=== PATIENT | male | born 1970 | race Two or more races ===

== ENCOUNTER 2018-03-13 11:06 | Inpatient (IN) | payer OTHER ==
[2018-03-13 11:48] VITALS: BMI 26.8
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
[2018-03-13] MEDS ORDERED: MAG HYDROX/AL HYDROX/SIMETH 30 ML UNIT-DOSE CUP PO PRN (14:55)
[2018-03-13] MEDS ORDERED: IBUPROFEN 400 MG TABLET (FP) PO PRN (14:55)
[2018-03-13] MEDS ORDERED: P-EPHED 60MG/TRIPROLIDI 2.5MG TABLET PO PRN (14:55)
[2018-03-13] MEDS ORDERED: ACETAMINOPHEN 325 MG TABLET (FP) PO PRN (14:55)
[2018-03-13] MEDS ORDERED: MAGNESIUM HYDROX 2400MG/30ML ORAL SUSPENSION 30 ML CUP PO PRN (14:55)
[2018-03-13] MEDS ORDERED: MAGNESIUM CITRATE 300 ML BOTTLE PO PRN (14:55)
[2018-03-13] MEDS ORDERED: LOPERAMIDE HCL 2 MG CAPSULE PO PRN (14:55)
[2018-03-13] MEDS ORDERED: MENTHOL/PHENOL 1 EACH UD MM PRN (14:55)
[2018-03-13] MEDS ORDERED: guaiFENesin/D-METHORPHAN HB 10 ML UNIT-DOSE CUPS PO PRN (14:55)
[2018-03-13] MEDS: chlordiazePOXIDE HCL 25 MG CAPSULE PO SCH ×2 (17:14→22:10)
[2018-03-13] MEDS: NICOTINE 21 MG/24 HOURS TOPICAL PATCH TD SCH (17:17)
[2018-03-13] MEDS: THIAMINE HCL 100 MG TABLET (FP) PO SCH (22:10)
[2018-03-14 02:20] LABS: URINE APPEARANCE CLEAR; URINE BILIRUBIN NEGATIVE (<2.0 mg/dL); URINE COLOR LTYELLOW; URINE GLUCOSE (UA) NEGATIVE (NEGATIVE); URINE KETONE NEGATIVE (NEGATIVE); URINE LEUK ESTERASE NEGATIVE (NEGATIVE); URINE NITRITE NEGATIVE (NEGATIVE); URINE PROTEIN NEGATIVE (NEGATIVE); URINE UROBILINOGEN NEGATIVE mg/dL (0.2-1.0)
[2018-03-14] MEDS: chlordiazePOXIDE HCL 25 MG CAPSULE PO SCH ×4 (06:29→22:21)
--- NOTE | 2018-03-14 07:46 | PN ---
[facility] Progress Note Note: CLIENT WAS OBSERVED OVERNIGHT FOR OVER SEDATION. INFORMED CLIENT TOOK 100 MG OF METHADONE YESTERDAY PRIOR TO HIS ADMISSION ( NL MMTP DOSE IS 50 MG). CLIENT WAS FOUND TO BE VERY DROWSY/ AROUSABLE WITH VERBAL STIMULI BUT QUICKLY DRIFTING OFF TO SLEEP. HIS SPEECH IS GARBLED AND SLURRED, CONFUSED TO PLACE AND TIME BUT ORIENTED TO SELF. HEENT- NCAT, PERRLA, UNABLE TO FOLLOW COMMANDS, ASKING TO GO TO BATHROOM CV- BRADYCARDIA AT 55 BPM LUNGS-CTAB O2 SAT 97% NEURO CHECKS Q 30 MINUTES VS Q 2 HOURS ASPIRATION PRECAUTION URINAL AT BEDSIDE ALL SEDATING MEDS WERE HELD OVERNIGHT AND FALL PRECAUTION ORDERED AND MAINTAINED. CLIENT WAS REEVALUATED THIS MORNING A/O X3, CONVERSING WELL, FOLLOWING COMMANDS APPROPRIATELY, LYING IN BED C/O WEAKNESS CLIENT WAS ENCOURAGED TO INCREASE PO HYDRATION AND TO CALL FOR ASSIST OOB. HE WAS ALSO INFORMED ABOUT HIS RISK FOR OVER DOSING WHEN DOUBLE DOSING ON HIS METHADONE TO INCLUDE . CLIENT VERBALIZED HIS UNDERSTANDING AND WAS VERY APOLOGETIC. Vital Signs - 8 hr 03/14/18 03/14/18 03/14/18 00:00 00:30 02:00 Temperature 97.5 F L 97.7 F Pulse Rate 55 L 50 L Respiratory 20 20 18 Rate Blood Pressure 99/60 104/69 03/14/18 03/14/18 03/14/18 03:30 04:00 06:00 Temperature 97.5 F L 97.5 F L Pulse Rate 97 H 56 L Respiratory 20 18 18 Rate Blood Pressure 113/61 107/60
[2018-03-14] MEDS ORDERED: BENZOCAINE 20 % GEL TUBE MM PRN (08:51)
[2018-03-14 10:43] LABS: HEMATOCRIT 38.8 % (35.4-49); HEMOGLOBIN 12.5 GM/dL (11.7-16.9); MCH 29.5 pg (25.7-33.7); MCHC 32.1 g/dl (32.0-35.9); MEAN CELL VOLUME 91.9 fl (80-96); MEAN PLT VOLUME 9.5 fl (7.5-11.1); PLATELET COUNT 146 K/MM3 (134-434); RBC 4.23 M/mm3 (4.00-5.60); RDW 14.4 % (11.9-15.9); WHITE BLOOD COUNT 4.2 K/mm3 (4.0-10.0)
[2018-03-14 10:47] LABS: ALBUMIN 3.2 g/dl (3.4-5.0); ALK PHOS 88 U/L (45-117); ANION GAP 8 MMOL/L (8-16); BILIRUBIN,TOTAL 0.5 mg/dL (0.2-1); BLOOD UREA NITROGEN 11 mg/dL (7-18); CALCIUM 8.3 mg/dL (8.5-10.1); CHLORIDE 103 mmol/L (98-107); CO2 29 mmol/L (21-32); CREATININE 0.7 mg/dL (0.55-1.3); GLUCOSE,RANDOM 101 mg/dL (74-106); POTASSIUM 4.1 mmol/L (3.5-5.1); SGOT/AST 24 U/L (15-37); SGPT/ALT 28 U/L (13-61); SODIUM 140 mmol/L (136-145); TOT PROT 6.1 g/dl (6.4-8.2)
[2018-03-14] MEDS: NICOTINE 21 MG/24 HOURS TOPICAL PATCH TD SCH (12:20)
[2018-03-14] MEDS: CHLORHEXIDINE GLUCONATE 0.12% 15ML CUP MM SCH ×2 (12:21→22:22)
[2018-03-14] MEDS: PRENATAL VITAMINS W/ FOLIC ACID TABLET (FP) PO SCH (12:21)
[2018-03-14] MEDS ORDERED: KETOROLAC TROMETHAMINE 10 MG TABLET PO PRN (15:49)
--- NOTE | 2018-03-14 16:05 | PN ---
S CIWA - CIWA Score Nausea/Vomitin-No Nausea/No Vomiting Muscle Tremors: 3 Anxiety: 2 Agitation: 2 Paroxysmal Sweats: 1-Minimal Palms Moist Orientation: 0-Oriented Tacttile Disturbances: 0-None Auditory Disturbances: 0-None Visual Disturbances: 0-None Headache: 1-Very Mild CIWA-Ar Total Score: 9 [facility] Progress Note (SOAP) Subjective: c/o tooth ache unable to open the mouth for examination pounding on the wall yelling out loud pacing on [address] "tooth pain" demand the tooth the be pulled out screaming loud on [address] maintaining the right and the dignity of the patient preference that ambulance was called and information provided to the ER for tooth ache patient return from ER had one dose toradol denies pain smile "they are nice" patient has double dose methadone yesterday observed over night appears feeling better ADL's independent but "tooth ache" treated with toradol with good effect toradol prn for tooth ache Objective: 03/14/18 16:10 Vital Signs Temperature 97.9 F 03/14/18 14:15 Pulse Rate 61 03/14/18 14:15 Respiratory Rate 16 03/14/18 14:15 Blood Pressure 128/78 03/14/18 14:15 O2 Sat by Pulse Oximetry (%) Laboratory Last Values WBC 4.2 K/mm3 (4.0-10.0) 03/14/18 07:10 RBC 4.23 M/mm3 (4.00-5.60) 03/14/18 07:10 Hgb 12.5 GM/dL (11.7-16.9) 03/14/18 07:10 Hct 38.8 % (35.4-49) 03/14/18 07:10 MCV 91.9 fl (80-96) 03/14/18 07:10 MCH 29.5 pg (25.7-33.7) 03/14/18 07:10 MCHC 32.1 g/dl (32.0-35.9) 03/14/18 07:10 RDW 14.4 % (11.9-15.9) 03/14/18 07:10 Plt Count 146 K/MM3 (134-434) 03/14/18 07:10 MPV 9.5 fl (7.5-11.1) 03/14/18 07:10 Sodium 140 mmol/L (136-145) 03/14/18 07:10 Potassium 4.1 mmol/L (3.5-5.1) 03/14/18 07:10 Chloride 103 mmol/L (98-107) 03/14/18 07:10 Carbon Dioxide 29 mmol/L (21-32) 03/14/18 07:10 Anion Gap 8 MMOL/L (8-16) 03/14/18 07:10 BUN 11 mg/dL (7-18) 03/14/18 07:10 Creatinine 0.7 mg/dL (0.55-1.3) 03/14/18 07:10 Creat Clearance w eGFR > 60 (>60) 03/14/18 07:10 Random Glucose 101 mg/dL (74-106) 03/14/18 07:10 Calcium 8.3 mg/dL (8.5-10.1) L 03/14/18 07:10 Total Bilirubin 0.5 mg/dL (0.2-1) 03/14/18 07:10 AST 24 U/L (15-37) 03/14/18 07:10 ALT 28 U/L (13-61) 03/14/18 07:10 Alkaline Phosphatase 88 U/L (45-117) 03/14/18 07:10 Total Protein 6.1 g/dl (6.4-8.2) L 03/14/18 07:10 Albumin 3.2 g/dl (3.4-5.0) L 03/14/18 07:10 Urine Color Ltyellow 03/14/18 01:00 Urine Appearance Clear 03/14/18 01:00 Urine pH 6.0 (5.0-8.0) 03/14/18 01:00 Ur Specific [place] 1.012 (1.010-1.035) 03/14/18 01:00 Urine Protein Negative (NEGATIVE) 03/14/18 01:00 Urine Glucose (UA) Negative (NEGATIVE) 03/14/18 01:00 Urine Ketones Negative (NEGATIVE) 03/14/18 01:00 Urine Blood Negative (NEGATIVE) 03/14/18 01:00 Urine Nitrite Negative (NEGATIVE) 03/14/18 01:00 Urine Bilirubin Negative (<2.0 mg/dL) 03/14/18 01:00 Urine Urobilinogen Negative mg/dL (0.2-1.0) 03/14/18 01:00 Ur Leukocyte Esterase Negative (NEGATIVE) 03/14/18 01:00 RPR Titer Nonreactive (NONREACTIVE) 03/14/18 07:10 lab noted Assessment: 03/14/18 16:14 alcohol withdrawal sx tooth ache Plan: continue detox
[2018-03-14] MEDS: THIAMINE HCL 100 MG TABLET (FP) PO SCH (22:21)
[2018-03-15] MEDS: chlordiazePOXIDE HCL 25 MG CAPSULE PO SCH ×2 (05:40→10:05)
[2018-03-15] MEDS ORDERED: METHADONE HCL 10 MG TABLET PO ONE (08:38)
[2018-03-15] MEDS ORDERED: METHADONE 40 MG, METHADONE 10 MG PO ONE (09:00)
[2018-03-15] MEDS ORDERED: METHADONE HCL 10 MG TABLET ONE (09:05)
[2018-03-15] MEDS ORDERED: METHADONE HCL 40 MG DISPERSABLE TABLET ONE (09:05)
[2018-03-15] MEDS: CHLORHEXIDINE GLUCONATE 0.12% 15ML CUP MM SCH ×2 (10:06→22:07)
[2018-03-15] MEDS: PRENATAL VITAMINS W/ FOLIC ACID TABLET (FP) PO SCH (10:06)
[2018-03-15] MEDS: NICOTINE 21 MG/24 HOURS TOPICAL PATCH TD SCH (10:08)
--- NOTE | 2018-03-15 10:54 | PN ---
[facility] CIWA - CIWA Score Nausea/Vomitin-No Nausea/No Vomiting Muscle Tremors: 3 Anxiety: 2 Agitation: 2 Paroxysmal Sweats: 2 Orientation: 0-Oriented Tacttile Disturbances: 0-None Auditory Disturbances: 0-None Visual Disturbances: 0-None Headache: 0-None Present CIWA-Ar Total Score: 9 [facility] Progress Note (SOAP) Subjective: anxiety sweats mild shakes interrupted sleep Objective: 03/15/18 10:53 Vital Signs Temperature 97.7 F 03/15/18 09:14 Pulse Rate 58 L 03/15/18 09:14 Respiratory Rate 18 03/15/18 09:14 Blood Pressure 113/71 03/15/18 09:14 O2 Sat by Pulse Oximetry (%) Laboratory Tests 03/14/18 03/14/18 03/14/18 01:00 07:10 07:10 WBC 4.2 RBC 4.23 Hgb 12.5 Hct 38.8 MCV 91.9 MCH 29.5 MCHC 32.1 RDW 14.4 Plt Count 146 MPV 9.5 Sodium 140 Potassium 4.1 Chloride 103 Carbon Dioxide 29 Anion Gap 8 BUN 11 Creatinine 0.7 Creat Clearance w eGFR > 60 Random Glucose 101 Calcium 8.3 L Total Bilirubin 0.5 AST 24 ALT 28 Alkaline Phosphatase 88 Total Protein 6.1 L Albumin 3.2 L Urine Color Ltyellow Urine Appearance Clear Urine pH 6.0 Ur Specific [place] 1.012 Urine Protein Negative Urine Glucose (UA) Negative Urine Ketones Negative Urine Blood Negative Urine Nitrite Negative Urine Bilirubin Negative Urine Urobilinogen Negative Ur Leukocyte Esterase Negative RPR Titer 03/14/18 07:10 WBC RBC Hgb Hct MCV MCH MCHC RDW Plt Count MPV Sodium Potassium Chloride Carbon Dioxide Anion Gap BUN Creatinine Creat Clearance w eGFR Random Glucose Calcium Total Bilirubin AST ALT Alkaline Phosphatase Total Protein Albumin Urine Color Urine Appearance Urine pH Ur Specific [place] Urine Protein Urine Glucose (UA) Urine Ketones Urine Blood Urine Nitrite Urine Bilirubin Urine Urobilinogen Ur Leukocyte Esterase RPR Titer Nonreactive aaox3 ambulating no acute distress Assessment: 03/15/18 10:53 withdrawal sx Plan: continue detox increase fluids
[2018-03-15] MEDS: chlordiazePOXIDE 5 MG CAPSULE PO SCH ×2 (17:47→22:07)
[2018-03-15] MEDS: THIAMINE HCL 100 MG TABLET (FP) PO SCH (22:07)
[2018-03-15] MEDS: MELATONIN 5 MG TABLETS PO PRN (22:07)
[2018-03-16] MEDS ORDERED: METHADONE HCL 40 MG DISPERSABLE TABLET ONE (05:43)
[2018-03-16] MEDS ORDERED: METHADONE HCL 10 MG TABLET ONE (05:43)
[2018-03-16] MEDS: METHADONE 40 MG, METHADONE 10 MG PO SCH (05:44)
[2018-03-16] MEDS: chlordiazePOXIDE 5 MG CAPSULE PO SCH ×2 (05:44→10:26)
[2018-03-16] MEDS ORDERED: METHADONE HCL 40 MG DISPERSABLE TABLET PO SCH (06:00)
[2018-03-16] MEDS: chlordiazePOXIDE HCL 25 MG CAPSULE PO PRN ×2 (08:48→12:47)
[2018-03-16] MEDS: PRENATAL VITAMINS W/ FOLIC ACID TABLET (FP) PO SCH (10:26)
[2018-03-16] MEDS: CHLORHEXIDINE GLUCONATE 0.12% 15ML CUP MM SCH ×2 (10:26→22:11)
[2018-03-16] MEDS: NICOTINE 21 MG/24 HOURS TOPICAL PATCH TD SCH (10:27)
--- NOTE | 2018-03-16 10:40 | PN ---
[facility] Progress Note (SOAP) Subjective: feeling better little anxious Objective: 03/16/18 10:38 Vital Signs Temperature 97.7 F 03/16/18 09:20 Pulse Rate 72 03/16/18 09:20 Respiratory Rate 18 03/16/18 09:20 Blood Pressure 124/76 03/16/18 09:20 O2 Sat by Pulse Oximetry (%) aaox3 ambulating no acute distress Assessment: 03/16/18 10:39 mild withdrawal sx Plan: continue detox increase fluids d/c in am
[2018-03-16] MEDS: chlordiazePOXIDE HCL 10 MG CAPSULE PO SCH ×2 (17:32→22:11)
[2018-03-16] MEDS: THIAMINE HCL 100 MG TABLET (FP) PO SCH (22:11)
[2018-03-16] MEDS: MELATONIN 5 MG TABLETS PO PRN (22:11)
[2018-03-17] MEDS ORDERED: METHADONE HCL 10 MG TABLET ONE (05:56)
[2018-03-17] MEDS ORDERED: METHADONE HCL 40 MG DISPERSABLE TABLET ONE (05:56)
[2018-03-17] MEDS: chlordiazePOXIDE HCL 10 MG CAPSULE PO SCH (05:57)
[2018-03-17] MEDS: METHADONE 40 MG, METHADONE 10 MG PO SCH (05:57)
[2018-03-17 07:12] VITALS: BP 130/71; PULSE 63; TEMP 97.9
--- NOTE | 2018-03-17 09:08 | DS ---
[facility] Detox Discharge Summary Admission Date: 03/13/18 Discharge Date: 03/17/18 - History Present History: Alcohol Dependence, Sedative Dependence, MMTP - Physical Exam Results Vital Signs: Vital Signs Temperature 97.9 F 03/17/18 07:12 Pulse Rate 63 03/17/18 07:12 Respiratory Rate 18 03/17/18 07:12 Blood Pressure 130/71 03/17/18 07:12 O2 Sat by Pulse Oximetry (%) - Treatment Hospital Course: Detox Protocol Followed, Detoxed Safely, Responded well, Discharged Condition Good, Rehab Referral Accepted - Medication Discharge Medications: Ambulatory Orders Methadone [Dolophine -] 50 mg PO DAILY 03/13/18 - Diagnosis (1) Mild alprazolam abuse Current Visit: Yes Status: Acute (2) Nicotine dependence Current Visit: Yes Status: Chronic Qualifiers: Nicotine product type: cigarettes Substance use status: uncomplicated Qualified Code(s): F17.210 - Nicotine dependence, cigarettes, uncomplicated (3) Alcohol dependence with uncomplicated withdrawal Current Visit: Yes Status: Chronic (4) Back pain Current Visit: Yes Status: Chronic Qualifiers: Back pain location: low back pain Chronicity: chronic Back pain laterality: bilateral Sciatica presence: without sciatica Qualified Code(s) : M54.5 - Low back pain; G89.29 - Other chronic pain (5) Methadone maintenance therapy patient Current Visit: Yes Status: Chronic (6) Tooth ache Current Visit: No Status: Acute - AMA Did Patient Leave Against Medical Advice: No (referred to outpatient)
== END 2018-03-17 08:59 | disposition home or self-care (01) | DRG 773 ==
LOC: YASAS 11:06 → Y6N 15:35
PROC: HZ2ZZZZ Detoxification Services for Substance Abuse Treatment (ICD-10-PCS; principal; 2018-03-13)
DX: F10.230 Alcohol dependence with withdrawal, uncomplicated (principal); F13.10 Sedative, hypnotic or anxiolytic abuse, uncomplicated; F11.20 Opioid dependence, uncomplicated; F17.210 Nicotine dependence, cigarettes, uncomplicated; M54.5 Low back pain; G89.29 Other chronic pain; K08.89 Other specified disorders of teeth and supporting structures; Z98.890 Other specified postprocedural states
CPT/HCPCS: 36415; 80053; 81003; 85027; 86593

== ENCOUNTER 2018-03-14 09:57 | Emergency (ER) | payer OTHER ==
[2018-03-14 10:07] VITALS: BP 111/60; PULSE 63; TEMP 98.7; BMI 26.8
[2018-03-14] MEDS ORDERED: IBUPROFEN 400 MG TABLET (FP) PO ONE (10:27)
[2018-03-14] MEDS ORDERED: KETOROLAC TROMETHAMINE 30 MG/1 ML VIAL IM ONE (10:29)
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
[2018-03-14] MEDS ORDERED: KETOROLAC TROMETHAMINE 30 MG/1 ML VIAL ONE (10:44)
--- NOTE | 2018-03-14 10:54 | PDOC ---
Attending Attestation - Resident Resident Name: Shaylee Osbornean - ED Attending Attestation I have performed the following: I have examined & evaluated the patient, The case was reviewed & discussed with the resident, I agree w/resident's findings & plan, Exceptions are as noted - HPI HPI: 03/14/18 10:51 47 yo male here from [facility] where he is detoxing from heroin. c/o pain. pt describing dental pain left upper gum line. has had previous molar extraction in that area.no facial swelling. no jaw pain. no trismus. no f/c no other complaints. - Physicial Exam PE: 03/14/18 10:52 awake alert lungs clera bilaterally heart rrr no mrg abd soft nt nd. ext wwp. HEENT left upper hand weaver molar adentulous posteriorly. no gum swelling. no fluctuance. small dental caries to anterior molars. no trismuc. no swelling. - Medical Decision Making 03/14/18 10:53 pt with pain on gum line. no sx of abscess. likley exacerbated due to withdrawal of heroin. recommend nsaids, and dental followup outpatient when dc from [facility]. called 6 N at [facility] to inform them pt will be returning. to detox.
[2018-03-14] MEDS ORDERED: BENZOCAINE 20 % GEL TUBE MM ONE (11:09)
[2018-03-14] MEDS ORDERED: BENZOCAINE 10 % GEL TUBE MM ONE (11:15)
== END 2018-03-14 11:49 | disposition home or self-care (01) ==
LOC: JER 09:57
PROC: 3E0233Z Introduction of Anti-inflammatory into Muscle, Percutaneous Approach (ICD-10-PCS; principal; 2018-03-14)
DX: K08.89 Other specified disorders of teeth and supporting structures (principal); F11.10 Opioid abuse, uncomplicated
CPT/HCPCS: 96372; 99282-25

== ENCOUNTER 2018-04-14 09:54 | Inpatient (IN) | payer OTHER ==
[2018-04-14 10:08] VITALS: BMI 26.6
--- NOTE | 2018-04-14 12:11 | HP ---
CIWA Score Nausea/Vomitin Muscle Tremors: 2 Anxiety: 2 Agitation: 2 Paroxysmal Sweats: 1-Minimal Palms Moist Orientation: 0-Oriented Tacttile Disturbances: 1-Very Mild Itch/Numbness Auditory Disturbances: 1-Very Mild Visual Disturbances: 0-None Headache: 2-Mild CIWA-Ar Total Score: 13 - Admission Criteria OASAS Guidelines: Admission for Medically Managed Detox: Requires at least one of the followin. CIWA greater than 12 2. Seizures within the past 24 hours 3. Delirium tremens within the past 24 hours 4. Hallucinations within the past 24 hours 5. Acute intervention needed for co occurring medical disorder 6. Acute intervention needed for co occurring psychiatric disorder 7. Severe withdrawal that cannot be handled at a lower level of care (continued vomiting, continued diarrhea, abnormal vital signs) requiring intravenous medication and/or fluids 8. Patient presents the following: CIWA greater than 12 Admission Criteria Met: Admission criteria met Admission ROS BHS - HPI Chief Complaint: I need help to stop using xanax,heroin,mmtp 60 mgs/day,last medicated today Allergies/Adverse Reactions: Allergies Allergy/AdvReac Type Severity Reaction Status Date / Time No Known Allergies Allergy Verified 04/14/18 11:30 History of Present Illness: this 47 years old male with xanax,heroin dependence,on mmtp 60 mgs/day,last medicated today, nicotine dependence depression last detox 03/13/18 to 03/17/18 plan for rehab after detox history of surgery for nasal polyp Exam Limitations: No Limitations - Ebola screening Have you traveled outside of the country in the last 21 days: No Have you had contact with anyone from an Ebola affected area: No Have you been sick,other than usual withdrawal symptoms: No Do you have a fever: No - Review of Systems Constitutional: Chills, Loss of Appetite, Malaise, Night Sweats, Changes in sleep, Weakness EENT: reports: Tearing, Nose Congestion Respiratory: reports: No Symptoms reported Cardiac: reports: No Symptoms Reported GI: reports: Diarrhea, Nausea, Poor Appetite, Abdominal cramping Integumentary: reports: Dryness Neuro: reports: Headache, Tremors Endocrine: reports: No Symptoms Reported Hematology: reports: No Symptoms Reported Psychiatric: reports: No Sypmtoms Reported, Judgement Intact, Mood/Affect Appropiate, Orientated x3, Depressed Other Systems: Reviewed and Negative Patient History - Patient Medical History Hx Anemia: No Hx Asthma: No Hx Chronic Obstructive Pulmonary Disease (COPD): No Hx Cancer: No Hx Cardiac Disorders: No Hx Congestive Heart Failure: No Hx Hypertension: No HX Cerebrovascular Accident: No Hx Seizures: No Hx Diabetes: No Hx Gastrointestinal Disorders: No Hx Liver Disease: No Hx Genitourinary Disorders: No Hx Sexually Transmitted Disorders: No Hx Renal Disease (ESRD): No Hx Thyroid Disease: No Hx Human Immunodeficiency Virus (HIV): No (last 03/30 negative) Hx Hepatitis C: No Hx Depression: Yes (non compliant with medication) Hx Suicide Attempt: No Hx Bipolar Disorder: No Hx Schizophrenia: No Other Medical History: no suicidal,no homicidal - Patient Surgical History Past Surgical History: Yes Hx Neurologic Surgery: No Hx Cataract Extraction: No Hx Cardiac Surgery: No Hx Lung Surgery: No Hx Breast Surgery: No Hx Breast Biopsy: No Hx Abdominal Surgery: No Hx Appendectomy: Yes (1987) Hx Cholecystectomy: No Hx Section: No Hx Orthopedic Surgery: Yes (Laminectomy in 2011 l4,l5) Other Surgical History: nasal polyp both last 2013 Anesthesia Reaction: No - PPD History Previous Implant?: Yes Documented Results: Negative w/proof Implanted On Prior R Admission?: Yes Date: 03/15/18 Results: 0 mm PPD to be Administered?: No - Smoking Cessation Smoking history: Current every day smoker Have you smoked in the past 12 months: Yes Aproximately how many cigarettes per day: 20 Cigars Per Day: 0 Hx Chewing Tobacco Use: No Initiated information on smoking cessation: Yes 'Breaking Loose' booklet given: 04/14/18 - Substance & Tx. History Hx Alcohol Use: No Hx Substance Use: Yes Substance Use Type: Heroin, Tranquilizers - Substances Abused Heroin Route: Injection Frequency: Daily Amount used: 10 bags Age of first use: 10 Date of Last Use: 04/13/18 Xanax Route: Oral Frequency: Daily Amount used: 8mg Age of first use: 46 Date of Last Use: 04/13/18 Family Disease History - Family Disease History Family Disease History: Other: Father (living, healthy,), Mother (living, healthy), Brother (three - healthy), Sister (one - healthy), Son (2 - healthy), Daughter (1 - healthy) Admission Physical Exam BHS - Vital Signs Vital Signs: Vital Signs - 24 hr 04/14/18 10:04 Temperature 97.3 F L Pulse Rate 73 Respiratory 20 Rate Blood Pressure 120/73 - Physical General Appearance: Yes: Moderate Distress, Tremorous, Irritable, Sweating, Anxious HEENTM: Yes: Normal ENT Inspection, ABE, Pharynx Normal, Other (nasal congestion) Respiratory: Yes: Lungs Clear, Normal Breath Sounds, No Respiratory Distress Neck: Yes: Within Normal Limits, Supple, Trachea in good position Breast: Yes: Within Normal Limits Cardiology: Yes: Regular Rhythm, Regular Rate, S1, S2 Abdominal: Yes: Within Normal Limits, Normal Bowel Sounds, Non Tender, Soft Genitourinary: Yes: Within Normal Limits Musculoskeletal: Yes: full range of Motion, Back pain, Muscle Pain Extremities: Yes: Within Normal Limits, Normal Range of Motion, Tremors Neurological: Yes: vp ad products and planning II-XII NML intact, Fully Oriented, Alert, Motor Strength 5/5 Integumentary: Yes: Dry - Diagnostic (1) Uncomplicated sedative, hypnotic or anxiolytic withdrawal Current Visit: Yes Status: Acute (2) Methadone maintenance therapy patient Current Visit: No Status: Chronic (3) Heroin abuse Current Visit: Yes Status: Acute (4) Back pain Current Visit: No Status: Chronic Qualifiers: Back pain location: low back pain Chronicity: chronic Back pain laterality: bilateral Sciatica presence: without sciatica Qualified Code(s) : M54.5 - Low back pain; G89.29 - Other chronic pain (5) History of back surgery Current Visit: Yes Status: Acute (6) History of appendectomy Current Visit: Yes Status: Acute (7) Nasal polyp Current Visit: Yes Status: Acute Cleared for Admission [facility] - Detox or Rehab [facility] Level of Care: Medically Managed Detox Regimen/Protocol: Valium [facility] Breath Alcohol Content Breath Alcohol Content: 0 Urine Drug Screen - Results Drug Screen Negative: No Urine Drug Screen Results: MARI-Cocaine, OPI-Opiates, BZO-Benzodiazepines, MTD- Methadone
[2018-04-14] MEDS ORDERED: MAG HYDROX/AL HYDROX/SIMETH 30 ML UNIT-DOSE CUP PO PRN (12:26)
[2018-04-14] MEDS ORDERED: LOPERAMIDE HCL 2 MG CAPSULE PO PRN (12:26)
[2018-04-14] MEDS ORDERED: ACETAMINOPHEN 325 MG TABLET (FP) PO PRN (12:26)
[2018-04-14] MEDS ORDERED: MENTHOL/PHENOL 1 EACH UD MM PRN (12:26)
[2018-04-14] MEDS ORDERED: guaiFENesin/D-METHORPHAN HB 10 ML UNIT-DOSE CUPS PO PRN (12:26)
[2018-04-14] MEDS ORDERED: MAGNESIUM CITRATE 300 ML BOTTLE PO PRN (12:26)
[2018-04-14] MEDS ORDERED: MAGNESIUM HYDROX 2400MG/30ML ORAL SUSPENSION 30 ML CUP PO PRN (12:26)
[2018-04-14] MEDS ORDERED: IBUPROFEN 400 MG TABLET (FP) PO PRN (12:26)
[2018-04-14] MEDS ORDERED: diazePAM 5 MG TABLET PO ONE (12:55)
[2018-04-14] MEDS: NICOTINE 21 MG/24 HOURS TOPICAL PATCH TD SCH (13:17)
[2018-04-14] MEDS: diazePAM 5 MG TABLET PO SCH ×2 (14:39→22:13)
[2018-04-14] MEDS: FLUTICASONE PROP 0.05% 16 GM NASAL SPRAY NS SCH ×2 (15:00→22:13)
[2018-04-14] MEDS: diazePAM 5 MG TABLET PO PRN ×2 (17:31→22:13)
[2018-04-14] MEDS: THIAMINE HCL 100 MG TABLET (FP) PO SCH (22:13)
[2018-04-15] MEDS ORDERED: METHADONE HCL 10 MG TABLET ONE (04:53)
[2018-04-15] MEDS ORDERED: METHADONE HCL 40 MG DISPERSABLE TABLET ONE (04:53)
[2018-04-15] MEDS: diazePAM 5 MG TABLET PO SCH ×3 (05:24→22:48)
[2018-04-15] MEDS: METHADONE 40 MG, METHADONE 20 MG PO SCH (05:25)
[2018-04-15] MEDS: SODIUM CHLORIDE NASAL SPRAY 44 ML BOTTLE NS PRN ×3 (05:27→19:16)
[2018-04-15] MEDS ORDERED: METHADONE HCL 10 MG TABLET PO SCH (06:00)
[2018-04-15] MEDS: diazePAM 5 MG TABLET PO PRN ×3 (08:38→22:09)
[2018-04-15 10:10] LABS: HEMATOCRIT 40.7 % (35.4-49); HEMOGLOBIN 13.1 GM/dL (11.7-16.9); MCH 29.7 pg (25.7-33.7); MCHC 32.1 g/dl (32.0-35.9); MEAN CELL VOLUME 92.6 fl (80-96); MEAN PLT VOLUME 10.3 fl (7.5-11.1); PLATELET COUNT 169 K/MM3 (134-434); RBC 4.39 M/mm3 (4.00-5.60); RDW 14.4 % (11.9-15.9); WHITE BLOOD COUNT 5.4 K/mm3 (4.0-10.0)
[2018-04-15] MEDS: PRENATAL VITAMINS W/ FOLIC ACID TABLET (FP) PO SCH (10:11)
[2018-04-15] MEDS: NICOTINE 21 MG/24 HOURS TOPICAL PATCH TD SCH (10:12)
[2018-04-15] MEDS: FLUTICASONE PROP 0.05% 16 GM NASAL SPRAY NS SCH ×2 (10:13→22:08)
[2018-04-15 10:55] LABS: ALBUMIN 3.6 g/dl (3.4-5.0); ALK PHOS 99 U/L (45-117); ANION GAP 8 MMOL/L (8-16); BILIRUBIN,TOTAL 0.5 mg/dL (0.2-1); BLOOD UREA NITROGEN 21 mg/dL (7-18); CALCIUM 8.3 mg/dL (8.5-10.1); CHLORIDE 106 mmol/L (98-107); CO2 26 mmol/L (21-32); GLUCOSE,RANDOM 132 mg/dL (74-106); POTASSIUM 4.3 mmol/L (3.5-5.1); SGOT/AST 29 U/L (15-37); SGPT/ALT 36 U/L (13-61); SODIUM 139 mmol/L (136-145); TOT PROT 6.8 g/dl (6.4-8.2)
[2018-04-15] MEDS: P-EPHED 60MG/TRIPROLIDI 2.5MG TABLET PO PRN ×2 (12:12→23:51)
--- NOTE | 2018-04-15 17:06 | PN ---
[facility] CIWA - CIWA Score Nausea/Vomitin-No Nausea/No Vomiting Muscle Tremors: None Anxiety: 4-Mod. Anxious/Guarded Agitation: 4-Moderately Restless Paroxysmal Sweats: 3 Orientation: 0-Oriented Tacttile Disturbances: 2-Mild Itch/Numbness/Burn Auditory Disturbances: 0-None Visual Disturbances: 0-None Headache: 0-None Present CIWA-Ar Total Score: 13 BHS Progress Note (SOAP) Subjective: Nasal Congestion, Sweating, Constipation. Objective: PATIENT A & O X 3, OBSERVED AMBULATING ON UNIT. IN NO ACUTE DISTRESS. 04/15/18 17:04 Vital Signs Temperature 98.1 F 04/15/18 17:00 Pulse Rate 73 04/15/18 17:00 Respiratory Rate 18 04/15/18 17:00 Blood Pressure 114/67 04/15/18 17:00 O2 Sat by Pulse Oximetry (%) Laboratory Tests 04/15/18 04/15/18 04/15/18 06:00 06:00 06:00 WBC 5.4 RBC 4.39 Hgb 13.1 Hct 40.7 MCV 92.6 MCH 29.7 MCHC 32.1 RDW 14.4 Plt Count 169 MPV 10.3 Sodium 139 Potassium 4.3 Chloride 106 Carbon Dioxide 26 Anion Gap 8 BUN 21 H Creatinine 1.0 Creat Clearance w eGFR > 60 Random Glucose 132 H Calcium 8.3 L Total Bilirubin 0.5 AST 29 ALT 36 Alkaline Phosphatase 99 Total Protein 6.8 Albumin 3.6 RPR Titer Nonreactive LABS NOTED. Assessment: 04/15/18 17:05 WITHDRAWAL SYMPTOMS. Plan: CONTINUE DETOX. INCREASE DAILY PO FLUID INTAKE. FLONASE, PRN ACTIFED FOR NASAL CONGESTION. PRN MOM FOR CONSTIPATION.
[2018-04-15] MEDS: THIAMINE HCL 100 MG TABLET (FP) PO SCH (22:08)
[2018-04-15] MEDS: MELATONIN 5 MG TABLETS PO PRN (22:09)
[2018-04-16] MEDS ORDERED: METHADONE HCL 10 MG TABLET ONE (04:18)
[2018-04-16] MEDS ORDERED: METHADONE HCL 40 MG DISPERSABLE TABLET ONE (04:18)
[2018-04-16] MEDS: METHADONE 40 MG, METHADONE 20 MG PO SCH (05:10)
[2018-04-16] MEDS: SODIUM CHLORIDE NASAL SPRAY 44 ML BOTTLE NS PRN (05:11)
[2018-04-16] MEDS: diazePAM 5 MG TABLET PO PRN ×3 (06:59→17:28)
[2018-04-16] MEDS: NICOTINE 21 MG/24 HOURS TOPICAL PATCH TD SCH (11:09)
[2018-04-16] MEDS: FLUTICASONE PROP 0.05% 16 GM NASAL SPRAY NS SCH ×2 (11:10→22:08)
[2018-04-16] MEDS: diazePAM 5 MG TABLET PO SCH ×2 (11:10→22:09)
[2018-04-16] MEDS: PRENATAL VITAMINS W/ FOLIC ACID TABLET (FP) PO SCH (11:10)
--- NOTE | 2018-04-16 18:23 | PN ---
S CIWA - CIWA Score Nausea/Vomitin-No Nausea/No Vomiting Muscle Tremors: None Anxiety: 4-Mod. Anxious/Guarded Agitation: 0-Normal Activity Paroxysmal Sweats: No Perspiration Orientation: 0-Oriented Tacttile Disturbances: 2-Mild Itch/Numbness/Burn Auditory Disturbances: 0-None Visual Disturbances: 2-Mild Sensitivity Headache: 0-None Present CIWA-Ar Total Score: 8 BHS Progress Note (SOAP) Subjective: Nasal Congestion, Interrupted Sleep, Anxious. Objective: PATIENT A & O X 3, OBSERVED AMBULATING ON UNIT. IN NO ACUTE DISTRESS. 04/16/18 18:22 Vital Signs Temperature 98.1 F 04/16/18 15:50 Pulse Rate 76 04/16/18 15:50 Respiratory Rate 16 04/16/18 15:50 Blood Pressure 122/77 04/16/18 15:50 O2 Sat by Pulse Oximetry (%) Laboratory Tests 04/15/18 04/15/18 04/15/18 06:00 06:00 06:00 WBC 5.4 RBC 4.39 Hgb 13.1 Hct 40.7 MCV 92.6 MCH 29.7 MCHC 32.1 RDW 14.4 Plt Count 169 MPV 10.3 Sodium 139 Potassium 4.3 Chloride 106 Carbon Dioxide 26 Anion Gap 8 BUN 21 H Creatinine 1.0 Creat Clearance w eGFR > 60 Random Glucose 132 H Calcium 8.3 L Total Bilirubin 0.5 AST 29 ALT 36 Alkaline Phosphatase 99 Total Protein 6.8 Albumin 3.6 RPR Titer Nonreactive labs noted. Assessment: 04/16/18 18:22 WITHDRAWAL SYMPTOMS. Plan: CONTINUE DETOX. INCREASE DAILY PO FLUID INTAKE.
[2018-04-16] MEDS ORDERED: diphenhydrAMINE HCL 25 MG CAPSULE (FP) PO ONE (21:50)
[2018-04-16] MEDS: MELATONIN 5 MG TABLETS PO PRN (22:09)
[2018-04-16] MEDS: THIAMINE HCL 100 MG TABLET (FP) PO SCH (22:09)
[2018-04-16] MEDS: diphenhydrAMINE HCL 50 MG CAPSULE PO PRN (22:09)
[2018-04-16] MEDS: NICOTINE POLACRILEX 4 MG GUM BUC PRN (22:10)
[2018-04-17] MEDS: diazePAM 5 MG TABLET PO PRN (03:56)
[2018-04-17] MEDS ORDERED: METHADONE HCL 40 MG DISPERSABLE TABLET ONE (05:50)
[2018-04-17] MEDS ORDERED: METHADONE HCL 10 MG TABLET ONE (05:50)
[2018-04-17] MEDS: METHADONE 40 MG, METHADONE 20 MG PO SCH (05:55)
[2018-04-17] MEDS: PRENATAL VITAMINS W/ FOLIC ACID TABLET (FP) PO SCH (10:15)
[2018-04-17] MEDS: FLUTICASONE PROP 0.05% 16 GM NASAL SPRAY NS SCH ×2 (10:15→22:13)
[2018-04-17] MEDS: NICOTINE 21 MG/24 HOURS TOPICAL PATCH TD SCH (10:15)
[2018-04-17] MEDS: diazePAM 5 MG TABLET PO SCH ×2 (10:15→22:13)
[2018-04-17] MEDS: NICOTINE POLACRILEX 4 MG GUM BUC PRN ×2 (10:16→18:22)
--- NOTE | 2018-04-17 10:21 | PN ---
BHS Progress Note (SOAP) Subjective: pt c/o difficulty sleeping at night O: Vital Signs - 24 hr 04/16/18 04/16/18 04/16/18 15:50 18:37 23:48 Temperature 98.1 F 97.2 F L 97.9 F Pulse Rate 76 60 64 Respiratory 16 18 18 Rate Blood Pressure 122/77 118/77 119/73 04/17/18 04/17/18 00:30 07:05 Temperature 98.3 F Pulse Rate 58 L Respiratory 18 18 Rate Blood Pressure 126/78 Laboratory Tests 04/15/18 04/15/18 04/15/18 06:00 06:00 06:00 WBC 5.4 RBC 4.39 Hgb 13.1 Hct 40.7 MCV 92.6 MCH 29.7 MCHC 32.1 RDW 14.4 Plt Count 169 MPV 10.3 Sodium 139 Potassium 4.3 Chloride 106 Carbon Dioxide 26 Anion Gap 8 BUN 21 H Creatinine 1.0 Creat Clearance w eGFR > 60 Random Glucose 132 H Calcium 8.3 L Total Bilirubin 0.5 AST 29 ALT 36 Alkaline Phosphatase 99 Total Protein 6.8 Albumin 3.6 RPR Titer Nonreactive a/p: continue alcohol detox protocol d/w pt sleep hygeine
[2018-04-17] MEDS: hydrOXYzine PAMOATE 50 MG CAPSULE (FP) PO PRN ×3 (14:27→22:37)
[2018-04-17] MEDS: P-EPHED 60MG/TRIPROLIDI 2.5MG TABLET PO PRN (14:28)
[2018-04-17] MEDS: SODIUM CHLORIDE NASAL SPRAY 44 ML BOTTLE NS PRN ×2 (18:02→18:20)
[2018-04-17] MEDS: THIAMINE HCL 100 MG TABLET (FP) PO SCH (22:13)
[2018-04-17] MEDS: MELATONIN 5 MG TABLETS PO PRN (22:13)
[2018-04-18] MEDS: diphenhydrAMINE HCL 50 MG CAPSULE PO PRN (01:30)
[2018-04-18] MEDS ORDERED: METHADONE HCL 10 MG TABLET ONE (04:21)
[2018-04-18] MEDS ORDERED: METHADONE HCL 40 MG DISPERSABLE TABLET ONE (04:21)
[2018-04-18] MEDS: METHADONE 40 MG, METHADONE 20 MG PO SCH (05:23)
--- NOTE | 2018-04-18 09:48 | DS ---
[facility] Detox Discharge Summary Admission Date: 04/14/18 Discharge Date: 04/18/18 - History Present History: Alcohol Dependence Additional Comments: 47 years old male admitted on 04/14/18 for alcohol withdrawal stabilization completed alcohol detox regiment tolerated well alert no acute distress aftercare [facility] patient is in methadone program and willing return to the program Pertinent Past History: patient may consider returning to [facility] for [facility] - Physical Exam Results Vital Signs: Vital Signs Temperature 97.3 F L 04/18/18 07:32 Pulse Rate 67 04/18/18 07:32 Respiratory Rate 18 04/18/18 07:32 Blood Pressure 113/86 04/18/18 07:32 O2 Sat by Pulse Oximetry (%) Pertinent Admission Physical Exam Findings: alcohol withdrawal sx Laboratory Last Values WBC 5.4 K/mm3 (4.0-10.0) 04/15/18 06:00 RBC 4.39 M/mm3 (4.00-5.60) 04/15/18 06:00 Hgb 13.1 GM/dL (11.7-16.9) 04/15/18 06:00 Hct 40.7 % (35.4-49) 04/15/18 06:00 MCV 92.6 fl (80-96) 04/15/18 06:00 MCH 29.7 pg (25.7-33.7) 04/15/18 06:00 MCHC 32.1 g/dl (32.0-35.9) 04/15/18 06:00 RDW 14.4 % (11.9-15.9) 04/15/18 06:00 Plt Count 169 K/MM3 (134-434) 04/15/18 06:00 MPV 10.3 fl (7.5-11.1) 04/15/18 06:00 Sodium 139 mmol/L (136-145) 04/15/18 06:00 Potassium 4.3 mmol/L (3.5-5.1) 04/15/18 06:00 Chloride 106 mmol/L (98-107) 04/15/18 06:00 Carbon Dioxide 26 mmol/L (21-32) 04/15/18 06:00 Anion Gap 8 MMOL/L (8-16) 04/15/18 06:00 BUN 21 mg/dL (7-18) H 04/15/18 06:00 Creatinine 1.0 mg/dL (0.55-1.3) 04/15/18 06:00 Creat Clearance w eGFR > 60 (>60) 04/15/18 06:00 Random Glucose 132 mg/dL (74-106) H 04/15/18 06:00 Calcium 8.3 mg/dL (8.5-10.1) L 04/15/18 06:00 Total Bilirubin 0.5 mg/dL (0.2-1) 04/15/18 06:00 AST 29 U/L (15-37) 04/15/18 06:00 ALT 36 U/L (13-61) 04/15/18 06:00 Alkaline Phosphatase 99 U/L (45-117) 04/15/18 06:00 Total Protein 6.8 g/dl (6.4-8.2) 04/15/18 06:00 Albumin 3.6 g/dl (3.4-5.0) 04/15/18 06:00 RPR Titer Nonreactive (NONREACTIVE) 04/15/18 06:00 lab noted - Treatment Hospital Course: Detox Protocol Followed, Detoxed Safely, Responded well, Discharged Condition Good, Rehab Referral Accepted Patient has Accepted a Rehab Referral to: [facility] - Medication Discharge Medications: Ambulatory Orders Methadone [Dolophine -] 60 mg PO DAILY 03/13/18 - Diagnosis (1) Methadone maintenance therapy patient Current Visit: Yes Status: Chronic (2) Nicotine dependence Current Visit: Yes Status: Acute Qualifiers: Nicotine product type: cigarettes Substance use status: in withdrawal Qualified Code(s): F17.213 - Nicotine dependence, cigarettes, with withdrawal (3) Alcohol dependence with uncomplicated withdrawal Current Visit: Yes Status: Acute - AMA Did Patient Leave Against Medical Advice: No
[2018-04-18] MEDS ORDERED: diazePAM 5 MG TABLET PO SCH (10:00)
[2018-04-18] MEDS: FLUTICASONE PROP 0.05% 16 GM NASAL SPRAY NS SCH (10:10)
[2018-04-18] MEDS: PRENATAL VITAMINS W/ FOLIC ACID TABLET (FP) PO SCH (10:10)
[2018-04-18] MEDS: NICOTINE 21 MG/24 HOURS TOPICAL PATCH TD SCH (10:10)
[2018-04-18] MEDS: NICOTINE POLACRILEX 4 MG GUM BUC PRN (10:12)
[2018-04-18] MEDS: P-EPHED 60MG/TRIPROLIDI 2.5MG TABLET PO PRN (10:13)
[2018-04-18] MEDS: hydrOXYzine PAMOATE 50 MG CAPSULE (FP) PO PRN (14:13)
[2018-04-18 18:14] VITALS: BP 101/57; PULSE 94; TEMP 97.1
== END 2018-04-18 19:05 | disposition other institution (70) | DRG 773 ==
LOC: YASAS 09:54 → Y6N 12:34
PROC: HZ2ZZZZ Detoxification Services for Substance Abuse Treatment (ICD-10-PCS; principal; 2018-04-14)
DX: F10.230 Alcohol dependence with withdrawal, uncomplicated (principal); F13.230 Sedative, hypnotic or anxiolytic dependence with withdrawal, uncomplicated; F11.20 Opioid dependence, uncomplicated; F17.213 Nicotine dependence, cigarettes, with withdrawal; F32.9 Major depressive disorder, single episode, unspecified; J33.9 Nasal polyp, unspecified; M54.5 Low back pain; G89.29 Other chronic pain; Z98.890 Other specified postprocedural states
CPT/HCPCS: 36415; 80053; 85027; 86593

== ENCOUNTER 2018-04-18 19:07 | Inpatient (IN) | payer OTHER ==
[2018-04-18] MEDS ORDERED: ACETAMINOPHEN 325 MG TABLET (FP) PO PRN (20:39)
[2018-04-18] MEDS ORDERED: guaiFENesin/D-METHORPHAN HB 10 ML UNIT-DOSE CUPS PO PRN (20:39)
[2018-04-18] MEDS ORDERED: MAGNESIUM CITRATE 300 ML BOTTLE PO PRN (20:39)
[2018-04-18] MEDS ORDERED: MAGNESIUM HYDROX 2400MG/30ML ORAL SUSPENSION 30 ML CUP PO PRN (20:39)
[2018-04-18] MEDS ORDERED: LOPERAMIDE HCL 2 MG CAPSULE PO PRN (20:39)
[2018-04-18] MEDS ORDERED: MAG HYDROX/AL HYDROX/SIMETH 30 ML UNIT-DOSE CUP PO PRN (20:39)
[2018-04-18] MEDS ORDERED: MENTHOL/PHENOL 1 EACH UD MM PRN (20:39)
[2018-04-18] MEDS: MELATONIN 5 MG TABLETS PO PRN (21:43)
[2018-04-18] MEDS: P-EPHED 60MG/TRIPROLIDI 2.5MG TABLET PO PRN (21:43)
[2018-04-18] MEDS: THIAMINE HCL 100 MG TABLET (FP) PO SCH (21:43)
[2018-04-19] MEDS ORDERED: METHADONE HCL 10 MG TABLET PO SCH (06:00)
[2018-04-19] MEDS ORDERED: METHADONE HCL 40 MG DISPERSABLE TABLET ONE (06:30)
[2018-04-19] MEDS ORDERED: METHADONE HCL 10 MG TABLET ONE (06:30)
[2018-04-19] MEDS: METHADONE 40 MG, METHADONE 20 MG PO SCH (06:30)
[2018-04-19] MEDS: P-EPHED 60MG/TRIPROLIDI 2.5MG TABLET PO PRN ×2 (06:32→18:18)
[2018-04-19] MEDS: PRENATAL VITAMINS W/ FOLIC ACID TABLET (FP) PO SCH (10:19)
[2018-04-19] MEDS: NICOTINE 14 MG/24 HOURS TOPICAL PATCH TD SCH (10:19)
[2018-04-19] MEDS ORDERED: FLUTICASONE PROP IH SCH (13:30)
[2018-04-19] MEDS: SODIUM CHLORIDE NASAL SPRAY 44 ML BOTTLE NS SCH ×2 (15:22→21:34)
[2018-04-19] MEDS: THIAMINE HCL 100 MG TABLET (FP) PO SCH (21:32)
[2018-04-19] MEDS: MELATONIN 5 MG TABLETS PO PRN (21:32)
[2018-04-19] MEDS: HYDROCORTISONE 1% TOPICAL CREAM 30 GM TUBE TP SCH (21:32)
[2018-04-19] MEDS: FLUTICASONE PROP 0.05% 16 GM NASAL SPRAY NS SCH (21:35)
[2018-04-20] MEDS: P-EPHED 60MG/TRIPROLIDI 2.5MG TABLET PO PRN ×3 (00:23→18:48)
[2018-04-20] MEDS ORDERED: METHADONE HCL 10 MG TABLET ONE (04:28)
[2018-04-20] MEDS ORDERED: METHADONE HCL 40 MG DISPERSABLE TABLET ONE (04:28)
[2018-04-20] MEDS: METHADONE 40 MG, METHADONE 20 MG PO SCH (06:09)
[2018-04-20] MEDS: SODIUM CHLORIDE NASAL SPRAY 44 ML BOTTLE NS SCH ×3 (06:10→21:37)
[2018-04-20] MEDS: PRENATAL VITAMINS W/ FOLIC ACID TABLET (FP) PO SCH (10:26)
[2018-04-20] MEDS: FLUTICASONE PROP 0.05% 16 GM NASAL SPRAY NS SCH ×2 (10:26→21:34)
[2018-04-20] MEDS: NICOTINE 14 MG/24 HOURS TOPICAL PATCH TD SCH (10:27)
[2018-04-20] MEDS: HYDROCORTISONE 1% TOPICAL CREAM 30 GM TUBE TP SCH ×2 (10:27→21:37)
[2018-04-20] MEDS: NICOTINE POLACRILEX 2 MG GUM BUC PRN (10:29)
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
[2018-04-20] MEDS: THIAMINE HCL 100 MG TABLET (FP) PO SCH (21:34)
[2018-04-20] MEDS: SUVOREXANT 10 MG TABLET PO PRN (21:36)
[2018-04-21] MEDS: MELATONIN 5 MG TABLETS PO PRN ×2 (01:28→21:26)
[2018-04-21] MEDS: P-EPHED 60MG/TRIPROLIDI 2.5MG TABLET PO PRN ×3 (06:11→21:28)
[2018-04-21] MEDS ORDERED: METHADONE HCL 10 MG TABLET ONE (06:12)
[2018-04-21] MEDS ORDERED: METHADONE HCL 40 MG DISPERSABLE TABLET ONE (06:12)
[2018-04-21] MEDS: SODIUM CHLORIDE NASAL SPRAY 44 ML BOTTLE NS SCH ×3 (06:13→21:29)
[2018-04-21] MEDS: METHADONE 40 MG, METHADONE 20 MG PO SCH (06:13)
[2018-04-21] MEDS: FLUTICASONE PROP 0.05% 16 GM NASAL SPRAY NS SCH ×2 (10:12→21:29)
[2018-04-21] MEDS: NICOTINE 14 MG/24 HOURS TOPICAL PATCH TD SCH (10:13)
[2018-04-21] MEDS: PRENATAL VITAMINS W/ FOLIC ACID TABLET (FP) PO SCH (10:13)
[2018-04-21] MEDS: HYDROCORTISONE 1% TOPICAL CREAM 30 GM TUBE TP SCH ×2 (10:14→21:29)
[2018-04-21] MEDS: NICOTINE POLACRILEX 2 MG GUM BUC PRN ×2 (10:16→14:19)
[2018-04-21] MEDS: THIAMINE HCL 100 MG TABLET (FP) PO SCH (21:26)
[2018-04-21] MEDS: SUVOREXANT 10 MG TABLET PO PRN (21:27)
[2018-04-22] MEDS ORDERED: METHADONE HCL 10 MG TABLET ONE (03:34)
[2018-04-22] MEDS ORDERED: METHADONE HCL 40 MG DISPERSABLE TABLET ONE (03:34)
[2018-04-22] MEDS: SODIUM CHLORIDE NASAL SPRAY 44 ML BOTTLE NS SCH ×3 (06:16→21:43)
[2018-04-22] MEDS: METHADONE 40 MG, METHADONE 20 MG PO SCH (06:16)
[2018-04-22] MEDS: IBUPROFEN 400 MG TABLET (FP) PO PRN (06:18)
[2018-04-22] MEDS: P-EPHED 60MG/TRIPROLIDI 2.5MG TABLET PO PRN ×3 (06:19→21:45)
[2018-04-22] MEDS: FLUTICASONE PROP 0.05% 16 GM NASAL SPRAY NS SCH ×2 (10:42→21:44)
[2018-04-22] MEDS: HYDROCORTISONE 1% TOPICAL CREAM 30 GM TUBE TP SCH ×2 (10:42→21:44)
[2018-04-22] MEDS: PRENATAL VITAMINS W/ FOLIC ACID TABLET (FP) PO SCH (10:43)
[2018-04-22] MEDS: NICOTINE 14 MG/24 HOURS TOPICAL PATCH TD SCH (10:43)
[2018-04-22] MEDS: NICOTINE POLACRILEX 2 MG GUM BUC PRN (10:45)
[2018-04-22] MEDS: THIAMINE HCL 100 MG TABLET (FP) PO SCH (21:41)
[2018-04-22] MEDS: MELATONIN 5 MG TABLETS PO PRN (21:43)
[2018-04-22] MEDS ORDERED: SUVOREXANT 10 MG TABLET PO PRN (22:00)
[2018-04-23] MEDS ORDERED: METHADONE HCL 40 MG DISPERSABLE TABLET ONE (04:01)
[2018-04-23] MEDS ORDERED: METHADONE HCL 10 MG TABLET ONE (04:01)
[2018-04-23] MEDS: P-EPHED 60MG/TRIPROLIDI 2.5MG TABLET PO PRN ×3 (06:15→21:44)
[2018-04-23] MEDS: SODIUM CHLORIDE NASAL SPRAY 44 ML BOTTLE NS SCH ×3 (06:15→21:46)
[2018-04-23] MEDS: METHADONE 40 MG, METHADONE 20 MG PO SCH (06:16)
--- NOTE | 2018-04-23 10:41 | PN ---
S Progress Note Note: Patient reports sleeping poorly despite taking Belsomra 10 mg at bedtime. Requests that Belsomra dosage be increased to 15 mg
[2018-04-23] MEDS: NICOTINE 14 MG/24 HOURS TOPICAL PATCH TD SCH (10:46)
[2018-04-23] MEDS: PRENATAL VITAMINS W/ FOLIC ACID TABLET (FP) PO SCH (10:47)
[2018-04-23] MEDS: FLUTICASONE PROP 0.05% 16 GM NASAL SPRAY NS SCH ×2 (10:48→21:44)
[2018-04-23] MEDS: HYDROCORTISONE 1% TOPICAL CREAM 30 GM TUBE TP SCH ×2 (10:50→21:46)
[2018-04-23] MEDS: THIAMINE HCL 100 MG TABLET (FP) PO SCH (21:43)
[2018-04-23] MEDS: MELATONIN 5 MG TABLETS PO PRN (21:45)
[2018-04-23] MEDS: SUVOREXANT 15 MG TABLET PO PRN (21:45)
[2018-04-24] MEDS ORDERED: METHADONE HCL 10 MG TABLET ONE (02:53)
[2018-04-24] MEDS ORDERED: METHADONE HCL 40 MG DISPERSABLE TABLET ONE (02:53)
[2018-04-24] MEDS: METHADONE 40 MG, METHADONE 20 MG PO SCH (06:11)
[2018-04-24] MEDS: SODIUM CHLORIDE NASAL SPRAY 44 ML BOTTLE NS SCH ×3 (06:11→21:49)
[2018-04-24] MEDS: P-EPHED 60MG/TRIPROLIDI 2.5MG TABLET PO PRN ×3 (06:12→21:47)
[2018-04-24] MEDS: FLUTICASONE PROP 0.05% 16 GM NASAL SPRAY NS SCH ×2 (09:25→21:46)
[2018-04-24] MEDS: PRENATAL VITAMINS W/ FOLIC ACID TABLET (FP) PO SCH (09:26)
[2018-04-24] MEDS: HYDROCORTISONE 1% TOPICAL CREAM 30 GM TUBE TP SCH ×2 (09:26→21:47)
[2018-04-24] MEDS: NICOTINE POLACRILEX 2 MG GUM BUC PRN ×2 (09:27→14:26)
[2018-04-24] MEDS: NICOTINE 14 MG/24 HOURS TOPICAL PATCH TD SCH (09:27)
[2018-04-24] MEDS: THIAMINE HCL 100 MG TABLET (FP) PO SCH (21:46)
[2018-04-24] MEDS: MELATONIN 5 MG TABLETS PO PRN (21:48)
[2018-04-24] MEDS: SUVOREXANT 15 MG TABLET PO PRN (21:48)
[2018-04-25] MEDS ORDERED: METHADONE HCL 10 MG TABLET ONE (05:23)
[2018-04-25] MEDS ORDERED: METHADONE HCL 40 MG DISPERSABLE TABLET ONE (05:23)
[2018-04-25] MEDS: METHADONE 40 MG, METHADONE 20 MG PO SCH (06:03)
[2018-04-25] MEDS: SODIUM CHLORIDE NASAL SPRAY 44 ML BOTTLE NS SCH ×3 (06:04→23:28)
[2018-04-25] MEDS: NICOTINE 14 MG/24 HOURS TOPICAL PATCH TD SCH (10:10)
[2018-04-25] MEDS: FLUTICASONE PROP 0.05% 16 GM NASAL SPRAY NS SCH ×2 (10:10→21:57)
[2018-04-25] MEDS: PRENATAL VITAMINS W/ FOLIC ACID TABLET (FP) PO SCH (10:10)
[2018-04-25] MEDS: HYDROCORTISONE 1% TOPICAL CREAM 30 GM TUBE TP SCH ×2 (10:11→21:57)
[2018-04-25] MEDS: NICOTINE POLACRILEX 2 MG GUM BUC PRN (10:13)
[2018-04-25] MEDS: P-EPHED 60MG/TRIPROLIDI 2.5MG TABLET PO PRN ×2 (10:13→21:56)
[2018-04-25] MEDS: SUVOREXANT 15 MG TABLET PO PRN (21:56)
[2018-04-25] MEDS: THIAMINE HCL 100 MG TABLET (FP) PO SCH (21:56)
[2018-04-25] MEDS: MELATONIN 5 MG TABLETS PO PRN (21:57)
[2018-04-26] MEDS ORDERED: METHADONE HCL 40 MG DISPERSABLE TABLET ONE (05:29)
[2018-04-26] MEDS ORDERED: METHADONE HCL 10 MG TABLET ONE (05:29)
[2018-04-26] MEDS: METHADONE 40 MG, METHADONE 20 MG PO SCH (06:14)
[2018-04-26] MEDS: P-EPHED 60MG/TRIPROLIDI 2.5MG TABLET PO PRN (06:16)
[2018-04-26] MEDS: SODIUM CHLORIDE NASAL SPRAY 44 ML BOTTLE NS SCH ×3 (07:45→21:35)
[2018-04-26] MEDS: FLUTICASONE PROP 0.05% 16 GM NASAL SPRAY NS SCH ×2 (10:44→21:32)
[2018-04-26] MEDS: PRENATAL VITAMINS W/ FOLIC ACID TABLET (FP) PO SCH (10:44)
[2018-04-26] MEDS: HYDROCORTISONE 1% TOPICAL CREAM 30 GM TUBE TP SCH ×2 (10:44→21:35)
[2018-04-26] MEDS: NICOTINE 14 MG/24 HOURS TOPICAL PATCH TD SCH (10:46)
[2018-04-26] MEDS: MELATONIN 5 MG TABLETS PO PRN (21:32)
[2018-04-26] MEDS: THIAMINE HCL 100 MG TABLET (FP) PO SCH (21:32)
[2018-04-26] MEDS: SUVOREXANT 15 MG TABLET PO PRN (21:34)
[2018-04-27] MEDS: P-EPHED 60MG/TRIPROLIDI 2.5MG TABLET PO PRN ×3 (00:34→21:44)
[2018-04-27] MEDS ORDERED: METHADONE HCL 10 MG TABLET ONE (03:56)
[2018-04-27] MEDS ORDERED: METHADONE HCL 40 MG DISPERSABLE TABLET ONE (03:56)
[2018-04-27] MEDS: METHADONE 40 MG, METHADONE 20 MG PO SCH (06:01)
[2018-04-27] MEDS: SODIUM CHLORIDE NASAL SPRAY 44 ML BOTTLE NS SCH ×3 (06:02→21:45)
[2018-04-27] MEDS: FLUTICASONE PROP 0.05% 16 GM NASAL SPRAY NS SCH ×2 (10:11→21:44)
[2018-04-27] MEDS: NICOTINE 14 MG/24 HOURS TOPICAL PATCH TD SCH (10:13)
[2018-04-27] MEDS: PRENATAL VITAMINS W/ FOLIC ACID TABLET (FP) PO SCH (10:13)
[2018-04-27] MEDS: HYDROCORTISONE 1% TOPICAL CREAM 30 GM TUBE TP SCH ×2 (10:14→21:45)
[2018-04-27] MEDS ORDERED: hydrOXYzine PAMOATE 50 MG CAPSULE (FP) PO PRN (10:33)
--- NOTE | 2018-04-27 10:40 | PN ---
[facility] Progress Note Note: PT COMPLAINED OF PERSISTENT NASAL CLOGGING AND HAS HX OF MULTIPLE NASAL SURGERIES AND POLYPS. PT REPORTS ANXIETY AND NEEDS TO 'BRING DOWN MY ANXIETY TILL I CAN FOLLOW UP WITH ENT". PT CURRENTLY ON FLONASE AND SALINE NASAL SPRAYS. PT REPORTS HE WILL BE DISCHARGING ON Thursday05/03/18 TO [facility] AND WILL FOLLOW UP WITH ENT AFTER HE GETS TO HIS AFTERCARE SITE. Vital Signs - 24 hr 04/27/18 04/27/18 04/27/18 00:30 03:30 07:16 Temperature 97.2 F L Pulse Rate 72 Respiratory 18 18 18 Rate Blood Pressure 121/65 NASAL CONGESTION ANXIETY PLAN:VISTARIL 50 MG PO Q4H PRN FOR ANXIETY CONTINUE NASAL SPRAYS DIRECTED FOLLOW UP WITH ENT AFTER DISCHARGE FROM REHAB INPATIENT.
--- NOTE | 2018-04-27 10:43 | HP ---
[facility] Rehab Assess/Revision - Admission History Admitted to Rehab from: [facility] Date of Admission to Rehab: 04/18/18 - Vital signs Vital Signs: Vital Signs Period Temp Pulse Resp BP Sys/Lange Pulse Ox Last 24 Hr 97.2 F 72 18-18 121/65 - Findings Detox History & Physical reviewed: Yes Concur with findings: Yes Inpatient Rehab Admission - Initial Determination Are CD services needed?: Yes Free of communicable disease: Yes Not in need of hospitalization: Yes - Rehab Admission Criteria Patient is meeting Inpatient Rehab admission criteria:: Yes
[2018-04-27] MEDS: NICOTINE POLACRILEX 2 MG GUM BUC PRN ×2 (10:44→14:37)
[2018-04-27] MEDS: hydrOXYzine PAMOATE 50 MG CAPSULE (FP) PO PRN ×2 (15:49→21:44)
[2018-04-27] MEDS: THIAMINE HCL 100 MG TABLET (FP) PO SCH (21:44)
[2018-04-27] MEDS: MELATONIN 5 MG TABLETS PO PRN (21:45)
[2018-04-28] MEDS ORDERED: METHADONE HCL 10 MG TABLET ONE (04:26)
[2018-04-28] MEDS ORDERED: METHADONE HCL 40 MG DISPERSABLE TABLET ONE (04:26)
[2018-04-28] MEDS: METHADONE 40 MG, METHADONE 20 MG PO SCH (06:10)
[2018-04-28] MEDS: hydrOXYzine PAMOATE 50 MG CAPSULE (FP) PO PRN ×4 (06:11→21:29)
[2018-04-28] MEDS: SODIUM CHLORIDE NASAL SPRAY 44 ML BOTTLE NS SCH ×3 (06:11→22:47)
[2018-04-28] MEDS: PRENATAL VITAMINS W/ FOLIC ACID TABLET (FP) PO SCH (10:03)
[2018-04-28] MEDS: FLUTICASONE PROP 0.05% 16 GM NASAL SPRAY NS SCH ×2 (10:04→22:47)
[2018-04-28] MEDS: NICOTINE 14 MG/24 HOURS TOPICAL PATCH TD SCH (10:04)
[2018-04-28] MEDS: HYDROCORTISONE 1% TOPICAL CREAM 30 GM TUBE TP SCH ×2 (10:04→22:47)
[2018-04-28] MEDS: P-EPHED 60MG/TRIPROLIDI 2.5MG TABLET PO PRN (13:27)
[2018-04-28] MEDS: MELATONIN 5 MG TABLETS PO PRN (21:28)
[2018-04-28] MEDS: THIAMINE HCL 100 MG TABLET (FP) PO SCH (21:28)
[2018-04-28] MEDS: SUVOREXANT 10 MG TABLET PO PRN (21:29)
[2018-04-29] MEDS ORDERED: METHADONE HCL 10 MG TABLET ONE (03:49)
[2018-04-29] MEDS ORDERED: METHADONE HCL 40 MG DISPERSABLE TABLET ONE (03:49)
[2018-04-29] MEDS: METHADONE 40 MG, METHADONE 20 MG PO SCH (06:10)
[2018-04-29] MEDS: hydrOXYzine PAMOATE 50 MG CAPSULE (FP) PO PRN ×3 (06:12→21:37)
[2018-04-29] MEDS: SODIUM CHLORIDE NASAL SPRAY 44 ML BOTTLE NS SCH ×3 (07:13→22:08)
[2018-04-29] MEDS: NICOTINE 14 MG/24 HOURS TOPICAL PATCH TD SCH (10:23)
[2018-04-29] MEDS: FLUTICASONE PROP 0.05% 16 GM NASAL SPRAY NS SCH ×2 (10:23→21:36)
[2018-04-29] MEDS: PRENATAL VITAMINS W/ FOLIC ACID TABLET (FP) PO SCH (10:23)
[2018-04-29] MEDS: HYDROCORTISONE 1% TOPICAL CREAM 30 GM TUBE TP SCH ×2 (10:24→21:37)
[2018-04-29] MEDS: NICOTINE POLACRILEX 2 MG GUM BUC PRN (10:42)
[2018-04-29] MEDS: P-EPHED 60MG/TRIPROLIDI 2.5MG TABLET PO PRN ×2 (13:27→21:37)
[2018-04-29] MEDS: MELATONIN 5 MG TABLETS PO PRN (21:36)
[2018-04-29] MEDS: SUVOREXANT 10 MG TABLET PO PRN (21:37)
[2018-04-29] MEDS: THIAMINE HCL 100 MG TABLET (FP) PO SCH (22:08)
[2018-04-30] MEDS ORDERED: METHADONE HCL 40 MG DISPERSABLE TABLET ONE (04:17)
[2018-04-30] MEDS ORDERED: METHADONE HCL 10 MG TABLET ONE (04:17)
[2018-04-30] MEDS: METHADONE 40 MG, METHADONE 20 MG PO SCH (06:07)
[2018-04-30] MEDS: hydrOXYzine PAMOATE 50 MG CAPSULE (FP) PO PRN ×3 (06:07→21:40)
[2018-04-30] MEDS: SODIUM CHLORIDE NASAL SPRAY 44 ML BOTTLE NS SCH ×3 (06:07→21:38)
[2018-04-30] MEDS: FLUTICASONE PROP 0.05% 16 GM NASAL SPRAY NS SCH ×2 (10:12→21:37)
[2018-04-30] MEDS: HYDROCORTISONE 1% TOPICAL CREAM 30 GM TUBE TP SCH ×2 (10:12→21:38)
[2018-04-30] MEDS: PRENATAL VITAMINS W/ FOLIC ACID TABLET (FP) PO SCH (10:12)
[2018-04-30] MEDS: NICOTINE 14 MG/24 HOURS TOPICAL PATCH TD SCH (10:13)
[2018-04-30] MEDS: NICOTINE POLACRILEX 2 MG GUM BUC PRN (10:14)
--- NOTE | 2018-04-30 13:33 | PN ---
[facility] Progress Note Note: C/O CHRONIC NASAL CONGESTION AND STATES "I KNOW YOU CANNOT FIX MY NOSE BUT CAN I HAVE AFRIN NASAL SPRAY". PT REPORTS HE HAS CHRONICALLY BEEN USING AFRIN NASAL SPRAY ON THE OUTSIDE. PT WAS EDUCATED ON THE "REBOUND SIDE EFFECTS" OF CHRONIC AFRIN USE.PT VERBALIZES KNOWLEDGE BUT NO UNDERSTANDING OF WHY HE SHOULD NOT HAVE IT NOW. IN NO ACUTE DISTRESS. DENIES SOB. Vital Signs 04/30/18 06:47 Temperature 97.6 F Pulse Rate 70 Respiratory 18 Rate Blood Pressure 109/65 NASAL: CONGESTION PLAN:OCEAN SPRAY NASAL SPRAY DIRECTED FLONASE NASAL SPRAY DIRECTED ACTIFED PRN FOLLOW UP WITH ENT DISCUSSED
[2018-04-30] MEDS: P-EPHED 60MG/TRIPROLIDI 2.5MG TABLET PO PRN (14:39)
[2018-04-30] MEDS: THIAMINE HCL 100 MG TABLET (FP) PO SCH (21:37)
[2018-04-30] MEDS: SUVOREXANT 10 MG TABLET PO PRN (21:39)
[2018-04-30] MEDS: MELATONIN 5 MG TABLETS PO PRN (21:39)
[2018-05-01] MEDS ORDERED: METHADONE HCL 40 MG DISPERSABLE TABLET ONE (04:23)
[2018-05-01] MEDS ORDERED: METHADONE HCL 10 MG TABLET ONE (04:23)
[2018-05-01] MEDS: hydrOXYzine PAMOATE 50 MG CAPSULE (FP) PO PRN ×3 (06:16→21:37)
[2018-05-01] MEDS: METHADONE 40 MG, METHADONE 20 MG PO SCH (06:17)
[2018-05-01] MEDS: SODIUM CHLORIDE NASAL SPRAY 44 ML BOTTLE NS SCH ×3 (06:52→22:22)
[2018-05-01] MEDS: NICOTINE 14 MG/24 HOURS TOPICAL PATCH TD SCH (10:04)
[2018-05-01] MEDS: FLUTICASONE PROP 0.05% 16 GM NASAL SPRAY NS SCH ×2 (10:04→22:22)
[2018-05-01] MEDS: PRENATAL VITAMINS W/ FOLIC ACID TABLET (FP) PO SCH (10:04)
[2018-05-01] MEDS: HYDROCORTISONE 1% TOPICAL CREAM 30 GM TUBE TP SCH ×2 (10:05→22:22)
[2018-05-01] MEDS: NICOTINE POLACRILEX 2 MG GUM BUC PRN (10:08)
[2018-05-01] MEDS: MELATONIN 5 MG TABLETS PO PRN (21:37)
[2018-05-01] MEDS: THIAMINE HCL 100 MG TABLET (FP) PO SCH (21:37)
[2018-05-01] MEDS: P-EPHED 60MG/TRIPROLIDI 2.5MG TABLET PO PRN (21:38)
[2018-05-01] MEDS: SUVOREXANT 10 MG TABLET PO PRN (21:39)
[2018-05-02] MEDS ORDERED: METHADONE HCL 40 MG DISPERSABLE TABLET ONE (03:39)
[2018-05-02] MEDS ORDERED: METHADONE HCL 10 MG TABLET ONE (03:39)
[2018-05-02] MEDS: METHADONE 40 MG, METHADONE 20 MG PO SCH (05:49)
[2018-05-02] MEDS: hydrOXYzine PAMOATE 50 MG CAPSULE (FP) PO PRN ×4 (06:05→21:31)
[2018-05-02] MEDS: SODIUM CHLORIDE NASAL SPRAY 44 ML BOTTLE NS SCH ×3 (06:06→22:30)
[2018-05-02] MEDS: PRENATAL VITAMINS W/ FOLIC ACID TABLET (FP) PO SCH (10:18)
[2018-05-02] MEDS: FLUTICASONE PROP 0.05% 16 GM NASAL SPRAY NS SCH ×2 (10:19→21:31)
[2018-05-02] MEDS: NICOTINE 14 MG/24 HOURS TOPICAL PATCH TD SCH (10:19)
[2018-05-02] MEDS: HYDROCORTISONE 1% TOPICAL CREAM 30 GM TUBE TP SCH ×2 (10:19→22:30)
[2018-05-02] MEDS: NICOTINE POLACRILEX 2 MG GUM BUC PRN (10:21)
[2018-05-02] MEDS: P-EPHED 60MG/TRIPROLIDI 2.5MG TABLET PO PRN (13:40)
[2018-05-02] MEDS: MELATONIN 5 MG TABLETS PO PRN (21:31)
[2018-05-02] MEDS: THIAMINE HCL 100 MG TABLET (FP) PO SCH (21:31)
[2018-05-02] MEDS: SUVOREXANT 10 MG TABLET PO PRN (21:33)
[2018-05-03] MEDS: hydrOXYzine PAMOATE 50 MG CAPSULE (FP) PO PRN ×4 (03:57→21:45)
[2018-05-03] MEDS ORDERED: METHADONE HCL 40 MG DISPERSABLE TABLET ONE (05:06)
[2018-05-03] MEDS ORDERED: METHADONE HCL 10 MG TABLET ONE (05:06)
[2018-05-03] MEDS: METHADONE 40 MG, METHADONE 20 MG PO SCH (06:06)
[2018-05-03] MEDS: NICOTINE POLACRILEX 2 MG GUM BUC PRN ×2 (06:07→10:03)
[2018-05-03] MEDS: P-EPHED 60MG/TRIPROLIDI 2.5MG TABLET PO PRN (06:08)
[2018-05-03] MEDS: SODIUM CHLORIDE NASAL SPRAY 44 ML BOTTLE NS SCH ×3 (06:09→21:47)
[2018-05-03] MEDS: FLUTICASONE PROP 0.05% 16 GM NASAL SPRAY NS SCH ×2 (10:01→21:46)
[2018-05-03] MEDS: PRENATAL VITAMINS W/ FOLIC ACID TABLET (FP) PO SCH (10:01)
[2018-05-03] MEDS: NICOTINE 14 MG/24 HOURS TOPICAL PATCH TD SCH (10:02)
[2018-05-03] MEDS: HYDROCORTISONE 1% TOPICAL CREAM 30 GM TUBE TP SCH ×2 (10:02→21:47)
[2018-05-03] MEDS: SUVOREXANT 10 MG TABLET PO PRN (21:45)
[2018-05-03] MEDS: THIAMINE HCL 100 MG TABLET (FP) PO SCH (21:45)
[2018-05-03] MEDS: MELATONIN 5 MG TABLETS PO PRN (21:45)
[2018-05-04] MEDS: IBUPROFEN 400 MG TABLET (FP) PO PRN (03:34)
[2018-05-04] MEDS ORDERED: METHADONE HCL 10 MG TABLET ONE (04:09)
[2018-05-04] MEDS ORDERED: METHADONE HCL 40 MG DISPERSABLE TABLET ONE (04:09)
[2018-05-04] MEDS: METHADONE 40 MG, METHADONE 20 MG PO SCH (06:19)
[2018-05-04] MEDS: hydrOXYzine PAMOATE 50 MG CAPSULE (FP) PO PRN ×3 (06:21→21:32)
[2018-05-04] MEDS: SODIUM CHLORIDE NASAL SPRAY 44 ML BOTTLE NS SCH ×3 (06:38→21:34)
[2018-05-04] MEDS: NICOTINE 14 MG/24 HOURS TOPICAL PATCH TD SCH (10:14)
[2018-05-04] MEDS: PRENATAL VITAMINS W/ FOLIC ACID TABLET (FP) PO SCH (10:14)
[2018-05-04] MEDS: HYDROCORTISONE 1% TOPICAL CREAM 30 GM TUBE TP SCH ×2 (10:15→21:34)
[2018-05-04] MEDS: FLUTICASONE PROP 0.05% 16 GM NASAL SPRAY NS SCH ×2 (10:15→21:32)
[2018-05-04] MEDS: NICOTINE POLACRILEX 2 MG GUM BUC PRN (10:16)
--- NOTE | 2018-05-04 11:14 | PN ---
Psychiatric Progress Note Vital Signs: Vital Signs Period Temp Pulse Resp BP Sys/Lange Pulse Ox Last 24 Hr 98.0 F 87 16-18 103/66 Current Medications: Active Medications Generic Name Dose Route Start Last Admin Trade Name Freq PRN Reason Stop Dose Admin Acetaminophen 650 mg 04/18/18 20:39 04/29/18 17:01 Tylenol - PO 650 mg Q4H PRN Administration FEVER Al Hydroxide/Mg Hydroxide 30 ml 04/18/18 20:39 Mylanta Oral Suspension - PO Q6H PRN DYSPEPSIA Eucalyptus/Menthol/Phenol/Sorbitol 1 each 04/18/18 20:39 Cepastat Lozenge - MM Q4H PRN SORE THROAT Fluticasone Propionate 1 spray 04/19/18 22:00 05/04/18 10:15 Flonase - NS 1 spray BID NALLELY Administration Guaifenesin 10 ml 04/18/18 20:39 Robitussin Dm - PO Q6H PRN COUGH Hydrocortisone 1 applic 04/19/18 22:00 05/04/18 10:15 Hytone 1% Cream - TP Not Given BID [facility] Hydroxyzine Pamoate 50 mg 04/27/18 11:17 05/04/18 10:16 Vistaril - PO 50 mg Q4H PRN Administration ANXIETY Ibuprofen 400 mg 04/18/18 20:39 05/04/18 03:34 Motrin - PO 400 mg Q6H PRN Administration Pain Level 4-6 Loperamide HCl 4 mg 04/18/18 20:39 Imodium - PO Q6H PRN DIARRHEA Magnesium Citrate 300 ml 04/18/18 20:39 Citroma - PO Q48H PRN CONSTIPATION Magnesium Hydroxide 30 ml 04/18/18 20:39 Milk Of Magnesia - PO DAILY PRN CONSTIPATION Melatonin 5 mg 04/18/18 22:00 05/03/18 21:45 Melatonin PO 5 mg HS PRN Administration INSOMNIA Methadone HCl 40 mg/ Methadone 60 mg 05/03/18 06:00 05/04/18 06:19 HCl 20 mg PO 05/10/18 05:59 60 mg DAILY@0600 NALLELY Administration Nicotine 14 mg 04/19/18 10:00 05/04/18 10:14 Nicoderm Patch - TD 14 mg DAILY NALLELY Administration Nicotine Polacrilex 2 mg 04/18/18 20:39 05/04/18 10:16 Nicorette Gum - BUC 2 mg Q2H PRN Administration NICOTINE REPLACEMENT RX Multivit/Folic Acid/Iron 1 tab 04/19/18 10:00 05/04/18 10:14 Vitamins (Sjr) - PO 1 tab DAILY NALLELY Administration Pseudoephedrine/Triprolidine 1 combo 04/18/18 20:39 05/03/18 06:08 Actifed - PO 1 combo TID PRN Administration NASAL CONGESTION Sodium Chloride 2 spray 04/19/18 15:00 05/04/18 06:38 [place] Nasal [place] - NS Not Given TID NALLELY Suvorexant 10 mg 05/02/18 17:34 05/03/18 21:45 Belsomra PO 10 mg HS PRN Administration INSOMNIA Thiamine HCl 100 mg 04/18/18 22:00 05/03/18 21:45 Vitamin B1 - PO 100 mg HS NALLELY Administration Psychiatric Treatment Plan - Problem List (1) Sedative hypnotic or anxiolytic dependence Current Visit: Yes (2) Opioid dependence on agonist therapy Current Visit: Yes (3) Nicotine dependence Current Visit: No Qualifiers: Nicotine product type: cigarettes Substance use status: in withdrawal Qualified Code(s): F17.213 - Nicotine dependence, cigarettes, with withdrawal (4) Mood disorder Current Visit: Yes (5) Bipolar disorder Current Visit: Yes (6) Substance induced mood disorder Current Visit: Yes (7) Substance-induced sleep disorder Current Visit: Yes (8) History of appendectomy Current Visit: No (9) History of back surgery Current Visit: No (10) Nasal polyp Current Visit: Yes (11) Back pain Current Visit: Yes
--- NOTE | 2018-05-04 11:20 | PN ---
Psychiatric Progress Note Vital Signs: Vital Signs Period Temp Pulse Resp BP Sys/Lange Pulse Ox Last 24 Hr 98.0 F 87 16-18 103/66 Date of Session: 05/04/18 Chief Complaint:: Discharge Note HPI: Patient addressing Sedative Dependence comorbid with Opioid Dependence on Agonist Therapy, Nicotine Dependence, Mood Disorder, Substance-Induced Mood Disorder and Substance-Induced Sleep Disorder ROS: Back pain was medically managed Current Medications: Active Medications Generic Name Dose Route Start Last Admin Trade Name Freq PRN Reason Stop Dose Admin Acetaminophen 650 mg 04/18/18 20:39 04/29/18 17:01 Tylenol - PO 650 mg Q4H PRN Administration FEVER Al Hydroxide/Mg Hydroxide 30 ml 04/18/18 20:39 Mylanta Oral Suspension - PO Q6H PRN DYSPEPSIA Eucalyptus/Menthol/Phenol/Sorbitol 1 each 04/18/18 20:39 Cepastat Lozenge - MM Q4H PRN SORE THROAT Fluticasone Propionate 1 spray 04/19/18 22:00 05/04/18 10:15 Flonase - NS 1 spray BID NALLELY Administration Guaifenesin 10 ml 04/18/18 20:39 Robitussin Dm - PO Q6H PRN COUGH Hydrocortisone 1 applic 04/19/18 22:00 05/04/18 10:15 Hytone 1% Cream - TP Not Given BID NALLELY Hydroxyzine Pamoate 50 mg 04/27/18 11:17 05/04/18 10:16 Vistaril - PO 50 mg Q4H PRN Administration ANXIETY Ibuprofen 400 mg 04/18/18 20:39 05/04/18 03:34 Motrin - PO 400 mg Q6H PRN Administration Pain Level 4-6 Loperamide HCl 4 mg 04/18/18 20:39 Imodium - PO Q6H PRN DIARRHEA Magnesium Citrate 300 ml 04/18/18 20:39 Citroma - PO Q48H PRN CONSTIPATION Magnesium Hydroxide 30 ml 04/18/18 20:39 Milk Of Magnesia - PO DAILY PRN CONSTIPATION Melatonin 5 mg 04/18/18 22:00 05/03/18 21:45 Melatonin PO 5 mg HS PRN Administration INSOMNIA Methadone HCl 40 mg/ Methadone 60 mg 05/03/18 06:00 05/04/18 06:19 HCl 20 mg PO 05/10/18 05:59 60 mg DAILY@0600 NALLELY Administration Nicotine 14 mg 04/19/18 10:00 05/04/18 10:14 Nicoderm Patch - TD 14 mg DAILY NALLELY Administration Nicotine Polacrilex 2 mg 04/18/18 20:39 05/04/18 10:16 Nicorette Gum - BUC 2 mg Q2H PRN Administration NICOTINE REPLACEMENT RX Multivit/Folic Acid/Iron 1 tab 04/19/18 10:00 05/04/18 10:14 Vitamins (Sjr) - PO 1 tab DAILY NALLELY Administration Pseudoephedrine/Triprolidine 1 combo 04/18/18 20:39 05/03/18 06:08 Actifed - PO 1 combo TID PRN Administration NASAL CONGESTION Sodium Chloride 2 spray 04/19/18 15:00 05/04/18 06:38 [place] Nasal [place] - NS Not Given TID NALLELY Suvorexant 10 mg 05/02/18 17:34 05/03/18 21:45 Belsomra PO 10 mg HS PRN Administration INSOMNIA Thiamine HCl 100 mg 04/18/18 22:00 05/03/18 21:45 Vitamin B1 - PO 100 mg HS NALLELY Administration Current Side Effect: No Lab tests ordered: Yes Lab tests reviewed: Yes Provider note:: Patient will complete this program on 05/05/18. He has met his treatment goals and will continue to address his issues in outpatient treatment at [facility]. 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 He is stable for discharge on 05/05/18 Total face to face time:: 35 Mental Status Exam - Mental Status Exam Alert and Oriented to: Time, Place, Person Cognitive Function: Fair Patient Appearance: Well Groomed Mood: Suspicious, Euthymic Affect: Appropriate Patient Behavior: Cooperative Speech Pattern: Clear Voice Loudness: Normal Thought Process: Intact, Goal Oriented Thought Disorder: Not Present Hallucinations: Denies Suicidal Ideation: Denies Homicidal Ideation: Denies Insight/Judgement: Fair Sleep: Fair Muscle strength/Tone: Normal Gait/Station: Normal Psychiatric Treatment Plan - Problem List (1) Sedative hypnotic or anxiolytic dependence Current Visit: Yes (2) Opioid dependence on agonist therapy Current Visit: Yes (3) Nicotine dependence Current Visit: No Qualifiers: Nicotine product type: cigarettes Substance use status: in withdrawal Qualified Code(s): F17.213 - Nicotine dependence, cigarettes, with withdrawal (4) Mood disorder Current Visit: Yes (5) Bipolar disorder Current Visit: Yes (6) Substance induced mood disorder Current Visit: Yes (7) Substance-induced sleep disorder Current Visit: Yes (8) History of appendectomy Current Visit: No (9) History of back surgery Current Visit: No (10) Nasal polyp Current Visit: Yes (11) Back pain Current Visit: Yes Initial treatment plan: Patient will be discharged tomorrow and referred back to [facility] for outpatient treatment
[2018-05-04] MEDS: P-EPHED 60MG/TRIPROLIDI 2.5MG TABLET PO PRN ×2 (14:13→21:33)
[2018-05-04] MEDS: MELATONIN 5 MG TABLETS PO PRN (21:32)
[2018-05-04] MEDS: THIAMINE HCL 100 MG TABLET (FP) PO SCH (21:32)
[2018-05-04] MEDS: SUVOREXANT 10 MG TABLET PO PRN (21:33)
[2018-05-05] MEDS ORDERED: METHADONE HCL 10 MG TABLET ONE (04:38)
[2018-05-05] MEDS ORDERED: METHADONE HCL 40 MG DISPERSABLE TABLET ONE (04:38)
[2018-05-05] MEDS: METHADONE 40 MG, METHADONE 20 MG PO SCH (05:58)
[2018-05-05] MEDS: hydrOXYzine PAMOATE 50 MG CAPSULE (FP) PO PRN ×2 (05:59→09:44)
[2018-05-05 06:50] VITALS: BP 124/65; PULSE 66; TEMP 97.4
[2018-05-05] MEDS: SODIUM CHLORIDE NASAL SPRAY 44 ML BOTTLE NS SCH (07:10)
[2018-05-05] MEDS: NICOTINE 14 MG/24 HOURS TOPICAL PATCH TD SCH (09:43)
[2018-05-05] MEDS: PRENATAL VITAMINS W/ FOLIC ACID TABLET (FP) PO SCH (09:43)
[2018-05-05] MEDS: HYDROCORTISONE 1% TOPICAL CREAM 30 GM TUBE TP SCH (09:43)
[2018-05-05] MEDS: FLUTICASONE PROP 0.05% 16 GM NASAL SPRAY NS SCH (09:45)
--- NOTE | 2018-05-05 14:52 | PN ---
[facility] Progress Note Note: PT COMPLETED REHAB AND DISCHARGED TODAY. ALERT O X 3. PT MET WITH HIS COUNSELOR TODAY AND STATES REFERRAL TO [facility]. ALSO REPORTS HE WILL FOLLOW UP AT [facility] RE:NASAL COMPLAINTS BECAUSE HAD INITIAL APPOINTMENT THERE WHICH HE DID NOT FOLLOWED UP. REPORTS [facility] PRIMARY CARE SITE. REMINDED PATIENT THE NEGATIVE EFFECTS OF CHRONIC AFRIN USE WHICH HAS CONTRIBUTED TO CURRENT NASAL SX. PT VERBALIZED UNDERSTANDING. Vital Signs - 24 hr 05/05/18 05/05/18 05/05/18 00:30 03:30 06:49 Temperature 97.4 F L Pulse Rate 66 Respiratory 18 18 18 Rate Blood Pressure 124/65 Laboratory Tests 04/20/18 04/24/18 04/25/18 06:22 06:13 06:02 POC Glucometer 106 103 101 NAD PLAN:FOLLOW UP WITH [facility]. FOLLOW UP WITH PCP AT [facility] NEEDED. FOLLOW UP WITH [facility] FOR ENT APPOINTMENT/TREATMENT.
== END 2018-05-05 10:00 | disposition home or self-care (01) | DRG 772 ==
LOC: YASAS 19:07 → Y5N 19:12
PROVIDERS: ADMIT Psychiatry & Neurology Psychiatry; ATTEND Psychiatry & Neurology Psychiatry
PROC: HZ42ZZZ Group Counseling for Substance Abuse Treatment, Cognitive-Behavioral (ICD-10-PCS; principal; 2018-04-18)
DX: F13.20 Sedative, hypnotic or anxiolytic dependence, uncomplicated (principal); F11.20 Opioid dependence, uncomplicated; F17.213 Nicotine dependence, cigarettes, with withdrawal; F39 Unspecified mood [affective] disorder; F19.24 Other psychoactive substance dependence with psychoactive substance-induced mood disorder; F19.282 Other psychoactive substance dependence with psychoactive substance-induced sleep disorder; F31.9 Bipolar disorder, unspecified; M54.5 Low back pain; G89.29 Other chronic pain; J33.9 Nasal polyp, unspecified; R09.81 Nasal congestion
CPT/HCPCS: 82962

== ENCOUNTER 2019-12-12 19:05 | Inpatient (IN) | payer OTHER ==
[2019-12-12 20:22] VITALS: BMI 25.9
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
[2019-12-12] MEDS ORDERED: ACETAMINOPHEN 325 MG TABLET (FP) PO PRN ×2 (21:09)
[2019-12-12] MEDS ORDERED: MAGNESIUM CITRATE 300 ML BOTTLE PO PRN (21:09)
[2019-12-12] MEDS ORDERED: NICOTINE POLACRILEX 2 MG GUM BUC PRN (21:09)
[2019-12-12] MEDS ORDERED: IBUPROFEN 400 MG TABLET (FP) PO PRN (21:09)
[2019-12-12] MEDS ORDERED: MAGNESIUM HYDROX 2400MG/30ML ORAL SUSPENSION 30 ML CUP PO PRN (21:09)
[2019-12-12] MEDS ORDERED: MENTHOL/PHENOL 1 EACH UD MM PRN (21:09)
[2019-12-12] MEDS ORDERED: MAG HYDROX/AL HYDROX/SIMETH 30 ML UNIT-DOSE CUP PO PRN (21:09)
[2019-12-12] MEDS ORDERED: P-EPHED 60MG/TRIPROLIDI 2.5MG TABLET PO PRN (21:09)
[2019-12-12] MEDS ORDERED: guaiFENesin 200 MG/10 ML 10 ML UNIT-DOSE CUPS PO PRN (21:09)
[2019-12-12] MEDS ORDERED: BISMUTH SUBSALICYLATE 524 MG/30 ML UD PO PRN (21:09)
[2019-12-12] MEDS ORDERED: ONDANSETRON *ODT* 4 MG TABLET SL PRN (21:09)
[2019-12-12] MEDS ORDERED: DICYCLOMINE HCL 10 MG CAPSULE PO PRN (21:09)
[2019-12-13] MEDS ORDERED: cloNIDine HCL 0.1 MG TABLET PO PRN (00:02)
[2019-12-13] MEDS ORDERED: NALOXONE HCL 0.4 MG/ML VIAL IM PRN (00:02)
[2019-12-13] MEDS ORDERED: METHADONE HCL 10 MG TABLET (FOR DETOX USE ONLY) PO ONE (00:02)
[2019-12-13] MEDS: THIAMINE HCL 100 MG TABLET (FP) PO SCH ×2 (00:24→21:52)
[2019-12-13] MEDS: MELATONIN 5 MG TABLETS PO SCH ×2 (00:24→21:55)
[2019-12-13] MEDS: diazePAM 5 MG TABLET PO SCH ×3 (05:30→21:52)
[2019-12-13] MEDS ORDERED: METHADONE HCL 5 MG TABLET (FOR DETOX USE ONLY) PO ONE (10:00)
[2019-12-13] MEDS: PRENATAL VITAMINS W/ FOLIC ACID TABLET (FP) PO SCH (10:07)
[2019-12-13] MEDS: NICOTINE 14 MG/24 HOURS TOPICAL PATCH TD SCH (10:07)
[2019-12-13] MEDS: METHOCARBAMOL 500 MG TABLET PO PRN ×2 (10:10→23:13)
[2019-12-13 10:33] LABS: HEMOGLOBIN 12.8 GM/dL (11.7-16.9); MCH 31.4 pg (25.7-33.7); MCHC 33.6 g/dl (32.0-35.9); MEAN CELL VOLUME 93.2 fl (80-96); MEAN PLT VOLUME 9.5 fl (7.5-11.1); PLATELET COUNT 166 K/MM3 (134-434); RBC 4.07 M/mm3 (4.00-5.60); RDW 13.1 % (11.9-15.9); WHITE BLOOD COUNT 5.5 K/mm3 (4.0-10.0)
--- NOTE | 2019-12-13 10:39 | EKG ---
Test Reason : Blood Pressure : / mmHG Vent. Rate : 075 BPM Atrial Rate : 075 BPM P-R Int : 156 ms QRS Dur : 090 ms QT Int : 378 ms P-R-T Axes : 070 067 031 degrees QTc Int : 422 ms NORMAL SINUS RHYTHM NORMAL ECG NO PREVIOUS ECGS AVAILABLE Confirmed by Edward Chu MD ([id number]) on 12/13/2019 10:38:36 AM Referred By: Kirby Mason Confirmed By:Edward Chu MD
[2019-12-13 10:42] LABS: BILIRUBIN,TOTAL 0.8 mg/dL (0.2-1); BLOOD UREA NITROGEN 17.1 mg/dL (7-18); CALCIUM 7.9 mg/dL (8.5-10.1)
--- NOTE | 2019-12-13 11:58 | PN ---
[facility] CIWA - CIWA Score Nausea/Vomitin-Mild Nausea/No Vomiting Muscle Tremors: 4-Moderate,w/Arms Extend Anxiety: 4-Mod. Anxious/Guarded Agitation: 1-Slight > Activity Paroxysmal Sweats: No Perspiration Orientation: 1-Uncertain about Date (day of week) Tacttile Disturbances: 0-None Auditory Disturbances: 0-None Visual Disturbances: 0-None Headache: 1-Very Mild CIWA-Ar Total Score: 12 S COWS - Scale Resting Pulse: 1= [place] 81-100 Sweatin= No chills or Flushing Restless Observation: 0= Sits Still Pupil Size: 1= Pupils >than Normal Bone or Joint Aches: 1= Mild Discomfort Runny Nose/ Eye Tearin= None GI Upset > 30mins: 2= Nausea/Diarrhea Tremor Observation of Outstretched Hands: 2= Slight Tremor Visible Yawning Observation: 0= None Anxiety or Irritability: 2=Irritable/Anxious Goose Flesh Skin: 0=Smooth Skin COWS Score: 9 [facility] Progress Note (SOAP) Subjective: 49 years old male was admitted on 12/12/19 for alcohol benzo opiate withdrawal sx management treating with valium and methadone detox regiments reports loose stool x 2 imodium 4 mg po x 1 abdominal cramping bentyl 20 mg po x 1 Objective: 12/13/19 11:58 Vital Signs - 24 hr 12/12/19 12/12/19 12/13/19 20:20 23:29 06:30 Temperature 96.4 F L 98.4 F 97.8 F Pulse Rate 90 72 54 L Respiratory 20 18 18 Rate Blood Pressure 115/68 118/81 106/62 O2 Sat by Pulse 98 100 Oximetry (%) 12/13/19 08:30 Temperature 98 F Pulse Rate 68 Respiratory 18 Rate Blood Pressure 108/73 O2 Sat by Pulse 100 Oximetry (%) Laboratory Tests 12/13/19 12/13/19 12/13/19 08:15 08:15 08:15 WBC 5.5 RBC 4.07 Hgb 12.8 Hct 38.0 MCV 93.2 MCH 31.4 MCHC 33.6 RDW 13.1 Plt Count 166 MPV 9.5 Sodium 140 Potassium 4.0 Chloride 106 Carbon Dioxide 29 Anion Gap 6 L BUN 17.1 Creatinine 1.0 Est GFR (CKD-EPI)AfAm 100.55 Est GFR (CKD-EPI)NonAf 86.76 Random Glucose 106 Calcium 7.9 L Total Bilirubin 0.8 AST 49 H ALT 27 Alkaline Phosphatase 86 Total Protein 6.0 L Albumin 3.0 L Syphilis Serology Reactive A* HIV Ag/Ab Combo Qual 12/13/19 08:15 WBC RBC Hgb Hct MCV MCH MCHC RDW Plt Count MPV Sodium Potassium Chloride Carbon Dioxide Anion Gap BUN Creatinine Est GFR (CKD-EPI)AfAm Est GFR (CKD-EPI)NonAf Random Glucose Calcium Total Bilirubin AST ALT Alkaline Phosphatase Total Protein Albumin Syphilis Serology HIV Ag/Ab Combo Qual Negative covid pending Assessment: 12/13/19 11:59 alcohol benzo opiate withdrawal Plan: valium and methadone regiments
[2019-12-13] MEDS ORDERED: DICYCLOMINE HCL 10 MG CAPSULE PO ONE (12:00)
[2019-12-13] MEDS ORDERED: LOPERAMIDE HCL 2 MG CAPSULE PO ONE (12:30)
--- NOTE | 2019-12-13 17:12 | CONSULT ---
[facility] Psychiatric Consult - Data Date of interview: 12/13/19 Admission source: [facility] Identifying data: Patient is approached at bedside for psychiatric evaluation. Declines.
[2019-12-13] MEDS: diazePAM 5 MG TABLET PO PRN (18:00)
[2019-12-13] MEDS: hydrOXYzine PAMOATE 25 MG CAPSULE (FP) PO PRN (21:53)
[2019-12-14] MEDS: diazePAM 5 MG TABLET PO SCH ×2 (05:21→17:46)
[2019-12-14] MEDS ORDERED: METHADONE HCL 10 MG TABLET (FOR DETOX USE ONLY) ONE (09:36)
[2019-12-14] MEDS ORDERED: METHADONE HCL 5 MG TABLET (FOR DETOX USE ONLY) ONE (09:37)
[2019-12-14] MEDS: NICOTINE 14 MG/24 HOURS TOPICAL PATCH TD SCH (09:56)
[2019-12-14] MEDS: PRENATAL VITAMINS W/ FOLIC ACID TABLET (FP) PO SCH (09:56)
[2019-12-14] MEDS ORDERED: METHADONE (DETOX) 20 MG, METHADONE (DETOX) 5 MG PO ONE (10:00)
[2019-12-14] MEDS: diazePAM 5 MG TABLET PO PRN ×2 (10:42→22:18)
--- NOTE | 2019-12-14 12:12 | PN ---
S CIWA - CIWA Score Nausea/Vomitin-Mild Nausea/No Vomiting Muscle Tremors: 1-None Visible, but White Anxiety: 3 Agitation: 1-Slight > Activity Paroxysmal Sweats: 1-Minimal Palms Moist Orientation: 0-Oriented Tacttile Disturbances: 0-None Auditory Disturbances: 0-None Visual Disturbances: 1-Very Mild Sensitivity Headache: 0-None Present CIWA-Ar Total Score: 8 [facility] COWS - Scale Resting Pulse: 0= [place] 80 or Below Sweatin= Chills/Flushing Restless Observation: 0= Sits Still Pupil Size: 1= Pupils >than Normal Bone or Joint Aches: 1= Mild Discomfort Runny Nose/ Eye Tearin= Nasal Congestion GI Upset > 30mins: 1= Stomach Cramp Tremor Observation of Outstretched Hands: 1= Tremor White, Not Seen Yawning Observation: 0= None Anxiety or Irritability: 2=Irritable/Anxious Goose Flesh Skin: 0=Smooth Skin COWS Score: 8 S Progress Note (SOAP) Subjective: 49 years old male was admitted on 12/12/19 for alcohol benzo opiate withdrawal sx management treating with valium and methadone detox regimens crying on the phone asking forgiving emotional support given reports trouble sleep at night increase melatonin to 10 mg po hs one dose belsomra 5 mg po x 1 at hs Objective: 12/14/19 12:17 Vital Signs - 24 hr 12/13/19 12/13/19 12/14/19 16:41 20:35 06:25 Temperature 97.5 F L 97.3 F L 97.4 F L Pulse Rate 66 65 67 Respiratory 18 18 18 Rate Blood Pressure 109/77 112/81 102/71 O2 Sat by Pulse 100 99 Oximetry (%) 12/14/19 08:31 Temperature 97.7 F Pulse Rate 55 L Respiratory 18 Rate Blood Pressure 100/62 O2 Sat by Pulse Oximetry (%) Laboratory Tests 12/13/19 12/13/19 12/13/19 08:15 08:15 08:15 WBC 5.5 RBC 4.07 Hgb 12.8 Hct 38.0 MCV 93.2 MCH 31.4 MCHC 33.6 RDW 13.1 Plt Count 166 MPV 9.5 Sodium 140 Potassium 4.0 Chloride 106 Carbon Dioxide 29 Anion Gap 6 L BUN 17.1 Creatinine 1.0 Est GFR (CKD-EPI)AfAm 100.55 Est GFR (CKD-EPI)NonAf 86.76 Random Glucose 106 Calcium 7.9 L Total Bilirubin 0.8 AST 49 H ALT 27 Alkaline Phosphatase 86 Total Protein 6.0 L Albumin 3.0 L Syphilis Serology Reactive A* RPR Titer HIV Ag/Ab Combo Qual 12/13/19 12/13/19 08:15 08:15 WBC RBC Hgb Hct MCV MCH MCHC RDW Plt Count MPV Sodium Potassium Chloride Carbon Dioxide Anion Gap BUN Creatinine Est GFR (CKD-EPI)AfAm Est GFR (CKD-EPI)NonAf Random Glucose Calcium Total Bilirubin AST ALT Alkaline Phosphatase Total Protein Albumin Syphilis Serology RPR Titer Reactive 1:1 H D HIV Ag/Ab Combo Qual Negative 12/14/19 12:18 covid pending syphilis contacted treated 12/14/19 12:20 Assessment: 12/14/19 12:20 alcohol benzo opiate withdrawal 12/14/19 12:20 Plan: valium and methadone regiments
[2019-12-14] MEDS ORDERED: MELATONIN 5 MG TABLETS PO SCH (12:13)
[2019-12-14] MEDS: hydrOXYzine PAMOATE 25 MG CAPSULE (FP) PO PRN (12:41)
[2019-12-14] MEDS ORDERED: SUVOREXANT 5 MG TABLET PO ONE (22:00)
[2019-12-14] MEDS: THIAMINE HCL 100 MG TABLET (FP) PO SCH (22:18)
[2019-12-15] MEDS ORDERED: diazePAM 5 MG TABLET PO ONE (06:00)
[2019-12-15 06:38] VITALS: TEMP 98
[2019-12-15 09:29] VITALS: BP 138/60; PULSE 76
[2019-12-15] MEDS ORDERED: METHADONE HCL 10 MG TABLET (FOR DETOX USE ONLY) PO ONE (10:00)
[2019-12-15] MEDS: NICOTINE 14 MG/24 HOURS TOPICAL PATCH TD SCH (10:53)
[2019-12-15] MEDS: PRENATAL VITAMINS W/ FOLIC ACID TABLET (FP) PO SCH (10:53)
--- NOTE | 2019-12-15 12:21 | PN ---
[facility] CIWA - CIWA Score Nausea/Vomitin-No Nausea/No Vomiting Muscle Tremors: None Anxiety: 1-Mildly Anxious Agitation: 0-Normal Activity Paroxysmal Sweats: No Perspiration Orientation: 0-Oriented Tacttile Disturbances: 0-None Auditory Disturbances: 0-None Visual Disturbances: 0-None Headache: 0-None Present CIWA-Ar Total Score: 1 [facility] COWS - Scale Resting Pulse: 0= [place] 80 or Below Sweatin= No chills or Flushing Restless Observation: 0= Sits Still Pupil Size: 0= Normal to Room Light Bone or Joint Aches: 0= None Runny Nose/ Eye Tearin= None GI Upset > 30mins: 0= None Tremor Observation of Outstretched Hands: 0= None Yawning Observation: 0= None Anxiety or Irritability: 1=Feels Anxious/Irritable Goose Flesh Skin: 0=Smooth Skin COWS Score: 1 [facility] Progress Note (SOAP) Subjective: alert,no complaint Objective: 12/15/19 16:26 Vital Signs Temperature 98.0 F 12/15/19 08:28 Pulse Rate 76 12/15/19 08:28 Respiratory Rate 18 12/15/19 08:28 Blood Pressure 138/60 12/15/19 08:28 O2 Sat by Pulse Oximetry (%) 100 12/15/19 06:38 Assessment: 12/15/19 16:26 no withdrawal symptom Plan: stable for discharge today,follow up with after care program as arrangement
--- NOTE | 2019-12-15 12:21 | DS ---
[facility] Detox Discharge Summary Admission Date: 12/12/19 Discharge Date: 12/15/19 - History Present History: Alcohol Dependence, Cannabis Dependence, Cocaine Dependence, Opioid Dependence, Sedative Dependence Additional Comments: alert,oriented x 3 ambulation on the unit with cane lung clear on auscultation bilaterally abdomen soft,no distension no pain no withdrawal symptom stable for discharge declined rehab total time spending on discharge 35 minutes follow up with after care program as arrangement by counselor left the unit in stable condition Pertinent Past History: low back pain use cane for ambulatory aid history of syphilis treated - Physical Exam Results Vital Signs: Vital Signs Temperature 98.0 F 12/15/19 08:28 Pulse Rate 76 12/15/19 08:28 Respiratory Rate 18 12/15/19 08:28 Blood Pressure 138/60 12/15/19 08:28 O2 Sat by Pulse Oximetry (%) 100 12/15/19 06:38 Pertinent Admission Physical Exam Findings: withdrawal signs and symptom Laboratory Last Values WBC 5.5 K/mm3 (4.0-10.0) 12/13/19 08:15 RBC 4.07 M/mm3 (4.00-5.60) 12/13/19 08:15 Hgb 12.8 GM/dL (11.7-16.9) 12/13/19 08:15 Hct 38.0 % (35.4-49) 12/13/19 08:15 MCV 93.2 fl (80-96) 12/13/19 08:15 MCH 31.4 pg (25.7-33.7) 12/13/19 08:15 MCHC 33.6 g/dl (32.0-35.9) 12/13/19 08:15 RDW 13.1 % (11.9-15.9) 12/13/19 08:15 Plt Count 166 K/MM3 (134-434) 12/13/19 08:15 MPV 9.5 fl (7.5-11.1) 12/13/19 08:15 Sodium 140 mmol/L (136-145) 12/13/19 08:15 Potassium 4.0 mmol/L (3.5-5.1) 12/13/19 08:15 Chloride 106 mmol/L (98-107) 12/13/19 08:15 Carbon Dioxide 29 mmol/L (21-32) 12/13/19 08:15 Anion Gap 6 MMOL/L (8-16) L 12/13/19 08:15 BUN 17.1 mg/dL (7-18) 12/13/19 08:15 Creatinine 1.0 mg/dL (0.55-1.3) 12/13/19 08:15 Est GFR (CKD-EPI)AfAm 100.55 12/13/19 08:15 Est GFR (CKD-EPI)NonAf 86.76 12/13/19 08:15 Random Glucose 106 mg/dL (74-106) 12/13/19 08:15 Calcium 7.9 mg/dL (8.5-10.1) L 12/13/19 08:15 Total Bilirubin 0.8 mg/dL (0.2-1) 12/13/19 08:15 AST 49 U/L (15-37) H 12/13/19 08:15 ALT 27 U/L (13-61) 12/13/19 08:15 Alkaline Phosphatase 86 U/L (45-117) 12/13/19 08:15 Total Protein 6.0 g/dl (6.4-8.2) L 12/13/19 08:15 Albumin 3.0 g/dl (3.4-5.0) L 12/13/19 08:15 Syphilis Serology Reactive (NONREACTIVE) A* 12/13/19 08:15 RPR Titer Reactive 1:1 (NONREACTIVE) H D 12/13/19 08:15 COVID-19 (M[facility]ON) Not detected (Not Detected) 12/12/19 22:48 HIV Ag/Ab Combo Qual Negative (NEGATIVE) 12/13/19 08:15 history of syphilis treated Vital Signs Temperature 98.0 F 12/15/19 08:28 Pulse Rate 76 12/15/19 08:28 Respiratory Rate 18 12/15/19 08:28 Blood Pressure 138/60 12/15/19 08:28 O2 Sat by Pulse Oximetry (%) 100 12/15/19 06:38 - Treatment Hospital Course: Detox Protocol Followed, Detoxed Safely, Responded well, Discharged Condition Good Patient has Accepted a Rehab Referral to: declined - Medication Discharge Medications: Ambulatory Orders Methadone [Dolophine -] 60 mg PO DAILY 03/13/18 Fluticasone Prop 0.05% Nasal 1 mcg IH TID 04/18/18 Sodium Chloride Nasal [place] 2 spray IH PRN PRN 04/18/18
[2019-12-16] MEDS ORDERED: METHADONE (DETOX) 10 MG, METHADONE (DETOX) 5 MG PO ONE (10:00)
[2019-12-17] MEDS ORDERED: METHADONE HCL 10 MG TABLET (FOR DETOX USE ONLY) PO ONE (10:00)
[2019-12-18] MEDS ORDERED: METHADONE HCL 5 MG TABLET (FOR DETOX USE ONLY) PO ONE (06:00)
== END 2019-12-15 09:15 | disposition home or self-care (01) | DRG 773 ==
LOC: YASAS 19:05 → Y3N 22:12
PROVIDERS: ADMIT Allergy & Immunology; ATTEND Allergy & Immunology
PROC: HZ2ZZZZ Detoxification Services for Substance Abuse Treatment (ICD-10-PCS; principal; 2019-12-12)
DX: F10.230 Alcohol dependence with withdrawal, uncomplicated (principal); F11.23 Opioid dependence with withdrawal; F13.230 Sedative, hypnotic or anxiolytic dependence with withdrawal, uncomplicated; F14.20 Cocaine dependence, uncomplicated; F12.20 Cannabis dependence, uncomplicated; F17.210 Nicotine dependence, cigarettes, uncomplicated; F19.282 Other psychoactive substance dependence with psychoactive substance-induced sleep disorder; F19.24 Other psychoactive substance dependence with psychoactive substance-induced mood disorder; M54.5 Low back pain; J33.9 Nasal polyp, unspecified; Z86.19 Personal history of other infectious and parasitic diseases; Z99.89 Dependence on other enabling machines and devices; S60.012A Contusion of left thumb without damage to nail, initial encounter; S80.211A Abrasion, right knee, initial encounter; Y04.0XXA Assault by unarmed brawl or fight, initial encounter; Y93.89 Activity, other specified; Y92.89 Other specified places as the place of occurrence of the external cause; Y99.8 Other external cause status
CPT/HCPCS: 36415; 80053; 85027; 86593; 86780; 87389; 93005; 93010; J0735; U0003

== ENCOUNTER 2020-01-06 14:39 | Inpatient (IN) | payer OTHER ==
--- NOTE | 2020-01-06 15:57 | BHS.RME ---
Substance Use & Tx History - Substance Use History Heroin Substance amount: 10 bags Frequency of use: Daily Substance route: Injection (ex: intravenous or skin popping) Date of Last Use: 01/05/20 Alcohol Substance amount: 2 cans beer 24 ounce each Frequency of use: Daily Substance route: Oral Date of Last Use: 01/05/20 Xanax Substance amount: 2mg x 3 sticks Frequency of use: Daily Substance route: Oral Date of Last Use: 01/05/20 - Last Treatment Date of last treatment: December 11 to Dec 14 detox, declined rehab Physical/Psych/Mental Status - Behavior General Behavior: Decreased activity Eye Contact: Normal - Cooperativeness Cooperativeness: Cooperative - Thinking Thought Processes: Tight Thought content: Future oriented - Physical Health Problems Is patient presently having any pain?: Yes (low back pain, chronic and ? withdrawal) Does patient presently have any injuries (include location): No Does patient currently have a fever: No COWS - Scale Resting Pulse: 1= [place] 81-100 Sweatin=Flushed/Facial Moisture Restless Observation: 0= Sits Still Pupil Size: 0= Normal to Room Light Bone or Joint Aches: 2= Severe Diffuse Aches Runny Nose/ Eye Tearin= Nasal Congestion GI Upset > 30mins: 2= Nausea/Diarrhea Tremor Observation: 2= Slight Tremor Visible Yawning Observation: 0= None Anxiety or Irritability: 2=Irritable/Anxious Goose Flesh Skin: 0=Smooth Skin COWS Score: 12
--- NOTE | 2020-01-06 17:31 | HP ---
COWS - Scale Resting Pulse: 1= [place] 81-100 Sweatin=Flushed/Facial Moisture Restless Observation: 0= Sits Still Pupil Size: 0= Normal to Room Light Bone or Joint Aches: 2= Severe Diffuse Aches Runny Nose/ Eye Tearin= Nasal Congestion GI Upset > 30mins: 2= Nausea/Diarrhea Tremor Observation: 2= Slight Tremor Visible Yawning Observation: 0= None Anxiety or Irritability: 2=Irritable/Anxious Goose Flesh Skin: 0=Smooth Skin COWS Score: 12 CIWA Score Nausea/Vomitin-Mild Nausea/No Vomiting Muscle Tremors: 3 Anxiety: 2 Agitation: 2 Paroxysmal Sweats: 2 Orientation: 1-Uncertain about Date Tacttile Disturbances: 0-None Auditory Disturbances: 0-None Visual Disturbances: 0-None Headache: 1-Very Mild CIWA-Ar Total Score: 12 - Admission Criteria OASAS Guidelines: Admission for Medically Managed Detox: Requires at least one of the followin. CIWA greater than 12 2. Seizures within the past 24 hours 3. Delirium tremens within the past 24 hours 4. Hallucinations within the past 24 hours 5. Acute intervention needed for co occurring medical disorder 6. Acute intervention needed for co occurring psychiatric disorder 7. Severe withdrawal that cannot be handled at a lower level of care (continued vomiting, continued diarrhea, abnormal vital signs) requiring intravenous medication and/or fluids 8. Patient presents the following: CIWA greater than 12 Admission Criteria Met: Admission criteria met Admitting History and Physical - Admission Chief Complaint: detox from alcohol/benzo/opioids History of Present Illness: 49 yo polysubstance use- last here from 12/11-12/15/19, says he relapse soon after leaving here. Recently had abscess of R antecubital fossa. Abscess I and D at [facility] but pt did not fill prescriptions. Says he has not had any drainage and that he has no pain at site. denies medical problems, has no PCP h/o bipolar- remeron to sleep. - Substance Use History Heroin Substance amount: 10 bags Frequency of use: Daily Substance route: Injection (ex: intravenous or skin popping) Date of Last Use: 01/05/20 Alcohol Substance amount: 2-3 cans beer 24 ounce each Frequency of use: Daily Substance route: Oral Date of Last Use: 01/05/20 Xanax Substance amount: 2mg x 3 sticks Frequency of use: Daily Substance route: Oral Date of Last Use: 01/05/20 - Smoking History Smoking history: Current every day smoker Have you smoked in the past 12 months: Yes Aproximately how many cigarettes per day: 10 - Alcohol/Substance Use Hx Alcohol Use: Yes Admission ROS S - [facility] Chief Complaint: detoc from alcohol/xanax/opioids Allergies/Adverse Reactions: Allergies Allergy/AdvReac Type Severity Reaction Status Date / Time No Known Allergies Allergy Verified 04/14/18 11:30 History of Present Illness: 49 yo polysubstance use- last here from 12/11-12/15/19, says he relapse soon after leaving here. Recently was admitted for 9 days at [facility] for injection site abscess of R antecubital fossa. Was given antibiotics and endocarditis ruled out. Pt states he did not fill any prescriptions since discharge because of drug use. Says he has not had any drainage nor pain at site. Denies fevers. Pt was in a methadone program left 6 months ago, would be willing to return Denies chronic medical problems, has no PCP h/o bipolar- remeron to sleep. - Substance Use History Heroin Substance amount: 10 bags Frequency of use: Daily Substance route: Injection (ex: intravenous or skin popping) Date of Last Use: 01/05/20 Alcohol Substance amount: 2-3 cans beer 24 ounce each Frequency of use: Daily Substance route: Oral Date of Last Use: 01/05/20 Xanax Substance amount: 2mg x 3 sticks Frequency of use: Daily Substance route: Oral Date of Last Use: 01/05/20 - Ebola screening Have you traveled outside of the country in the last 21 days: No Have you had contact with anyone from an Ebola affected area: No Have you been sick,other than usual withdrawal symptoms: No Do you have a fever: No - Review of Systems Constitutional: No Symptoms Reported EENT: reports: No Symptoms Reported Respiratory: reports: No Symptoms reported Cardiac: reports: No Symptoms Reported GI: reports: No Symptoms Reported : reports: No Symptoms Reported Musculoskeletal: reports: No Symptoms Reported Integumentary: reports: Other (recent I and D of R foreram) Neuro: reports: No Symptoms reported Endocrine: reports: No Symptoms Reported Hematology: reports: No Symptoms Reported Psychiatric: reports: No Sypmtoms Reported Other Systems: Reviewed and Negative Patient History - Patient Medical History Hx Anemia: No Hx Asthma: No Hx Chronic Obstructive Pulmonary Disease (COPD): No Hx Cancer: No Hx Cardiac Disorders: No Hx Congestive Heart Failure: No Hx Hypertension: No HX Cerebrovascular Accident: No Hx Seizures: No Hx Diabetes: No Hx Gastrointestinal Disorders: No Hx Liver Disease: No Hx Genitourinary Disorders: No Hx Sexually Transmitted Disorders: No Hx Renal Disease (ESRD): No Hx Thyroid Disease: No Hx Human Immunodeficiency Virus (HIV): No (last 03/30 negative) Hx Hepatitis C: No Hx Depression: Yes Hx Suicide Attempt: No Hx Bipolar Disorder: No Hx Schizophrenia: No - Patient Surgical History Past Surgical History: Yes Hx Neurologic Surgery: No Hx Cataract Extraction: No Hx Cardiac Surgery: No Hx Lung Surgery: No Hx Breast Surgery: No Hx Breast Biopsy: No Hx Abdominal Surgery: No Hx Appendectomy: Yes (1987) Hx Cholecystectomy: No Hx Section: No Hx Orthopedic Surgery: Yes (Laminectomy in 2011 l4,l5) Other Surgical History: nasal polyp both last 2019 Anesthesia Reaction: No - PPD History Date: 12/15/19 Results: 0 mm - Smoking Cessation Smoking history: Current every day smoker Have you smoked in the past 12 months: Yes Aproximately how many cigarettes per day: 10 Cigars Per Day: 0 Hx Chewing Tobacco Use: No Initiated information on smoking cessation: Yes 'Breaking Loose' booklet given: 01/06/20 - Substance & Tx. History Hx Alcohol Use: Yes Hx Substance Use: Yes Substance Use Type: Alcohol, Heroin, Tranquilizers Hx Substance Use Treatment: Yes Admission Physical Exam [facility] - Physical General Appearance: Yes: Within Normal Limits HEENTM: Yes: Within Normal Limits, EOMI, Hearing grossly Normal Respiratory: Yes: Within Normal Limits, Chest Non-Tender, Lungs Clear Neck: Yes: Within Normal Limits Cardiology: Yes: Within Normal Limits, Regular Rhythm, Regular Rate Abdominal: Yes: Within Normal Limits, Normal Bowel Sounds Back: Yes: Within Normal Limits Musculoskeletal: Yes: Within Normal Limits, full range of Motion Extremities: Yes: Within Normal Limits, Normal Inspection Neurological: Yes: Within Normal Limits, business development coordinator II-XII NML intact Integumentary: Yes: Track Zhu (healing I and D site L antecubital fossa- dry, no redness, no discharge) Lymphatic: Yes: Within Normal Limits - Diagnostic (1) Injection site abscess Current Visit: Yes Status: Acute (2) Alcohol dependence with uncomplicated withdrawal Current Visit: No Status: Acute (3) Cannabis dependence, uncomplicated Current Visit: No Status: Acute (4) Opioid dependence with withdrawal Current Visit: No Status: Acute (5) Sedative hypnotic or anxiolytic dependence Current Visit: No Status: Acute (6) Mood disorder Current Visit: No Status: Chronic Breathalyzer - Breathalyzer Breathalyzer: 0 Urine Drug Screen - Test Device Lot number: [id number] Expiration date: 07/19/21 - Control Is test valid?: Yes - Results Drug screen NEGATIVE: No Urine drug screen results: THC-Marijuana, MARI-Cocaine, FEN-Fentanyl, MOP- Opiates, BZO-Benzodiazepines Inpatient Rehab Admission - Rehab Decision to Admit Inpatient rehab admission?: No
[2020-01-06] MEDS ORDERED: MENTHOL/PHENOL 1 EACH UD MM PRN (17:46)
[2020-01-06] MEDS ORDERED: traZODone HCL 50 MG TABLET (FP) PO PRN (17:46)
[2020-01-06] MEDS ORDERED: NICOTINE POLACRILEX 2 MG GUM BUC PRN (17:46)
[2020-01-06] MEDS ORDERED: ACETAMINOPHEN 325 MG TABLET (FP) PO PRN ×2 (17:46)
[2020-01-06] MEDS ORDERED: BISMUTH SUBSALICYLATE 524 MG/30 ML UD PO PRN (17:46)
[2020-01-06] MEDS ORDERED: ONDANSETRON *ODT* 4 MG TABLET SL PRN (17:46)
[2020-01-06] MEDS ORDERED: MAGNESIUM HYDROX 2400MG/30ML ORAL SUSPENSION 30 ML CUP PO PRN (17:46)
[2020-01-06] MEDS ORDERED: MAGNESIUM CITRATE 300 ML BOTTLE PO PRN (17:46)
[2020-01-06] MEDS ORDERED: MAG HYDROX/AL HYDROX/SIMETH 30 ML UNIT-DOSE CUP PO PRN (17:46)
[2020-01-06] MEDS ORDERED: METHADONE HCL 10 MG TABLET (FOR DETOX USE ONLY) PO ONE (17:48)
[2020-01-06] MEDS ORDERED: cloNIDine HCL 0.1 MG TABLET PO PRN (17:48)
--- OUTSIDE RECORDS SUMMARY | 2020-01-06 18:44 | XMS ---
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 +Jd1O eMBZbEOSc0 HOslW JcOrzlIdxe +y0TW d32WD9tcFn 3cL/U b5vZB9lSzv n60is yYvIS2RyxJ O9LWc s59LmZrXCf A1urq OuMuA8rVH8 PK7hT CWGH2AsK7d M3cHM LWQMDWvVQg ucBtQ heEGqB7z/B cxM0R T9NOIEsS5K cbgqw RcN0mE9sVg yzE1L EQhMkLy9ED tV2yt +ZPKr/Oj94 3GXYs q5LFWwg7+9 gvFp4 raoyJW9KkO nqWsC tzvJGmuJWa LhvsO rxuxpouaGh hfSz9 LhEPpggeGL BfJCl LUmdu5aHUl Mna9M nhG9x/TZo+ nQZwk K3zcI7gTs8 GlMpe 46ZuBpr7vG OMsMH uUNkJsVhQp xEPRj bk/TwkRWTd nbBNL OsvYdWkoY9 DHJai FH5tWLdgwt Z+K9G wiDtYXhRwD 0cnCP AZGovjRq6/ X2CkF PqPDsXxRIX UMa1P BH0ouRazz8 1nglY eH3sKXHwtD EzuS3 VoVFFtoIJz vZazN NPCzy933ck UcsCM p6E9OUD0Or 693jO 8CYFvpMTKf BTVYH 3XW4pX002d 2REEm KUzFVVd+BA PTYZG c5AyZwHnCm 68+yr IUcYwz4pNI 6WAmp f0cIQYv5Oh jwr5V +ff9FXL0WA Qquvc o5+QU5Pb9c skaqm pYd+N4CeHM tOW34 UiBSVgy+iL FdvDN NNrNEEA9we lKsRr hk80KaETd8 Dcn2B VUwsJFrri8 gbYcz WKCCWBgwkL aezBh aqxhlTokM4 yh5eW /MPoHLUzhB rN2wt tgntIlm9uo LLBgo 5qba1MBoyu V9tVC l9RmM0KhMO R+Qzk jc6hO5ctKO Qz7Jq WtMiIB12MH YupQa V5+Mcbmm3k g+qLN Mp9YDAtfgo vcxNg fC1GWNUWAe gElZW oHURDt6dAJ ulrKa mybhWVfv46 ui3s9 RKJEDgKR4B jEnKj TexPRYMJ0M mqUff l4g8KRSrjV v9L01 qqZudpIOui FZvlr kaX7dsceGo CVGYS N/NULUQPja RdjXl 3LblFzaCEG gha3Q sPRWm/XCpR /A5q+ R/qY3a8Pbp jI6Nl yCLb8XcVFJ cFlnD /U18YuhFV9 6kQ0n CGLElNETEh JtdAh v8yzdThjVp 8ZHZy O5787n/1lh 4/CRW J0BxpsTHdA yldge j4/CQZBAOa RLQDY dmmXZ+StsZ cdBRR jD351Z7WXA Mdkac 2U7SQJQ+oi Ql+/k 7JBmEvyiNy YY/LN tuqNfy866p QmRqN aSzqcVT7La 8JBmE yNQuoTsiL/ Ij70f oRW7gi1Efr NQC+N 0cz8kxbY4b Tqhen +9SqXv+gG0 5u1fV dgVItZS6DF wUF90 OystuwRBg0 pB1Ta a2T+G7ARds GDFdJ y5MEg43dRn uL6FR vPtfF9+6/7 fAteh Fwezw9bx30 uE14J DHsBqpEVx7 3STZ3 JyfT5PUXhi WlHiS MbMQX3Bxmg SpFH4 JjU6N3YaT7 7Xzfs XyO31sNwCf 8H7Bc QBvGxvhob8 +o7t2 283nFYO57T A9Kn0 vcvmJ0gMxL TGjgZ DQlJINEjsa Hayden E72epCwVXp fvIUS mixnRztQPv Vu92n r7d+Zi1DMZ W5kc3 RyZWFtDQpl bmRvY moNCjUgMCB vYmoN CiAgPDwNCi AgICA gSIbaWS2MV WdlDQ ktHTPaO2Wu cmVud CAzIDAgUg0 KICAg AV0EUWKrwF JjZXM gMiAwIFINC iAgIC AvTWVkaWFC b3ggW tLjGZD8FGK gNzky XZ6UOSVbSY 9Db25 3YP46meX4X DAgUg 0KICA+Pg0K ZW5kb 4ZfBBg0CXL gb2Jq DQogIFsgNz UwIDc 1MCAyNzggM jc4ID Q9PNG0YJDh NTU2I Vl0VLM3Ecf gMTkx IDMzMyAzMz MgMzg 7VBH2QDLwU zggMz ErNEX6MKCx NzggN PC8IUB1HcX 1NTYg ITI5YSL7Ay A1NTY sDJX8ZIO7O iA1NT WlNVR1CTV3 OCAyN wxpJJs5BT7 KICA1 QXSmIUz3AT U1NiA kUJQ8WLT0J yA2Nj cgNzIyIDcy MiA2N jcgNjExIDc 3OCA3 DbEoQsq1NP UwMCA 1KkegWXJ5X DgzMy M7WxMcAje5 IDY2N nJ2ArlaGuW yIDY2 RkW3UPLrWo IyIDY 5NvZ6GMFdT jY3ID I3IqJ0RCGe DQogI BL3MHTlBhk gMjc4 OIQ2KLT2JN YgMzM qBCD6VyN1U TYgNT QiUAW7BeB7 NTYgM rq0COD1RuG 1NTYg MjIyIDIyMi A1MDA gMjIyIDgzM yA1NT HmFBH4GVB2 NiA1N TYgMzMzIDU wMCAy KhudNGT9SI UwMCA 3MjIgNTAwI A0KIC Y4JWDpVVYe IDMzN CAyNjAgMzM 0IDU4 VAW9GEYuNO U2IDc 1MCAyMjIgN TU2ID MzMyAxMDAw IDU1N bV6XOVlUhH zIDEw ZAKjKyJ0FI MzMyA iGCQzKUc7Q CA2MT EgNzUwIDc1 MCAyM jIgMjIyIDM zMyAz MzMgMzUwID U1NiA NCiAgMTAwM CAzMz MgMTAwMCA1 MDAgM gLbBZj8RIO 3NTAg GBFdCNS5Sf AyNzg jSeVdIEG6Z iA1NT YkOQX8ZGG0 NiAyN zEvKTH5TUM zMyA3 MzcgMzcwID U1NiA 1ODQgMzMzI DczNy T5UQTdERAe IDU0O SAzMzMgMzM zIDMz MyANCiAgNT c2IDU zNyAzMzMgM zMzID MzMyAzNjUg NTU2I AhiNJB6MnZ gODM0 HUImDKD8Sk cgNjY 2CVS6UmT8Z jcgNj Q1ETO2YlMo MDAwI CpoPoM1Zxf gNjY3 STP3PuV3Ve cgMjc 4PZP8NJYqD zggMj s0SGqwIlD6 MjIgN gy8LR3UTAE 3Nzgg Xbj9TFc9RC A3Nzg bGFv3OFl9B CA3Mj IgNzIyIDcy MiA3M bJxHnQ2GHV 2NyA2 FPItRJN4ZC U1NiA 4AKZzWDL6F DU1Ni S7AVNoVBk8 IDUwM EE0VBKeEAH 2IDU1 CjL3OZSlWq c4IDI 3OCAyNzggM jc4ID M0HsGUAnDn NTU2I XY2WoI4GSX gNTU2 NCS1MbF4HH YgNTQ 9AXGnNLN4O TYgNT A7CIG4BiJ9 NTYgN PFxKNH4GrM 1MDAg XSANCmVuZG 9iag0 FTbNvYU9ly g0KIC I2KL0IPXIr IC9Ue EAgI1QmziQ EZXNj vtoufD2tCD ogICA gB8PxfsBWS W1lL0 FyaWFsDQog ICAgL 0HjR5ZclAC 5MDUv H2BiBBJbS3 h0IDk fQE4AGIOxI W50IC 0yMTINCiAg ICAvR lydW6BqDrL NCiAg HXScYl1tjX JCb3g gWzAgLTIxM iAxMD P5BGkoQN6O CiAgI CAvSXRhbGl jQW5n hACeBS8DyM VtViA wDQogID4+D Qplbm RvYmoNCjgg MCBvY moNCiAgPDw NCiAg ICAvVHlwZS 9Gb25 2G5T0XmC4l GUvVH B0DRH1sWBc QmFzZ UZvbnQvQXJ pYWwv UE3nx3Hblz cvV2l wUA4mgXQwU 29kaW 5nDQogICAg L0Zpc sZ0X9jttrU zMC9M XQW5D3soeb AyNTU NCiAgICAvV 2lkdG hzIDYgMCBS DQogI QTtD7YzegE EZXNj ziurtH3gML cgMCB SDQogID4+D Qplbm RvYmoNCjkg MCBvY moNCiAgWyA 3NTAg UnKbJEF8KV AzMzM jCYg5JMQ5T iA1NT PrXYh3FCkc MiAyM zggMzMzIDM zMyAz RElyESu8SL I3OCA eCqGbMlb5N DI3OC D3PGLsQWH6 IDU1N wP7QLSvUHD 2IDU1 OnO0XKTxPH U2IDU 7VmX5HUOiD zMzID QyXeM3RCZc DQogI VW5JHU6UAR gNjEx TAh6GJN6Ha IgNzI rAJocJfW3D jIgNj G7UUOfFUD8 NzggN qFgKGR9BQB 1NTYg NzIyIDYxMS A4MzM zClAfNAo2F CA2Nj hgIck5DTnp MiA2N jcgNjExIDc yMiA2 OyxcBEF0UZ Y2NyA 2NjcgNjExI A0KIC AzMzMgMjc4 IDMzM fB4JKIwDFR 2IDMz JyV1WPHtCa ExIDU 1EqC4QEPkB TU2ID DgMhV5DXOh NjExI BM2CUEbWcv gNTU2 KJS2SNF7ZT kgNjE lYSHfDIP6U TEgNj YaTBP1MCP0 NTYgM zMzIDYxMSA 1NTYg Hbs9MMG4Xq ANCiA mBOR4VPLpB CAzOD kgMjgwIDM4 OSA1O DQgNzUwIDU 1NiA3 XHHjPih7EO U1NiA 1MDAgMTAwM CA1NT VqVTG9VLSz MyAxM ELkXMA8ClI zMzMg JAIkCQS1VB AgNjE xQEj9IRD6L TAgMj k1GKW4MGV8 MDAgN UAgOVN2XGY 1NTYg DQogIDEwMD AgMzM zIDEwMDAgN TU2ID KiPvJ6TDFw NzUwI FZkSCH9Klk gMjc4 KJSuLzA8QJ YgNTU 2PIE3BkL7P TYgMj ojLFM3EuMy MzMgN sB3NSY1NEK 1NTYg WYc9JVXcFr A3Mzc gNTUyIDQwM CA1ND kgMzMzIDMz MyAzM zMgDQogIDU 3NiA1 NTYgMzMzID MzMyA zRqFgYxW5H DU1Ni D1QlQvBVP0 IDgzN SM2DVXaPcB yIDcy TaS7FzFeNf IyIDc gLhY2JsVsL TAwMC K7LbPiTrH6 IDY2N sY4XxhkAdZ 3IDI3 OCAyNzggMj c4IDI 7OFJ1TcYiP zIyID n7DDGZOeUh Nzc4I Jj5VNF1Wcx gNzc4 GXO1LRN3Zz ggNzI gMCcpJaQ3M jIgNz PuVRE9CzZ3 NjcgN lCjRKN3CtN 1NTYg RNZ6YDD2Iq A1NTY dIFV4VUz8R SA1NT FcLQI1OSJ9 NiA1N MCwTKY3FHM 3OCAy NzjdRvp3KZ I3OCA 2MTEgDQogI DYxMS K8OQYiJwCz IDYxM UJ5XEYcQfW xIDU0 HSW1VUEqNu ExIDY lGGG0BUYoA jExID I9YtS3KROc NTU2I R9dAUikuuT vYmoN CjEwIDAgb2 JqDQo mIRd6KHvnR CAgL1 C0aNUiPm4g dERlc 4GusEM4s2S NCiAg CTXvNh7qrO 5hbWU vQXJpYWwsQ m9sZA 8BUUKoRC2B c2Nlb bDhPCC2N1C hcEhl aSaumOB5MI UvRGV dA1GbaEHcL jEyDQ niMSWvK6Cm YWdzI DMyDQogICA gL0Zv myMYLs21WI swIC0 yMTIgMTAwM CA5MD VdDQogICAg L0l0Y DqzE8VxE8b lIDAv O6DmbJDvXR 0KICA +Fc0VPS0gw 2JqDQ hkKDOqCR8l ag0KI SP0KZ3VYAY gIC9U sKUyE8Jben QvU3V djQmmDE7Sn nVlVH zrYZ1NCJQj Rm9ud L2AimhasQe Cb2xk M0WsM12oaG 5nL1d omnIcc5lJe mNvZG qrJq9QOCIv IC9Ga XJzdENoYXI gMzAv TGFzdENoYX IgMjU 1DQogICAgL 1dpZH UrvgF7NNEv Ug0KI DSaFV3Nf53 0RGVz H5WoeHWvnp AxMCA wIFINCiAgP j4NCm QrWY8ktz4U MTIgM CBvYmoNCiA gWyA3 NTAgNzUwID I3OCA lUdrrIoB4Y DU1Ni X9SOOoJEe7 IDY2N yAxOTEgMzM zIDMz MyAzODkgNT g0IDI 3OCAzMzMgM jc4ID S9CAO2BPDv NTU2I IB2UoA1BHN gNTU2 TEJ2ZgU2PI YgNTU 7XWL2JhN2R TYgMj t2ILA3MDY2 ODQgD SgvNGK8SRL 1ODQg UIU6IDQvRZ UgNjY 9GDY5LpF9U jIgNz XoZZJ5AgP1 MTEgN jz0UBouUrB yNzgg CYOhIUT9Ht A1NTY gODMzIDcyM iA3Nz utClC2WIm7 OCA3M eFpMvS0EPZ xMSA3 DsJvUgR4VR k0NCA 9DshgOoI6Q DYxMS ANCiAgMjc4 IDI3O CAyNzggNDY 5IDU1 NiAzMzMgNT U2IDU 9XcC6VUPiV TU2ID C2TtMgJmfc NTU2I YK4RdIsCdW gMjIy IDUwMCAyMj IgODM dQPX4BrU3Y TYgNT G4YEO2OrOa MzMgN NNlSWI3AMX 1NTYg NTAwIDcyMi A1MDA gDQogIDUwM CA1MD ZrUnE4CIL2 MCAzM yDwTHy1TMr 1MCA1 NTYgNzUwID IyMiA 1NTYgMzMzI DEwMD JfMNT6OSA6 NiAzM zMgMTAwMCA 2Njcg MzMzIDEwMD AgNzU bYBQfRGX6C TAgNz UwIDIyMiAy MjIgM zMzIDMzMyA zNTAg MMM6FO1BCX AxMDA wIDMzMyAxM Christine UwMCAzMzMg OTQ0I Iu7ZYE6KTT gNjY3 EUN9KHHfMv MgNTU 9WXU6IpL2S TYgNT R6CNR7JLP8 NTYgM zMzIDczNyA zNzAg UGM0EHL4BR AzMzM nInG5CLZ0T iA0MD VtQHZ3IVSh MyAzM zMgMzMzIA0 KICA1 WpDfTAA2BH MzMyA zMzMgMzMzI DM2NS T1KTGzGWI3 IDgzN SP5OkTyBdJ xIDY2 GjH7FdprBq Y3IDY 4FlL6RqnpP jY3ID EwMDAgNzIy IDY2N xP6PozoPfP 3IDY2 NyAyNzggMj c4IDI 3OCAyNzggN zIyID djBbP2Yavh DQogI Xi3LNZ6Nhf gNzc4 KZa9CWF7CX QgNzc 4TSjiQfC7Q jIgNz IyIDcyMiA2 NjcgN tU4MEOqYID 1NTYg VCP2FXR8Ar A1NTY iYHM0CFY4H iA4OD kgNTAwIDU1 NiA1N WDlKPH7DIU 1NiAy ZyqgVbc7JE I3OCA eZqtpJML1D A0KIC U9ZRVpPTT5 IDU1N vO2WQUbENR 2IDU1 PgT7UKxoOr ExIDU 9ThA6TEKsJ TU2ID M3AzT8VEGl NTU2I DUwMCBdIA0 KZW5k p1VkYTexPl AwIG9 mph8QRBI0X A0KIC LaPW6HeWDm L0Zvb nREZXNjcml wdG9y DQogICAgL0 ZvbnR IPI6fL9Hec WFsDQ wyOOCeZ3Qy Y2Vud GO3QPIzH7E wSGVp A5n9VYmdZW 9EZXN qMA39TF1uR TINCi AgICAvRmxh Z3MgM zINCiAgICA vRm9u cZWYz1qsDc AgLTI dKnIsONH5V DkwNV 0NCiAgICAv SXRhb BluTP3ecAF gMC9T dGVtViAwDQ ogID4 +DQplbmRvY moNCj Y1WRBpp9Qz DQogI Vc3RZcdLID gL1R5 sQTjCq3asH 9TdWJ 2nIGnO9Zqr WVUeX IoY8Str7BF b250L 8NfjQAtF3H uY29k aW0hP8jdfv Fuc2l FbmNvZGluZ w0KIC JwEZ9JiKNp dENoY XIgMzAvTGF zdENo IZSbDtH2CV ogICA pR3ycHXTuz yAxMi AwIFINCiAg ICAvR u0lxDGat5Q yaXB0 r5MfTLPyHM BSDQo gID4+DQplb mRvYm oNCjIgMCBv YmoNC iAgPDwNCiA gICAv RSCdL0ZbqN BbL1B NOk3GNZw7L 0ltYW toG14QRkFf ICAvR c4kvCF8RLY vRjAg OCAwIFINCi AgICA zER2KWVCuB SAwIF INCiAgICAg IC9GM iAxNCAwIFI +Pg0K LVOzJP9QA9 JqZWN 7KSd3ZX3+D QogID 4+DQplbmRv YmoNC jMgMCBvYmo NCiAg PDwNCiAgIC AvVHl jCW5VPMwka w0KIC IaNL4DPXZe YUJve CBbMCAwIDY xMiA3 OTJdDQogIC AgL0t mBYKnXqZ8M DAgUi BdDQogICAg L0Nvd T47YTXAEwI gPj4N WnUdMF5pkx 0KMTU gMCBvYmoNC iAgPD wNCiAgICAv Rmlyc 3QgMTYgMCB SDQog LWTbH7scc8 QgMTY gMCBSDQogI CAgL0 JhfA22HFXA CiAgP p6HCnWcEB3 iag0K MTYgMCBvYm oNCiA gPDwNCiAgI CAvVG x7yTYjLQGo Z3Jlc 2HsQr34JTE gYnkg Io1dCWxrNK dhbHN oLCBOUCBhd CAxLz EyLzIwMTcg MTI6N EWmQG7bDEa gICAg B6Lac5GlKs A1IDA gUiAvWFlaI DAgNj DoVV87kCkl XQ0KI IPjKQ0VTLR lbnQg MTUgMCBSDQ ogID4 +DQplbmRvY moNCj H3HCCva8Fl DQogI Va7PSjbDZM gL1R5 mPBeE1A0XF xvZw0 DXFCkWH3AO Wdlcy LbJXCwXu0M ICAgI A8AZXkiSW7 kZS9V d9GTxJLvbP 5lcw0 WNVMyKZ5Gq XRsaW 5lcyAxNSAw IFINC tIyMXTnW2X lbkFj dGlvbiBbID UgMCB IVK1OFDrjn nVsbC XafJowAH57 bGwgX Q0KICA+Pg0 KZW5k m4WyQAn7qa VmDQo oJFQ7EGbzF DAwMD AwMDAwIDY1 NTM2I GYNCjAwMDA wMDAw MTcgMDAwMD Agbg0 KMDAwMDAwN jI4MC AwMDAwMCBu DQowM XWiOUX7FFC 0IDAw RDTdXW4JWk AwMDA wMDAxNzcgM DAwMD Bvfj5ASQIk MDAwM jEwNyAwMDA wMCBu DQowMDAwMD AyMjQ zIDAwMDAwI G4NCj AwMDAwMDMy MDcgM DAwMDAgbg0 KMDAw MDAwMzQwMy AwMDA wMCBuDQowM DAwMD AzNTgzIDAw MDAwI I3CCoYkSPR wMDQ1 NDYgMDAwMD Agbg0 KMDAwMDAwN Dc0OC AwMDAwMCBu DQowM RFkHHB5IMD 1IDAw KNFsOR6IBw AwMDA wSPO1AJAeW DAwMD Qmtc3EFETs MDAwN uK6DnCmDUH wMCBu DQowMDAwMD A2NTM 0IDAwMDAwI G4NCj AwMDAwMDY2 MTUgM DAwMDAgbg0 KMDAw XRJhOiu8Zm AwMDA dWLFeOUc8d mFpbG NqQHw6XE1H ICAvU 8e9IOGnCA3 KICAv Jm9uaACcVx AwIFI FVcVsC9ahH m8gMS AwIFINCiAg L0lEW jbzDpL9WKB xYWY2 NDgzNjYwMz E3MDU 3ZDZmYzBkO GVhZT 71XTPqRWG8 MWFmN mZ7PgG5WJG xNzA1 C7Q8DgWgKX hlYWU +XSANCj4+D QpzdG FydHhyZWYN CjY5M zUNCiUlRU9 GDQo= ID Date Data Source [id number] 04/24/2016 02:08:59 PM EST [facility] Name Value Range Interpretation Code Description Data Larisa rce(s) Supporting Document(s ) Progress Note [facility] JVSana 0xLjQNCiX [place] i48/TDQox I[address] JqDQogIDw8 DQogI DFfU7Z3iIn vcigp V4IrjRgvYA kvU3V iamVjdCgpL 1Byb2 H5E9BsVCax S2V5d 00hVFIqIC7 DcmVh dGlvbkRhdG UoMDE vMTIvMTcgM TQ6MD x6RNYhM40n ZERhd VFvAT3YhhO hdG9y KEVwaWMgU3 lzdGV capKOd7Drv 3JhdG lvbikNCiAg Pj4NC wZaFL5tte5 KNCAw JT3jsm9KVP A8PC9 FcPu2SMErG 0ZsYX TfDZGzt8Nt IC9MZ Q3eaMkuOuT 0MD4+ SHzqLIR8xh VhbQ0 KeJzNXGtv4 shai/r 7S/odXOtJu R2pp7 Ow6alXkQfA oWjqF OWcrVVqlxE B2Qsx JQhn+/XntB BJue7 QrxSZtUxwn +PH7v DdfAKA8/gC r4zkW HqB+toWOpQ 7wArp 5OZ7D3/8G2 wf/UA 4hCx2mOO3w qF9tK 4/O3mrL4yT c31tA 9qfhlhyf7R sMrgL iwCi6+I1Pw 0voRa q4ehaGsff4 BYhtE 2IHb58+weg /0BvB tyawtkARy2 VkC+s 7mBRY2y7kg r1tn2 mii9s2PZJv urvuO HXXaYttdwL ba5yy 3x5Uxp5ACW V/v1Z v3vpkIe37i 4BCxm Mv8nmkJHDY i9ENL htPNeAjNa1 AVuyS Mvwew5vMN1 bZPvF YZWVFzNMC7 vhcTL NwMYvH+Tmx T6S4K HHhiqKCNoS 5f904 +9YZPW5uiv bgUzX tsW/V7Ht24 5RJS3 pzTWaLb4b/ UzjnZ 0M51Mx3HTw aEOOJ BiCExY5Eka kO+c8 bBR4ngExPC aFB02 iU6MbXK2NI 5Vbiu or7LrDlYu0 NKyHZ Yn2h2ZxxX+ JzAkJ c2NBbHKH15 Xht39 noGfUtv+m3 T9QYE aLt5R2SlE7 JtE3/ nlwzFi9L14 FeCq4 VReXGKhSPY aJXCJ IniGm2w7lC v26gF EFxHdUI2sG 8Fj+B ZpDOmSFS7h vtKzy 94iiMWbZWI JVVbA ghzpXn+Aaron 4R1vF o3jrtbfRh1 V4kp9 z1UmE+dxAf 10IrI 1VtDjAoQ2s 7NWGt bkGVK5sG6X slaFy 6qQs7O9DtP YzFpt wgKVMIQFh3 /AKD6 mcLSb4t+ER exm1n ctimrk2dl7 uxHjs fZhuF95mLb mqihb kSVRVhJSFj /KogQ yr7BnQjDMo Wj3Xr 8zrG0LD55r NwrNc Whv4ZiHxUC OPJc1 FN4gaztS5y hNm+O f2bOa9uBRz k3oNe YEEh5kpyyJ z4960 5BLugia7Ku YwS0M n4k5oYiErE Hm9Hi nFVBFUQWo9 zSC2y NJ65Ld4Sc6 nqcMO tPLMVNTO2F wHN7X MS81WFH2ZU MfUlo QTfVE8CQ+n VlU4e 7vp2hJlsOb HGiAs hcn7FDGIko wmX7V uHj2EY+5bu E41GY 7aGlWdOaJ1 jr8vd CR/tfooHGN 4cgo0 BSGLcedW0G 1Qrt4 W2kBPPWKjd eRBpf /1wZJHQXoP k54pN 7htOkY9n2J vcF4Y NRdVSZZQeu lY7FM W85FWPz5U9 bgeEf ZUK4zAeJiO pmxKe L4BRlNVTSC xfzSn Mtcvdo5r9Z fOA0M 8TTlkXlzqu D0orj QH/8hW4cFa pcvvW 54ctTIJSc9 UO+Qg XgNs3GwRtZ OpyIR 64VDhWKL5F skESv 6tjRD0JI+c hODHF EPqhdLHA0a mAML7 VCoSF0yeq6 Lxw3K kQL8dYFrn5 GeHsM 8ca3SYebNC C6WWe bWk0zsMWtW SUT18 Ny/0aDKdev EtlTz mLLYwKSx71 aduu1 oJ1xh0xZVE ofvfk ZVeD9jOyoG lkVrA NjKkFn01EA wXWJK O3tMNhn/17 OqUDf PSNBkfzUTM BZzHA xzBy6op04c XMOkc o98YpzT7fI DgxQD 0QIv2hXVng Ti2Uo ujw9e+vda+ 1A6EF amLmKC+pvw SQFhO tCvJl85uKg ezgrI l+9jkUZrDB KHN3X ggcMqzPGux ULkPI JCwIrjrTwJ 8wIDy Ts+oiMz2u+ mR8o5 xRQKlHosM+ mPMIH 3ZOTNgT17o Q5iMp GAeSilEMlr a0SP5 KWigIwvknD MI9VH oWWfhc03A6 bjZJn ISo0PYu/gW X4J41 mcJPhftDkr eaqjg Jai9oEvtOU wWjIy Y1bdZX4RN/ Yc/+J 0inTnAulOR YqA+U peimJedOAr MgW5v T7eKTJHZtR BpRhm JbkTHIkoZt /1Gp3 qoCeXNmQHh US84k mi1+mVIKT3 kWGXb 81eKnpczFC ekPIV ihTtiOcdGG I9Sjr jqRwYoJnNw 5+oHp hiwVxmWnkl 23yc8 TCexteM0y3 5TwwY ixd4at/WVr VldJs SYkCv3A7U7 7GcoH BgKN69aOkp 7N8tH vl7v6yd//Z Pv54E lFmNDV7/RH /Io3i sVkrR/YVJw rMpus lLWEiXUlYm lxgc8 NG9Jyzl5NF S2U7C eZysYRbnOD CTvlV ZQsY/Yr7CO CJvWS 6isNAyiNzv KI46Z ImL95DFWBM WWYxA 9FlDDQQPNX k3GN5 ozrkZ+oQrg ncq7/ vMsyJOZdqC YT4u4 m3xYVZTBkp elZC9 GDtN9Y1BDv lzVej FkYoBwRHLs cqN6H ZXMsknO5TO YNuNU 6dc2ZorjMy XYT4m 0/Ra1usvFu a0ulx Y+IW8T3Kua rt5Lc /xaxHCFfYA U6glh iuewYfcKnE mUmXs tRnTOrfI0s ZNJVi Gh6fEGwuFT Olbp/ XzVJUZBbV2 Balrg vqIoyFWOSY cvg5H g6/8A57AKk aDgbS qSUeCpbXbv M1MEE BdNSV21+8a ZKAC4 raQM3iUKVL 6YJmQ z5NTyILzV0 c9I7K dAFqdlU5g7 W/zA0 7xDe49AeTy 9R6fe y/z5uyHPmi UMAKv 5cshiC5/dR 04wgK 1qBouvPSGz 31koT 94GpqgYYOD GCFBX +vHKKDlDt7 fuZq0 nXl0SbCbGd SQgwp XOEY4MdCRn REqdI B2fcuC7nZ8 odf/8 jAyQkWFgPg +PmGE H20KndUi+W recvg 9yW41YaHvk j8w45 S3xFdUTqBc qwmIz 0S1G1taDvv Qf7rr /ahYVwkk5D m4Pnq G64ytKqvaG ADjGC /ULz+V0+0/ wfC2+ 7UHV/h/YCZ z2qAx J9pHlUmCd+ 0wckD J07Wbvp5TG FEB+r G5xoLozikg DHDB5 XjCeS6agfN 5Tw+9 n+R1FqU1jw u7TI7 vbg6evEo+8 JRnYa B8b9rmUTzX q2QC3 bRNiiS7UaS rvWFa gHSANB9ahA Sya3z Gu5GaOshMl GMurw q56VwDDD94 mJmY+ WZ+OWX/wMN I96KB YyvZ+UTx93 R73W0 98zsiAUcus cmdQm ve6sz/sVUT FigAr qIAeoPHPoA OLWD1 EeSx0F8sf/ 89PL9 P19QAn7Vzy FzcwN N19+0TYLHa TASPr U5Q1v2j1tN FmNzx A67UNXjMqa zuZd2 ZQafll9qI1 iLxAq uBRJYMIaEB JTUSV TKExPZpgx1 V2kPy hxVu95Fs/g lctSr NZS5tn3QdT WFtDQ plbmRvYmoN CjUgM CBvYmoNCiA gPDwN CiAgICAvVH lwZS9 QYWdlDQogI CAgL1 BhcmVudCAz IDAgU l3VNSKdDC0 SZXNv dXJjZXMgMi AwIFI NCiAgICAvT WVkaW AGi3ejCeYd MCA2M TIgNzkyXQ0 KICAg GE8Cj488SK 50cyA 4ZUOvPp4PM CA+Pg 8JTI6wc3Wb DQo2I EVgc3NhZJc gIDw8 E1CglVLhqq AvRmx hdGVEZWNvZ GUgL0 bbkkb0zQAa MjU1P v8YYvKso9A yZWFt IPm1sK6SJP /jNhC 9F+h/GKCXX SCRSe u5wcVwEqrS buI4t kji9LQMQ2B 2G1ny kpId//uOKP krjQ8 5WAqqIIJpQ prHx5 z4EnKChx7G Yvkuw QrO99GhHDA BH7L1 x2gGP/8Emw d/Odilia Fl9lOi7bLj p82k6 /X4t9k6hg8 lwQYf s6aA6cFOV0 DpyF1 YRR/uBcTfg IX8VK a6D0HfJW+A WrblN za837hLzFX XIzgb jyXnHXV1gz 0A6vP JwKatU+pZ2 /ss4Z tM3+7JZCNm 1666z o3rHt5ppqJ 7NxU7 ZmU+pUPqGy ihNbQ p9Jr5VHYi5 LzFB5 8Je4D1CMsg A60Q1 mHEeoDZWeO C/0bd JTfT7UOZxS +vg/j Yth+YFHHIS X8Xqb NAHW1sZKDO b+y7x e7uhcITJbB BRSpE jOunvhjIiy AblpO cOQWokRwBZ +uW6D MESHA+0S5gVX+ qwJf9 /jyUUAPjH7 1C2UR Kj8QbtxVCW 6Xonn VvEEfuMLma 86tyq iF1mutb5SH 2Q7Hi shuWaPRlk6 KQTMZ JzIVJzAnCc 8F6Ak +hZPYygWRc JBr2Y zkSOZFnxZP SoZA1 rIKG5jpdWp yzzhk YClzKeNrsR wy2gY lguJRZoju0 v+bMF vlKHvV8KlI MJ1Li MNShiQMWQp CI7Yt JhoLGaQ1ND vlIBY TKWORIoLke W75Fi VfAQwRL2Ab vVcIt rGgycMDABD 6HC75 1uyqJU9GbC VPBM6 nwotsbKIpi pLZQR zodBtcilK7 bm/uk BPbOiHr3Gz T0x66 YnoqWnuXGa XAKjZ vGExnycYTb lCVxN 6KI1v0Zts9 93zxq fsJE8k1drI wzajt E6FLAZp/s1 ls0OI HLwjooGYZQ uMYyy PRiTgIE6vP QqSFg KzHsoTFgwD DOQ/e CFsE7Izk03 nT01i /vtIV+vrC3 3y5vU 1H/+Oz4x0d bXG4n KGgtSwCjAW shKG7 VWdjhFFkBo 4YOW2 sjILZjxBR+ 7M4XZ wdQnjTFXq2 h+adD bgLVgVd2zg xqsEC 7gxSkiZoDT EmUwn lZIG2apjmZ 5V4Z7 wtNnKtzLvB IFJil iBQIfc6yMR YcMMm 4GpboGNMDR i1c1z kcblrqBcKR FlKi4 3+1xZ2M+oF Y/Fgi ijenH5aBgk i5Pnk czPO0MVT92 DrYkR z2cZTN4qFn hYVeR d9EbQ//xgH xsBww JpWyuFWOKe +jQwH cifxrbDwGz i0Ixo acCwtD+kZo jPmZG 19+T+3F9HX JEV2v 8JNi5ojJfN z0Bhi g1bcWpYdxy NsC5k NAjLEtFDqY DxwZn h8U+GLNu3d 264AC /0EUxAqqYQ y8IFN lCQLnm3uXt EhiQg m9qmBfdZBQ TTCpE u7oiKfQ3Hx +zo4b 1/8jw13JUF rAquX 4l05htf0ld wgVq0 UfssIGxrf3 t+COy MBNC/aRSM4 wc7YF 9vucnShJ0n GslAa XHE3JcWHph WZMhJ k3Co12Zntc D4vut XfCykxiiFL 1LnmV x2G13gVTzU I8GO3 D1MDQmdcFb w7QWv J842kn5GYl KpcFH cjWgUO4o5k lFqUa 1elx2i8/I3 8V68l PmMrZkKyzS 84fDQ DPre5zjd3t Cc56I ubxZ3Wkd1P mGv14 bFLfrjjH8t O454T C66FNoLux1 mibnk a/2TStnRzE ox3Iy EI9gHMFBbK cZNKq Y6lJIWGpM5 23nd3 u4QniHNgfS SZW5k t6HaWGKrUN plbmR vYmoNCjcgM CBvYm oNCiAgPDwN CiAgI CAvVHlwZS9 QYWdl DQogICAgL1 BhcmV udCAzIDAgU g0KIC JrKE7UYRWk dXJjZ XMgMiAwIFI NCiAg ICAvTWVkaW FCb3g hJfWpXZH7U TIgNz sxOT2THNEt IC9Db 660XU41abF 2IDAg Rm2VFRQ+Pg 0KZW5 co6WdJHh2D DAgb2 JqDQogIFsg NzUwI Yl9UTFiEcp gMjc4 KSZ4GTS3QQ YgNTU 9ZUw7SSN0U jcgMT kxIDMzMyAz MzMgM tl4JXY9GYA yNzgg AcOtCNP0RZ AyNzg hQIX4BNV5P iA1NT EyPLE4QZA6 NiA1N SBpLJM7ORK 1NiA1 WOScTEC7UJ I3OCA pRmizLTo6Y A0KIC I3USGrBKj9 IDU1N jFhFUN3TLT 2NyA2 NjcgNzIyID cyMiA 2NjcgNjExI Dc3OC N4NkVoDqi5 IDUwM TO5QchaGLN 2IDgz VzO0JhDkRh c4IDY 9StX6MrvrX zIyID P5CdI0GLTs NzIyI XT4OlJ8WQR gNjY3 VEF1BvM6PW EgDQo tNEH7KAIxX zggMj u2CTC6GKC4 NTYgM cDfJKR5AvH 1NTYg QIIlFLQ4Ed A1NTY uJsl5WGH3M iA1NT YgMjIyIDIy MiA1M DAgMjIyIDg zMyA1 PGUsMFO2IK U1NiA 1NTYgMzMzI DUwMC AyNzggNTU2 IDUwM JI8DzWrJNM wIA0K YUA0XAChGN AwIDM zNCAyNjAgM zM0ID B8MKM2PTRx NTU2I Uf1KEGzDtD gNTU2 IDMzMyAxMD AwIDU 9EaM3UVDoO zMzID EwMDAgNjY3 IDMzM yAxMDAwIDc 1MCA2 MTEgNzUwID c1MCA yMjIgMjIyI DMzMy AzMzMgMzUw IDU1N iANCiAgMTA wMCAz MzMgMTAwMC A1MDA kLsZxIZe6G CA3NT AgNTAwIDY2 NyAyN zggMzMzIDU 1NiA1 FMTkKBW4IL U1NiA bNcLkJNG4A DMzMy U4DchzOgxv IDU1N sY1EXXiVaN zIDcz NhL2LSTnAT AwIDU 0OSAzMzMgM zMzID MzMyANCiAg NTc2I DUzNyAzMzM gMzMz IDMzMyAzNj UgNTU 3AXetTGE0H zQgOD S1QSMcEUX2 NjcgN bR1WFV7CdO 2Njcg XuN4CEI0Fg AxMDA hRHifEqX5Z jcgNj Z7LTE4PtN9 NjcgM oh8BKP8AUQ yNzgg Jjx5CUefNz A3MjI oOyn3AP7CM CA3Nz ynOvm6ZKa8 OCA3N gabQAi8MDv 3OCA3 MjIgNzIyID cyMiA 1BvLnUbT1K DY2Ny R9QCWyFQU1 IDU1N fK9CSFtXTG 2IDU1 NuU7QTHyOF g5IDU iLDN2XJZqX TU2ID W0XfA5MDUj Mjc4I WC7LMNoYdv gMjc4 VJJ6PkTEKr AgNTU 6HFS7AaG1U TYgNT D7KZO3ScD2 NTYgN ND9LMCcKFU 1NTYg QHT6FQL9Fv A1NTY fUFXdSPQ4Z iA1MD AgXSANCmVu ZG9ia x6UGMHnSK8 iag0K HRT3XC1MQB AgIC9 HwZQhL8Svp nREZX CxmnzprA3t DQogI YNdL3NlxcZ OYW1l O5QpcENtII ogICA wK3YkB1Xtx CA5MD RiZ7ChXDPa Z2h0I FlvSA6BGRQ jZW50 NS3hRPCEOm AgICA yAbdtW9TqT zINCi GhPUVdSn0x dEJCb 3ggWzAgLTI xMiAx AWW0MXjjLC 0NCiA gICAvSXRhb GljQW 9sbYAnZS2G dGVtV iAwDQogID4 +DQpl bmRvYmoNCj EwIDA id7QkHOgcW Dw8DQ lvBEDnP4F2 cGUvR p2qjI4TzJM 0eXBl H7JamLPVnS BlL0J vu0NNk728R 0FyaW LzH7WiN02a aW5nL 9djqyMea6c FbmNv OTobRa3QSB AgIC9 GaXJzdENoY XIgMz AvTGFzdENo YXIgM pS2POscRSB gL1dp DKDayhB2XR AgUg0 JPAYxQS0Nu 250RG TeM8UrzHEe ciA5I SCqHh7EJGV +Pg0K AW1qo4EnAF oxMSA yKG6dvf0UI CBbID s0XWX9UFHc Mjc4I DCcVxJ9KoJ gNTU2 QAO3XzC8JQ kgNzI yIDIzOCAzM zMgMz KxPBY5IVV7 ODQgM nh0SHEnWfB yNzgg Xjv9LXM3Vm A1NTY cXKS5FCW4F iA1NT EbCVK1HNH8 NiA1N QCxJOD2GNT 1NiAz MzMgMzMzID U4NCA HLeUkOEd1U DU4NC X2COCdKQy0 IDcyM oZ6JyLrDmO yIDcy QkX8HsvoIk ExIDc 8BLE4UdBgN jc4ID S7FeD7UfTn NjExI HkaKcV6VqZ gNzc4 BAE5SnB3Eh ggNzI oTJE2YcS9K TEgNz FaNIC8TvA6 NDQgN jU1POA2EoR 2MTEg DQogIDMzMy AyNzg wPrAxXCG2B CA1NT YgMzMzIDU1 NiA2M RQkTCD8ORS xMSA1 NTYgMzMzID YxMSA 3SVZwPoa8U DI3OC N9KAXoCdj9 IDg4O TI3YPZsToN xIDYx QUI7UGAlAq g5IDU 1NiAzMzMgN jExID L9PlW1Qbrs NTU2I R8AYXE2QNJ gNTAw ION2SHWzJO AgMzg 3AWP1VZM0I TAgNT E4BDv3XKZu NzggN ZV8DVSoTYT xMDAw OXH0BaC8OR YgMzM zIDEwMDAgN jY3ID MzMyAxMDAw IDc1M MC2ZIBmKfU wIDc1 MCAyNzggMj c4IDU bAGO3LDRuH zUwID A6PsIKSeLp MTAwM CAzMzMgMTA wMCA1 NTYgMzMzID k0NCA 3NTAgNTAwI DY2Ny AyNzggMzMz IDU1N iS4SFMbJWX 2IDU1 NiAyODAgNT U2IDM gFpA8AwltW zcwID X9DmL1TWYx MzMzI HmzIfO4XMQ gNDAw JOJ2UBKiJp MgMzM zIDMzMyANC iAgNT j7AZJ5BcGe MzMgM zMzIDMzMyA zNjUg RGA6DEwbVG A4MzQ zWVP9APFgU SA3Mj IgNzIyIDcy MiA3M jIgNzIyIDc yMiAx MDAwIDcyMi A2Njc fNoW7VMO8G yA2Nj qfZwg0SZY6 OCAyN jtnZkz5RRr yMiA3 RwItAuo7AR 0KICA 5BnyeDdd1R Dc3OC I4CacsAYw3 IDc3O NH5WlJfGxA yIDcy JiC4GgZtLh Y3IDY 0KrR1HZCxG TU2ID Q4XyS7IVOq NTU2I RB1ByV3GHX gODg5 CVZ1SlX9VL YgNTU 8HLW3ZsS6J TYgMj f8AQM0RAYz NzggM ut4SFUpWSS NCiAg NjExIDYxMS A2MTE gNjExIDYxM SA2MT NnAGL3TDUn MSA2M TEgNjExIDY xMSA2 YJPsDOU9QF YxMSA 1NTYgXSANC mVuZG 2ayt3YZDBv MCBvY moNCiAgPDw NCiAg ICAvVHlwZS 9Gb25 4LTDjT2Exs HRvcg 1RBEZoBT0G b250T ySyPJ9Ajzr hbCxC w7lrKAduUV AgL0F eU7NbmGY4J DUvQ2 SyZLKoZ3c4 IDkwN R2YZJNkIX4 0IC0y MTINCiAgIC AvRmx lL7NgImSSK iAgIC RoHj8ffBTI b3ggW zAgLTIxMiA xMDAw FWpmMX8IKf AgICA vSXRhbGljQ W5nbG ZaAD9NwTTf ViAwD QogID4+DQp lbmRv YmoNCjEzID Agb2J sIDyjBWu6G QogIC VpR0S1cGQj Rm9ud X7LrWJ9bBT lL1Ry dWVUeXBlL0 Jhc2V Xa295L9Agt WFsLE BmhHCkXD2m b2Rpb dxpA0nhQC1 zaUVu Y94vsR9nQH ogICA cW6FhqnS6J 2hhci OrTF5CXQG5 Q2hhc iAyNTUNCiA gICAv R3tsqWezQT ExIDA gXg8PBDGbK C9Gb2 40RFEmF9Mt cHRvc iAxMiAwIFI NCiAg Ns2BFyBwCS 9iag0 KMTQgMCBvY moNCi ZqGlH5HYDo NzUwI XA2XGSsHih gMzU1 KGG6HhA6DZ YgODg 5KKB6GcTtY TEgMz MzIDMzMyAz ODkgN Ua9KLA8UHH zMzMg Qrh7QHG7IQ A1NTY eCEI6DFG4K iA1NT CtDFR8YZC3 NiA1N QIgYLU1POD 1NiA1 VVRtLis4XH I3OCA 1ODQgDQogI DU4NC S2XECpGSM8 IDEwM RLgIoF7VHR 2NyA3 MjIgNzIyID Y2NyA 8UNBuVjz9I DcyMi AyNzggNTAw IDY2N kR5HFCtAIY zIDcy LqP9TgjfFy Y3IDc 2XMN5RrIrI jY3ID NsRZW4EwDh NjY3I Jz1THP0Icz gNjY3 IDYxMSANCi AgMjc 3UGC0JCEeY zggND P5MLK7VdQk MzMgN HV3KXO6AdT 1MDAg XBA9CIM5Uw AyNzg zSWZ1AIJ1F iAyMj IgMjIyIDUw MCAyM jIgODMzIDU 1NiA1 TZIiWIW5UN U1NiA zMzMgNTAwI DI3OC T8PJIaMXQl IDcyM wO7EHRjOIc gIDUw KNK0AYRrLb M0IDI 2MCAzMzQgN Tg0ID o3KTI1GOOr NzUwI RQfMqZ2BFR gMzMz IDEwMDAgNT U2IDU 1NiAzMzMgM TAwMC R9AdqqJdCk IDEwM DAgNzUwIDY xMSA3 NTAgNzUwID IyMiA yMjIgMzMzI DMzMy AzNTAgNTU2 IA0KI CAxMDAwIDM zMyAx MDAwIDUwMC AzMzM mELL9WKj5C CA1MD QrXlF3GSM2 OCAzM qUuASA4BQD 1NiA1 YSVlHBS3VB I2MCA 1NTYgMzMzI DczNy AzNzAgNTU2 IDU4N CAzMzMgNzM 3IDU1 TqI6VMGhKV Q5IDM zMyAzMzMgM zMzIA 0ERAU9NaCx NTM3I DMzMyAzMzM gMzMz WTF1MWY8YO YgODM 6DTtzULC4N zQgNj EoIYS5SyZ9 NjcgN lU2PVC8ZkS 2Njcg VsT6QSEsUW AgNzI dKEN2DkZ1Z jcgNj R2JJS7HpMj NzggM aa8OGO9OGS yNzgg NzIyIDcyMi A3Nzg pCHmrIEh1L CA3Nz jmSqs0SSt5 OCA1O NGfWdd2EDh yMiA3 MjIgNzIyID cyMiA 4DkcrNwH0Q DYxMS D8RERdZXC5 IDU1N aZ9MFEsTOV 2IDU1 JsW1CPeiWK AwIDU 0WcK8KWEwV TU2ID C0KiPqGkmm Mjc4I YM9CHIsSun gNTU2 DO9DKBQ0AB YgNTU 2FXC4IsR0X TYgNT H4ZFX6JhY4 NDkgN lTaJPE9QwD 1NTYg EVD5TUV9Lb A1MDA iJLB9DUUrV CBdIA 1BOX8hi8Rj DQoxN JMdSR1aqd8 KICA8 NW6JLIPgEE 9UeXB cR5SvtyIND XNjcm cabF2sKWkq ICAgL 0MsqsQOKB7 lL0Fy aWFsDQogIC AgL0F aB6ZffSK2Z DUvQ2 HyVRUfI5i1 IDkwN U4XTEGvLP2 0IC0y MTINCiAgIC AvRmx bW7NuYeMXI iAgIC XiMx5yeNVQ b3ggW zAgLTIxMiA xMDE1 KFvtAZ8YKq AgICA vSXRhbGljQ W5nbG KwDJ7IpCFy ViAwD QogID4+DQp lbmRv VlgYNjH3IN Agb2J gBYxcCEp0D QogIC AsT0J1sPJa Rm9ud E1CsEX7aPQ lL1Ry dWVUeXBlL0 Jhc2V Xc942S3Hfq WFsL0 RuG35nxG1c L1dpb nQwd5cZmyJ vZGlu Ok3UOXMuPB 9GaXJ zdENoYXIgM zAvTG FzdENoYXIg MjU1D IneBGSgF0z pZHRo cyAxNCAwIF INCiA mDYHlFm0lk ERlc2 GzvCW5y8Ll MTUgM CBSDQogID4 +DQpl bmRvYmoNCj IgMCB vYmoNCiAgP DwNCi AgICAvUHJv Y1Nld KXuU0QLRz8 UZXh0 W4tqVBdjF3 0NCiA bBDQgXx5wj CA8PC AvRjAgMTAg MCBSD QogICAgICA vRjEg MTMgMCBSDQ ogICA gICAvRjIgM TYgMC XXKy3SZgZu ICAvW U5mtzYrpJL 8PCA+ Lj3ZHFT+Pg 0KZW5 nx9IiOAeuF DAgb2 JqDQogIDw8 DQogI BRhW4F7cAK vUGFn ZXMNCiAgIC AvTWV pwQKDl0uiR zAgMC D6CBJaCfud XQ0KI ECxCP3QyEE zIFsg NSAwIFIgNy AwIFI rMR0FPSOcF C9Db3 VudCAyDQog ID4+D QplbmRvYmo NCjE3 IXZuz4OjTB ogIDw 8DQogICAgL 0Zpcn Y9EVT5UOMy Ug0KI KIjIX8HWQE 0IDE4 ZPDpZc7XGY AgIC9 Tv2XnfHUdJ QogID 4+DQplbmRv YmoNC mF1ROGes5E qDQog ZYu6SYowVI AgL1R pdGxlKFByb 2dyZX SrYV9zdDGx IGJ5I DG7c1LtGKn hbmlr LCBNRCBhdC AxLzE yLzIwMTcgM TI6ND UjCP2fGUxx ICAgL 5Vmi0AjRlP 1IDAg UiAvWFlaID AgNjE bGR47bGslM Q0KIC JpCL3MGUDa bnQgM TcgMCBSDQo gID4+ DQplbmRvYm oNCjE 8ZGHjl0OdV QogID r4UKclIEXj L1R5c VYsC5O3SGj vZw0K LUJjLO4QQE dlcyA mUTUbEd2FK CAgIC 5BOTplVE5n ZS9Vc 7USlOLisK3 lcw0K BIBtDM6CkC RsaW5 lcyAxNyAwI FINCi MiVQZnL5Kr bkFjd GlvbiBbIDU gMCBS VZ3YCWkjeb VsbCB txFtbOU87c GwgXQ 0KICA+Pg0K ZW5kb 1JlPBv1vuN mDQow IDIwDQowMD AwMDA vBQMtYZB9F TM2IG YNCjAwMDAw MDAwM TcgMDAwMDA gbg0K MDAwMDAwOD I0MiA wMDAwMCBuD QowMD KcZPJ8Bkd5 IDAwM IYfIR1LZiG wMDAw MDAxNzcgMD AwMDA mmk1QLIPpU DAwMj G6CrRnEWPz MCBuD QowMDAwMDA yNzMy IDAwMDAwIG 4NCjA wMDAwMDQwN jYgMD BsTDIiys6C MDAwM DAwNDIwMiA wMDAw MCBuDQowMD AwMDA 2VUG9BTKeJ DAwIG 4NCjAwMDAw MDUzN jIgMDAwMDA gbg0K MDAwMDAwNT U0MyA wMDAwMCBuD QowMD LsZNB9LBE9 IDAwM FSoAU6UDcX wMDAw KYC2UBxqBY AwMDA mnt5ESLDlY DAwNj c7QvIbSQSl MCBuD QowMDAwMDA 3ODYy IDAwMDAwIG 4NCjA wMDAwMDgwN TkgMD TjIBLwio9I MDAwM DAwODUwMyA wMDAw MCBuDQowMD AwMDA 3GBh7WWUoY DAwIG 4NCjAwMDAw MDg3N DAgMDAwMDA gbg0K dHJhaWxlcg 0KPDw RSpFdX7Eee mUgMj RZPaStM8Et b3QgM TkgMCBSDQo gIC9J bmZvIDEgMC BSDQo yXG6EDJd4Q TI5NT BhYjgwOTQ3 NzUwN VW8YzesKMK jNTMx ZDlhNmQ+PD EyOTU vFWB9OZc7J zc1MD D3VPO7LDOq YzUzM OS4QLOpAn2 gDQo+ Ep1Gp9Iuhq R4cmV fKJh8NRPhM QolJU VPRg0K ID Date Data Source [id number] 04/08/2016 11:35:19 AM EST [facility] Name Value Range Interpretation Code Description Data Larisa rce(s) Supporting Document(s ) Progress Note [facility] i[facility]TDQox [address] JqDQogIDw8 DQogI MZtN7J0aCy vcigp E5EleVcgSR kvU3V iamVjdCgpL 1Byb2 T8W3CuZWbx S2V5d 28iKGDsLE7 DcmVh dGlvbkRhdG UoMTI vMjcvMTYgM TE6Mz R9XfAjG38w ZERhd GUpPA3EkbS hdG9y KEVwaWMgU3 lzdGV jwrSAw4Omv 3JhdG lvbikNCiAg Pj4NC cXbPS7aea5 KNCAw FX9gdy1CRJ A8PC9 DsTc2ZLCkV 0ZsYX ZmNDHbl7Dr IC9MZ S5jnPtbIzN wMT4+ LHqyKCO1ug VhbQ0 WgVzlEB4w6 jgS/n 5V9x+6aqvu MlUJW PNn511UnXo bScgA k0kxg9zzOp ugG2O wsvaZe63kW YCBcF h1Csvap5tN siB61 N98a7fzD5N 9fgWn D0zWMgH/2z Y6jn5 AENHNy+Callum/ voX2H 7wV/1hx8dH ABfbD +vysAwz0Ck 7Wx8n 4A7fJSEia2 dEMYP Qd+RlSr0Bw rOf+C w+e49fOoM3 PLsbw C2FEILXBB6 fPsDk Q3ZqfGx2qC ZAEcd 8lCbMPjjo3 O74hP jjXx6xeUyw 7CiB/ LntqXvebuq 0wbE7 BTuuF5H9uO X0GQi 84s+PRks9B zUjVH 5kbiS1PF+4 Pn4Xc Hkc4k9ufv8 7wG/0 ENXSo1f69Y YYcWp P0tg+CVxjZ aXgWQ nXfJHPZLyc i2nxn tgnSlyU+HB BUUFr moz2zd49kw wGlxu 9AfMlalut8 9mxH7 Muu4IT4sXx qUPCO v338YK/E9q Zt+U3 PtrFvWk3tS iR+a6 7k+GEe32pz nM95h sZERrVreZU jxXxu b62XCO+6+H HdyI+ N5YXDFg9qM 7Dp3q siM+LCN2Jr 5ckkh vdtfqD8xbK aOiEd w42eroPUQW I1TTw FU7xKeh/tw Iu7YZ xPTgIwVtFY dyYQX EXp+0KwbgB Mzzrk gj/+1GrGIw tGQyE cLXy5lS0dv QBww0 qk/768evoH u5/Gaspar eOcC5xQUey bEgh3 kXghxfExXc 8nt3k G891MinhiN sNA1+ bjShECYPsO ZcLDG CfCy2nb4ql NGLkr kg84Nk0pKv 1Lsbc 0IjhLx0wXI ky4kY 6aFBG+jeYi HcTuL ouDTfCIqwe uZ7qs IH7nBvw3Pf xQQuP MVc3r22gj6 oU1cq iGoOb9wqZM GBUU+ qrLjW5raj/ l+835 QwvZNF9fSP 7mI/X FOxEP8VsnW frqs6 BbUvXrTo11 nh3IQ pjgQZBaJeS LgZMP uZ2cJc73CL bK1Rq t8GI60gTNo EeTOJ ytTiHu+tW0 RiCDJ r+/QSuUpGJ qe2Vk KGMxK7k8aN VFMB9 XvICntZwF8 tv0JN ZniZKWhCXY JPSU+ 1vfkheTI2E znN5C X7by0Up8AD 4EJlF 2bgq+triGn P5Iqa 2doG4dKf9L I9ne0 tFtu/vD1aO 7H8uD p1gT5wESYt qL2lf 8OAePoNw8l jRaAd kxAuRtODxf 9sgqa gDqNCnG2s4 x6AOQ fmroPJXhFx iptaz 6a+MTRps/W yar7K VB0HOrdonP XnBvp bkh48epcnr tQzZs Sav21VqD2c 2bcsN L6udMkHEvQ 5cYeT tMPQSdDfJa mHfog hlabMV6hSJ z4nqx XgSnyV63fP fF2Iq 4glOsJD0j7 jvkYg jdJFqF6F5o mZ5ms /WJvyEC/iU p2n+C l+XWscbxFc VNKjc hipul3GY2Q MC3Ih ShuH7w3i5K B8/qg 5SJRrC9eQh Wd3FW ORiFu2cROp tV7Lx Mr4yDF1FzR JR3Tw MLpsenQLxd kbOVC 8fL9rR3n9e ZadV3 ROjvjU8ZcN 3n95X 9Q+e5Sda4Y 1yv+9 fLVgorbktS pRAMX zDkTWhjd5R 3dhVy Yzau2+VUuZ 43ilK x/scTnQzYu +bUea pZHrLqCigZ YFGLv tz2Yjr+o4t G3G9u z25Tia7wqe VBB4J hd7wt96b1y sWTtT 7TZxX4SxWu 8g34M SH99aqJu8g mi94A ag1jwBEB6c W9mez tuNVHQCtlh 0YZhh ws9zeD6tA7 71bJR krZbro2cRC FdkMR 4NPqrIvhpQ /lxBn F0G1LWEpsD I2L6F LWO6sGGkho Hf8pg 9chWtVI2qH cpkXP IEytzDLgGi VeOWI kadxUWII+o RYNT0 nPm9szQzwW uFpVS LE/Wa6xhUt PGMLe QfjjDfsy7k lSF6W ykD2Vy6pBR FzxKR IHRpdQEg0v q4KkW fnFiYa+UxN 9Jm/c Wkrh1Mz3hZ /owIm MhZZPKsYmS MjT5x euTfkei8qk yHdRY 31O3tMo+Ov 6lIie Of6N7mEwN1 Hi2pP z93stCS94x W/G3p Yn45H5n37d /ZVLH RDUqvI+zvq PE/EV K6dm6yGblq lDE3h IYKzS3LrDQ cHgJe zPqrnfOe3r Od4Id V0tXJHLeWv H21ck r8I/oq+Qr1 ltUzi kicWJhownQ qhqcT LpcyXUiCQ9 qxhV/ 4XUi84KxUe Zctph Yl1tzxsI0x LUmRq gUBPLkrxgn wphjJ MLEwLyUuRS 0XdU/ 8VL14So8og ckPHU VVflHFatJz OelSV eobP63pJ6K sRY7W p9oh9gqDs+ j0II2 C++vi6HVZF HY2eV KqEy9ymlr7 bTxvh D2pPiSTius 1fcVh yCS+qSOedi BTzoh MyPdVjRagG jJEqo h0n6q0951V XzknF PNFjRzOdAy G2dCZ c2HGGMl4at Yx/ +El7VujewD 6hgIb dLStFEQC85 4OwR4 hf8g8CiIf6 iAARG 7zOvWZKZf9 JDZkH /gVXXWX2/H fSuyN uTVU7jhHji t6D5x qr2TSf/uoT /qTb6 OrDCwgXFhg 4DN4F WRAP8KQW0z 8oz64 9lRRiUK9s+ tcGBw tFIYcEzCZn QrFHh EJ1s/c7259 nj2bd VB8oTtMebT HTswg 0dOJyARfJv ZYCKo kreb/uDzzc QKBQa MZTuI4YLH0 RMW5E 8dqvcyxw/D Ju/zP fb7uqlPjgy Q/2b4 cTDQwaG9di Xj8Po OjHjKibE8u +7/ww xTIpoCZ9sE Tr2OH 8Wl7p5rZ1F 32PBo fQ6Cj7WA15 vebR8 z0UmCRpU9R dO4Xr 3EaKvjSe7S SI9ou N1f8StWYgH GkB3T MIP/2Pu51Z 3VUGk ADu9X+yV/z KPjN7 OPkA90tqTA 9uIU+ t/bivl3rJy je9dv 4QkiHQV/5h mXcdo 0dO8Hr9ZOK hEWOt Vxem/4nXXg Ks/Us OaxgP65f4J opUhy 8gBYUEh28O BPuZh ohB2Sh3uZZ tOUx9 VN8GCwpzmP 5IbHS rkLOl0uMCZ P83d/ 8i51Db8+JQ H11TG q+AxPwd16X Ti1cq MKgKYAHvqj 0e059 Hr7L2GjW+o ri3Rt ecHblkRQAf A1Feh E0QGgrLSzT PJFLL /FTynvAPSU SWWx5 XRmAvPh7qm gcGnR KhPLwspJJy IgrLq 9RgoURLEvJ wsi8V ShgKqiRhcM V/GLK RubmlcZw5C S/b1l LYVY4mRBbT xN0wS 97IrDQiSpy Lg670 /Llw2ZsN4a k/uXV JfAfA7kHBp qaQdu 1k/qiNSV8t k8Icf qwYxV2MMdA OctSN rv7X2W9awX 1x6i/ mVvA5syyAP Hs950 Wu5Tbyc9+A GwaSo E4a7R/ZiD+ yVHn8 UECekJ5quf GHKwU NnsxZpC5e9 fI6H7 SILIqSFRLU tIaET JDoluWULCQ lpjR7 cOkHyp/bUv ey//C xjwiBdlbmR zdHJl BY0FSbVtSH 9iag0 TWXRbEK1qf g0KIC C4KE0IXQWm IC9Ue EKrS7RuV7K NCiAg ICAvUGFyZW 50IDM gMCBSDQogI CAgL1 Biy120lhFd cyAyI VVjQe6UYMY gIC9N ZWRpYUJveC BbMCA eQRAbKkK7R TJdDQ zgNGHpL2Df bnRlb nRzIDQgMCB SDQog ID4+DQplbm RvYmo NCjYgMCBvY moNCi AgPDwvRmls dGVyI G5QiWC5AXO lY29k ZSAvTGVuZ3 RoIDE zMDQ+Pg0KI CBzdH JbFQ1HYupg 3Vldb 6b8SL3szT5 wgb20 QCKLFEVJeR jgLW3 Kkf4b0Upre MOgSL TNVR+uJMfx v98lK exZSs16eBK kCiKY EkA3zAjmMi 1gri9 iO57u5iF2y z+wbH 9SG2UsB7IT 99/B/ sEv+mGb4+X B+f6B u6j09KFswL f9NIf PUuhnkw7kO Iol+J zBeUBcmMev bsUyP CU29XSs0Na V5AZ+ MNE6uWjCi1 evYf4 PvJnDdRvYq UARmz OyhzUNlwL6 tU8Id /b2ac+2qXf YEsgX fS/ddXtcOm lsWw6 nU5iuJfBcn tFAkS 8LUZZwlVei hLsdT YOhV3sCTG/ iM5hc QlgBoSNKRt QmHIB y1LsyG4Mpk GeVzD Es7zDCzZpX hDFb4 R5EEfMGrAG HC+bb MVI0UZIoqh CsZFR CIdZJGIkY8 gxEGK 2glLGwcLFQ bqpNI QZED0fRFfm ESPUu uZAitnrYnc fr4YG h8tEA1A90d cyDfc NPEjP0hvM9 tktTU RUysuCjWFR w68Bq h02LCt8LLM GMRas iv3HMr0DMZ qwkkm pK3hh9BWWk omoI7 gLGFfQrEX3 umzuX OgqAqzdvtl mvE3E GVYFSEyGkM k5khn zQtnn1fmgP Gst2g 9atcXrKXKp w/n2i a/H2rqi4W7 fXv2w mztvRNj6QM MAp+l BD3dR8yMdX R0w1o E0CQKblMG7 2Vm5B GiYCytEafr t5/xY WeWGCwnQGY RbDjQ 626tYUC8O9 S8ICF jq5MStZkGK ZLWEr kmQAZgNPx7 JpEmY X/ecmRqkOB z/XCV KFSkwuDwMg YR7vI WrUF1CySBk tpDgA KH2URyIUPb BGLqC 4yIhQrbKwQ Fh3KK zRmFz5KTUI MLDrW DKuKpHFSst YMRYi yotYuchlgf VGWG3 UyWJgc4s// xzTXY +O8boIVnt/ vWo8a xTP1FCkTmE nts0o 2NQ88WXNCC Mcm6H qEPZJ7BO9z MjqPN md+6t/P+AU cwGa1 mI/h9sUYJA 6wLhX bikPOEIhJl N1uZ1 5mFfmAcO6Y GpdU3 K/uZrDjSh1 /wHTd 3+ao0w22MK r2ARr DV9fy0BE/T q9YD+ jc9+0Up2JK O6l2G MgkLnE6SPl WJfHF oyx+RWwldU KY3u9 Rts6tibmHd o7wFW uOeeBKRten LytwP NsI8dxc299 eQcEt vj/AbgfENw bFyM8 VE9zlxjR0M Pi6Mz g2WwmwyL7f RsugA skDyEkK08G +T1qo 8P1ss7QXrc biAxs 192lnj7RBw LYzCB EBoTbByLHU SXzrN 4hT1NoMev0 owH82 O3n6jUF7jl cWKRX +9S36cG+Os XzzCk eIReOOwQUy o0OJr 7zK21h6jBq wkBd0 0xOfjDTQWN iS4Nm utqVMpJhv1 5h3LL UPC4c8kGRv IZLTJ ftXdf6ekxt A27ng pkjLe692H5 O4hrN PnTP/odwix pJUw8 P8TP3bZqt2 ueUX/ 2EP7envF3k +LiXJ eZO+EWWVV7 snkkV 0oBUtYZqf/ dFyJG No2Ce0kIL5 f7TgJ +lQG2zk3LS LkIYb yM+MjNInWf ieVPn /C0yeptfoY 4qpR6 fOPVACn69A B6bGY RDkwgaDi/D SozmM l9dKUkkfGh 053Zs ZhASTUJrC/ /HW jNrJFbaTLR rrML5 PqUCJVwXA/ Sk4UU raQwP1uYTp y+TRw FRQdNPRgAC QH42n tegMhaRlPa /0OhK IhQA5ZWNXG 0jKe1 ocIAyFpGVf O4/qn QaV6Nam2YU I0UFg 0jePaxmP67 87Hfw GU6/smZW5k c3RyZ WFtDQplbmR vYmoN CjcgMCBvYm oNCiA gPDwNCiAgI CAvVH kkZD4IJCkn DQogI HAlA0XfgoG udCAz DNLpLo8JFQ AgIC9 SZXNvdXJjZ XMgMi AwIFINCiAg ICAvT BZdmTIWb3o gWzAg WHL8SIPnXj kyXQ0 KSZMkDE5Hv 250ZW 20pkE7HPZa Ug0KI CA+Oe3NTI4 kb2Jq SBj4MYRfb1 JqDQo gIFsgNzUwI Dc1MC AyNzggMjc4 IDM1N YO0RDRlKVY 2IDg4 JVZ7NtmxPB kxIDM zMyAzMzMgM zg5ID Z1ZBZbKrtj MzMzI ZR2EIJuEem gNTU2 RYX5YxF0ZI YgNTU 1BEK8EtG2H TYgNT A1YHK5VbV8 NTYgN VY4FWM9DQO yNzgg WXv5AV6ZPI A1ODQ bDEf4LTT8J iAxMD X0MGB9VuU7 NjcgN zIyIDcyMiA 2Njcg BfAnXRa1MX A3MjI aMjp0GWOeD CA2Nj qvAYT7MAez MyA3M eIfYen7AOL 2NyA3 NzggNzIyID Y2NyA 2MTEgNzIyI DY2Ny D1LRKaLrN0 IDY2N hX7IZHlWFl gIDI3 OCAyNzggMj c4IDQ 9IPG5COXzX zMzID N0ZgZ6WMDo NTAwI XC9IxP6FGR gMjc4 CGE3NgJ3OB YgMjI cDZWiKeJ2J DAgMj IyIDgzMyA1 NTYgN EL7BXL7UmV 1NTYg MzMzIDUwMC AyNzg xIEH7RYBmK CA3Mj QyNNEvFR0M ICA1M DAgNTAwIDM zNCAy KyJrKzD2HX U4NCA 4UEWaJJA3D Dc1MC AyMjIgNTU2 IDMzM yAxMDAwIDU 1NiA1 NTYgMzMzID EwMDA sKgR8YHRjV yAxMD JhTDr1LVV6 MTEgN lUjELy4AEZ yMjIg MjIyIDMzMy AzMzM eGaYiNRB1H iANCi AgMTAwMCAz MzMgM NIxVHW3DQS gMzMz AAf0BBV3QI AgNTA wCMY2SsFnD zggMz SmCAB9WnO4 NTYgN SY3DTO6FjU yNjAg JVM2HTAcTs A3Mzc wEjqnPKS7A iA1OD QgMzMzIDcz NyA1N TIgNDAwIDU 0OSAz MzMgMzMzID MzMyA MTnCbFDi7X DUzNy AzMzMgMzMz IDMzM yAzNjUgNTU 2IDgz DVB8KpRrJQ M0IDY tIVI6WqqtC jY3ID C2VoD6Rncg NjY3I NW6WvMcBBT wIDcy EiV9PmnvYy Y3IDY 3QwL6VwkpJ jc4ID X6KGZcBxyc Mjc4I HedUtE2BaB gNzc4 WM6ZVYH4Ho ggNzc 5UEk8NRC1A zggNT d3NEw7TSV4 MjIgN zIyIDcyMiA 3MjIg YmR3BUF1Rq A2MTE bDOO2GOD5G iA1NT GiDZL6DRB2 NiA1N MBrNNt1IFD wMCA1 EZIvLXE8CX U1NiA 0TOXcPwx2L DI3OC AyNzggMjc4 IDU1N iANCiAgNTU 2IDU1 FrR4MHRcRV U2IDU 6IjQ4XNGdF TQ5ID GdWOV5TJZt NTU2I HE8XhB2XDI gNTAw BSW5HbM7OG AgXSA WNjXuNL0st g0KOS RyRK6wtk0G ICA8P K1OUQFbGO4 UeXBl C1IeqzAQDY Njcml kiF8gKZinH CAgL0 AnvaMSRS9j L0Fya WFsDQogICA gL0Fz L0PoqSW6XF UvQ2F pKBZcV7v4N DkwNS 3JJDOyOF40 IC0yM TINCiAgICA vRmxh W8EjXyEUXt AgICA bAs3ncNNXy 3ggWz AgLTIxMiAx MDE1I SptPN2ZGaJ gICAv SXRhbGljQW 5nbGU hPF8OwZBxH iAwDQ ogID4+DQpl bmRvY moNCjEwIDA gb2Jq ONsiCBx6KO ogICA aO8J3uJReS m9udC 8JsCA4mYWe L1Ryd HUNsRSuF6K hc2VG k855Y2HawD FsL0V iT01xhL1tN 1dpbk Zfe6kUhjNx ZGluZ m5PPEEfJZ8 GaXJz dENoYXIgMz AvTGF zdENoYXIgM jU1DQ fjFAByS2gn ZHRoc qW4JYFgLb2 KICAg ZS0Lr649SC VzY3J geZMvayR4Q DAgUg 0KICA+Pg0K ZW5kb 2JqDQoxMSA wIG9i xt1LFUBtVT c1MCA 1XEKmQzz9A DMzMy V9QyEuNFC5 IDU1N yL0MWxkKoG yIDIz OCAzMzMgMz MzIDM 1BJN0JTCfV jc4ID MzMyAyNzgg Mjc4I PZ0UfH2SBB gNTU2 CUI7HtT0WG YgNTU 2QFW4MzE1X TYgNT K6UDI8VcDg MzMgM hBqQSX5KHP NCiAg CHr0EQX1GS A2MTE lTUy3IYzpP iA3Mj IgNzIyIDcy MiA2N jcgNjExIDc 3OCA3 MlUlGhh9RJ U1NiA 3MjIgNjExI DgzMy N7SyXsDqx6 IDY2N xE2UqgaMkX yIDY2 AdZ6AOQmDy IyIDY 5WzP6EVQbK jY3ID U3GlE8VWBz DQogI DMzMyAyNzg gMzMz QCX4MCY6OL YgMzM oYRW6KaX2Z TEgNT Z2BHXeMPH1 NTYgM zMzIDYxMSA 2MTEg Faf0GLJ1VY A1NTY vBjw2GSa5O SA2MT EgNjExIDYx MSA2M KYtFtq3UBE 1NiAz MzMgNjExID U1NiA 8PcxdFRY8N A0KIC U9DZYuLOWn IDM4O SAyODAgMzg 5IDU4 DPB7DAPaQT U2IDc 1MCAyNzggN TU2ID UwMCAxMDAw IDU1N vU1YQHjUpM zIDEw ITJiZaG4JP MzMyA eJBVjRNl5S CA2MT EgNzUwIDc1 MCAyN telQra7BVK wMCA1 MDAgMzUwID U1NiA NCiAgMTAwM CAzMz MgMTAwMCA1 NTYgM rMcWZj3EAU 3NTAg ZUYxALA0Sx AyNzg rBsKlIXJ1D iA1NT NqMOG3DCP7 NiAyO OJxIOH5YCY zMyA3 MzcgMzcwID U1NiA 1ODQgMzMzI DczNy N9FGSsKMCl IDU0O SAzMzMgMzM zIDMz MyANCiAgNT c2IDU 1NiAzMzMgM zMzID MzMyAzNjUg NTU2I GmrDSX9AqX gODM0 VGVlJWG3Ya IgNzI fNEpcUpV4J jIgNz IyIDcyMiAx MDAwI MgbLpA8Bpt gNjY3 UAC8QjA4Yy cgMjc 6UXE1YOPoD zggMj q6ZGalNsG9 MjIgN ar9YF9LLTK 3Nzgg Pkf7NRd0ZM A3Nzg kESx0CKi4O CA3Mj IgNzIyIDcy MiA3M dSgJeH0GCL 2NyA2 MMBcBXY5NL U1NiA 5MFKkLVH9D DU1Ni N0FWIiPXb1 IDU1N fI4FYZeUDB 2IDU1 YwN9DAEfMu c4IDI 3OCAyNzggM jc4ID YxMSANCiAg NjExI OQqQHC1LIM gNjEx PUHqZAG6IU EgNTQ 0BXXcJAV8C TEgNj ExIDYxMSA2 MTEgN GX9OZClJQZ 1NTYg XSANCmVuZG 9iag0 KMTIgMCBvY moNCi AgPDwNCiAg ICAvV AlsIA8Di14 0RGVz R2FwhQOovf 0KICA rDX0Al920M mFtZS 9BcmlhbCxC b2xkD HfuQZGcV1N zY2Vu bDB9IAPxI3 FwSGV aV7g7RBsmT S9EZX XrRC39BJ4j MTINC iAgICAvRmx hZ3Mg MzINCiAgIC AvRm9 fcIWEg8vjO zAgLT IxMiAxMDAw IDkwN W9ZZrHkGGR vSXRh eJaoQO6ytM UgMC9 TdGVtViAwD QogID 4+DQplbmRv YmoNC dUlISVyl2N qDQog KTs0JEizFU AgL1R 2gBCsNp4cv C9TdW P9aVFlY1Jt dWVUe LPnX4Ytc7U Gb250 G8RbcBTwSR JvbGQ nTT4zs2Asq mcvV2 rgIB5qdORv Y29ka F9iSTnyTOO gL0Zp izX6Y6zjif AzMC9 TNTO0B1uqa iAyNT UNCiAgICAv V2lkd GhzIDExIDA gUg0K JEMjDL8Uw8 50RGV nS8NkwDNzt iAxMi AwIFINCiAg Pj4NC iJsOY0eam4 KMTQg MCBvYmoNCi AgWyA 3NTAgNzUwI DI3OC AyNzggMzU1 IDU1N yL2MZOtNJu 5IDY2 NyAxOTEgMz MzIDM zMyAzODkgN Tg0ID A0LCHnFmSh Mjc4I OD3GOM5VHN gNTU2 GIS2BlH3ZZ YgNTU 8TGZ5MxG7E TYgNT A5JGX1AvW7 NTYgM pr2WJY3LLZ 1ODQg IGmaDXM5NI A1ODQ bXHD7ZHWxW TUgNj U0ZJS4NxR5 MjIgN oFfDIT8IvD 2MTEg Qbu5VEgxWo AyNzg dVIItLWM0J yA1NT YgODMzIDcy MiA3N ouuHkX5SMp 3OCA3 ZsVwTsL0XB YxMSA 3IeSoLoX2T Dk0NC D6PwtmWkD6 IDYxM SANCiAgMjc 4IDI3 OCAyNzggND Y5IDU 1NiAzMzMgN TU2ID H0ZrC4CPSn NTU2I ZT7MjXmHtm gNTU2 HWY6MmFwAs IgMjI yIDUwMCAyM jIgOD PjXZD9VtA8 NTYgN FW3RXZ6XzR zMzMg LZBoVNV9QB A1NTY gNTAwIDcyM iA1MD AgDQogIDUw MCA1M GHiVmR4IFE 2MCAz XgZpTAp4UO c1MCA 1NTYgNzUwI DIyMi O9PTLnLxDv IDEwM JLaBID2MCW 1NiAz MzMgMTAwMC A2Njc gMzMzIDEwM DAgNz UwIDYxMSA3 NTAgN zUwIDIyMiA yMjIg MzMzIDMzMy AzNTA oNEI9JG1CK CAxMD AwIDMzMyAx MDAwI DUwMCAzMzM gOTQ0 VFn7NHC3MW AgNjY 8PAY4GBJuT zMgNT Q9NSL5CvZ7 NTYgN VF8FVC3COQ 1NTYg MzMzIDczNy AzNzA bXYV2GFD9N CAzMz RdXyX3THZ6 MiA0M SDsLUY0MGM zMyAz MzMgMzMzIA 0KICA 4FrBbKBP1B DMzMy AzMzMgMzMz IDM2N GD5VMJjQOV 0IDgz KLB4KyRjWr ExIDY 1DhF2OdxeJ jY3ID F5TdD5Hjqj NjY3I DEwMDAgNzI yIDY2 HhT8KqasOp Y3IDY 2NyAyNzggM jc4ID U4FHRaHttg NzIyI QeiFuP4Wsk gDQog OKm6FWV6Vz ggNzc 3IAb2WVC1Z DQgNz f5QYvtRdO9 MjIgN zIyIDcyMiA 2Njcg XmK3QPNbMY A1NTY xOCC9LFG9Y iA1NT PjVPZ5KRQ5 NiA4O DkgNTAwIDU 1NiA1 WIJsZTF8TX U1NiA uBajzWuy2D DI3OC AyNzggNTU2 IA0KI XT1MYAhVWS 2IDU1 PxK2JUHzGS U2IDU 6KoF8DJlcX jExID Q8RfN7ZXAc NTU2I NY7NkV9SVA gNTU2 IDUwMCBdIA 0KZW5 wu2KkWZgyG SAwIG 6tkk3OSZJ9 PA0KI SFxBI9XuWC lL0Zv bnREZXNjcm lwdG9 yDQogICAgL 0Zvbn KHOD8yR2Vf aWFsD TfeYJMwY3G zY2Vu rDE5ALWjX3 FwSGV mW4x6UOcgY S9EZX HdPB85WD2b MTINC iAgICAvRmx hZ3Mg MzINCiAgIC AvRm9 qyGNJi1cqB zAgLT IxMiAxMDE1 IDkwN F9KPzQpUPH vSXRh xFymOP0qcJ UgMC9 TdGVtViAwD QogID 4+DQplbmRv YmoNC tE8NUAfv5O qDQog NVh8HKxtRW AgL1R 2uOWkWg7oz C9TdW H0tFLuC7Da dWVUe ESaS6Vuh0G Gb250 Y4JzsGPiA2 VuY29 ocM7oK7stu kFuc2 lFbmNvZGlu Zw0KI JYcJD6QhTL zdENo YXIgMzAvTG FzdEN qMBUpHdZ4F QogIC NlX0yeNZUe cyAxN CAwIFINCiA gICAv Bt2kvALei8 NyaXB 0i9TlBISiZ CBSDQ ogID4+DQpl bmRvY moNCjIgMCB vYmoN CiAgPDwNCi AgICA cYFCaT6Rqz CBbL1 RVUt3DPHw0 L0ltY OomV71ZPlM gICAv Pl1uvFI7CL AvRjA gMTAgMCBSD QogIC AgICAvRjEg MTMgM CBSDQogICA gICAv RjIgMTYgMC BSPj4 NCiAgICAvW E9iam UqkIE8BSE+ Pg0KI CA+Zn5KXI0 kb2Jq DQozIDAgb2 JqDQo kKLn8ARquS CAgL1 B7mKOpQVLq ZXMNC iAgICAvTWV kaWFC i2rnZmZoCO A2MTI nFbnmUC9GP CAgIC 9LaWRzIFsg NSAwI FIgNyAwIFI gXQ0K KXRbUK7Hx3 VudCA yDQogID4+D Qplbm RvYmoNCjE3 IDAgb 2JqDQogIDw 8DQog LQElT7Iqbc N0IDE 4ZNUqLg1HE CAgIC 8RTVP3CKV2 IDAgU d0CKFSwHK1 Db3Vu dCAxDQogID 4+DQp lbmRvYmoNC jE4ID Aap2WrHVjp IDw8D VbcOMIzS5Q pdGxl RIOuz1fkUT NzIE5 okAPnSJQ7U E1hcm ggLIAit1er LCBNR CBhdCAxMi8 yMS8y RBZ4TYBuYv AwIFB TZN5YLQOmR C9EZX P8KQhvAMOm IFIgL 1hZWiAwIDY xMyBu oGgpQY8HAz AgICA mMVQwAB46W DE3ID DjRt1JHIC+ Pg0KZ U3lt7UzBOj xOSAw BR5xya3GVG A8PA0 WLIQzRS0Lu XBlL0 YlnKJwm0sT CiAgI CAvUGFnZXM gMyAw IFINCiAgIC AvUGF tBX2gOYFoW XNlT3 P7yDbpLDAE CiAgI MLfY0C9cTf uZXMg MTcgMCBSDQ ogICA gX68bWX1OZ 3Rpb2 2yRrA3RMAk UiAvW IfaCN01oTf gbnVs bCBudWxsIF 0NCiA rGe6GKwNmC G9iag 2PlHVkEu5B MCAyM P9QTXQxZLD wMDAw TXM0ETWfMh BmDQo wMDAwMDAwM DE3ID PhJYCtWB4B CjAwM TTpSFm8XEQ gMDAw KRFuyj9TZP AwMDA xCYE3OfOrX DAw BuDQowMDAw MDAwM Jz4HFBpXKD wIG4N CjAwMDAwMD I3NTc gMDAwMDAgb g0KMD AwMDAwMjg5 MyAwM DAwBuDQo wMDAw MFG1Afm5QH AwMDA qJS8UFbMlS DAwMD L6WBTyMKCt MDAgb z8PSKZqCGO wNTM3 NiAwMDAw BuDQo mOPDmUZR6F TcyID ZlDDPyPT9J CjAwM PSdKRT5RBW gMDAw OCDsuj3OYJ AwMDA wNjcxNyAwM DAw BuDQowMDAw MDA2O KS6TYKiFFU wIG4N CjAwMDAwMD cxMDc gMDAwMDAgb g0KMD AwMDAwODA3 MiAwM DAwBuDQo wMDAw BSP2QyU8DN AwMDA xQA0YVwUlG DAwMD u3AHJhFWIx MDAgb q6HDRNpEGN wODc5 NCAwMDAwMC BuDQo cWEXtCMS3J TUxID XwYCXfMV8D CnRyY WlsZXINCjw 8DQog NX3TnQqjVD IwDQo aMM5Vq136Y DE5ID SuQy1HGJMo SW5mb yAxIDAgUg0 KICAv SURbPDRmZj dhZGU fKdP4HZS1Z jU4Yj s2TpwrGrm3 MjU0N xggLhz4OtW 3YWRl MDYzNTUxOW I1OGI 8SSv3PhZ3O jI1ND V7ZR8nCZ1K Pj4NC rB3EWH4zIW lZg0K ZHSsQX3AWW VFT0Y NCg== ID Date Data Source [id number] 03/29/2016 10:23:06 AM [facility] XR MANDIBLE 4 OR MORE VIEWS [id number] R ESULTInterpreted by:RICHARD LopezIndication: Postoperative reduction of mandibular fractures.Mandible 4 or more views.Findings and Impression: Plates, s crews are present along the left ramus and body for reduction of mandibular fractur e. The alignment is preserved in this region. Dental braces are also present. There is a displaced fracture of the right subcondylar region as seen on the previo us CT scan and remained unreduced. No fracture or displacement of hardware.Thi s document has been electronically signed by RICHARD Lopez on 03/29/2016 10:20 AM Name Value Range Interpretation Code Description Data Larisa rce(s) Supporting Document(s ) ID Date Data Source [id number] 03/23/2016 06:20:17 PM [facility] Name Value Range Interpretation Code Description Data Larisa rce(s) Supporting Document(s ) Progress Note [facility] i[facility]/TDQox [address] JqDQogIDw8 DQogI COfZ8X4gHx vcigp R9SnxMerOS kvU3V iamVjdCgpL 1Byb2 Z6B0FxOWvz S2V5d 16iIZIrBX6 DcmVh dGlvbkRhdG UoMTI vMTEvMTYgM Tg6Mj M6UmEdS33i ZERhd ZRmNI6CccS hdG9y KEVwaWMgU3 lzdGV rpiKCj5Cgw 3JhdG lvbikNCiAg Pj4NC yUtWY5oab1 KNCAw ZQ0zfy1MWF A8PC9 NtJk4KHHkS 0ZsYX RaXOOzh1Wq IC9MZ W8qsXrsXQE xMz4+ ENcaDOX1kp VhbQ0 OnEzHTv7u2 zYQ/j 5g/+GAAkMC 1Lb4I lLMhwFukq7 tkDRN vAHFsg+axd gabCm VZKf+9yMpy pIca8 M+qWAODK9l ZD167 sU8NaDNp6/ gjbnv wWsGt55f8t wLuMD Vx/kafvwB9 id+My x1XK72kNOj 1J/2y jU21ly0e9C kvQdY ST67GYETRW iFkUA +zKKz3+Uif AvX0U alyKKUvH37 AUQIQ kQ8np/D7G+ 4nsGX JrBTgUIeo2 gP6y5 oYZJ5eTBC0 V8fOb 017zECNN3e feu+7 +tEg1Wstkl 2ODxy /wsgeFF/n6 yX+p7 yjEB/o8CQS XjqOP 6wRPgFv8fE RdRbD nsA1mSLsES RZd0x JZ5tMrOgzw i1UVb HWtvlMa3WY RY+L+ F5UdIqM87H RgxGW Zkfu1sF799 bX1u2 woFZ3rZkrJ md9b3 a+ig07sRy7 Uydiz 0UNM1/G67l QMxO/ K11TknBEzk UvbBI GKU1iw/y+0 DIoz5 hliOERTNqu jS90E oBcGrF94Di dwOhz c4QbfHKZdf juEvT C32+QLimbx pFmcw Hk7UDv/IzH HhBM2 93aHqhMBCk 4YF3y fD0Fj71DuF ZNKzW h2FA4QrSq5 Ysipt o0FKLlboz5 ckECf XLhFMMNpYs BqHP+ TnX4G3xedj uoz6w WG9lR7n/+R Vuv6p ujHrEKRAbH ZVhkD /yCUdqro1q 8exDu pan7wz/q4D FAWcm cUZ7CiVy1d Rma1X DqMwYbI4vq WJB0L Pm4wXasKYl BhchN XdDhj9A0Ii 9EkSF KRzCQsJPMI sHU7x SioOKLESa1 WuXpp /6m2gmo4Sb nSEPE wUsO1cHCeY VtJSW SoRKcVuKGo wWYyO qRcRIUft/Z VvMBm Vb3hKJehvu yRs26 vH2KoUPlLF V5XOY FWvVqzlLvH WZQgg 3IBCeBBNVM zEAfI H4hGoaDv3A XmvBT NdhBpfwsMl 2YSS3 YaYqqJsrp4 CsiSy p73oXCR6lN J73vT GGrbaG6Ssb 6NYAb vBK8hFBNy2 TBmEB Ahx4T48CK9 vbmG6 KZZpdgOORq EC8ga FfbzuSwnUx tof3I LNtPJeuOfI xoTWI i7EQslI18/ /BQpL 861rhcOfhS G/o6f FS2/ Tq8gW TKQ6ns0JW9 HobsW zSHjzL6JhX 9XMnI dw4pIWxFqt GzeYh tA2rle1nN8 2K6Te upGKpTR2vX VeWwK d3t2UuU6/3 FlEek 1qZ+oQqwBo 71G9h 9aNCgTehEW m9x5b SZEp4TBH6m 0NwHp WJcQ9jgXH/ dlgO+ JBoaO+umxT s5OVi 8y8we7lsAp 3UdYh lupOpZtLF9 kBMVS QqLd+i2Eea 6cXPc PWkiiiVrSn rN0Lq HE8i77jhzv oKhzV YV0kI6Ewlc GK3Vz Z8WlMsATYs 9xsYR k9IKWWf+Ol luVUT rx9CtqPz0E O+Q1F Zw1JEWxm5q QY1un VIaEuE4pQN bg4Sp PtQnzNAlXq x2sZa VrXIR9eW8V 6wjP5 Vbf+NSAMSC /zrV6 y3jcC8e974 9yWoD LGm/aHiU8t MXyGY TAziTGrTPb uj8HM ldAPmcwYr5 HVS6n xmfv4GLR0x HpZ4T G9DYMs/v/v +WqPP bX4bkFXxYW V0wJM 0swXLfE7VY hDjxc c5bsf0pCjn Dcq6j CakVvkNil6 WcIaZ UJ6bZOcl1C BDrOX 5emF/6Y4Kj mT9Wx 0cuMZeU4ZO KF2To z9gE04XHcY 9MLkc DE3lQI9/mJ d5GOl Y7A19dfdza AP7u9 ayoe8AqNU0 DY7YO GUvVa4r+28 z1A4d mhP2lesFdD hpUdX vcZPaCpqHA 8VreJ zVLhfuxlhw RejUF 3wg6G+rS+v H5MEG HGDx/QfmMf zVYt5 3Q+Mo4jinN 9PAcl Vi05sThQF4 ez08P 6i5MMiTh0v 3WvOt Xuq8kp0rq3 7kOpM i1Is/qYB5H 2hfpx Rf+784QFxw EfV5w WzHqIDf1w4 xflrt PwfbfAC4rD 99LKF LLuWtWL62B ipZ6Q YIFRjcRIPS EhAW5 Qa5sjqEOBZ VADxd aBtgsFGB08 vu5L6 +M/nEczcmV uZHN0 bjXokA0OEA 5kb2J eEIe6CVAif 2JqDQ goTSu6SEse ICAgL 0R4lSGnKSU nZQ0K AKJwGE4QPR JlbnQ gMyAwIFINC iAgIC OrAyCzt4Mg Y2VzI DIgMCBSDQo gICAg U71lZQgaIb 94IFs wIDAgNjEyI Dc5Ml 0NCiAgICAv Q29ud GVudHMgNCA wIFIN BbQsEf1LNx VuZG9 pwe6HPfOzM G9iag 0DMFGuZSn3 MCA3N RMfRvj1KKY 3OCAz ANUcHLW9MQ U1NiA 6ENsdMjR6N DE5MS AzMzMgMzMz IDM4O RD6MPYqBsm 4IDMz MyAyNzggMj c4IDU 3AaU1AAStV TU2ID J0VgO5ICYg NTU2I FV4NmN0XBV gNTU2 GJB8ZmKfAu ggMjc 8FUY4MROKI iAgNT u4ZQG9IUR0 NTYgM OTyOHN1Hox gNjY3 LNcwCeQ6Fc IgNjY 0TPZpBAF8S zggNz NhOQM0YTE9 MDAgN zM1ZKP5UbK 4MzMg VwNgYRj5KM A2Njc gVwv5UGmvI iA2Nj cgNjExIDcy MiA2N ewgYHE3YAM 2NyA2 NjcgNjExIA 0KICA yWcdrMoa5H DI3OC Z1TwflAFQ3 IDMzM xL7JCNyHIY 2IDUw DAS0MIZaKS U2IDI 0MHQ0YWIoD TU2ID IyMiAyMjIg NTAwI CTtUfT0ZaP gNTU2 RXU2IzD5KY YgNTU 9OGKyGlD9M DAgMj f0UTM3ArR9 MDAgN zIyIDUwMCA NCiAg NTAwIDUwMC AzMzQ gMjYwIDMzN CA1OD QgNzUwIDU1 NiA3N TAgMjIyIDU 1NiAz MzMgMTAwMC A1NTY mKGK3CEZwW yAxMD FhRRM2DcDt MzMgM CKvTUH9FKN gNjEx DTy0RWP4QH AgMjI yIDIyMiAzM zMgMz MhHVF4VQE6 NTYgD QogIDEwMDA gMzMz IDEwMDAgNT AwIDM wBmF0GOMrC zUwID KpLMR8Bzxa Mjc4I SOgTeF4YJP gNTU2 RDO0MlN6MF YgMjY lRTI0BiXuM zMgNz T3RFR1FPF7 NTYgN Ac5PKJfGhL 3Mzcg NTUyIDQwMC A1NDk gMzMzIDMzM yAzMz MgDQogIDU3 NiA1M zcgMzMzIDM zMyAz DaWhXhT9PL U1NiA 5NnUfOGV2I DgzNC H2UCCcGtF5 IDY2N yB8EofiZpW 3IDY2 LyT2FhfaGK AwMCA 8UaHdLvZ7I DY2Ny W8CbkkXvR8 IDI3O CAyNzggMjc 4IDI3 FQB2IqWrBp IyIDc 3OCANCiAgN zc4ID b1IQF9Ortp Nzc4I GP0LGH8Uxs gNzIy OZdhKhR4Ps IgNzI dDGD9HzZ0J jcgNj TcOOC2DjT3 NTYgN UR1ZHS2GtO 1NTYg YQL8DUk8WN A1MDA eHOR3JVK7B iA1NT SwLLA2ZJL1 OCAyN ojqXvy3HDD 3OCA1 NTYgDQogID U1NiA 8BEQoZKI4I DU1Ni H7ASPaKAW1 IDU0O LK8LUPqPSZ 2IDU1 VpO4UDRyDI U2IDU eXAM1LZMpX TAwIF 0gDQplbmRv YmoNC jcgMCBvYmo NCiAg PDwNCiAgIC AvVHl hBA1Rw812S GVzY3 CvuFWfam5J ICAgI W6Ka483XfU tZS9B ionssC4TYP AgIC9 Fv6DubjLvP TA1L0 NhcEhlaWdo dCA5M PAxUFXqF7E udCAt MjEyDQogIC AgL0Z sYWdzIDMyD QogIC MxL9JqjkYZ Qm94I IqcEQ2vLNL gMTAx AHF6BGEqFQ ogICA pP5f6WSvwF 0FuZ2 xrRMDxX4My bVYgM A0KICA+Pg0 KZW5k f3PgFXj4NH Agb2J rOJdjJJb7M QogIC XaU9T4gIZi Rm9ud I5RiEK8dFA lL1Ry dWVUeXBlL0 Jhc2V Io135E1Llw WFsL0 JiV31ebB6m L1dpb lNrw6mJuhH vZGlu Wn2BMVRkQL 9GaXJ zdENoYXIgM zAvTG FzdENoYXIg MjU1D VaaAFRjH8q pZHRo nnG4BBBgXf 0KICA uUU8Gj412V GVzY3 JpcHRvciA3 IDAgU g0KICA+Pg0 KZW5k p2ZbPXg4WF Agb2J qDQogIFsgN zUwID g6JJHlShxk MzMzI UL1KRK3OOL gNTU2 UQf3OTM5Qm IgMjM 4IDMzMyAzM zMgMz e1ZVX9KWHs NzggM nJqJOP3XUF yNzgg FSS6LGV7Pn A1NTY jEYW9XUL3C iA1NT NwQTQ7HDW1 NiA1N GInOWQ2QRD zMyAz UcVjBJh7WD 0KICA 2OLEvSHz6S DYxMS D6LzOvTsPc IDcyM yT9MoBiQzZ yIDY2 HaB9NFFeMd c4IDc yMiAyNzggN TU2ID zcQhD7QNHd ODMzI JwiWnB4Ptz gNjY3 EBt0XFJ3Oj IgNjY 3SWIuYUJ2F jIgNj D7DCz1BKZ4 NjcgN iZ3TPSkMAI NCiAg IxUyNTJ5KV AzMzM qBHk4RIT8K iAzMz QpSSE0RALr MSA1N TYgNjExIDU 1NiAz MzMgNjExID YxMSA uZuouDtr6S DU1Ni AyNzggODg5 IDYxM DJ0TQOwXmA xIDYx MSAzODkgNT U2IDM pKdK9KTIyS TU2ID k9FXR6IWIa DQogI QG0DhB3TIP gMzg5 TXI2PWBeFB kgNTg 9NBt2STQ4O TYgNz SkTQU6LIU1 NTYgN TAwIDEwMDA gNTU2 BQV4OqDtWu MgMTA fVCR0PjgqQ zMzID EwMDAgNzUw IDYxM IM7EFAhIbM wIDI3 OCAyNzggNT AwIDU wMCAzNTAgN TU2IA 0KICAxMDAw IDMzM yAxMDAwIDU 1NiAz ZfGuKGI1XF c1MCA 8EEAgVmX5D DI3OC AzMzMgNTU2 IDU1N gO4JJYfKQS 2IDI4 IEH4HWUoKa MzIDc zNyAzNzAgN TU2ID D8JLUzQwRd NzM3I PH3RhN5TVK gNTQ5 IDMzMyAzMz MgMzM gSW8WNMB1Q zYgNT A8UNCtRoUp MzMgM vJzYVA1IJI 1NTYg AYT1QRnrSQ A4MzQ gNjExIDcyM iA3Mj IgNzIyIDcy MiA3M jIgNzIyIDE wMDAg XcXeQIP2Ww A2Njc xCuS9ORU1Z yAyNz wvZpr5PNO4 OCAyN zggNzIyIDc yMiA3 NzggDQogID c3OCA 0CgrkKjq4K Dc3OC O8LADmNec2 IDcyM lW2TjUrXkZ yIDcy IcO1BqtwYb Y3IDY mOVU0TZNaH TU2ID B8QbS6IZPs NTU2I AG6GcK6APm gNTU2 TYA7DhS6CY YgNTU 1ARU6UxVuG zggMj k0KFZ3FBRw NzggN qDlSP8WOHR 2MTEg NjExIDYxMS A2MTE gNjExIDYxM SA1ND kgNjExIDYx MSA2M TEgNjExIDY xMSA1 NTYgNjExID U1NiB zOS2JRX1cq 2JqDQ obLABrSI7e ag0KI OQ1HN9XBVZ gIC9U kYGuT2Pppl REZXN kmjmgvI7kC QogIC BgL7PeeoBT YW1lL 0FyaWFsLEJ vbGQN CiAgICAvQX NjZW5 4XHobNZ0DL XBIZW lnaHQgOTA1 L0Rlc 2NlbnQgLTI xMg0K RGTiYW0YlB FncyA vAa4IVPSlJ C9Gb2 50QkJveCBb MCAtM jEyIDEwMDA gOTA1 QS9QDYKxWS 9JdGF saWNBbmdsZ SAwL1 Z4LH2PZYQP CiAgP v3ERmAxMH3 iag0K MTEgMCBvYm oNCiA gPDwNCiAgI CAvVH zeXT0Lm480 L1N1Y oB2jJRcTHD 1ZVR5 cGUvQmFzZU ZvbnQ vQXJpYWwsQ m9sZC 9FbmNvZGlu Zy9Xa R5ZheRhGL6 jb2Rp bmcNCiAgIC AvRml jr1LLgPRdL DMwL0 leo0YZmFSa IDI1N Z6QKSQgNL4 XaWR0 aHMgOSAwIF INCiA pTSRsMu5dj ERlc2 BldCL4q1Du MTAgM CBSDQogID4 +DQpl bmRvYmoNCj EyIDA yt8WiFGesJ FsgNz BlUDg2HLSk NzggM br2DHI4XMG 1NTYg IJP8XIl6XQ A2Njc gMTkxIDMzM yAzMz NtCly4MRZ7 NCAyN zggMzMzIDI 3OCAy CsmlYVX3ND U1NiA 3EWHnOOD6W DU1Ni J8ERMiXNH2 IDU1N zW4GFEuJLE 2IDI3 OCAyNzggNT g0IA0 QDQD7YUKaE Tg0ID Z4SrGbLHB9 IDY2N xF9YyexJuN yIDcy CxR0DasoQb ExIDc 9EHG0CfPxH jc4ID DuAIQ4Gofc NTU2I OshMbW4QtI gNzc4 FVR7OwX6Cf ggNzI zGIO1EeA9E TEgNz CxHKU6MvT6 NDQgN tW1HUP0ThP 2MTEg IKjlDKP3LH AyNzg uQef6QLH2U SA1NT YgMzMzIDU1 NiA1N TYgNTAwIDU 1NiA1 RGUcUwy8QV U1NiA 1NTYgMjIyI DIyMi A4QUTiTsDe IDgzM oJ1USGlVFT 2IDU1 XcU4ZJPpEz MzIDU wMCAyNzggN TU2ID VbPGE7PzXq NTAwI D1NFRI2QGM gNTAw IDMzNCAyNj AgMzM 5LKY3NPB9V TAgNT C6LAk8LLLh MjIgN IZ0PJTyWfQ xMDAw BZV5OyK2RH YgMzM zIDEwMDAgN jY3ID MzMyAxMDAw IDc1M SC5BELoBxM wIDc1 MCAyMjIgMj IyIDM zMyAzMzMgM zUwID B3ZiPTPbRp MTAwM CAzMzMgMTA wMCA1 MDAgMzMzID k0NCA 3NTAgNTAwI DY2Ny AyNzggMzMz IDU1N mG1QRKoUTJ 2IDU1 NiAyNjAgNT U2IDM pCfS2PpuaT zcwID G9QeI4WGXw MzMzI EnbKmU7VEF gNDAw GST5KPRiKn MgMzM zIDMzMyANC iAgNT a5GTUwBoLj MzMgM zMzIDMzMyA zNjUg JTY3HCjlVK A4MzQ sTVK0AITrF SA2Nj vyVxX8LKQ3 NyA2N ogeJvF7YZB 2NyAx MDAwIDcyMi A2Njc rXeJ1THY4F yA2Nj naOnn5LFO3 OCAyN kdyNls8ZQm yMiA3 ZpVcKir0IX 0KICA 1AazlTuy2E Dc3OC L9GgokZNm2 IDc3O KB6LpQvRtQ yIDcy LkA5GyGiPn Y3IDY 0BoF4GLSoE TU2ID G7CfI1VVIr NTU2I KQ7MkH2BTL gODg5 MRHqBYC0UL YgNTU 7JYH0MjH4K TYgMj f9RHJ1TJAf NzggM ts5XJK4OsN NCiAg YGU7ICQ0Rj A1NTY lLYR9KAB1C iA1NT AvOCE7UKDb MSA1N EHeFNB0AXC 1NiA1 NTYgNTAwID U1NiA 1MDAgXSANC mVuZG 3gcv7SJEQf MCBvY moNCiAgPDw NCiAg ICAvVHlwZS 9Gb25 0EGAcE3Htz HRvcg 7CIOQlRA3V b250T eLjEA7Crbn hbA0K YITgEA3Sn7 NlbnQ cDFV9U2Wjo EhlaW gpwTY6ESKc RGVzY 2VudCAtMjE yDQog CAMpU3QjAY dzIDM yDQogICAgL 0Zvbn JTNh46XTgs IC0yM TIgMTAxNSA 5MDVd DQogICAgL0 l0YWx gX8ZtH2vaP DAvU3 AgaOJxEZ1N ICA+P e2ZPU7ap5N qDQox TWPeBN9ifm 0KICA 6AB2VSQNmD C9UeX MtQ4KqfcRc U3Vid VxbOZ1NnmE lVHlw VN6ABZQnBr 9udC9 RstitxI4Jc mNvZG adWk7SnN7T bnNpR V5zl3Jzeyt NCiAg ICAvRmlyc3 RDaGF cUFVcN5vzw 3RDaG RjRXR6IH6B ICAgI A7YwOF4nMS gMTIg MCBSDQogIC AgL0Z vbnREZXNjc mlwdG 9yIDEzIDAg Ug0KI CA+Yb1HKX3 kb2Jq DQoyIDAgb2 JqDQo dJEb7XWmgV CAgL1 Ngm6ZDTLZj Wy9QR AJlIKJ6eB6 JbWFn ZUNdDQogIC AgL0Z vbnQgPDwgL 0YwID ggMCBSDQog ICAgI CAvRjEgMTE gMCBS DQogICAgIC AvRjI gMTQgMCBSP j4NCi EpXEWwLV8c amVjd CA8PCA+Pg0 KICA+ Di0LAF7qu8 JqDQo gDTSkk0FjH QogID h8UAwlBMUo L1R5c GUvUGFnZXM NCiAg ICAvTWVkaW FCb3g oCwJaDCA7N TIgNz uoDK7DUIOw IC9La WRzIFsgNSA wIFIg FR1SHDAcTK 9Db3V udCAxDQogI D4+DQ plbmRvYmoN CjE1I OEmu9LiIWh gIDw8 DQogICAgL0 ZpcnN 3AYU5OVJzF g0KIC JvUG1RJYX3 IDE2I VFkIj4VEEJ gIC9D g1WufPCrIL ogID4 +DQplbmRvY moNCj E4IRAfa2Pt DQogI Wj6YJnoEZN gL1Rp dGxlKFByb2 dyZXN oVP6gvEStY GJ5IE FtYXIgQyBT dXJ5Y WRldmFyYSw gTUQg YXQgMTIvOC 8yMDE 7BVSfFpR6P FBNKQ 9AEUEtCU8P ZXN0I FsgNSAwIFI gL1hZ WiAwIDYxMy BudWx xME6ILbJpF CAvUG EpAH08ODQ1 IDAgU g0KICA+Pg0 KZW5k b6BjXRvoMp AwIG9 vkb8REBW2N A0KIC AqFW3ErHVd L0Nhd KSpz0bNDwN gICAv UGFnZXMgMy AwIFI NCiAgICAvU GFnZU 1vZGUvVXNl T3V0b GluZXMNCiA gICAv U2Y4kYzxVH MgMTU gMCBSDQogI CAgL0 8hXI7GF2Vo b24gW zJ4NSPtPkN vWFla ZS59xWrnbt VsbCB qfMufUF1LR iAgPj 3EJvArVX6i ag0Ke XUaMl2MWCS xOA0K MDAwMDAwMD AwMCA 2NTUzNiBmD QowMD AwMDAwMDE3 IDAwM SLzGT4ZYuU wMDAw IIR3YCVgVB AwMDA lwf8LXRKxW DAwNj Z4IoGiZYTx MCBuD QowMDAwMDA wMTc3 IDAwMDAwIG 4NCjA jVRFxMEW5I jkgMD JnHVLkna2D MDAwM DAwMTkwNSA wMDAw MCBuDQowMD AwMDA kLBG2PRIwL DAwIG 4NCjAwMDAw MDMwN jUgMDAwMDA gbg0K MDAwMDAwMz I0NSA wMDAwMCBuD QowMD ZwUMN0TgK9 IDAwM MMvOF0CReT wMDAw LAU5GUWeBY AwMDA fep5KVZJeK DAwND Z3SxDkXFTy MCBuD QowMDAwMDA 1NTYy IDAwMDAwIG 4NCjA fNUTqNGD2R TkgMD JqEOSdkz4T MDAwM MReHbH2SiH wMDAw MCBuDQowMD AwMDA 3Grz8MNXkM DAwIG 4NCjAwMDAw MDY0N DAgMDAwMDA gbg0K dHJhaWxlcg 0KPDw BOqOuG4Wur mUgMT nJCgAoG3Cy b3QgM TcgMCBSDQo gIC9J bmZvIDEgMC BSDQo fSV8XFFp8E 2JlYm A7QQz7DBrg M2YxY 2J0GLGeIJH 3ZGQ4 ZDNlYzk+PD NiZWJ xYjV1HAZ3L jNmMW SxFOd0JkMm N2RkO SMiOSC5Hh6 gDQo+ Bf1Vc5Ctis R4cmV mTEj6OwLtG QolJU VPRg0K ID Date Data Source [id number] 03/20/2016 09:56:55 PM [facility] Name Value Range Interpretation Description Data Source(s ) Supporting Code Document(s ) Operative Note [id number] i[facility]/TDQox [address] JqDQogIDw8 DQogI TEmY9U0iIs vcigp O2WvrYbfTC kvU3V iamVjdCgpL 1Byb2 I7S7EpUVcc S2V5d 62nEBLbBE4 DcmVh dGlvbkRhdG UoMTI vMDgvMTYgM jE6NT S1UJohR85w ZERhd ZMdGA3SipP hdG9y KEVwaWMgU3 lzdGV syeAFk1Poe 3JhdG lvbikNCiAg Pj4NC qHtGI9uru6 KNCAw MX6igh0MOD A8PC9 YpAe0WQLdC 0ZsYX QqMRJek6Fb IC9MZ K3srApaMuS 4Mz4+ JBjoWME1ny VhbQ0 KeJzlnVtv2 zgWx9 8S6W1IGHYU B2gS8 aIL8+a2aZu dOMk4 4v9G8QjxV1 kWltW UmX0ravcbK sWLRM uCNzvSe8zw nQksH yc+Um6aZXJ n+gQh 8iZ0ag9GXE JfSP7 rDk4j+YVST szDVY X++hfU/eDv 8oejR Hbg7QU9rl0 RZxyw Ob/rzRKdvY 8QEc8 k34JBTdnWU DrhOE bL9at/FA/5 a3Sx/ qPcoi+v5gv 0E8KU Evg4h04/Rs t/oYs l+kG08TgB5 ShhuH RqTy9vZSe8 Y5zQ7 x5m9MrTmBh E1ffQ px7H/anTI7 73Kae h1y57oOxB1 gPC6A /x/991lsaR yIys/ X1zjTCO2kQ P3wXh Ao8IFO0V4n 13eMB yFJelutioe 0pxZH 2ksV3nlOqs 25fFd o/mADJ45ME fHsvV LbT6cFtqex N0QkS CWsF8+bx39 VtljV 2nT1sUU4fi qR/16 qfU+ta0lZ6 InyUR zmz5r/OqCE R2Gnf 68pRYYRwxe IkiTR jro3hX/Agk eCymi X8ETujjdmB Ll/Cx RFauDt+7mz eBhC/ OKNFBohGxa 3jM4i J3RahaK21m vW6KX TCjdhabPCN ZlNnj 9ojFSwgzTq 0MvH2 st8cc/4YmX HIYFt lNJ8TsJT/0 MKa9m Ptq7QTsHRW /PT3D XPyXcFAfdC 1pH3j 8LnwlQPyL9 4sGLd Y+fGGpkmO2 ePsZX T1UbpATNAM KPrA8 VNVhhMHxSZ pkJ5i OA6r54dUzk uOvDP 9sAkuyNJGl U+7KP iaw4nySFAD z9TEL 6H+zhBFF0e Ds9eD 7EQaj7z+Wx uRg9n ei1Nk5hPcz OXHI9 gW5A5xAjVj e1TRB Bks/dCcQhx aPE4g bzXG7uXgRK h0AVt D6ZKZHEQqW 8RnJz sQFOUGIntM M3c49 aW9Wogjllr tPiw8 St09jh0Ab7 3yGPn 77RwFYGV4f 526+F C5L5u7U4Eb WBfD1 VV1vvT5rQv erx6Y e2jDrWf0ir XyP2q ByHVR+LtQG DOpY8 bKIyLOYPe0 f6+Yc AYMujtPeh6 G4eQw Qay+wnXN3R fO9XB GIIHtPAd0P N/t6k slM74q0Xo9 8n11c Gv6JJ4qgwv +bQGj 5/U20TpdEj mVRsS xQUZWjm4mW iaVD7 8tNsQavrNR 2wRp5 kQAvIvQ04T GFpX2 K41g7QtcrP E7jwU AFMETrCtO+ ycuLl /vXddUWy35 zX2Us U+PzPt8/7c DLLOO x6ED2lZ0dF qmjla XduViXe/hr ehxxy 4fBudCXbpA GvKc5 mkAplp6+rX etfOD xIpikvRezK m/QW3 K08Lft2+J7 3uSvP YOdumb2Ed4 byVnW jYlxAjMmEv fueJy Tdk89fhkk4 lWxfm qSbwBc20KI TzySd +1m+32xXZf bB3T7 +LwrV2W+PU dSSEt GePcShrHEq U1Rd2 I9qyflrcHL xUi5K e73KN8+bAp U5cL/ r+RAlDOb5r Kqr1F JTtkq9t0v1 6rerp /XzOAzEF0Q iasqu a65ghE1Zyc j3job 2KhodLbTo7 xsvdu iRhysWgyGy u2+aM INmC8EWgWR tUn83 wDOf4Fi+po 3u9fC +cLqcJk2xk dWDPN uDArgU5KDB tuJgO /h1a88NQJ8 KIXv7 /Lv5SZ/jWa b4ke5 B4a9lq6keK ucMar DfRuf9m/iw pOfo4 dCjPRCjW2+ q/ci4 r7A2jWekhF FXuz2 YVIHsiD4lo nrNdr Ll194SD7Ie x684k wN/u83T+V6 d75qn oXMIvtKiJn NS194 KLnvnwo4Bf m2Oz8 bQnEO5I6TP eeZg7 0n5TH8gDEm Cmhib 2L4SGs2w2a fM57w dmcLVQLqoB 17O8G hdIThSPoRs 9aPfw cimljApFqc RKxle tFGDECikQT bqrUr IVH9ZSUfhy Ul+dK lFNlyjVmA9 KKJmF jGEib0pzxa 90UFK hqLIxKgaIz LPaPt n9lDDq9XQM CSxVH LmXFECNYst zz+ld I5DMwdgAuD FMs5B T8QhFU7kdB bZzik dIkTTrpKbv fidfk yZoFKmCzOr Bqf59 jnqwXnr2Q1 SwnjA KS3mxSRdyK Te2ge MQCplsYps8 r8qoa 4hWq/PU091 niacR xioFeIDd8X KcEze 7n6dZEXiDe KY6vC kyfT0FS1jV qJozT Lnh2x6FjQd DN3XT NogBIrTWOr sAEqy 337JKZWYX/ agUB+ v2tOiXCvHC PCu3k 8pxl4VtyKG aCWwS xNrdqercBJ GY4kR w+wvuUFMqZ E8wn5 GXn5UsUImc PuibJ fWE19EjOS3 fZqtr yAHZHl+wvh IrlEm D3Qu7ivs0/ 48IEk Enp9nM/fLx eXsyt 04sOLGMstn Vc3H0 aKC5SPi0Ct OeIbJ 4ChN6MPIOZ IVNTX c8gBxH4A4J 6YxHB Ws4wDiuRaA ImckI 7icIFU6uWm y6ifQ Xy6YJCvJ+o YJ2jG nWEHGGhRbD kRSvo qbqVSVIKrP ntHTU VGk8j2LG1k Ba/Ij QtrvSujL3r BxSxW e2g5wP1mDc 9ysYB FcdoFfZF/e 7O4vV sCzzg761Q2 gLLYc tTX3XACSHR IwSnE ZksDJqDcSZ nkK6H Is9EkGoj5c 6b0Yy ziWW2GDijq 12cz2 Xou0GHXtzn 7R3Ki fZ5Sq88YjL RLiH1 JIcDLDpYFK JdiGf qahdWNbaPX uA1IM E4je/6o7/g D4ykc kZQGqJwiGr i9KaC FDdBPxnH5C kygsA KkWQ82610u Ln7zs DSelryG4QO 2EKo2 UarPc+GYIz kzU1t PpCiBwp1p+ 3A0ju Zvn4ah3D2g PodfI Et7GaOt6mX 5AjMk ak8JjjR2qM EVreh LV+ujJlgwY xI9lI hp+KLHwMgJ 2bgNF sxgTmI/A6R 2gGD1 6X+vYIYwig MfIo2 vAwz8trSgm 5Mw40 cotaZRkawn hYq6U dw1oHNs2MV nTYr0 CCRJUReycR ssReo RK15IoAhKh imScS PQ1ZGuGNhQ QkVd8 oyaYClSaPW mUZEK i0RF/VppzA RLkUz RDMRh0VCFb EjNar MDh3cSRzeX MhHLf AOt8WKZrBo dsxQp 9nIlk5TAFD MzvxQ pNOUUKiJZw ke2zA pHTWfZRF86 d6/R/ RY97xUIeKn vFU4+ HwRgwp6YKC dD2ok kkmsffBrP5 142zd FMtJ3S87RD 40QoF jOTpLeA7X6 zhyZY WgXVF1wBav 6iR5b FOGBFHtc1F +VT3o Uz55FCorH6 Y7xIi fawyrtGW4Y Ug1G7 lBOsjmLXOI hvwPz eGOS7PhCbN QyRuT 282+bQBMtJ QhspN JjZe8Jcumm BGywn EVPPb8uSoO w8cxL yWomEc8PCq JDh3T aHJlhOElq9 aRiiw jK42+bQBMt JTMSu inuIHngOKG EhKqZ zqMvqOq85S TTBgp JuDuMDlIQm l4Yh6 fB3eI9erDV LSkzM /JNP0IDYMP RyUVP DoGTABApKm Nll39 7YKt1ijg76 wIjpD f0THS2cI9l wT2UU psT6wLEdCe izSJj aKZE9lzrh2 vrDxc DCbRQj62Gv tMU4E NzXbuDjg85 Ythya GExYe9QIPs NERQ9 Yl8DzuZWPX xhJiM hkz1memon/ HbzMa tSJ5ngjwNh U2maB vROhVIEGLD LTh9n SiBsDgNI7x mi+os eGQfYyYINl L2a64 ZB4xOjOF/Z i3Agl ezRgkRkyzF 4OTbD lLnR387KQm WWQvR yaYNmLiZgv 9hKcY gqwqAnnIHs 5NMGy FxMxL+wlNL k0X1E QwDO7VwJCQ S8mZn 0AY3Vgzm2K 60Og9 vmy7z0M/Yf Cf9J/ Qdn3kLEelj bn6Pp v2mRpGP2Cx p5P61 Y7D9oEgJZA fyRJJ JVw+w/hdce FxPql lnyAy6xwP/ 2dtQN PiOtJyiPLk /bIky wKP9p2Kg42 eUIzY tagz04fPQU /tWNO 8VnwTjnBX7 aJSns L5VE0Ly8Jj eMC50 YfwnfR2eMh +1sNk D1FwBa+6hr DgKaB lv9C83usVb pYvZU 9xcDWvuqar IBmgn 1mjnMeMKR2 WB2bP jHX6f3siqa AZoJ9 3pXTvmZCOl i9mD3 FwNa+6hrBg GaCfd 8T44rmAfzF 7Z09x dOEiihn7JD mgn3e tyLaJ9F3BU 2bPcX L8g5iSchSA hys86 7u0z8N9jLc DO0rB ut5QlsJY9q Jia15 eg3KmOZ7TE 2fPcX X8k2XHDQYz CrYJ2 69TMCbrPR7 v5TVR +UC5Y5c7H7 mKqcP TIoJ9f3FEY Z3wKU qXmIQDNgxm WC315 rIAN2R0WGK YNCOy QW7/8uUhHD Jipco NMP2XN5FkV 2mJIT VYfkRANw0C 3LB7l MzJSFcuuIl CsEAH pMLdgeeKQn xgq/4 iEIwiKfLBa u5z6S EcAiLnyiEA nlMLt jLn7JseDxT vEQhH BqwcpW8XFe pHLjU syboqvBOev pmVJX TVweYNZnrV IrBHX Zur8kSzJR5 dCbY7 YKmJIRLWbx EIRzQ j2GK1wXzYL FcyuI oLmOETw2Zf nOgKQ nhUhYvUQgH 9Ohcs Ib7BZnSz1A 4iUI4 hKjitq1DbH pCvKA sPqIQDugxu WD1R5 sZHZ6z0YZT YECPz vC946XIwSA hi5co NVU9xBDVGv YnhQO XetYEXRXeS U/fz6 tyugoBsyZz nUoxu UGsBxAAa6Y Aj84E k7xKoGGeAG uXKIQ RiuJf3N0Th iSES1 h6QVAn1VPl wW6GN CUhXMriJQr hgB6d L8DnxauF2Y IWL1E IB/YwEVF3Z k1JiB eUxUcUwgE9 Jhesf lCTEsKhLH6 iEAzo 5vzs42qgps AuZPE CyKD0b85V3 8PkpH DgUs+aoKvC O+mRH jAeW/2h5BE wazLX FLtA62OJOu zEIBz OpjDYlgS3M VzK4i BD1LZrfXvh hckJ4 UPDK5JPG/T oXNAu RH4Zw5Z0iE I4oEf rucUuabY3f MVLFM IBPToXtAuT E+IFZ gAOoPRMt8y F5cL0 fDJio55pQR N6dC5 oFyYnhAtZv EQhIM 0nq0N1GBxa HLjUs 9DnM852zyE vzsP/ KDpI78ctzd RzdHJ nHL4CMfSdI G9iag 4YGJGrMT8l ag0KI PL7YQ5ZFXA gIC9U pNRtK4DkN6 UNCiA gICAvUGFyZ W50ID MgMCBSDQog ICAgL 2Vvs746qkA lcyAy QFWsZk7IXG AgIC9 NZWRpYUJve CBbMC AwIDYxMiA3 OTJdD HgeCKVoL3E vbnRl bnRzIDQgMC BSDQo gID4+DQplb mRvYm oNCjYgMCBv YmoNC iAgPDwvRml sdGVy WV8YpIF2EH RlY29 kZSAvTGVuZ 3RoID M3Njk+Pg0K ICBzd FNjRU3BWpu c7V1b h0mKBP8vUQ /DzvQ eiAOtYT0Cz 2LLjh rXmuV8Tzqz AwguR UQgQAOgZPX X5Kf2 7NkFsBDBR+ 3BDKt SXOIH6Y6Dj 24fqS Pv9wgjqmXH 4MAPw //2j1RSTfr K3O5h tmV//Qvrn/ gVn+y E8BOx8/4Jw 6N+cW Jt9Fo/3rE3 7x3mw u/o8nTOVJb Dn50n PGB3q+/+Ke 7TM3a 3pulP4zt2I zfsb4 d1Hjrn3cb2 37O7P 9jlHfvFFOy 1hOJO 6PNerC/pvW B29+c 65Xx5Pdw1h 9HgEl atbaseBIPq 3mvvz nb9Oa26bR1 qjUzO IxTkeifqtM 0fBft wqCKgo9wLB abFit 8jz5oZX9Cu sat3L A2NuYmy0zR 1eMhY 4bObrG0HYG asKtu 14PlSveZ4w SSh8Q 4v7xR1Ri6O Z0/w/ 9+2yt1kGH4 xsDh3 tZlAbi4Xdf y+JgL cISNECezpB 2j327 c3l7+y28tP 788tw PClEJETSyH uLr4w 14cd9crDkQ TkUoQ P15/eMQITu C735f 6frj+4IRSM wKoIr wQH72kj16r ixw2i JFtCOZDk6Y xbsRQ 6yqW2lMwzo cpcnu sN+iNJ2ara kiWDe b7gVygCMMK u0VJo q7KiDfEY23 RRl23 zeo3M8sD4H JDrJ7 ILRHhGATeB e2zFE w79OCepX+h BiOlH RXPsm/Y6um TJYIH KKrch719h/ Ovnyx pcBZdB6CX+ 9vrmy /NIce3W546 WpYg8 PxikmAtwIj 8KNTo Lq8Gksr2Kq k3kJ3 x+vTH98OPm UZJ41 LkfWbHVuTt uPJjr b9j7oorLG/ Fn6K2 Bo3KheX/MW dMrtr wVukYRefVJ +8Vs4 eokd3WlCx9 7yrlj +urokiVnJZ 5j9Ig xu4kpTYxgk uo07r iRNz+vIV3h utBAT yOUUql3mZy oq6N+ pOOW80JLwo uraQJ cx/AnMn23i br8TV 2C5ePRq5Nc OAP9y E18jhDDE2K R4ouX qbi9itZYdT zxHMf LHuU41wmJz z9c3l HcBB3XwTxl w9LJM JeQVjwKRu4 kw3K4 YpVhceNoVu ZSNIp XmSRGo7OFG YbFDV 2PJgnq/bXD /p8Fp 6zjcTcZpUG rMvg+ KUWDNX0feC gejJt Y4kaoeOu6B 7cMpP gdnWamqJ+J JavUT 9cH0VE/XbN BS/10 UswFOIrgQX RMUj+ KQ2vxk8gVw SJ4lF GmqJ/DFavU T2cuI quekd5Vnmv 1q1PU z+GKVeqnMx cF9TM 3Vyl+R1WpS epnYs zg8uFJmQS9 mZvXk EUrBP7cwvu KE4P5 BCwwJmg4qD cM7yq 6C9cm0vTaB M0XCM Kmunkfk7h2 gJrc6 VOBD2fXiMN gRAqj B+2RBavURg eYuRh G4Il9om7ER sdWrB IbXhgGlEGu pUg4v q/Fx0RKVok mIQ4M QeeCLjXLI4 Zwlu/ CcHUC6az/t 1BUg7 lNDNiF15Y4 tmJ1w t4BaR7A8+g mnvBn RmHnwxon4Z zfo+b NweU1cp2ae qZ4ZR D5pS2A7bMK 1em+M hsUjI12O+E Mr9q1 fGx1KW2Tfd 37xp9 gtp+bo9QAr 8oTDv A3w04aTN5n O3ORT kRq7obC9I4 3vMnJ /yFS9cYqdq 5W2C+ nYt3kpt2+u v50ST Ba60+tX338 /JH9+ otJY9YWV/j dh/0o B/yZfSBJzf GI0ak B/3RP8eGnb ebP0X vUczGdGup1 eE+M+ 3xfBoc35j6 80sjX OexBnHUf9k v24LR xlKzGY39uY JCpWf 5gweosP++o U/O7j f2Drs7mfmd k30Ud 2HRjLQ17lf 9bxKk BHsExNdkfL Fid7O cdcWqcVxaa mPMPF qzO+Z3piOb 8sedm 8Ijj21ZXIv HnHyx HsmV6C9CZ+ XNzlJ rmVbGamvMP V6zO+ Q08IWu8Ir3 bwiqY PwjVX19+LF d5lrZ 5VTZsXdVsV 1eZWO 6z3nIpq+Qy Hgytt BjatoEj6G0 Df9/c 8gX/j+X3xF ACbRY hg7sXkalKN +ytjt yRx+9YdUGA 4/vIB d2nAwTZGeK 5IG+Y ZQskUUwLwt BHCUh AGMqPyPR7+ xF7Xl QLq/aPePLS /pYRG IWJaf/nyq7 +SUKc RRGi8ukvU5 Piw97 ehGKEaD3bp 00Jvi FcSdN1tTwv xqIRs mduQ6q1Wog SYnU2 pYEj0twSjc G2KTQ ZgfM0nYyFL ugTIE mvYYmlJUub Jt0X7 NXdp9l1vLI yxZai EPb5bfIPQg 1GyP5 kWtWfOM6ug LzMiv 0qL+/Zct+y srI85 sc9ZMJMUdJ It7m0 igby0WKKfi 5AvrX JTLv1lub8v lmKpj pbOlC2EM84 om7yp wI3yFJZOlY lGrgZ 7gDdxDdoL/ NSvST iL94VfGOiS 6CmFy NqRKG4w/S+ Fkoud IVYvXqynxA ojvAP CW0IQyscrS SyBMr PpCR4n2XFz cPa9E PBuMOuhM1t IKeuq x07fopwkdX w1ux3 YHUGUMuV5/ TSvly U8e8iDXwvv 7r3EA 0yilKADijQ 5Kk8v T8mdzD7kpR pdsF+ ZagtJys8AU qYrNO yKdMmLYpn0 C/VERONIQUE 6dGJl024G6 2O3gT fAsJB4Pg9X d1elO +NXr3NFQsg pswAM LdsHafCvOq 71yJL sG1r3r7fbF EHCjE Z2BUNnnFxK xloFf XPQdj2mnJv XpjAU +r5rRUblED gfyim 8odV7X+b1S Rmq6g Sj7rz0G7su 8fcY0 DimuhkzBwJ OA0QW DTeBVSvtax tzDUq PjXycDGSio 1uZ5W eeApjrbsGV agyKP xFewNtx9I0 4Uaf3 MVuAtjDClW bjdsk YU6/NVDTdI I0Bci 2airI3Uw+0 ZgYpe ggUshbKykd KPdUI kZuAnULzJ/ yvQhY 9TlRkzmz29 hKp5e 4S7lt6IVvA oGPpY gvhVD1pan5 PjsBR BRCrfGjqej WoShm WfQq+u3isl IXXds 5NteRQC3k7 bAhVj dWzDRqSPz0 wUadP mGagKoQM+W YPEkD KK/C8jvwfN yxbLL pTcGUl9H91 IeDA9 xt4LUmBRUc qkVvY TAk98aqeDw NirdI H2v2XX8A0q vdFmY EaSn4ibzLv VJpUj 9skIGJ9GIJ SF3W1 eVMjxh1n/Q Jekgk uuNi5bkr6A THKoH VuyWt2SuKM 6grSZ pcVOFPLJUM ihXux YyA1jivmfK TItqh tfuJ6xPZAH VbTqC b67cJAOIbe U6XYP 3R+N2RCQ5G VPl9X ulAn3q3HHH 0BQ/z 36BHzaxL5u OdAjQ iiah2ldP8j 4iB81 6nDG+ppUgs Bsl2c KpG8YRKB5d 253WP tqpUY9GmTi zPQBf mECyqKg3k6 7MaCg hQJCoaevzj CWQnY JHrPbtiqrr Kohoc iSrHIohXyJ y3XHg YbXwfKzkN1 eVoCZ wXJ1tb/foF mhLax BaPb2KCXdy dP6AY OHd0Yz2Zvj Db0Ln qLcbKC8vVF PziOs Vxc1q8TKGO 2ah1z t0nLEbbb6B VNR40 5f1dt8qjZd H6mrP uSf8CAlEIN ZDmih nwTskl2WGC O8mfC CmMbrLLH0v xx6W4 WfsQuFrmGM b+PWo bBBz6DqBr1 u0oDK 4aYFarGFFA qNR5c RGZnT1GQPt edgAY azxPlB12C3 +RuSi HA7EIxJNZe FPDzf VFCeVeZDXe p8i9P GjXhgOwW9H 2WtEI rE8R0bmY+h FJr66 s4tJ2odg6Z IQ9U7 Zisy1u2NRc vmL9i 2yk78Ra2ef KbJoW 4pAua7sYdf wSwAM 3b9YO9nwsD MAdlG ZA+qloOwWU c+IGC FaDfYX+Kdp Txlvt 2klFdfZjJ4 mmg9K SCdGlB48R7 uKswu DYd0QAkhBD L4M84 6vgVoWt7gC q/Am/ 0uGby4pwbw GuLdW MV4afmIJwN Q1g+w OY2gPU3Kdu 6vBOl 1Cwo1e+xou iyEVa I3Bt5iqL1z mCbO0 7NC0FcF2Mr Ib/XE hUk+UegaOX 4flpt UtgN/pE9sW ac6SC zw8baorlb4 0aoBB oxrMnZnMp+ zZgf9 HzwuATuFUM l+SOc sq/tP6BETC qmkhs MV1yd3JYq0 +jntu KyGjCflvh9 6CmaP XeWx3yTlaS sjcPt ssNmaozogK iEcNX JcwnOI4wNo 64EJ/ qBm8d4OTlf p8vXf 22hKHwXD4O IKKpE Od8wo9dDQS SlCz7 PzdteLLxW5 +cDAI k8gS//1G3C 9ZdDX 2RnE98fkmz H/5Id lgrEAnhTA+ N4Cu/ dmlUuj39O/ e/tHv HtlO4fl2hU 5jf4j AYwvYrAsgE aAcU7 g8xmMnQiLB UYCGN 9pYFkAjQHj ZL3Tc YFhdRoLjAQ wvqfB dvXhJ3Gmvi fjAsP ySLYHADL38 4JlAT QGjJP/TscF htVpL DASwPgiCcs CaAwY xxmejgsMq9 NYYCz A8TUUyvErH DAckn hCLhisTmQB UwDja t7hK7JiNQm +eDou KWcIX6ATGD zxHes gMLTuJTgxJ 3DHSy SVP0ceKpRR OZr+G M+teTqiXY6 oq0YR b036bUEg9S 8mFI1 GgHHi4+m4Y MSQUF hgJhSNxoBx MOPpu GDEkFBYYCY UjcaA pikw2zyyhF BQWGA xTM3OqYS71 Om4YM SQUFhgJhSN xoBxJ ubpuGDMkBB YYCYU CHqT0wlDW3 KByZC ODDLmUR5Ef HGK5+ h4LPWHUBoj LgyNB vEH6JSbXYB CPUdk OxKIOZr+QN itecC fYO3yk0APd 739iC Ke4W9hQX8Z gHFM6 Nz2ZDTSPXq gJhSN fwQn8CkaxL DEkFB YYCYUjcaAc XDp6b hgxJBQWGAm FI3Gg PUJ2pl5CUF QUFhg JhSNxoBxnu rpuGD MkBBYYCYUT YeB4Z yWS4UVsIER WGAeF S3RuJOG4Bd 4YESQ UFhgLgyNBo GW4MS cYLJCPUdkO xKIOR knE57g9j4p L+xyR B90uyziFq8 TNGP7 8cqCO5YvSQ gBrCK A3PFxqcDfO JkAdB SNxoAWwCoG yF0wY vm1J1RQQNq RaAxo AaxigNwFI4 akswC ZAHQUjcaAF sAqBs hdMGJIOguQ CUBH0 WgMaAGsYoD cBWOG RFuATgAyiq bDgBL H2fKF3tDFT eksQC YAHUWjMaAF sIsBa heMCJLOAmQ CEDI0 GgSdBFZRQO 4EkxU pCBVHIP1uC uaX0c P/AWhJIGll bmRzd PNoBZ3QMoG uZG9i ez9JSyEdNJ 9iag0 PFLM6CU8AK CAgIC 6GlEQlG4Ez Z2UNC iAgICAvUGF yZW50 IDMgMCBSDQ ogICA iC4Rvz464k mNlcy PnJYZwQq6P ICAgI A3RGOPdTDC veCBb MCAwIDYxMi A3OTJ dDQogICAgL 0Nvbn RlbnRzIDYg MCBSD QogID4+DQp lbmRv YmoNCjggMC BvYmo NCiAgPDwvR mlsdG GxUB8EmKC2 ZURlY 29kZSAvTGV uZ3Ro VEd1DY7+DQ ogIHN 4yyAizQ6Fg JzNWM 9vmzAUvk/a //CkX VqpTWxj/KO HSd3a xGdXXk9URv sOLLg mN0OB1LU71 +cQm7 hZOOwAjqMg myd4n z+/n8jwvO6 7AjTg KiWJ7v8tET C6AZf OiyzWjG6Oj YNP9c KC5twhmUnx 22uMe 7ca0eGkfgZ nBETf j+40ijkIRu FU4hC y8OjGwhwnb Jm8pD odAb0h3C2f EGAcy NvjY4j+wGU ENy6w rkBhxChuYI 3juYJ +/WPMgsZ/0 LNvwr wWIaHv19HG wx6nj s0fXAUOveb NZGLM ayDfHlUZV+ lSwXV YYzw5xonKk w8JTG f6LsTGGD7Q 6ALiS f5eAREDMHy A5BmV VS6nLJ2FvA Xmzyr pNJIHMuDOR U9i58 5dF2P53s+v wITUI S9LJQHfkLh LGZQK 7lot0+4jYB DwwLn sCAWX27Px6 LUUy2 IKgwMaTp5w AyFSI oEsXSHCDpF tFi9E SszQlsjzWZ UWeb/ PTpMbA2MmT D+vh+ e/evVPBCJb /5gMR rIDGGp84eA M5cIB z13HKOaE5T O5ihO 4jUr6lVdpD Ws0o4 tenRuFGyrG 96tFO kvjfmPTiMM uR5Ko POlXHJQKOA 2wrAG 91kWS88enc QPiQZ jWv/P9xOgM IR9QK TbTbv69wUt HPfmF R508mZMNe5 jzyoM sLYRpOu/5i yXwWh gsbISBfUSj 8b+bW PqAIoRHYdh 1OBBh WDh9C+PfSg Vvvl5 Yp+91oVZ78 MkdfE kXVVGuDiRN NiDrZ HzMB5hrYYV SJP8X 4ICJ/YD3G/ wDDjk zuDCmzEXcY vFSiJ c9hWYs7rs1 mrtSh xKlhBNimZJ 19WY5 fAK49jAOVs bDi7h SwyjNDqUip hxZqn aOFtosXkg0 VY8Ti M0l97mX3py RpOlC ss7PIGLH40 y9GTa vm500PN9vg 3GRmJ 8Qjt5cp8ui Bx6Qb J1nVnp+kDj OMxu/ jbV4ntE7PS cHieM 0q0mujkV4q tfiCU UJpXOL0DQz ATNQq BntQLlxXnf zqvsX yBD+FmVuZH N0cmV sgB2DTH0zr 2JqDQ l8HCGqm8St DQogI Wa9HKybBTJ gL1R5 cGUvUGFnZQ 0KICA iSX7LLFVfk nQgMy AwIFINCiAg ICAvU iEel4VzW9U zIDIg MCBSDQogIC AgL01 fNZatOa33A FswID AgNjEyIDc5 Ml0NC wKoRBVjH43 udGVu dHMgOCAwIF INCiA nVl9IIsEkH G9iag 0KMTAgMCBv YmoNC kEaPhU0SIZ gNzUw STC1HZVcPf ggMzU 9FUL2PrH6R TYgOD o9MLU2YoOb OTEgM zMzIDMzMyA zODkg RBc3VWS0UC AzMzM mPio1JOP8D CA1NT BbJOK9EDM4 NiA1N DThSGQ4DMO 1NiA1 ZYLfJQT6CN U1NiA 5KGAaPxg8C DI3OC E6DNXpOGoq IDU4N DB1TLDoVMB 2IDEw LMHpTwC7GJ Y2NyA 3MjIgNzIyI DY2Ny R7JVChVba0 IDcyM iAyNzggNTA wIDY2 CbM2OROoBM MzIDc eSoD9LzjbK jY3ID z6LFL5StKw NjY3I ENhIYE8OrI gNjY3 CQl6TUT5Ja cgNjY 3IDYxMSANC iAgMj f7GQZ5FVCz NzggN XQ1NTU0CrJ zMzMg JDJ1VYM4Ll A1MDA dPGP8PTH1Q iAyNz vjDIA5FTW0 NiAyM jIgMjIyIDU wMCAy MjIgODMzID U1NiA 5SVKaLJY7Y DU1Ni AzMzMgNTAw IDI3O UY3BDOhHOH wIDcy GqF6QXGpYT ogIDU hISN6KIWeL zM0ID I9GGVdLxJb NTg0I Mt0UIG8XTW gNzUw SDOhZnN1QA YgMzM zIDEwMDAgN TU2ID G9WpUmBrVs MTAwM KN1VddwPvD zIDEw MDAgNzUwID YxMSA 3NTAgNzUwI DIyMi AyMjIgMzMz IDMzM yAzNTAgNTU 2IA0K ICAxMDAwID MzMyA xMDAwIDUwM CAzMz XnNAW2UDf6 MCA1M EJbWrD9WMP 3OCAz XeTgNSX5EI U1NiA 5WOChNQY0P DI2MC X4ZHOkSpGe IDczN yAzNzAgNTU 2IDU4 NCAzMzMgNz M3IDU 5AnX1XKUwG TQ5ID MzMyAzMzMg MzMzI O0IXBN5WlN gNTM3 IDMzMyAzMz MgMzM hQVL3JGV8K TYgOD D6DRntSOQ1 MzQgN uQrLJW2KpZ 2Njcg WnU6YMJ8Si A2Njc fGeW9PPDxR DAgNz RhTTL7UxB6 NjcgN gY7JVG1WoT yNzgg Yaz3JCQ0JL AyNzg gNzIyIDcyM iA3Nz ggDQogIDc3 OCA3N oczUtb3XHr 3OCA1 NFFtPpq1UF cyMiA 3MjIgNzIyI DcyMi S3IinyNuL7 IDYxM LL7AWOjCEH 2IDU1 FaH3YXWkKW U2IDU 7MrE5NCttY TAwID W3EeL9CAVa NTU2I WM2TjMeKni gMjc4 GCB5KQLgVb ggNTU 0XG3QXOB3C TYgNT B2GVN2GyO1 NTYgN PR8SSU7CyU 1NDkg IbYdSIT0Yp A1NTY qXYJ0DEJ6E iA1MD TpDRT8TSVn MCBdI Z2YCO6rz7X qDQox FZFaZT2ejq 0KICA 2FC1XGFIrA C9UeX CcE0QndwCJ ZXNjc irqiX1oMCm gICAg R8SimrYZIZ 1lL0F yaWFsDQogI CAgL0 VmP6WtyDL2 MDUvQ 5IwXDJgO3d 0IDkw IV1ISFNmNI 50IC0 yMTINCiAgI CAvRm blX2GoFaFY CiAgI IQoVe6ntNN Cb3gg WzAgLTIxMi AxMDE 5ONfiHJ6LK iAgIC AvSXRhbGlj QW5nb KAbQZ2RkGP tViAw DQogID4+DQ plbmR vYmoNCjEyI DAgb2 JqDQogIDw8 DQogI JZnZ8S1tBI vRm9u oA8OuNA8uZ BlL1R ydWVUeXBlL 0Jhc2 TDj569N2Or aWFsL 9UdB07nyD4 nL1dp bxJnb4aIsv NvZGl rQs3CZBXkD C9GaX JzdENoYXIg MzAvT GFzdENoYXI gMjU1 DQogICAgL1 dpZHR ocyAxMCAwI FINCi QuECYfXs7u dERlc 4TswFO5b6U gMTEg MCBSDQogID 4+DQp lbmRvYmoNC jEzID Jkw7FkOBxi IFsgN fXgRVs0GYS yNzgg XgPhQWM8HY A1NTY qAMF6POm4H SA3Mj FzQcR3AEDx MyAzM cBnDvb0RMI 4NCAy NzggMzMzID I3OCA zQfndQXZ6X DU1Ni Z7LJEiDKU3 IDU1N rN0NFMcDQK 2IDU1 QuB4SZDdHA U2IDM zMyAzMzMgN Tg0IA 5RYRV8MPUy NTg0I CYzEQY1HwW gNzIy WPvsLbP8Ts IgNzI yBBJ8FiV4D TEgNz u1RSwfVjQr NzggN IS1BWnvTiJ 2MTEg ODMzIDcyMi A3Nzg mZvN9AEn2U CA3Mj TfRgU7ZDEl MSA3M bXnQrL0PTm 0NCA2 IwexGiI9DI YxMSA NCiAgMzMzI DI3OC AzMzMgNTg0 IDU1N iAzMzMgNTU 2IDYx NOO2GCOiAw ExIDU 1NiAzMzMgN jExID YxMSAyNzgg Mjc4I WM0DiQqDpr gODg5 NCUuCOT8TM EgNjE xIDYxMSAzO DkgNT U5LPChTkO1 MTEgN JJ2HRo8PBI 1NTYg SVikPLH1Pp A1MDA tOfd5YAS9D CAzOD bcYIn4VCv2 MCA1N TYgNzUwIDI 3OCA1 NTYgNTAwID EwMDA sLNK7EXZ3I iAzMz MgMTAwMCA2 NjcgM zMzIDEwMDA gNzUw QGThGBA3FG AgNzU xKQL7KDUiV zggNT AwIDUwMCAz NTAgN LV7IT3SMXR xMDAw IDMzMyAxMD AwIDU 1NiAzMzMgO TQ0ID s4HVC5FUBx NjY3I MC9ZXFcBiR gNTU2 BPS9WqK7MH YgNTU 1JJS5KOM6X TYgMz MzIDczNyAz NzAgN DG1PDC0JEH zMzMg VjC9JLC5Vs A0MDA cSXP6TYGvV yAzMz LjJjNaCM8I ICA1N oXpQRH7OSR zMyAz MzMgMzMzID M2NSA 9QSFzQOU2C DgzNC W0OkWuRtIr IDcyM gX0ZiSvPhU yIDcy WdG1LhMqQq IyIDE wMDAgNzIyI DY2Ny L8DujoJlW4 IDY2N yAyNzggMjc 4IDI3 OCAyNzggNz IyIDc zDoB2CfnaS QogID e9UFY8Cwed Nzc4I Wa8DQK5MWL gNzc4 FWctXpL1Pc IgNzI nYHagRmA7B jcgNj O3CHKwSNY9 NTYgN UW0XVK0TqL 1NTYg COJ8NMD5Zd A4ODk eMDM5DUE4X iA1NT UyFMM2PYF0 NiAyN yygQdy4WDG 3OCAy NzggNjExIA 0KICA 2MTEgNjExI DYxMS B8MNKsQrJp IDYxM RP2JWixAkB xIDYx FBX1XRIiBw ExIDY rMRB8IOZwF jExID Z7UfHcLS1T ZW5kb 2JqDQoxNCA wIG9i ax6EMXV9IX 0KICA lIQ4ZkIBfS 0Zvbn REZXNjcmlw dG9yD CmuWBIrF8J vbnRO GH4uU6ErhO FsLEJ vbGQNCiAgI CAvQX LmIA30VPip NS9DY XBIZWlnaHQ gOTA1 B5Vaa9Kahg QgLTI dRa7ZISVuD C9GbG NfshUmBj3L ICAgI K7Tf386ReO veCBb MCAtMjEyID EwMDA vGOD3LC3TY CAgIC 9JdGFsaWNB bmdsZ EPaB6I3VW1 WIDAN OvUoUx3BKk VuZG9 lig5ADMPhY CBvYm oNCiAgPDwN CiAgI CAvVHlwZS9 Gb250 W3H4XvS3fE UvVHJ 7ALW4zCHpW mFzZU ZvbnQvQXJp YWwsQ i0eOY9NweF vZGlu Vr8VfA7Trn NpRW5 uc9FvjqwER iAgIC GqJljrc7NE aGFyI GNqS4ftm0K DaGFy DDD0QG8NAY AgIC9 SoUY7dFCuX TMgMC BSDQogICAg L0Zvb nREZXNjcml wdG9y WVL4QLIeHi 0KICA +Bv4XKJ7jq 2JqDQ pzTbFqEY6v ag0KI FLfRDr5KEF 3NTAg Ags0UUK1EB AzNTU pVTJ9XLQ8B iA4OD wgIeB5CZT2 MSAzM zMgMzMzIDM 4OSA1 JEMzEym1WQ MzMyA vJrkoUzg1Z DU1Ni L5WFCrEKG3 IDU1N qY3MBTzITI 2IDU1 CiO5OJScTN U2IDU 1NiAyNzggM jc4ID C1FDXZWmCn NTg0I JG1HGZ6VTX gMTAx TTQ6XaniEq Y3IDc gCwN8KcZxH jY3ID FrRJQ5Jpvo NzIyI RH7YRN4ZZT gNjY3 PSA4XrN5Zl MgNzI yRRs6QIU3U jcgNz h6LEjhUaC0 NjcgN jExIDcyMiA 2Njcg YXY8PUN7Jc A2Njc xApDrXX1CN CAyNz cuRvc0TTK1 OCA0N lkvSRH2XDR zMyA1 JBKpJFT6GI UwMCA 9NDZpBZT4T DI3OC L0MWEgSUM1 IDIyM iAyMjIgNTA wIDIy XdE9ZeQuVN U2IDU 4YcP4YWIoS TU2ID SvCoP8MLEs Mjc4I DB7FkQ2HJS gNzIy IDUwMCANCi AgNTA wIDUwMCAzM zQgMj YwIDMzNCA1 ODQgN lWwCAC0VkS 3NTAg PnQlMNX9Fa AzMzM eSZXkLKN8N TYgNT A3KTMaUtJo MDAwI RH1LrBzBuW gMTAw KYM7KEYvGg ExIDc 9RKN6PVWhF jIyID IyMiAzMzMg MzMzI LG2OCI5DQR gDQog IDEwMDAgMz MzIDE wMDAgNTAwI DMzMy K3NSOjXkTu IDUwM GE3ZfmuWjb 4IDMz DjA6FIHuVE U2IDU 3KfT0BYPnT jYwID R6YaUrXsBi NzM3I EN4YXM3TVX gNTg0 ILLbBvA7Ux cgNTU wBIFmEWL1R DkgMz MzIDMzMyAz MzMgD TvbHEC1XiV 1Mzcg MzMzIDMzMy AzMzM wSgA0WND4O iA4Mz SzJMB5AAhp NCA2M CFwPyZ0OLY 2NyA2 JztaRgQ2TP Y2NyA 2NjcgMTAwM CA3Mj EsFoA2FPE1 NyA2N cktHbC7KOK 3OCAy KylsTkw4BI I3OCA 3MjIgNzIyI Dc3OC ANCiAgNzc4 IDc3O AQ5VlvjDzx 4IDU4 JWZ1JlwgZm IyIDc bJkC3YyNgN zIyID Y1ElM7Tegq NjExI GD9RsN0IWI gNTU2 ZQH6AfV8QX YgNTU 3HHr1LFU3S DAgNT D5TTM1OmX3 NTYgN YZ2RNP1VOC yNzgg Jjc2MZY5CH A1NTY fLSwiYQK1B iA1NT OgNQN5ZYM6 NiA1N MVwRIJ9YMK 0OSA2 TJAnBFR4QB U1NiA 3SOExCQS9X DUwMC I1MZKyRITt IF0gD QplbmRvYmo NCjE3 TZGwo9QeFG ogIDw 8DQogICAgL 1R5cG TiUe9jgEPz c2Nya KX8l0LHJyU gICAv Zu8oyW2fkN UvQXJ pYWwNCiAgI CAvQX ZxYO57IDhr NS9DY XBIZWlnaHQ gOTA1 S7Wed7Kuhs QgLTI bAz6TFSMtB C9GbG KphkPqHa2V ICAgI H1Um488RlL veCBb MCAtMjEyID EwMTU zSMB4ZN6EH CAgIC 9JdGFsaWNB bmdsZ MMvD7S5WP6 WIDAN LrIhUz4MRv VuZG9 qut0UFGeoN CBvYm oNCiAgPDwN CiAgI CAvVHlwZS9 Gb250 Y2O9CpM5kO UvVHJ 0VUD1rAKsQ mFzZU ZvbnQvQXJp YWwvR M6nq8Wonef vV2lu XF7fxLHmX3 9kaW5 nDQogICAgL 0Zpcn Y0T2babtFn MC9MY JA9W6dsdvC yNTUN CiAgICAvV2 lkdGh qTON8QBMzS g0KIC IsVK3Nu673 RGVzY 3JpcHRvciA xNyAw IFINCiAgPj 4NCmV yZY5dwi6FQ iAwIG 0qma0HJQC3 PA0KI SLeIW1Zgh9 jU2V0 IFsvUERGL1 RleHQ yVP3pE8QWP Q0KIC AcWS9Jt338 IDw8I L7PLPWjGvK wIFIN CiAgICAgIC 9GMSA xNSAwIFINC iAgIC SpRH2SAvNl OCAwI FI+Gj2VUCR gIC9Y Z5FdMNX7IT w8ID4 +DQogID4+D Qplbm RvYmoNCjMg MCBvY moNCiAgPDw NCiAg ICAvVHlwZS 9QYWd lar0GIIWcU C9NZW RpYUJveCBb MCAwI JChGpN3YPL dDQog WALiI0zpSY MgWyA 8TGDsMjL9F DAgUi D6LEDjYeEp DQogI SUiV0SpjK3 0IDMN FcBiFs8FNy VuZG9 qbe1SCRbnU CBvYm oNCiAgPDwN CiAgI YVlAklcs3Z gMjAg MCBSDQogIC AgL0x ic9MkMtEsF CBSDQ beNJUnZ3Jx dW50I DENCiAgPj4 NCmVu YP6rej3DBx AgMCB vYmoNCiAgP DwNCi AgICAvVGl0 bGUoT 6LksbB0sCK lIE5v dGUgYnkgUm 9uYWx kIFNjaHJvZ WRlci wgTUQgYXQg MTEvM jkvMjAxNiA gOTo0 OSBQTSkNCi AgICA vRGVzdCBbI DUgMC RWJJ2SOHrj MCA2M TMgbnVsbCB dDQog GBPyY5Bvwu VudCA xOSAwIFINC iAgPj 2NIiErEH2z ag0KM jEgMCBvYmo NCiAg PDwNCiAgIC AvVHl dNY3FFNGpo G9nDQ qaMWUwE4Pj Z2VzI DMgMCBSDQo gICAg C7LyM6FJf6 RlL1V vGC58kDrvl mVzDQ dpWTZqV211 dGxpb zUgQZR6WQC gUg0K VRPhGR1QdV VuQWN 5yC8nHUdjK SAwIF VoG7hRRwYj dWxsI A53cIyepgF sbCBd DQogID4+DQ plbmR vYmoNCnhyZ WYNCj AgMjINCjAw MDAwM DAwMDAgNjU 1MzYg Sa7HMSEsHH AwMDA xNyAwMDAwM CBuDQ owMDAwMDEz MDY4I DAwMDAwIG4 NCjAw MDAwMTMyMT MgMDA dMLXeoc3XT DAwMD MzBFT8XwYp MDAwM CBuDQowMDA wMDAz AIA4OURbWS AwIG4 NCjAwMDAwM DQwNz UgMDAwMDAg bg0KM DAwMDAwNzk yMyAw MDAwMCBuDQ owMDA vBAN1RDP7E DAwMD UqPX2FXsZc MDAwM Or2AAgvPGL wMDAg vz4BDVBrHS AwOTA yNCAwMDAwM CBuDQ owMDAwMDA5 OTg5I DAwMDAwIG4 NCjAw MDAwMTAxOD YgMDA wJQPqsb6BT DAwMD BhGVJ1FXEm MDAwM CBuDQowMDA wMDEx MzMzIDAwMD AwIG4 NCjAwMDAwM TE1Mz UgMDAwMDAg bg0KM DAwMDAxMTc yMyAw MDAwMCBuDQ owMDA tPIOtCeg6I DAwMD NsET9GMsAf MDAwM XZ5RCFiTAJ wMDAg kx3JNVJkBH AxMzM zNSAwMDAwM CBuDQ owMDAwMDEz NDE2I DAwMDAwIG4 NCjAw RHKcPCN1Iu ggMDA nIWIeey5Yj HJhaW ofbo1SUYdC CiAgL 1NpemUgMjI NCiAg R5Yao5BzHe EgMCB VFEpnHO2It mZvID EgMCBSDQog IC9JR Xw3QWs2IVm kZDE1 Wwe1LBEoNL UxYTV vG3A3YTOsR GRiMz Y+ZKC0TfU3 ZGQxN VR7LMAjRbM lMWE1 YmNkNjgzZT hkYjM 5Nm6pYGb+P g0Kc3 ZtpeM3qyDa DQoxM [id number] FT0YN Cg== ID Date Data Source [id number] 03/20/2016 04:51:16 PM [facility] Name Value Range Interpretation Code Description Data Larisa rce(s) Supporting Document(s ) Progress Note [facility] i[facility]TDQox [address] JqDQogIDw8 DQogI BTuG8A9zRc vcigp F7EplYftNT kvU3V iamVjdCgpL 1Byb2 R0N0SyOOvz S2V5d 04tWOMaRW0 DcmVh dGlvbkRhdG UoMTI vMDgvMTYgM TY6NT C2QzDcM41k ZERhd UMkFJ8VjoE hdG9y KEVwaWMgU3 lzdGV qgyQOs8Swc 3JhdG lvbikNCiAg Pj4NC uMcTL9iyu0 KNCAw JO2cbq6WBU A8PC9 IpUl6GHHeQ 0ZsYX TcRJPef9Tb IC9MZ H8elHrhUyJ 2Mz4+ QPjqEPW5gx VhbQ0 KeJzNXGtv2 7oZ/j 5g/+EFDrC1 QOKIF 87Vy57abP3 aOI3d iLFgNNbN7K yRJR9 Kdup/P5KSb fm2gz NAVNxWFUXb fPS8V 5KvDFC+fgO vE/qe akK6w759TF uCkOH N6WQOf/4Tb D/4m/ 2wF+hXCJfb D+zOt p0n+va+69M Yrm49 wPr6+FWjmE IUULh kyIdx/OFJT PkF9O A2ozBkb4iE +AUQI WcT6ctwE6o /A/0x hLxAkntL5q KKtrA e+FSA2/ERC sh2fO C9zBriFNYA q+tb9 /3dreMGx+4 wEtYO zue09iOyZZ jT//5 Lfscjnv8Lq DcyDE pM09nqm6qS F3kUb 3ARfdgBPtH TCGQr XbSRbocgr3 ZQle2 jkFZWVkiRF nAj5t sW3xMGUbQ0 JH1k6 MIogEusFbR G5uH1 1qVvJLvBRS NaA3y upznpezvph 6R2UM bSA/1Z7KGo Lv57P zokLUzK02s XhbhG 45mOVlgkAa U7Fkf i5zshj/okq DhCmN Pe8lmNB/TR wFpuR d/K1CL9sl+ PCK5I Ih6u2/C5nl bo8xn CO/q6caxE/ m68du Bg8HgDXgK8 22d6W qEwYqSmgQ+ zLG3S /20PrLmj9z HgIAV 3iqJyYxWKO 564Ja AuH8Gu0Yro /TdgT jFUtlRhYOY TwySG U7gWJq5aFs DQsBR H97H3A+5/6 NkY9Y hWZBJ4xESY /Mswi S2R2i25/vA lm4vm Z4a/l8DiKA ys6ch lIlUBEqQ05 8lM1q QB/eHsFTOC TmWvR 9ffSfZqcRF Co6Ps 9binxeyVIM ps4sA LAX+BsXw3y SulON qKuCj6oj9I 007+5 Lo7w0CmwLW HCNG2 b1oSWg9kdc WVnQi VzVXZNGBMU 9qmDi K2Fe+/V+w3 1TuRU lwGJ9Aqkh7 ek9G5 lkPyIZf4pw piwVU h54R7G327e 6YQEl cLNL3DOxvw CgDwN rHm9h7dpnL qbQWm O+cKejBaqj WPxYo ccJBl7UmDI ImoAt S/G7Obloho tB0bS RbW4mPRQiB TA7jP IuEXu1yrWX MZVzH e5VKQNNGWA 2hRru dcPPWwvYXu sphl6 nthP4vtSS2 wHJPW Dq4VFDOirB OhVnI dZDIrH6E6C J4/7E WMdN/tHwSQ 9H/GC Au7LzwwqY8 ZVtrX ZWbpN85mKS Szmvq JXMYOHP/v2 yT2La BbmYjYuUmG dQg1j 3VnilRmk0z MsoLW FunZFh529Z Gkp84 tk/nhCZrat 6oKkY yA9kyFEoaw 9iNj+ 8ZNe8JzX5h Y5s5N K2J+DYOcps Ldusd Ar2hc4XBAb E8AfI /GVJeBap57 btnJU dlz41j1AhX G2LDI Yk0X2TPMyi m6yj7 tHk4xHWcm1 PvC6n eD+MqqBjO5 8urrH raz/CGAOlBF WNZJm 9zoP+QlYub Mg+TT JctiYzdm1h NXMJO G5qZiG0IRC Jaezx qMqBuTvZjB UxyqN Dlvp/fPxBn XQv5y qD2U+2/ED+ fJlkq XxWmuRUyIC gukBE zjgCZMp7We SMdcK IV+Mpjz5KY yyLFT zYeFYbwPsU QPny8 Pg2oG/242O iGeH1 8d9KlPi1NM /G7us LdNlDo0BYC 9ENQJ oZhbrC5Hq4 A4ADW HdyTpuEQQB aksHS Fpylr73eyD V84qI 1aX/Nstgks 1FDlo VX/Ey3ZRFd 8sFMI z6ClfIkkjX LTo6v pvlaDioZ1t Z0P/p 1F/V5MozmP 60zG2 Qw4mdoARYG i3OC5 qtiQHtG7WN YaHE5 CaETeD68Jb co76A QqSxUKnOhy 8gzSB Bzsy8Wo6b5 qrXgZ U4wkxCE4J4 KaMmP TADS8jnRwA kFwlm 04Blhh52Ts kHetl 8kWjABbzJY qYDey IlPOhEMB1S fCxF0 +n wujts VjXXe1bwxd +7oVf e55mZ3t/en 3s9ij CuFz/9NYe5 iOXE7 h5qC+BJItR UCn26 2LzFx04wCk dL+nJ 8fv8lB5u+v fK5TN Zsq7rdbtgT wZtQ2 bjUTbg1oQG mLctF jJmtE4iHV9 WRdWj adPliobKFN uxCuL OGHRBWTaSG o2vHy QUNfTM+s3n Vg1CF MW2Qf2lrst ArUTq JVKcbVUsLL 9GyNK B9iDHh14N3 RtYCb 3qKxRgZ3tV neZMp YYcRUjuUG2 j1K8d luXpWRwLzj dgL9+ ssMdfi1S8M UemXz YqV4hBnSdo EwY4/ Bb4WoZIDFm BCKFi OuhX2Ejmd8 zg919 MKqRWYilWE rojX9 JLeP4LB42v mnulp NsF2TSUbcn Hubey W2vWMEw/6Y zQefh 754JdiwH7u mZS65 AgQr07m6Eo F9pGH yS5JF6Msq/ wjD3t QHOUlJa01h 7PGn7 Y5xT+lZVbw /euo3 st67Ozuz5Z Sx2Pu i6NJJuC/YD YjHPf lQljO7rL3a 3YkEC D9Fsobmyr7 smMZV OOeduSR9zW VScr7 o7aMAmKrqO 9qRQY sKB+4C1uRw Gb0Nq wAYc/Gn78L u6jy/ OHXqZMKiCM ZIFwW ogqtb6tZ8J zwUxK gvg1AX/qDz 1/GrV KRN4Pk0g2F P0V96 Gv8D4xJvo5 M3BAf Yhv+WSt+Zz M68hp McM8wbjUqa z4Nb3 4LPRg7ukR1 Tf8fr YiBlcWKmHV 0Mv7r 8UjmiPrG23 PRhiV yRS8h7a2yl 6jX/d qHS/3/sJ2c CGNi8 6THbpBD6PL 7xTaE WVTWw8/WuV nnhf5 PPpepXRduf Dv2BB 6CqTXSzyIV iieOd 3SI1k7xEF5 gO/xJ rQKRfiHi92 lh94/ eAkv1J0r6O KgiUx 14yuREmOtZ OrVLq 2OUrOAI3uz ilFmj +zM63BhA7W eWO9+ e5npkVKKmJ y1OMR CWz2/116LR teNTq +5aawwAv/w 5Cz3F e/s4Pa9v3K Da0AX qeaisPsyFa ybCCk BZZ9L/qS0n 1TBgm Sox5+pX/pK IDkDX mFTKlchLk4 FPX9s gCvs2K+lzl beyU6 MRBGUdSLe3 T1Ebb PheuaOuvS/ 0+EoW 73yubjJhS4 P30zE /xFqJKz5WS QmNtY NdCpjLOJGp MFuVi XkaTkmtWnb TcbVM OOTr+VxoJz 3pwK4 moA4X9YQox qx7cr 89qSUelE+R pROZN /ws6jTVPqA ZaDAE Fc5peJnfd+ gIeX6 OMh290aE5b k+8xw TLqXn7LPO5 Srx9x JUxc7HMrRI v3T8h odeyFpAojO pacHd 2k6cdLzqCe ZStaR EqkZOZPjfR 4dJU8 5i+uOpMeF4 0+6s9 f6Dt5BN9fc PCRfs rdbsuw6a6S eU4YJ fuWI2TL3zY dq4We xyVS8COVXp jk+bL j/BbjR9gxn qnXlv SaOpHpMYM9 FJ4Kp XVll/X67ec UhNiR g+psbC4yJx 4kZ1p VrJFt28VR5 Vv7sH zh+5kUlzD/ VX3+S PoZlULCneN Lg0fP Er6+FkrErx pzJsf 4iI6/Zib51 W2rYZ q+o+R4H0kI fNqSE yrJSSYYbRD YlstI SERrknHtg6 QfKt9 27e90/8CIr 20n2V mTLV8pgYky Q0KZW 7ch6LeRUu1 IDAgb 2JqDQogIDw 8DQog FIBdH1Q0tL UvUGF fJG3EJXWrI C9QYX JlbnQgMyAw IFINC iAgICAvUmV zb3Vy T6MaKJXcVI BSDQo gIMWuS16gB GlhQm 94IFswIDAg NjEyI Lp4Jt2NZnS gICAv J16nsXYtsU MgNCA wIFINCiAgP j4NCm PwZY5vim8B NiAwI V7xzx0JMKC 8PC9G zXq1RWSkC7 ZsYXR kLHZci0BuP C9MZW 5ndGggMTEw Mz4+D VpmHGZ3feF hbQ0K sPcUBY9cc3 YUfa/ U/3ClvuxKG zzfMH tx7DiIgiz5 69hup wexGbdMS3T xeAHH 9b/fCwaMk/ hhqzK kEwVhj/A99 3A/zg WAw/oMxHEl wQXlX /ZOEmXDP6S 6dLGG b7+I1qZI3x VE4XL horngeNZsP rN38l s/zGFwTYDh 9/Mlo liBpwRcaCp hHrz6 cpa1P6ZW3Y IYPrw aT+M1jViSx vWH16 9h/jdczeGu DawrU YQqSRhNN80 lwK59 JiIn1KYPiz l7vCW CXC23McIX3 2lt2+ VXiO6wKAuU uocYS JNVarIMbpP cZPBx D9Nwce+nAY z8hzD GlR6PoT+Bs oE3YI QqAHaJPkzG GMmLJ M2HlLpH4rE Y/WGn uUWFIIUHt2 bx6dL JoNobv7LdF oBbAJ zwB6xBtTO6 9Rf3x rz2VHKheGh ATuHd oSFXKifI4H o0t1o KBfV7a8SJr 3+Mav 1v/bMftkxL r0A7z BLBs2PRv4v By5hm OMsI2WC5CY wQZuD bxcGL/G1wY Crtnc SxikAQDJwG gV3vB VUt79d+ZLo 2z7Bs Zs4zqvS187 HC/B/ TKDDsb8HGu Fg+W+ Iwft22y/58 Dcskh XdmmcNkBn4 cYDta 2hfGrX8cea n2kZ9 o8BpOqy/xx Drn6W dP9CBRIfHR fnxpl QAqCApGzj2 vr0A5 EODSstf+WC sOmJg 0DMw/PUDRb qk7hg SiP4DRsMdd Bwru0 5kJ3cm5ThQ +GNtH JhjKkhZJYC I/y8P FAReDnTGfs h5gCb dQB9MKqqyS TV7CE h8KuGrgF72 TKEp2 nK6ZMeJDnY lJLaY JqkjMbNVrb UEtW5 gyWA8sHIzg VTEap BxZ6UoAnqX Udt6U B0lbeiH0dS RqiwW LslnBFQ7qv dk23f qPusOA4xwM khfq5 IQIi+FxRmt LcWgE //NIMY9Zg/ PPFfT /A5vxbxnS5 1G9Gt 74MJBF9NIz bucwN Ec0MgnrGw3 /v7Bb JH4CZxNEKs oqHbz Q5CrEdkvvb sfed1 zlII9p3iWe 6NE30 7dAYYf/N6D KO+Ny dcCRx5ITPZ lSA8u fX1Eza9w91 OWtAz qgtFuAkYes mqTJA 8QeAcx4ykd p7GuI 2DKsXF0cJS YNked 5ymMTa6SaN eRwkY dIDY7WYfNV 8BAAr cAN93WsQ1m Otss8 fFtkoQJb4g ce3Ip LSWEytgpGu F4LzN Wsy6qBPLyl g6kal VUIVWZUEGb hynJe qQgTBg3bYU zSHmK ztn/yUgG7a C+x2Z DxEmKzAWM7 Sole Splitter++J qKHSGWSHgA 9hBlW buskpPTq4f +Qfli DISnq7Lze3 MxGJ9 3jbgOx9P9J +PmN/ hKCF6E6EMA qjfjM Ti+Ij3v7hm L4NUP O9od2GNCAB MZqpn Jm3eeCs+30 wmElH YU8HUGqIX/ XL0X6 Stxv83bInr u9kFg JnlYgdsnfa dVGtr FQ3oQm6FOx fovZd F0Uw+ZT1FF DANNA+k biRalVCkJ6 pPj6D vfS7j8lK5N 3UxT/ NlbmRzdHJl YW0NC tQyHS8hrq2 KNyAw JM9rfx6OGZ A8PA0 IGYXdLW6Zz XBlL1 YqS7XAFjSv ICAvU ENyRZ79BHP gMCBS DQogICAgL1 Jlc29 1cmNlcyAyI DAgUg 3JNQZsPO8C ZWRpY UJveCBbMCA wIDYx LbF1SUQiRA ogICA aN6NjqfCyr nRzID YgMCBSDQog ID4+D QplbmRvYmo NCjgg MCBvYmoNCi AgWyA 3NTAgNzUwI DI3OC AyNzggMzU1 IDU1N oN6KGLrAUw 5IDY2 NyAxOTEgMz MzIDM zMyAzODkgN Tg0ID N0ARErFkFm Mjc4I RL8DHP3TAU gNTU2 KYT4JzK0FN YgNTU 2LDQ5GkL2B TYgNT V2RUW9CsL1 NTYgM aq6UEW7NEE 1ODQg MXzzVUW8WC A1ODQ oAFM8WFVdN TUgNj C6PLC5JoZ7 MjIgN gHdVWQ7PuU 2MTEg Nir8ENtxKr AyNzg kTSAfZEC3U yA1NT YgODMzIDcy MiA3N hziMoG6WYl 3OCA3 SdNvGoL6JN YxMSA 1NvSjGkT0S Dk0NC I9SodgKwF2 IDYxM SANCiAgMjc 4IDI3 OCAyNzggND Y5IDU 1NiAzMzMgN TU2ID W9IkB3DSPy NTU2I YH7KvHpTxo gNTU2 EOJ0FaBrFm IgMjI yIDUwMCAyM jIgOD HoRBP1MzU9 NTYgN UF4ZNW5KtI zMzMg KSNkKPO7HC A1NTY gNTAwIDcyM iA1MD AgDQogIDUw MCA1M MXhFbX2AQJ 2MCAz OrEcYZm5BB c1MCA 1NTYgNzUwI DIyMi Y0EQGrWjPf IDEwM XCnNCT9UOM 1NiAz MzMgMTAwMC A2Njc gMzMzIDEwM DAgNz UwIDYxMSA3 NTAgN zUwIDIyMiA yMjIg MzMzIDMzMy AzNTA mDPG2NF9SW CAxMD AwIDMzMyAx MDAwI DUwMCAzMzM gOTQ0 QMy0FCB5FQ AgNjY 7TNE0AGXbF zMgNT A4YYY7ReS9 NTYgN VZ0YAR6QJU 1NTYg MzMzIDczNy AzNzA rSNO2JEA7L CAzMz FcKcH1EJY3 MiA0M QCfBPI9KUD zMyAz MzMgMzMzIA 0KICA 9FuXwOXG6U DMzMy AzMzMgMzMz IDM2N GW8MORmYOK 0IDgz HTF5HhUqDq ExIDY 1KeR7DyqsH jY3ID K3HqG1Epym NjY3I DEwMDAgNzI yIDY2 GsJ3YrtfRw Y3IDY 2NyAyNzggM jc4ID B8IFBvMrcj NzIyI PvyZaV6Lru gDQog DUv8RQE4Dm ggNzc 9EIj5ZRB9Q DQgNz a3JRwxDyJ7 MjIgN zIyIDcyMiA 2Njcg HjZ7BHUeUV A1NTY tBCS4SPS2W iA1NT HrXBP6MDB0 NiA4O DkgNTAwIDU 1NiA1 KHGfKNN9TS U1NiA nFiflRoh7H DI3OC AyNzggNTU2 IA0KI NK8CYHeFCR 2IDU1 EhK0HZFnNM U2IDU 9UoT1PMpjX jExID N9WiT1MOHn NTU2I CD7PmQ6IXQ gNTU2 IDUwMCBdIA 0KZW5 xb5MyMEg9L DAgb2 JqDQogIDw8 DQogI OWgO6K8dLQ vRm9u dXXso6ObbH B0b3I NCiAgICAvR m9udE 5hbWUvQXJp YWwNC iAgICAvQXN jZW50 CAkxQT9ZJO BIZWl ydTSyEXD3O 0Rlc2 NlbnQgLTIx Mg0KI YYiRT4CfII ncyAz Xq8CVIHeIZ 9Gb25 0QkJveCBbM CAtMj EyIDEwMTUg OTA1X R3HDFDgPP2 JdGFs aWNBbmdsZS AwL1N 9RO1FDQCSF iAgPj 0KCuIbTO2j ag0KM TAgMCBvYmo NCiAg PDwNCiAgIC AvVHl qYM1Qs313S 1N1Yn S2kSEbVOK6 ZVR5c GUvQmFzZUZ vbnQv QXJpYWwvRW 5jb2R dxemiW9hyO W5zaU OxF96ihN7n DQogI DKqQ6MpukI 0Q2hh krKiAD6BQE N0Q2h hciAyNTUNC iAgIC SjA0capHtp IDggM CBSDQogICA gL0Zv bnREZXNjcm lwdG9 yIDkgMCBSD QogID 4+DQplbmRv YmoNC dAwEECey7G qDQog IFsgNzUwID c1MCA yNzggMzMzI DQ3NC M9XFFcDRB5 IDg4O SF6NfTuFjW 4IDMz MyAzMzMgMz g5IDU 4NCAyNzggM zMzID V4BOZpXkcx NTU2I DI4VvF0KHI gNTU2 OAA8FnH1DA YgNTU 2IUJ2MzZ2J TYgNT E8VQCcIvXy MzMgN Qe1RX8XSRP 1ODQg SFo3XMFpIW A5NzU gNzIyIDcyM iA3Mj IgNzIyIDY2 NyA2M TAbYth5SCw yMiAy VhbnYXD9MW cyMiA 2MTEgODMzI DcyMi C4BdybJwH8 IDc3O BD9GxDzGiK 3IDYx XDK2EdDqQs Y3IDk 3NOF4OgxgA jY3ID YxMSANCiAg MzMzI YB7GMCoMeV gNTg0 QWO9XzDmSb MgNTU 6LLAnTXE8P TYgNj CgIOC8IpBz MzMgN jExIDYxMSA yNzgg Dok7BVZ8Ac AyNzg kAPy2WJNfS SA2MT EgNjExIDYx MSAzO JreFMZ4IND zMyA2 TLMrMHK6NV c3OCA 1NTYgDQogI DU1Ni N9WRItQhb2 IDI4M CAzODkgNTg 0IDc1 ZPE2PECyNr UwIDI 5IHA2ESHcX TAwID EwMDAgNTU2 IDU1N iAzMzMgMTA wMCA2 NjcgMzMzID EwMDA gNzUwIDYxM SA3NT AgNzUwIDI3 OCAyN zggNTAwIDU wMCAz ESVbBUK7HO 0KICA xMDAwIDMzM yAxMD AxHXX3DvTi MzMgO KG4QLa6FPX 1MDAg AlH8YHJ7EB AzMzM oTDV3EWC1Z iA1NT EfNCZ8WZW1 MCA1N TYgMzMzIDc zNyAz PmEyARB7GL U4NCA uYwPyJrC8P DU1Mi L4CXGePSD7 IDMzM yAzMzMgMzM zIA0K GNF2VgZiQI U2IDM zMyAzMzMgM zMzID Y1PRV9JEGw ODM0I EnmRQY6WwB gNjEx TGseMdH6Xp IgNzI cQRqlNvB6Q jIgNz IyIDEwMDAg NzIyI WV3JbL2Hxb gNjY3 IKU5KdRaTn ggMjc 6ECT5YYQqY zggNz IyIDcyMiA3 NzggD XscCAm6JUU 3Nzgg Lyd3DAb3MS A1ODQ aMye7QPljT iA3Mj IgNzIyIDcy MiA2N ythMbT9MTH xMSA1 UBIdUTY8ZQ U1NiA 9IUKcKNZ8P DU1Ni Z0WUdoOUK0 IDU1N mA8UYYgRRB 2IDU1 NiAyNzggMj c4IDI 3OCAyNzggN jExIA 6ZHRV8MAJg NjExI KEgAKG3CNM gNjEx DMLbMVI9VF kgNjE sXYRrOYN6R TEgNj ExIDYxMSA1 NTYgN tKlDLF4GtH dIA0K FO5xa4AdYT oxMiA uHZ9kky2PJ CA8PA 0CTUUkFH5R eXBlL 0ZvbnREZXN jcmlw eR2cGYxvJI AgL0Z ofpUQIT9pY 0FyaW FsLEJvbGQN CiAgI CAvQXNjZW5 0IDkw DD9HVDJJPC lnaHQ hBBS5F3Kro 2Nlbn OyYQDvSw1B ICAgI F0SmCXgauB zMg0K YSPlJN0Vs7 50QkJ veCBbMCAtM jEyID EwMDAgOTA1 XQ0KI JDeMB4QrHS saWNB bmdsZSAwL1 N0ZW1 WIDANCiAgP j4NCm NiYI2wzi9L MTMgM CBvYmoNCiA gPDwN CiAgICAvVH lwZS9 Iq894N9M4I nR5cG QtRAA4OBS0 cGUvQ mFzZUZvbnQ vQXJp KPaxAh5aFC 9FbmN oBBsbFo4Kn W5Bbn ScYG1cy0Gm bmcNC iAgICAvRml yc3RD aGFyIDMwL0 xhc3R TiINcPWQ0I Q0KIC ZbJP7TuII2 aHMgM TEgMCBSDQo gICAg R7PykvIEHG Njcml ueZ0jEHWdH DAgUg 0KICA+Pg0K ZW5kb 2JqDQoxNCA wIG9i on0JCRRlAF c1MCA 7SIInSsn8U DI3OC AzNTUgNTU2 IDU1N dI1QGugTnU 3IDE5 MSAzMzMgMz MzIDM 4OZQ8TMIfX jc4ID MzMyAyNzgg Mjc4I XO2QjG2IZV gNTU2 UPY3TqP0HP YgNTU 1HKT1HtW1H TYgNT F5OWY6FkQz NzggM gy0PFP5ZID NCiAg MMb0DBW9JN A1NTY gDQKhSZP3C jcgNj U0QHivPsG1 MjIgN lM8VIBgEQY 3Nzgg SpInJNI6CM A1MDA qHpJ7WJF4D iA4Mz MgNzIyIDc3 OCA2N vxiLwv3XRz yMiA2 NjcgNjExID cyMiA 9MigdEBD6R DY2Ny P6PbqeHmPl IA0KI CAyNzggMjc 4IDI3 FUS0SeirTH U2IDM wNdX8MDAwD TU2ID BhWAW1AGOi NTU2I AW2PAB8FYO gNTU2 IDIyMiAyMj IgNTA cYGGwNzS0B zMgNT B7JIP1WgY6 NTYgN GY9BNUfNvI 1MDAg Vqq3OMP9Do A1MDA gNzIyIDUwM CANCi AgNTAwIDUw MCAzM zQgMjYwIDM zNCA1 ODQgNzUwID U1NiA 3NTAgMjIyI DU1Ni AzMzMgMTAw MCA1N JArFXB0DGG zMyAx YPYgGGD0Wu AzMzM xRCWwWKS3S TAgNj WpJXt2KYB3 NTAgM jIyIDIyMiA zMzMg ErJjWME8TV A1NTY gDQogIDEwM DAgMz MzIDEwMDAg NTAwI MJmXeN5LIN gNzUw UVKwDHF8Ka cgMjc 1OZEjEbX8K TYgNT J2NZR8FkK1 NTYgM uFzQFT2GnW zMzMg FjZ8GTE9IU A1NTY yQAo5DOQyE yA3Mz cgNTUyIDQw MCA1N DkgMzMzIDM zMyAz MzMgDQogID U3NiA 1MzcgMzMzI DMzMy AzMzMgMzY1 IDU1N bQ0ZzRrGES 0IDgz NXA0QDGyRd Y3IDY 9IrR8VcbvP jY3ID K0JkC9Pifi MTAwM XR5EwOiQuA 3IDY2 SaX8KtmhRd Y3IDI 3OCAyNzggM jc4ID L2OBR4JhVr NzIyI Ar2MNIQSfP gNzc4 MJo9XYW2Jx ggNzc 9AMY1QCZ6P zggNz IyIDcyMiA3 MjIgN yPoMZX0RhE 2Njcg LpNvNCE9Qe A1NTY mJQQ3VXT0E iA1NT YiBAZ8DPx2 OSA1M RKrKRW4SKN 1NiA1 EKOkNBX8VH I3OCA eIaroMvh2X DI3OC G9IOPkDYbl IDU1N hU3QIMmTFD 2IDU1 XdB9SGMuBC U2IDU 0CUO1KEWsY TU2ID J8YlO6VHMg NTU2I VDsMCO1SWG gNTAw NB5pNEnerk RvYmo WLsT5MRKgw 2JqDQ llICo5XUag ICAgL 8G3sPBgZi8 udERl w4WtxGA8v9 INCiA jZNCjFl9qj E5hbW UvQXJpYWwN CiAgI CAvQXNjZW5 0IDkw NH1VHSIXMS lnaHQ kECR3H4Cft 2Nlbn TvWYDwXy6M ICAgI A7ObLSyhyD zMg0K MTBoZF9Eg5 50QkJ veCBbMCAtM jEyID EwMTUgOTA1 XQ0KI SIfVT5FeSD saWNB bmdsZSAwL1 N0ZW1 WIDANCiAgP j4NCm PgGY7qnx9F MTYgM CBvYmoNCiA gPDwN CiAgICAvVH lwZS9 Kd405Z1I0R nR5cG FhDZV9MJW4 cGUvQ mFzZUZvbnQ vQXJp ZVmeND3ja3 Rpbmc gU9swYG4jg UVuY2 9qwW0vAJfj ICAgL 6HweyA0N8x hciAz ZZ3LKKG8Y0 hhciA yNTUNCiAgI CAvV2 lkdGhzIDE0 IDAgU z1MGEAoOA5 Gb250 LQCaY0IrsQ RvciA xNSAwIFINC iAgPj 4ZRrBzLN9r ag0KM qJuOF5fig3 KICA8 KN5FOYLiPB 9Qcm9 bJ8H5BBadU ERGL1 WifWEgGK1i Z2VDX M6XQPEiHQ5 Gb250 FPs4QN5HAQ AxMCA wIFINCiAgI CAgIC 9GMSAxMyAw IFINC iAgICAgIC9 GMiAx NiAwIFI+Pg 0KICA cON7UW7NqD WN0ID w8ID4+DQog ID4+D QplbmRvYmo NCjMg MCBvYmoNCi AgPDw NCiAgICAvV HlwZS 4XBStkse0J ICAgI Q8HKUNoSUM veCBb MCAwIDYxMi A3OTJ dDQogICAgL 0tpZH OcXlZ3WBSm UiA3I DAgUiBdDQo gICAg E5BboV15AU INCiA nIz8FApLpO G9iag 0KMTcgMCBv YmoNC iAgPDwNCiA gICAv Wsyfk0MgJS ggMCB SDQogICAgL 0xhc3 QgMTggMCBS DQogI CDgY5FjqO9 0IDEN UsTzIe6JVx VuZG9 des4COQepI CBvYm oNCiAgPDwN CiAgI ENyLZd3wLY oUHJv Z2Dtv8ElMz 90ZXM gYnkgUmlja GFyZC BEYXZpbGEs IE1EI UZ5ALZeWzb vMjAx NiAgMjoxNS BQTSk NCiAgICAvR GVzdC BbIDUgMCBS IC9YW EwrRJG1VPU gbnVs bCBdDQogIC AgL1B hcmVudCAxN yAwIF QUZqFnNo0F CmVuZ H8yxl1ISUt gMCBv YmoNCiAgPD wNCiA gICAvVHlwZ S9DYX HjvO6aJTdl ICAgL 3ZyI7ApCVG gMCBS DQogICAgL1 BhZ2V Dc9BmN8HfK U91dG xpbmVzDQog ICAgL 091dGxpbmV zIDE3 MLEgLc1ZIP AgIC9 LgHKvQKP2m W9uIF sgNSAwIFIg L1hZW iBudWxsIG5 1bGwg bnVsbCBdDQ ogID4 +DQplbmRvY moNCn hyZWYNCjAg MjANC jAwMDAwMDA wMDAg EbJ6IvMgUn 0KMDA wMDAwMDAxN yAwMD AwMCBuDQow MDAwM BS4AvClRZI wMDAw EG0PJyFhFW AwMDg 0NTggMDAwM DAgbg 0KMDAwMDAw MDE3N yAwMDAwMCB uDQow MDAwMDAyOD E5IDA jYMRoUB7XC jAwMD IpZFX8ZEFp MDAwM ZTcxy7VIRS wMDAw NDEzNyAwMD AwMCB uDQowMDAwM DA0Mj czIDAwMDAw IG4NC jAwMDAwMDU yMzcg MDAwMDAgbg 0KMDA wMDAwNTQzM yAwMD AwMCBuDQow MDAwM YN4EgI1DWV wMDAw RW5OWvOcKX AwMDY 1NzggMDAwM DAgbg 0KMDAwMDAw Njc4M CAwMDAwMCB uDQow VTPpVVW5LS Y4IDA gUSFdEN3NP jAwMD BpNUr8EfBz MDAwM GMckq5FDLZ wMDAw ODEzMCAwMD AwMCB uDQowMDAwM DA4NT h3RAIoSZVk IG4NC jAwMDAwMDg 2NTUg MDAwMDAgbg 0KMDA wMDAwODgxN CAwMD AwMCBuDQp0 cmFpb VJiGXw3NO0 KICAv N8s2JJJkUR 0KICA cSu1rwINiV SAwIF LNWrLnQ6pb Zm8gM SAwIFINCiA gL0lE Jle8VYQaNj Q5NGQ 4COA3OaWpT TIyZT GvVtK8Kxjl Y2FmN u34SzArWkX 0OTRk ODkxNzZmZT EyMmU 1OyFtM9E4N GNhZj c+XSANCj4+ DQpzd GFydHhyZWY NCjg5 NzcNCiUlRU [id number] = ID Date Data Source [id number] 03/18/2016 12:51:55 AM EST [facility] Name Value Range Interpretation Code Description Data Larisa rce(s) Supporting Document(s ) ED Provider [facility] [id number] LjQNCiX [facility] i48/TDQox [address] JqDQogIDw8 DQogI CDtC9D2lCj vcigp E6AyyRtaRM kvU3V iamVjdCgpL 1Byb2 W7W9KpHIbw S2V5d 61lPGLjRD8 DcmVh dGlvbkRhdG UoMTI vMDYvMTYgM DA6NT V9FRDaG48q ZERhd AOiFD0UszB hdG9y KEVwaWMgU3 lzdGV aciVBa4Aea 3JhdG lvbikNCiAg Pj4NC xMyLF4pki2 KNCAw CF6gfm3ROQ A8PC9 NvZc6BBJqS 0ZsYX DyQULon5Qs IC9MZ U4ytYhxVTm 1Mz4+ PKgjZPB7gy VhbQ0 KeJzdWmtv2 zYX/v 4C+u5A1NoB SByRu xMLmt9Kq0i rhvQW b0Wn7zYa6D ZbSfR ZEVo662tFx racuO 7BBKFiR1BV ybKec 0lTBGCrem1 gmLE4 wA+4f/vFLH AfYBn f3pGVdJJ/2 F/4h7 j6FSYW0By/ wWFvf /LEuaPfejq Hi+8C zOl8hpGJY1 iTCM4 zEsO8+OoXs eRncF MyIP3pt9h8 A18CC UNCwuztkyc wfw83 f9ntOvRUnH wEbI8 KbupctXUjN FzzRl wPNSr1yhMV SYYGR XagZiEJehv d6Y2E NfWDz53dkY b3skC BH8FgiIKLE PpJYI yeBgbvtvBU NKvzq 9oLm5Vy03Q QWpw/ 5etGmkacwe 018Ka fD8GfJe3l8 e3wHv WQnEtUlf9q fhHaS FUDAbUAMiI uFvY2 GzmW4EsJZG mFddU 0B3BqMWDKY GOFpF DNdqjoAo1z pxtK4 hFhzq6d2Bl RFPRU oKq5zueC9O aKCd5 +D+KmEnop6 nwLt6 KQuazFhPpJ A0Yfu jHMt+vRdZT RoAfk jTBIXHUzeY DTMAk xyS2tZPnS2 5sFPQ rVluKBn1Xb xhSux yJh30G8b4d zs2Xk qQKMsexYUd MlsNM RtsN21/CmN WPrJ2 JeI4UBw8PS I4rpg ytmgWPEQjY TZE+W 6vT4qqF1ft elMSr iz7lTh/qZM nJZi9 N2c0NPF9X2 0OIDv YOlXuZx81T R4+Lx WmGMOQKgF0 lHlPQ aQiPM9QgVE x02aK LYZ906w1Rg Bv9+9 CF4VkTq43o zpWhT AYuPnbgbsr 2hXns zdynMYsy/1 r8sky YhdaXbD+j9 Sm9Ha ADpcVeaxFl kAbxQ 8FOtNjVclS VWTXL S9mattGFd4 16xoI t0iZRF0Xxx XXI5a MFia9Vcy3T Odnzk oYOxIGPYN1 FHsdh NHzzsxJnhX Cz4nC sdc0VIvONU qrDWw uD/BjayWQ1 tZno0 j4eFukzjJ0 r+9k0 JqCli79G+4 2guT0 qePvUdC2cj yctyA vFZTKcVnyX Mi59L XsLz+n07Bf OktpR EGPMVJjWQB moFsq esLo2Gzliv WHlOB TlgQMCWU5j YGjwI a+/Hs/ExZz R147I rRNyhOMJso F1Do6 DAKv3/l1jJ 3L19A m0Ln4hoNiU M+B5C Oba5XfZ0nv 70zUM u8tRToGfs8 YPU3v 14s78nTPeK 6FbE3 sAuX/olYX7 ph02Y r53efpBl1x nfx1c rbbiNLrf2e IABDh W78gfld2VF QMXRX m98Nie0vfH cyJxb 6uWmgcpOIz DyOgc /2xGyrJfoP AXf+k c7AYwCAola E7i7H LmCY8EkhCT Hl6Oi jMchUUl5BB fjMlY JckpnBDN7l m1Lbk Dp7OSRiLPU dgbQV 0DGNqRFi6x x5gy2 thHUaNszwK 8sFTp NjUSBNpbLV QO8Hq FJfGzeNHB9 Kq9Vg lmHiTv4Mct JBv8q PJM7ZWnvGC DWHTu bQopFuW16J xV8be On0O6Nx6pR G5QXp PMTVMgPAmu ftdKN T4P3twNzdN Vt5yr uYwwYORL7A lVram GMSyxoCLEB I/BMY Cc09j5C/qc oeucr WbfWpnyBxt xwXZg HNu/LOoWQY eByqj Ap2VvdvKIY pEul3 nvpm9kUpmn 4K9Xq TpjTplpxl5 aRnIz PyVyrFnVjf 6+Uaz F7Vj5qvBGC LQ0Q6 aarihbc3Kl TCiEk P4xLF4T6qL T7kAa 6877dFQK8p eIeOS GFiDNLOeN6 FSPOA JEvR/8tpwo ndCpK Tzkaaz3HxA zQICt RouFveg8EO +yxju 3FMd1tYUlD NI1u8 w8H8lD+G62 WmPXG IZ4ppDSIlK Rp5Ac BquoLVq7jK D3C5O VUCKb+PQDn Effdo 1+7aUnZnf9 mseNa FRqUE9F5fQ 4fCcs nl9oK34xVe zc9xt 0WaoFRt+ay PoN7a LaxJKMEz2q iq6cK hd/vzFx5BX 5CMQ1 b/KVx2QtgO OcnKs /dBhGTF1ku KxZqS zcVAsVjXAs sJt7J EitMXJfbTp iD2Fh Bo7mpSR4XV kYvLo inmMy3+P8F iunen wnSoDdjRj3 fS7ER xQxeKFgLjX 2n+Eh rOkXPGcZp8 nfhYs OxnBpvFGS0 m6Ave YDW8hYV8vA gPjdJ J1HsI/ZOuX nC8A8 b/vEkHSFm8 elR+q nG143SuSNq jh/u2 nfYTNVYFv2 MDeVc rWU+eOJ+PE wmUeb IMbEBj3YKs fP/u0 d7cR6a8Z/e R43Em IIUU4mbRsl LETdY yWzhmm/Bgh N6tED svZuVpdHhV QDfRL mkeAR5L/Dk 81wY9 anqCbtGSQj nIaVu bvwcDN+4VC 7uedl zMz3dQbNSD vFraf VHL8fqS0T3 pO4e4 Lvr+FIL8fg cNhWy WjJhsr69V+ kiFvn JVwHrktdYg RjYaI lWwqqLlwod 2Q9hs NUe0Lwztfj xI3li fmycEvDSC6 UBDYb XWDmwMMtb9 y1nZV 9OFHUnk05M fZhJ5 Zc6j6i6VuF LIfPR d8rIsvYY2U bB7Xi exRlUkMXBb lEOQ+ htXXC1mHSh NBkay uO3FOK+ThI SpHud uMVUQELGDk DsYgI bgHHmP7Kwd ogEOj 2PTGL9Vkqa WwyKB TAKUdV0I8N tUGNq 8+9zA8wUFB BC7JQ kkN8RtMKdo e/XXh /t/mXX72j8 ZW5kc 3RyZWFtDQp lbmRv YmoNCjUgMC BvYmo NCiAgPDwNC iAgIC YnNXwqJG3E YWdlD TuxOSOvF4X hcmVu dCAzIDAgUg 0KICA zTX9WUWNiv XJjZX MgMiAwIFIN CiAgI CAvTWVkaWF Cb3gg RjNbGOO8YO IgNzk wAG1WOKPkZ C9Db2 36QU57xaB7 IDAgU g0KICA+Pg0 KZW5k e6QuUUr5CN Agb2J hDTetLWe5M 0ZpbH RlciAvRmxh dGVEZ DUhZJJeT1w lbmd0 pLObYcP4Lz 4NCiA iv8QxPVCdX Qp4nN 1dW2/bOBZ+ X2D/w nIBD9DVzGZ vZLFY eZrvN4WMhg ZB52E 1G3zSuTsEq ivJye Gk2I5qcqXf qXFnX kbwPe4tnMF tHn88 h+bCG6W60q WymWC Xk9K44i1pZ biBUH o0iN3Bq/4F 9m/8G d8qvWtCsSv /Q/do f/HAtcFnvb yGs39 izA7t94eMi juQnM YyFfxyP58+ mTt9A ckOu0pFf00 uPsDf ABGCEFGff/ gBrn+ S98v62bclU KIUys CsCsln97BQ NqaC1 7oxzwGhMyz PcIb4 2EShHVEzgr LeXbX FDRERSDx/D VeVvc 7RgyHH68bs wTe3Z EYAP9OPRba ESP4h fQJ4n7tzI9 hpmuX tu7YVc6GU1 +emqs ehT60y4voy J3DxG nTTQxyAPGc Mri7i fsPs+98QZY z1vuM mA6G3WVRHp QU0Nl 14wLUKOToU E46OX /3VPDU094z 4/mlk qcH7+RGS0h MgsAf i48p+MYWpa 2jsjZ 5P2zKKWbrH w5CkH ESVqtPd2pG jxyIp 1wJjHJjyRT G3S1v Pfw4jmBZGo KPi0s cxqTf52k5e NiKsn Vw92rViINa wcV4Z U+kbOBK0SC 81HuH Ki+mzdy/hr dvpbP J3Qy1yLPpr zqHxz KKp3ne68eG 9/7Sl XaG582ZAvz R2qrA uhObcAt0a3 LqHl5 Dtj5ywVInd Andie+1 4uai2f3KD8 IoZwT X8lA27ICh3 /7Pz4 2EskjZ3Ndu Jp0pL xtUf9cbnOw 6kgXz +HSWVdNfu+ W0lZj M9ZAuL3RnH VuM6S SBIR+CXNTD GHpXo ESBhmpN8n1 iEQ7b XQfSR2wYoo n8Nqv FMHluhiL91 DDrbk 3cSGljKnjQ 0oTQs oyLjtIZ/HF hiGu/ NRvzy+vn8O VrfMk xxK5k0tERG b5VIS MKPe6uMEj1 GgW3h r+ncYgmOKO jFsdL XH5kDxoA9u D4Bvh NeQ5R0sZzL O/vMN 7tu5YfRpWa KSHK9 xjW3A+752p vUqPi rlZENwMw7o gte9w PYmLJkcjoJ mSSxX CPTRhUVkbf VtViv Ta7EkAcMV0 WHW5i TozjcT6AGK kNfUo DlGhapmXtq qWRse FtSWCEDUVR sVEkA 6UXVC18ltU H02d0 VDB6Iaerlf DU5EX aelfclOA1r N648z mRV43m+pGl /PRQy 1Pr4bAdWj3 k1rOV SHP0kAUs1Y sA1f1 Oq+8g1WwTL Vh5Tc SSdlkBEgGF bpF2d car8yfMSvj HB0f0 yPcF6GJdrM GtooY UWJaPMpUxn uA1kt gWoMY2Whti KmMbu IthBLPY6va JWGsA ifVSn24BX0 N/UpX d5iq92q+KX SVcqP nxCHCMyWnI kQU0R 7QMF+auoG1 zuMGa us0ahqpAMY aSL6w Hq1eZkqeGZ SN3+i 8aHxsGy0+l jijxr 5Q3LVLWTB8 cMY6q BTtRUbLv3f AgoTf q4+SkJpG2g jPxnF DnZzgEdBMG pCXpI emc4V1/AiS EP7VU +JRiTOVikc lFiOg mTTKKUQPTS j1po7 MoYrxiXGoo 5f3QY 0fjKdTU/qt ecVlq IS7dwq/iZ0 zQlxi Y3MQn1DrMQ nK0x2 oKcxlRcPXf mPKvL GbyllxaUOK 1FfCc hnKoichNkT 5ANQO W6rX1G2peu 9vHiG qEQ6Gdlywz RH+H7 ORptrH2wg6 DzI8I ILDURfdg5F 9rB2r RraZVVDfE+ JSSYX oWX0x2RtrC v3pxc dVT44hi1e5 aQMjg wFROcl2YUu JoaFs jPu67At9wz RRRTo CrGmjiqwHa wrZoT FL8Ic3gluj KxZCL aogfDK1+ST Uou7g hUrXcbNXhC l2fES R6rok35gzo kJWuA qlUi+KwlR3 +fzsx 9ArC4bHder JZYci u1xVofSGVG eFzx7 q4SI3rIa4w 3XlnP PaLKBudBO3 5EfQj Rmm8BTeTHH CHcgp aObh6zHt4R StEHm iYddWM3XLM 0ryo5 SKLi96QD2Z 6U68D NP7csYX+6x 03D1S MFl0cV8jfO dFh2r Fzd1KkZqSv cAc9+ Tmwegvvgwp KqqS+ XmYyWCl8Ua 1PcOO YUwTjym3q/ 6c+fC Zb8+Zq8zZ6 u6R+0 TswOmOmT+9 MN4p8 +9iwlx0U6z hmLEM g9WkChtcCB nAXS0 ke20k0ro3m Rp7Af +skYESOLgX n3Knt WTY0ixzrQO 52t9C qVCil66/hV K8Fcy jnWVsmEw2W SLoTI g23HWEgTmb hK1eM obAY80ludd dRdol 8NETuMc9fW jFpsS v2fJQUMtIK gn82/ lJqwnxVtvx 4bBVO Lg2ZjI1QPU L/2n1 eYwAn1gKTv XopZ+ dbpUiJ5Iml lerwU A0mFTtpgA4 Y8fvH aOBq8XRAza kHYGC ieMPfiThne 3843d ROwR/8i5Z2 bYz1d joHeff3gYW ETO6N UQvPOHv3ma OgrYr 5p7VUaH8y9 tCZwS +hO7tS5NZB ISoUy 6QH2K4UHu2 3ej6+ +VsxSqP4b7 p8Bch weaDg7VQp7 +lW0f 5rg2tsRNws yzNlj VrYlxXf5up Loe0f OigOTcP4y5 Lf95L zvpuMsIMC1 gBJj4 8346KUfuuP UVC0G Hww8yQ9U0P PG6AB kvkeRdzftR kdNJ4 RPMF5xWImg pN2Zg FNBbWpqpte QLrQs /BvG2IgkOo xc3Bc MHHgDxpEga LPuSj R4LWVJ1Qdx bCQtI ML7aAONQ7O VmDrg yUtlrpIirK DkJH3 9AYQwSPie8 fug04 zI1SKje9xo 02uoq 7/yPOAqcpN JmSFY o593SRvqas 6cLcm 7GuIowHU9T VHgHd tNXr6Ptz7n CNXc1 WSUUYS0dYp HjCsK Uv9q+XkRmW c0Qnx qQXYhXMC8Z t0vZN mxL4Ya68eX JvF53 VNNT6xIbYr RirKs NeUWL9DKoK 56SHQ Dsr89rnic0 s9vMb vRh9/qElRJ m3bwl Lr4lOVty6U Ntj6k H9Zsj3RD87 callum/jG kJUshHATSm sRKk+ daCXMg7WzE cY7aZ Ezn3eW0dvu EKDMQ nFp8JuuiDf QVQPW 0vLNYpr6NN 5O+Q1 wJxcybX72z o6rRc VbCaQGAHst EcDMe +XZfv0x79K GHgmb achVB/PZMW y4WBg R8drU/oA1l xXeeS DKLrexQ4Bd Li9X/ zSdO5Tt8tu XNlRX f2067uD859 SQjTL Qhbz3+a2gT pfmAV E/bAPE3VdD vJ316 VbtCe5Y0BL 00J3h fFdBZulgZX TSfmN G9/fsM6UiL viER5 sVbtXlOEVh ftGkb 1fHlxviuRR ew+St ZHrd3Qq2ug Elyse 7YbKIEqI8J F7bKT 1Dkus0CKBv 2z526 acN/m9jpuY IzhEF G6RcKCcQSV Iwh7b 1NPiZTJC7C Vyf8a 3g/E02AWkV wD7Xl YP5bAfvSny 6T7FG dsa0U3skwG tgtIB nEplxG46IL TzdaO TV9mladg3w RCV0f Nw+KoZ/bcl DyhVl rW/E8ujz7g 4jjXC /uMOGCYa9B yQELy F2fjslHS/4 vvhDW Fxp0Nl4706 c4iV9 rg5q6Gzzt8 AkN7k B8v7pS7Xcs OTWqy PicqcGbfDJ AxSEe ZElC2R3OYZ hAi0P yY36e4YOrx Ah6K+ J6ZXhT6zIM Xve5/ 8ieWzd2rZk /9lbm FnzHOtGD7A CmVuZ V3bbp9ZGcX wIG9i nk3MYSW2YG 0KICA zYG5PoIZqR 1BhZ2 UNCiAgICAv UGFyZ Z13OUNsYWR SDQog UFHgY2Udk2 91cmN lcyAyIDAgU g0KIC CnLR4DBLCp YUJve CBbMCAwIDY xMiA3 OTJdDQogIC AgL0N vbnRlbnRzI DYgMC BSDQogID4+ DQplb mRvYmoNCjg gMCBv YmoNCiAgPD wvRml xjLQbBU1Ra GF0ZU AzQ87hOBVi TGVuZ 3RoIDIyMTE +Pg0K ICBzdHJlYW 0NCni c3VxNb+M4E r0vsP +qlS3QAClo kqIo9 u3mG1hGHPY OG33Z 7CQt0OS1ZD lDyU5 nf/8TJt5XK t2zF5 sayEEMybKs 4tOrx 6XWPKMa5Jz kEyUT fEH42+9Mkv ACpfl uc7aEv/4F9 if+Hk 5OMnwpON+f cNjaH /zGsTe/dTW Fi78n yMLa3SszwU Y8S+F rIdpJ3coH6 tmcwW 6z6xa44Rx6 R/gbM CEYE/rXH3+ E6X/g dgof+4adyi jNErW 4Yg5eJc2lX uvhxr O7IoC2rbEJ nrDs1 EaxnVETwZL em9/i tmMNAt3lqV OvN65 AG+/r1jYI3 6yuWl cdzPP42Fyh /A/NV Gt0Cf28hcA tF+eX VQW/lKXbOO u9Pb8 zs0L2xR5Fl xswbQ 4fMDATGlj7 i9vC5 PstZImUvTZ +tr5x wMFZ7jhtQF zlb12 JacXJjns7+ +3DqS 4joTi38JnB M7x+n mu6/r/CtVO Oh3Dv KyqbvC35+0 u3y1S 886PQs56b2 ubMt8 f+HRVQpoU8 IIqU9 ApAwsfMj1A 7u6xb gOGFFL55Qs 6PcTo gxqnS+oDxJ C6aeX YCNIdkrBSZ 7jMWR LKr8ZeG4sj AZpnQ 46KpYmkeka bvdZ1 zHvqXa+MLV 29MM1 uDxegUdU8X fTgK/ Fz6eicdGbb sDwrf xvWXNMSbxw Z2UFn SLGxwM8qLU 81MnQ XVOYUn0A69 wdtnc h2qk7j3eQr s7Bkf E1LGYq7ILR VxcQI 3s9LgRicXE ag6QV 5R43zldHAc NFEB1 nkixkVXlgj Gewib aka4ivzRzH Zj4mw QD2Iqk8k5v jWzFg xIwDhc7psc bFzK8 kwSvkLLsVB WsCw/ RGlU9OgWt2 s/rMt lXRn/enG9s E0bOX jOGAXPWZqP xW8EY /iLPzaR1qE qfCf5 cQO+VKjjQz to+Kz TrAdtbJGXQ olxcV XmOe8B+uSt aRfbi YMJtrW07px om0sl DwhPcCwdF1 Ct8nF YSfo51aVS7 2blvG lr/xeYX8jz lKygs AgNiRsRsYz TmEIn bCy+wplIDq BO4B8 WFiZymKkpo XlsUA vUW7GtMaGo qMPLw tr/Jo0j7cq kSEdE OmvHoxVE9n jiIzi Fz2xmt3lvH rrKlJ HnNXWGwZBg Mh2Lp +VZoZ1epF/ 1vI2s NJw5FjUTWf FTIQ6 VKhK1Yqgjy bWx1S fl4+KqZJL1 uIqqT jGIrZrYU++ ZTLJx kVYlTPZIO4 Cwpzo 0+82wtC2Yc 26G2k 6+4yLHQirJ yZpEj cVrBEcL9/i CKa2P K/VUTsS1xH 6akuE c4LSsQLJVy s7GxV FJrTsAWntn q9YW0 Zjalc3oisN YlWZm letggL0f3m x8LvU JAB+SwZoM3 gM+hN 6rVNClP/3m qg9A7 6OFCsYqq4J lyVi8 oUcbmd4sMy /Gx10 BTHfdEOy6o oPG8h llEneITgaI R1KRs RXcBS6z1ge P0qqm GVazWtTetm 4WN44 A5GSqNutSM Oc9cO Jquo0csWYG 7Xoqr dLzJqg7wtI PRNi4 0QdnCcmqZm IsLOU Zyw/Niyah+fR ZLK4w G91Ezg5A5k Ad241 pSR+ylGizz HRNI0 50BVnjsoR2 9scUp QzfG8fjLbi /76k8 efgMEL/v/c aVMqk hh8GlEOlWJ 3MP/e gU+nrEzboj YJp8J EJjwUfCnUr VSpcP Nub+C6Rgk9 uXa+V 3CZiDAT/OD rmS3W /vTTQPsasY MNkqU Ac0A6XoKBc 5u7qN RTQI35nFab TSK6g 1NlQeumCws r01LG HhsDXZQA99 /W+PO 6LGBpSgsvr l3gVl U7q2IJs+7N rCUaT gA+M2kUH5n uupcY gXgw5So7i8 h+wp0 8yf2+kYrqL LGR28 M3bJl1oyy+ WLw2l KIF+8XQPBx Vv+GA a2CJODsflq cQjXn kksNo5sycd S1gbm EQu0gstSld IBU5g 0NxcabFUbs nPmQG J+H6cH+6vJ itCus a7cYWNGan1 9OXen 8XWPdUxU8L FBkoH 7nejGmaolZ UJXHE Za5MSuxTvQ QOV3Q +QGkSBZD13 IeQIX W1R8+q1sun 7u4jG QrUI/xsZry zDaxQ fdMK1sLBcb VxxBU hPL9Lw6bgH ABdJA +Lx7/WkU7w 4K3ux JgoC8dFCa8 nVLhQ NRXqt7w+uL Kst4p Pi5HjgQp04 fUZXN 17jZKYUDd4 n/eP+ 1AKST9TL1T cTwOo b9lw4aO5pL 06SZM +di2qvh6WB nEtPQ XmvoU0vtXx txZc1 VAN3I6vWsS IsvZ+ CsmS6hOkkr oNnol 08BY78Fg1/ nQSyH 09HaBxXIeO 5S0vi FN2dmYOdT5 Nu2vz pO9q29FohF nghkO Wq516ok3jG IpDfI YPkDhrH1fZ 8tJtI WX6kCN3PrY Z18R9 VJSLho57Ha YB23l 3ehc8nNn7F +/Vys JEDv52Owbq 1F1jB 7hjAI8sC5e +/uJC 8zs6MiNqtQ sHcB2 WiETu/Lhw6 DvWBn DhI9CiSJlQ e4hBO 2As5rIkDUu K1M3+ CcsqbdW2H8 7j0Ok rVUfsG5Bwl wFQp0 ae0ExztYlf qQVxs 6xp0aMtKHN HLbIZ MjTsgGVJFs T/EtW yaQjYyEUuD Ht2BF bnR13+KAfN WwrWQ xbu3o/p4ib dJOJw vRsVTAg22P UspCo eSlNFXuEpM nrOC+ PiqNmKIVnL ctXHF LkEenJ8zSE euPTV Uc4C2j9T+s ou53m ZZR8cVSlGT Nbe8G 3GqGxkJCzG UbDuQ RtFSLmLJ60 jzh7l 9RlQk1R8Y3 BtzsM q7psCYl5+Z xmOVs xR0W4GA1QF QUuM9 xSYr0yNBia JhKpH r52j5QlZCy 1Bz/9 7ZuAQpkkdO rRHS4 jb25zm2pEi T4M60 kMC6VHA5X9 KHjfj HuxIk+Oumc yi8e6 rpzs+/oSdK rzgdX /ePchScliC lslup zzNHOsfGNK 7+BLx y7JTm/J+Nl r2MUl tQ7FgS3ZiL WcHQ2 hnAENoMWaY h19ut 5YlN9TYPiW aG7Ld +YYlH3u/9v HN5v8 H0WLXFXOpS HN0cm FdyB0HLW1h b2JqD Hd3TDCvg3O qDQog BVw6SPhoBD AgL1R 5cGUvUGFnZ Q0KIC VwZL2RDATq bnQgM yAwIFINCiA gICAv LfZel1PdX0 VzIDI gMCBSDQogI CAgL0 5yRAtvRn64 IFswI DAgNjEyIDc 5Ml0N CiAgICAvQ2 9udGV udHMgOCAwI FINCi QsKz1AUjNq ZG9ia c7CJOCaISY vYmoN CiAgPDwvRm lsdGV fKU9MqKY3R URlY2 9kZSAvTGVu Z3RoI DIwMDQ+Pg0 KICBz aKUiBJ6KEi iczVt gk5x4GW3+Y P/hgH 1pgcYhJVIU g6FDs eXdG7HwrAx gaPtB p9xVlh48pe wg+/X jmySqsTcMm HR2Ud L0x2fbg/fc 8egLg Kx1DnVGdLj X2D/d PGkkC4VL1g eLNXz 5OOC6hnN8g 0S/BB x1N/Tvuskd c4Ofd YwS95hETl8 5/Eaj gQD2CWWrZL f58tm m0bG5YQhYm 7yAj8 8ur+AboHFM aSw/P n8O8z/gYg7 vQ2Bj zYNHtD4ZOR SLcls 0qoLzrFEnQ OlxlB 2HlOEsp0Uj qFlMS DQtBM09Zqk ixTm8 u7h9oQhhpb kbVWv 3BbKU8DMRL cfnjg JN/xGmoHtg /v4IZ 3v2FzdzQqb 7WuX3 uaoqdXSWbZ q8btQ LuDyHrAkYB 4hPOI d3l9M+Idn/ hJRwH rxel0ks89E ACuUN UGwHSWLKPP OWcGx PSBLO/m9Pm HDtRR xczNrTRN+b pCk1D 5K3iv5C5sY gMkQm VtGUBRj+callum NpcVl uBElTg+vyH HGZGC ELYtnlzc5G aup14 pTJHsTFWlW 3qlg8 jfJa3hg4YO j8pER GH6nzhC01z 3MkIx TZyZC8JzIF gy5wE Ukb21/lK7W cXN+C BBBM/JMu/l F6wiM 4xYx/TlgtN rM7Ml rDA1RYzKFG h5Mon SVqgDzR6qd rqflJ BVyfUQ138b 3UEl9 cXGveRMRl3 iBkT5 FSZJ53T/Kx C0qT7 ji7cPWR/X1 Z57eF esa8MSBWdk mq1J9 wBd+XZaEe/ X5tWj yOFUGkDQDR ceIDZ GLE7ohLeot q/9Rf 5NY98qlDE9 oieNB /f/IlESVxb N7qHx fzrgSM1Qtq uR6zf vpclgJ1E0n MahoP I7EM6kip1r uPWgB q7AqWIG1QI wYo5V NnASqg9ggl fCjgd TWEY4i5ijH GJLn+ 5zG2ryDv8h vL1Y1 2+/VmleWj7 lZmUn tGfzFeNvzk iZfp/ ZTUFWpkAm1 EROhm O0rV5tJrh2 RGTrX fadeB5YW2k ar1vz X23V3w3Kmw Dc5+J BI3MMs5sK+ +JSQV Lz/B/KfJHJ 9SXTI ZBMx6/qtst cIgIE gQMwVUzG8T RZ6t4 HXxxxYlBMW C2nJk qttkZAL3WH Xk6/W 2yP/SzloWc OeiI+ s8X2oAdCqk PTX6Q 0z0B00xxEY RFXab vqQ7LBLULQ w30JS x2Nw75395m ub643 O9vQ4wbetJ 5rz1C WYRxTbbvHs 9tvUY KO/9LYqNxz OTcrX 5R8r80qfW3 ZkdUW PBDN+6oSbX Dt0Bn 36TffVu8Zk c+4R5 HTi40mA7r+ IrdZ/ mB8qxi2kEP iK4uI QVfhIkLAdS ZyUTj LT+I+53RXs mRklW /cqxoID2Kr +ewAf NQzHxXr9qC eI9M1 NqBG6XxPz9 CCJmt 56/9DgTm4G heGkk NEeeKWlKx4 7DfTM oHEapOUhrO TQHM8 nkiR1wDkP/ IZEJ0 bDX0RYRPZ0 bQSGR kSEp9RwB+W OfCFz 6Tw1DKpMIs SBEJ6 nZy+0iet8M CtGJF LQnuvtiyJx AHwiR kqRdDuKEBk Tum0E qNbjI7Zm6L Zid3r THaYyZhMe4 3Wm8n Yq6ulxy1ni bOhv9 +/uGsZ9efS 3Mg3q Azlkoij8nE 5sYcJ AVbwCKO7qY wvCRx rMy+RdMrrf EatRD iW6uW1PkLd 1K0kS 2KokxVOLtD 1XCGJ JKWjYOQyUx Eckhq YRuzyUSB6p jmMSt n0EXiemlX9 ppjBT VMgVPsP46Y Qfgpi 7ujGX4aAW9 l1XT9 XEEMhGxaGX CMWTi 7YffuacnlE 75nXv svu1xSlEAq dghyM SzgikTDwFL JowK2 h/wcl+rvxn W9ceD cWK6WSAnW1 F7cbW kL9MzChicp KtFcy QzNzDXB9Ry LSuI4 mohoIkrIV3 dzTBk 9s8YKAUlix xaNg5 IEni2sBt4Q QVTJh 8Mnxx5bzjU e/TfD tghk9Y+Znt k75cd N1oaKf1mSe i8W1Y QZdJCmEQmd CAT1x MlXzUmts8N wjY5L l7huewyCXU JG/52 zH7eOFybuT JbCr6 GOnuArFiCu s9W26 gPuZh8nenh BnCe1 4ttXevPTYu Tnaz8 nui6oncAub dzNdz kxTIvbkdvg Nv1dI bHMZA3Eqwl qCGr4 pIM8LiHKlX blcWt E2uFs9SgS6 uVWmv M2QqW+aKxJ Ohbj8 iP4EBji7pm wLJcb O3/squcF+Z xMZ4t 6bux654RCn 3Kyrr b+dIWl0hxz 3i+aN m4+tB1pwfF ru3jE fzOKZuB9tM qpHaC /QSL49fj3o RsKIL F7FSHHb550 5HY0f Sk+B5qj9XH YkdjI XnaVMwHfkI JI72j 2BEalFhvvn soZoQ SxdAB85Q6u gexzh CHC8MFzw3A OxoTy 36vbTuqqJM yT5kf UV2a4aexJD pWXBu UOTSq2D0wt TMPEp LA+Lq1mUPs CYyvf csIEpLA+Nr 3XCAh WBz63qAU0g XDY9G LxwzQxOOQe P/FQR VA13CFjvBg 3okHB 0lgvBMPDpL AeC8e ZLr19lKKcd ceM0A Tj0Pi/RcHS WC8Ew 2FedF7Tu1q JIHxT nd4URUckKl QXNaK hzHCO/HYAZ Z4PBL xf9wKCmDov JCQBM Dv5NOvDZl1 4kFCE hjvxIPlsk4 8aSx7 8ZgBmngcEu +/OEg Q3828dZWVx jvx4C AJjHfiwUES GO/FM jAE602ukec 4bGQO r7OuUxmXjt QFRUh sH2HHW3dH1 H3w09 6Y7e8JQSYR nGVuZ HZ2zeHavI7 KZW5k i3ChHLqdLZ AwIG9 usl5TMPN7M A0KIC DxMF6KnRIu L1BhZ 2UNCiAgICA vUGFy ZC41MZSoIC BSDQo qZKJgM9Ywc 291cm NlcyAyIDAg Ug0KI PWrMC8NXZG pYUJv eCBbMCAwID YxMiA 3OTJdDQogI CAgL0 NvbnRlbnRz IDEwI PBqYx7OASD +Pg0K ZS8fx9TbDM oxMiA pPT9wti7IJ CA8PC 9IcXs7FEKv L0ZsY OPePATkg7S lIC9M EZ7udGzaWd Q1OD4 +WXzeWUE0s mVhbQ 0KeJzdXFtv 4zYWf l9g/wOBfZk CiUe8 BHUeTcd8N8 mnBSZ pWUFg9j5aP m1zRh ZdUk7W++v3 kPJFT tPtPlhiIQc xTEuy Rk6hpaFRIH HUvX5 U2KqcZpkW/ Ds0Zl l8IS7J/mO5 Qn/9C zpc+Gu8OCv gxdHl 5NEhe9HFY4 6d/Nb NIVc9VKQVe H83Bx QLJAqGLiXO 0V314 gOxsCz3CB6 aBv38 8x1s2GrTEi WYyp+ /+QbdfUHXd +hjH9 hQoCTO+AEV um5Ku 6gx0gVo6ln XCOOX DNspGQ6AJg X3oGY IG686g+MNU x4hXr 9RY1wCQqhr bdOaZ pPv8JlBNTw /iY7j DifYte7WJc jsYN5 a3QMha1bwO g16X9 nudUpi9HDD WrfGt /oCvXuDVNs jGiH6 Ks/Bb8pi2l CUgpx dSxennS1uA TVaq9 xfwfXZH1NV v9xq5 B3tNlPZrrC 6NO0S QTU4q0uX5N QKzlw n22QGmbWIr yV01b diRIv96MTl 0wK1t oNq9rIR1gi 0cJ5p vmzcdjZ+Xw kh+dO +PiofJDMqG MKxPK K6v7j0JhD+ 4IL48 h6qmMRiOSg jGxDO dlMz9oBjFT J9mny bve75C9Rjl K0GnX Hb5PsCnxnx aEzT2 fVtl5u6ADW VAtky LkJvVGPbJd ilaVa SEYFkyj2ZE AE7NL TnAe0gprhJ 9nalk b3/Zyp5ANP HlB9+ AvmNgxOgu8 hEJQE +6xdv5Zg8y uMhnF oIGS1iCOui 1tZrB C6Lm0TgpXO 9R3Pr ghj0I/Iajl Q+djb oeKX+o6ve8 RV4nC BRNQdRPipX +ScS7 3c1QR+lYKG PQWj+ UYNLBWcCQg Qf08k ZGBT95RAjJ 0u7cb u+PC+opfLR d+nGq 6DpSDkYAqv 4e7VZ +1S4LSG0Y5 QRZ4U IHkBmUZA/x ZszAs egdRVbOIY1 0HzfN cFiYxPHpqB da3Zy CUv79ldrBb MYS3G YCunFq0XGE Y3D3d /Sr4cFAciM 9wbnA sI47R76IuL xsE9x aw7fZNEwNo HwxI+ sHtwSeFzUg j9ArT XoeR5SMv/f 7by8X 7lSGABU8/O t25Rf h02KtozcfR HBbly jlxLCvrOLK KnNZw jJhPRNzG5L ujHaJ 7A+JrNuvAB 1eNDO Mm9c60UIxi khVG/ accVNmQgWy TI+FY igHaLd67sR Qid3M MrbwzKN8Jj Z5gI9 GL+BmLJcqm ahdyF UQiD3akfRD oGicE YD/BAJqjJq R1QSW 8SzzHkT1/Q iBghN cDQrwAnfKa chgLg 5GvIW3J34d 74cew 7ZwTgs6moO Ynr0g MTL83SI6MD cS5QW 38pWNc45gQ WwDJn 0p49hcNmjs XaQY+ uiLIYC0Hz0 KfD/i bvlt3JxwLe IvgnA ztLY2Fd1eg BKzk2 hZ3j3EVjoN H582x feQzFS987X hYMdr wOimklKe2+ A48k3 x84RIN8L/4 97hDw E7nBXkD7A5 UPSOP /nQ1dMDpiF iGR5N YRlpV3fZt7 EQv+C 7AMZkx98+G BNTgq REgOaItacf vpHlg n+z1/Q3Y8j JgphV C4KETX/dmW /hsQy VDc2/tWoJp hjwY5 IXm+cC77hG mKXLX gzdott2e7U cGQsC yUUjmTZXji 6DlWN 3r2ogiJW7E MDc2O rlPU148jR7 1jUSi wFcpH9cL/W pV3aG c875Mt2F1Z 9ihub ekDikpDegH RbOg0 kLGUWUt4id eAtii JGRu+v/ozD ouCZg RENGA3RRj1 5km5Y FPDaRUCVah VSDwp C/Bk4KQItK gyLrq o1GqfUCHL2 3XrIP uUi2sF3KvP XtvGt aTfdzMArdK MXkO0 96FBFHjeVz jMcYJ 23WooTJjcs w9mRa VEHP1HT8Pw UsjyX 92hOIuZ3ru pxpDR JRaT1rMoPo 3t9c/ cKfbDeJLEW EqJrQ TPsv2SK4lc oFrhH 4JcjU0aNP6 3/MGh XhtoFd02+e z8/Nb IBh+mWs0s5 qQXHR SoHdmfpBpy CYTox NqlW8Wlnvm KGkmw D3slpSgIkj 5jaij zve/+Lcfks 8BB8p vJCcYaqF9A 5a0d3 s7JWhxQ9ZJ eM531 pG8mm59GDQ mZTi0 x2kR/t5sTc 0jTWu aUefGLrlNg 9ivPO GnCYSzO94S GbJJw bkfqR2504O ZNfUo PXMEj8ynq2 0obzh shGcD9diuq vN+4+ TE+QM6jGlM dgOGk ozWTRYziJ+ QiAEA blym0wXbMK lCUkI qM/EZhOxop EN5ru eIaIfrNYjm s4rMA DkJrScJjkW Z/UsW OknEo+MT3N ZVb0K eST74g9Ats O0b3T if4Ua1oqsm S0VtA 248Ymxx4hr GS492 swEeJucK16 tXIpP Y2EBjbsPlG TsSSG VT1aYY77p+ NSu3F 7SQtPrQ8mg 8ZLPJ TC6piwKVQO xanl7 1YzzQFKB4c ziefd ihhFYorlZE yIZHm DoYNqS8wZR CcwIx 2v4tuUYNoG BTlR5 XFLoQUlQ/C ZtGgv zS0KoIDY+N UlzsP Xw2MZEWMCK E8F4U PwmbQKynmf T9Soj D9SG3Pk0hf LSwFv cULr+AV7Nr kAYBd sFd2+ggcY/ Nux55 ZwIULhBufd zvspq CrBYbnqgdY k8bPM 4lq+73VjWh s3+KW xILf9HiyTn pf9FG nd7rD8WTcP kfncQ S7alyaTpqY b0j6E PbKQo6VIsw /x2D6 /KDpLnpDac tIFsA a54GoF92VZ aNkN5 RPSVBGeuHG kNYXP Y2nqiXaoJ3 qN1of 7Xc5osbpiL Z6JZN 3TSKZgPqxb 9LjnG z7u3q1jcNp ObAhi 3sLp5b6dWM yI4bg U5/araVKuc egWsx NTU7JCu1jD WfcEI 8y5bAOyTDv 5AJwm nZyFhLTHaR KDCRf zrT4zwN5fb F/+sF ptGltb+JzQ gBiOk HoTmOXR6lS eZ5n2 nLSJbB3pcp 0gafe 90r8YLg6Im zI6AM 7mxCfHQSe1 J7EpS WLHb/TGdZY UQrhk +2cokRGVoG ddTZl 8gSEjRS6o/ 8ypwP cKAHq1h+OT 5X5UD BXssJx7KQ/ xmnLn DM/pxIyHk4 L0jed Rq69h+dKov Aoaax eZYklm9zCw QWkHv OgIkGaSh3U //fSb p/rWGRA2Tc /hJ4H u2g17D48Og 3/9uO 0f/FsW6QkB 8ozE7 vloks7LN9R ULz4s tz4+XZr896 o1tBD /6BkJmIUSI qD6bG AER5/DQ7US PGQGM xkX+KV7eAY gILFY sbNc0AArfv ve3TH EOlDt0zaUi 5YNtg BOFhNI0dvO nWMFp UNLJb6U3Jw j1fkJ QywVgSPq2W BKBYU Vyp9Zif1XO Djeu7 TVrgFIRAIk ksUMd ixm24uUx6h e7308 +tpazhqs3S VuZHN 5eoSbbZ6UN W5kb2 JqDQoxMyAw IG9ia g4AOVD4EF5 KICAg HS0EhQWlL6 BhZ2U NCiAgICAvU GFyZW 50IDMgMCBS DQogI ARoG4Eaw25 1cmNl cyAyIDAgUg 0KICA aZY0JHAAtR UJveC BbMCAwIDYx MiA3O TJdDQogICA gL0Nv bnRlbnRzID EyIDA fNz7KVFU+P g0KZW 9ay1ZuJQde NCAwI V3exl0DQHH 8PC9G fYh1ICQbD5 ZsYXR pXNKjn1ZzI C9MZW 5ndGggMjgw OT4+D JjiOXR5wdY hbQ0K gIboPD3u0s YSfz/ gvgOBwwFbI PGK/8 FC1USyUfmx 0WTTX oV39YoRiAo YrSx6 OWxF8Yi1x3 gcSrb lbHpPFnlVF huYkW wOf/rNcGZI jhHqf x9rNuJ7MF0 Q/Ldv fEp4h0Iyh8 eLNfr zn9D+jZ/im wsRfi Q637/h8Gp/ 8YVrR 5/1do5e/6N AJPx9 fhekuEelYO hcYY7 my1c/mnt9h i6Xj7 ZGP7+6+oD+ gjClG DA793wmhbt v6HKO fhgKNpZQCh dyLxW 3dSfrQ6qZc 3e6NW 8Qxq9J+Marco WIwtF E8PTnU5QDl yPW6Y ljrp6Ik26G rTBNQ Laq7ebYLS8 SHDCJ f/FhnDf8Ce ePdgl wHBTszbJ/T WtKvz r+sava8q+2 CN9+b 6af56mntFD bp6h3 Q7ABoh+oZz dHOVd oTkiBQKhzE pLsOY usegFWOw48 +g+Xc jk5Ls+8e4L EEASQ DHf26KqBZJ cehfY C4O/QuSHnx Susan pu4RlZqmo/ Vega/a 77mnsGxOCi vgojp hh4OM7l4ct i+jo4 x8sN2kuyk9 6W7l6 8rynO9YxeR 3zfXe v7K/6o4v6u M8qNl n/qAl6akIC 8xKHy RIG/8E0WYj Tdz/+ bNFK6lPJ50 zYS4p h8N+0OZDvO 8ezIM o6A/pKqLzo q5IBA P/Gay6pWV5 YjKLf 7dOsI2FSri o/JRQ cllcfN+9Hn 7FfeA W18bK8znkh WXSPM 1ZWLYda3wL TIpPd FHjVNct+uv w2x3P pJSNqxkEzX q/Tsi YBCImbTS3Z 1VNjF 7pCl5/1mDa yi3w/ /BMFN/IRYf TdTox RuWWqfAD7s 0IfU8 Penn+hSX7i6 aW27b d4cpvXEcHO QbcZ+ EbL6eJgiOB kDaxn E3aO36Bedv RfXcx e6HMfQaYw8 7jxJO nRBd+88vvZ LUp5R QiWXVcB6DD GSX6L BsA7tkpjI9 KbSix Ts3nm97r5S j6mOA YiIzGE4hrg 4JHIA +CwpmpLSid FXlmx Z3d3fA7vaY +/rBm zkRU63PvnU MQ4IB vEmRVlccKI GnA2G U8TwZUiM0l VmY7R Pa/fd7WQa9 WV2pq Y4ETfnwRH9 mqo6X 9qIW9bFXRp FlgpF Ad2fUcPjtT ADbMO 4wUGSOyl9S bJyTO ZevoUu749a SkxWI TCbFlklJvS AbWJ3 BJcjoJnVHR FqgCa 9rxcvr0vjO u18VZ acToumigqS kKZfu h+8KGKG+Jv L6/mb LI6L8lVhuG 6O3v2 e8dSwiiM/7 hLkU1 CEfIe2DVxB 1K/dw mxWurKLtK4 PK/director of early childhood ky7wqrDgYF lzqCn OGfW70rzx6 vV85Z 1u0+oLIRT0 hXXLG lPQFyKpOiC L3nsX dMU/1Z+Rbd CiCtF DbK9oPLunm kLNZY Hp4BRz8I9R iDhAn aSeJ2BWIIn mJK6Q ajCtAoY9nr W3xv8 +jEIG3jWtj jtTQ4 3hvm66ty9D HPV4Q onWBV31qLS b4GgH eHRsvZUc3Z 9dbfC PZ4aOgT8dh 3PXos ScrOUv3WVG 7CrE3 3Quzh50B2w EZFbn sLuoXhpfh6 gKNsH p+v4fpY7th mXQOs fU7nu3o34h W+N1V T2hR+ebcEc d76jC gBKHuQJCbK 4YOyV WqI52L50xy HnQ9e WTaVKHJJCF EYzRP 7DKPQtJgCI 7RNGF q3/q1foJKw i0y22 SZDHd7Lgel UgkJA 72yCZPxuJS TYuqT KhyAOjl+6u 0Pj8R xbQYGmZaNW Toftk zrmad0ZhAE k3GMj AL7mp0fWO5 LGw+b WZ0brbk8rw uY4M3 AxkmEg4IGB NKGde KK3u/ShtBY wKfKY IAJ1MqCBN0 IJohA jSOQaDy87n xW2q3 CLXZAH9ph6 sDK8o PiMZMbQhAf PD4o8 O/piIYMZ96 TlRxe oyzrlZLpQ4 Yp51z WClGQDPrUj UVasj WDHYCx88mj sTb5g EtyfUYT6er 1ZOMp i/YdVLGtcc L7ZfW Zeyoos78Q5 y2QMH 6SFJMZsGcl NH69N hkNWuqNb8E PM96a mCzmnWBxQH Ys7Ro GazEpmg0PU UDNEO 0cA/Kj/zqq V2Nfm jpmWWHfMaU mCrhk IGgxdfZT5K za9Ar 2QDNPpOAVk b7FjU X31Ysl1YeK adFV1 iYGHDCz19n hpmKq mlxtvOvOI3 bYGzd 7iZp211U5e 7gFH/ dQd9YlzuS5 m01mw JlKYZDNDuA c/Leah cPM2GowuLk 19k+v F2yxMh9rY8 BwnmU umL6zMLM5I Bdd3t 25YOUznHlh DDZon faddI9bAoX AbWoj z6mk0+IqL0 syAPT GE84tix2vC 2XLQo pxNyiwjk5K noVYO t4nXwpKiym ipRxQ 0hdwZ80xwK 9KP4O HVaz9HQieF iwIxB RKTGbjGMGw SXcHK qyhJUfv3C3 UMaF5 UyZrapWY8e nuQA1 LCR6dcJh4J vediZ gjnRBZOYYc 6Z6sG QhMGDWw9Uw 3S7e2 UHohrflRgo IQ+KT 757JmvZkkB 1jRR3 eXdtmfKMJO j2jWE DnAplV5SgQ zeWVv bZva+Zane 5yzPG Qc7V8tRBSS eqld8 Gh/MyUSCsL zAekz WDYOY/DvjZ b7yp3 DzWGspTVga jhvGR CTkVrKIGjS Tt8ka 6EX7wgmSn3 6SHNW 1YBsyGkycs qwMLK lDjKYXQHQP /fSj+ SJE0IlQKD3 CDwHv Mk0i3I08UA H3+z9 GzPf8Oa+gK Wr0vZ HeSZghYRDs vXO2T Ro/ZpNwRQD DvOTo 1sJy2qQBJo h+gsg z/CKFTwmRJ LWQmL P8fY2u6KTP Vm5bx gJ5l6CSDXL G7WU9 slGYCb+NhG WU6Mq v5JMhD4Nys 43vrG 1asT5FGwX5 EFmFU oR4JCcGqnH boDNr n/YAdQCa9x 1hiP8 dFS5JIBrai 8T2HY 5DklkjJB+A BTbx6 fdJALKE7ri Aw3HX 75++d/gXrI w3LIS uRVQuwHu7s CSt6g u9+0AN0T5J Pp+L7 WtIcmBVV7c 8hgt1 OS43V8zIzl XDChG rm3VfsvsZD 8493C LLd+/HWgYv d9OwM goYE1rpHLh xD26l 6ra1NBzpgx jAmdT UF2W5Zo1nL NVwZt dAtpCyhFpB GT509 G+3NXLdFaV wY92n kP97DLS4ba vF60Q YIH3ooCT+j RBD3d 5ucLov6u6x R3l+A i3KxX2iaFO QoZjW C/xvnan5iS 3Pti8 DsgugB6BWW Xws4m lj22d+FSgO PO+Vj j4wnR5V0px Rzwjj RH5qKvAFoY yCmgH vL+CXX5sS+ LkuQg DSXxyBecju xLoaS 2KJxECZq43 YninM FFAPhGfL5f QQOD3 QHDEFQuWIm YLLXO B/Wqt+vbjg CBD8t xdkc3llM01 mBu1t oCXXZlaza9 TudgD C/rDnEr9vO ze+jY +mSQjxZldC Mu5nC KYRmxDa/X+ rOtKt cbNucDmNF8 X7y9O DBbv96U4H1 83vvt 1Ec06Vyyi2 U5INf xVKhS0o57w vMIw0 M9Tzm4Qsmn PVjTN fDtg/UiHqv Wi21r zY9lQPc6Mn t4fmT nuG1kTZpfE 7WBzk 15V7AmVfN5 uGM3s 84iwS/mOUZ HeZxh jqkBPHbbFo APA2r w7nFQup19Q ka6PE BmdW8KGvRN 28Q1j +XBVQhIPLj qAbIQ bWz9tKGGTZ OMURS iG+Pep/F6v e3UNX gE/pC0UC9M xY0T0 Ww7F5J4Idn fGXK4 xXWjzTHCkk c7u/H uf71QPnZnO no+4F IxoeSt8ftx H4Hvw fx4XFPEkTR 1mLnE vjXSF+K8EI nyoSR UMSQY7BLUo CUIpC S6mvToydIe EBNj8 HX/duqCM0w 5FFNy I5hjtKISAs af9sP Ry/9G1rj1P WVuZH V0guFtbA7M ZW5kb 2JqDQoxNSA wIG9i cm8XFQB8WR 0KICA zEV9OqWXhK 1BhZ2 UNCiAgICAv UGFyZ O37NULnAAB SDQog TECjQ6Fhe5 91cmN lcyAyIDAgU g0KIC QcGO4ORZMf YUJve CBbMCAwIDY xMiA3 OTJdDQogIC AgL0N vbnRlbnRzI DE0ID IkBs6XZGW+ Pg0KZ N8ix9IvQGi xNiAw BC2wbf4PWH A8PC9 HqKw3PMEkB 0ZsYX EbCYUos5Du IC9MZ H8qtZpkGlA 1OT4+ BOolYKH2eh VhbQ0 KeJzdXNFu4 zYWfV 9g/+ECfdgW SBxRl EQpDwtkJpk dTDeZ TMbdl84+KD Zjq5U ll5Lt+u/3k pRkOp J1YOMH4N9T NcLQ8 d60ptk4n9P LYH/+ PR5vGy1/wP zrGiP P/IBI/PbXy QL++h foLvzDXOxF +CPgv Qzz88tW0yF 391nv xnDxwQMf/z 5+QhQ ziKMAzhMWw nj647 /kLD2Dm+km K+Dbj 8mT9DSjdrp jybef iiKzn9Kxsu 8usGO BSpgnOlRwU 0zKVV FLBddpLS+B sQs/v iR6Hk3nCJu BjTjz vNzM5Mt3WQ BvruG jbXALcM8Wc s6KlZ zfnjLYIY7t 6ARr0 d6zcc9HoDC L83EL 98V9O03lXb ic59k 6d7cI38jsu s6qWp 3F0EGsfAK6 AL8MQ 7i/HXaEmBT +fqb6 vm/HdDeGaT aFSkp IiynIdZqvM Dugnk nFhcJld7bD MJ7LL JrrVHs4vyl qtxfq UjczhZ+h1t lEwlO gbTzNqb8kF TC0QM R3jZg4OGni oQdwb BAcWNiBQDw RouCJ IfhXEzvwsQ tb70y TqhzKy76dn wnbZK COe1dg3W9a 7/X9m 9ZPSP584At qklWl xw7zwmbg+x qFx96 O8hOHYt/ib Mcr3K L+ssdVnip4 UumkX oskp4xT1US EGt6c LY3de5koDt e+z9N k3VgzGGgdP guD7y VjWSwcRkEv HnuTP vax3CCTK6n it2ea PnWDxIS+zq plWWV 1Rt3eyu99W w888b 2qsW24zS6T uLLVT KlTeVBmeSz E2zNL f2Ay6Yy0+x LXsuH knyPgMwG1f rzvJl 379R0juz94 +pgPW rXbO3tqtgG yTA39 yNQ5r/k3Am QhM8v Yx1oEyw6/J e1BIC IzLWnfmlyg a2Us9 XrBWtcj8s0 0doyG ufqWtjE5Y8 hmX2G sMqybdrsKn 6SSiy 18TNeykOoM Hu5e7 iOgebi/PX5 ydIMQ 3HnBQTCGUw KOIvS lD1wR46MpF gwGyc 74gQviJW+E BAWB5 3M1ibqFcnM IZ5PE QWEJYbyRz2 pfTco 3g6QIbNdRy DIrpq IJ5O89O+Q5 9oT/I yZkuS6LnwF iey6S WjsHz5cSR6 hbqWq AvbBXxSqYW fU+ZL krYi5Q9yxN ns1mP a4h3ao2Gcr 3yKF8 AirRCpEcpo p44m/ 11oDDmrReV UMzFA u+ByKbFXJ6 AgJLm Gr3xbB0E0B aitgF 0VNFfHsxKV GcPmA 8NSKmJ67ZP KlsjV VPVphThcmq qsvpV mvvNlWTLbw vsSSf aC+N3cNxtL R5Vm9 HAPrSPJczO c238C WuTB4JhQMq 1tuox Zi8Hk2ijx7 hM8fZ wtq7ykSZwa 9W03m 5cbrmevR5W k1+h3 jUmVC2pIlu gBRWK pFk0sTiMPL lWM+x 3xLGenX0ee IGvJ9 o8SrmbkU65 h9oor rBhxuhxu1u GKfv2 RY8r4GecK+ W9dxg rPZBrlSNg9 ngSK9 lkWHvPz+/P wN9WT NsHMYmrWCa VaXSR 0yYqnqbMcX bvIFF YmwmKn0SPG PlvtF XIfEmLtOsQ DBXuc Ra2QjgUpX/ 3smVK rCkla6vOqt YgnU6 6hmp9eiNTl Bslao p1vtK5+uf5 wpzNV ugDzBiSAuQ xVrm5 GMHLrBvo9u MrMt0 BpGrQO2utA kOpMv HYl2uAVlRH +/Pb+ zFcl16Do1q y/EtS o449IP6nEA uYQeJ David/fvrIRm yAjQV n+b8AfKoTs OlxaG rWNc1ZqJV9 7KaGA yNKBNuxMty uhluX d1F0hsN4pf 7/aG1 /ZK2KHESr0 bv9jL DrRd9A5tMh 55Xt9 K1Y0tif4X3 s3UyL 1y6Fk1i3jI nuZHO C2tOTzQZoS YirYY CDIM6AFaWr eitC3 4nPbBQQyKS Nvy8T J9WYGcbOzo gk4fa de8uaSKrZZ mkhkM lu0PVdT6Bh kyZ+z yNxFHnZsnE iMhEB OwWZNKxQyq SBMKx QHy2G4H6tQ BDNvL NDaaaD82f6 O6XaH hHYKOHCeUE oz/7y 6Z6spEJ/Pr UgQyb D93J135HPJ sLToY 4o8ZO8CWxD 7u+gB xyKqMHFmD4 O3yE+ 0HMUyK/uQZ opPmo eFvilkgp+l qeSpb 7Jp97yfhF4 Tdlxe CuQfMQ6SMS c6mOA p0P4FKBx1P +QiBN MX7VX6cVl7 VAPCY s7AzmMff/h 7p8qy y8PKDegeca h/UQf 3eWy2b2NWu HdtxP 89clLMIv0i bcGhR 2ejDyNG4Im LTtaI q/WqgGa0Hg Q6KUv CY0M/k5gDd rY2ho c/RtBPdagj W+fOj HMwSKO0Jqw CmvQs YGd7eYwkPE C1qBl xxGbxXN8ix /Ajxp aMs0WMqDKh hOopI 2/n9BxfQUF x8aJq SHPu7HiJ5C IVGIn sbNhQNgZ16 M/utm Xpk38/TTlg 07mh+ d2CbTOjSC+ HlEmr NfQv+yhN8j GuPdC ZcQDT9r3hk us19T 0oWS3vn4Si nGytr 7hqs/X93QR GvuOx kE07e4U+qx 9Txeh t9+l4/+tue /l+mA Mrt9tjT6rr 98Q1m yno5yKTI2E JZnFZ an5ChyP9kI 3T0cR 8RUbUGwfp9 eGYcc C0UcWoh6qR 0P2xY Apoc7rFR4n GyvXG zmGtPns32V n4Cwb Wpj8B3zIJJ /RtY9 PjnVWZX3Rl +K7E1 p4mT73sBej XhYXY N/DFdjDFbj 5fxSF Uhd2Xbgg+Z E81mt CRB3RL9gyY guLCB LnxcVii+bY 45oWW 9WZxvBInOC LpiYi QuIE1/dHP+ BNBcV gI9XFCAzzz m+bBg DAPxBHW6kG kDjBF 23+0iBxgnf ioUHi SHERRY/GP9NPAt 4TD1H KWvEkeEknH t0gE4 3N5gCaDMZr eCceG bLI2T11ITa c4J14 nEI0bMbxYI pZI56 M28UEa9dGy adBYv OXCIkTvBUP ERIne CdlXrCW3TB 8REic 5A55fuemxE XfPlH twCTS8TTeu CxCdK Nxjp9EGzgU EislI xEY4DbHC3Q yWqIw 8aOoeknls6 STSkO G6CNBGJEEj 5MKER IneDepUOnH lrONL kCHFIHu1XZ vylka VO2xuzxO7Q zJF+f Tvuz9+h8Fm bpzZW 8ue1TpQWRq DQplb mRvYmoNCjE 3IDAg p2QmUFrtQU w8DQo hMNOzN9R4d GUvUG SkZN5ZYUFz IC9QY XJlbnQgMyA wIFIN CiAgICAvUm Vzb3V sQ2XtANQuG CBSDQ kkDPQqL59h ZGlhQ d84QYtvOMT gNjEy VTc2Jq3CAj AgICA qN03qdZLqw HMgMT YgMCBSDQog ID4+D QplbmRvYmo NCjE4 IMTjk5RxPC ogIFs pQoNvCVk9X CAyNz zlEhh6JJI1 NSA1N ZUeTXT4XLd 4OSA2 NjcgMTkxID MzMyA lJaNoLzj9Y DU4NC AyNzggMzMz IDI3O CAyNzggNTU 2IDU1 GkM6WNHeOH U2IDU 8BbF6IPRnR TU2ID U5IcQ7OIQv NTU2I SE6KCOlEml gNTg0 RB1RWDS4TJ QgNTg 5RMG8VwAyS DE1ID O7DtI6Pzdt NzIyI RfcIdE1Ytp gNjEx GNx7LJA5Yw IgMjc 4UJRsWCL4H jcgNT F3SJiyCfH4 MjIgN qf3EOY3XrA 3Nzgg EqMhMQO5Gv A2MTE xVvRlAUI4I yA5ND XeWdE5EDX4 NyA2M TEgDQogIDI 3OCAy MglfKhg4BZ Q2OSA 1NTYgMzMzI DU1Ni C9ALDwQGKx IDU1N eQ6IPCzIfd 4IDU1 MrF3BRPhWv IyIDI kQhR2SYNxW jIyID ewCgF7PURr NTU2I TH9NjX6FPT gMzMz IDUwMCAyNz ggNTU 0AYKuVHF8M jIgNT YpME7SIYQ5 MDAgN TAwIDMzNCA yNjAg ImY3ULW4ID A3NTA pJDN2PCy7R CAyMj CfICY4JNNy MyAxM ZFcDII5DsU 1NTYg MzMzIDEwMD AgNjY 3IDMzMyAxM Christine x1KGL2AUZw NzUwI Ce9BWIpUfH gMjIy IDMzMyAzMz MgMzU cCKC1BeLHN iAgMT AwMCAzMzMg MTAwM GL6YERgYtG zIDk0 BTA6QPZaYK AwIDY 2NyAyNzggM zMzID N4QrP6EEGx NTU2I RX7LgPuRxP gNTU2 ATHzIiU1Tw cgMzc aEHA0ObY2T DQgMz MzIDczNyA1 NTIgN FEtRYQ3GKZ zMzMg MzMzIDMzMy ANCiA gGEk5UUTqF yAzMz MgMzMzIDMz MyAzN zKoNSK2KZe zNCA4 GkLgQNE7SP YxMSA 4OwajGiW3B DY2Ny R1RzmhIeT6 IDY2N yAxMDAwIDc yMiA2 IztlZsM1HX Y2NyA 9ZgmiHiw2V DI3OC AyNzggMjc4 IDcyM wV9QvRqTzx 4IA0K ADZ3WqluPg c4IDc 2HLV0FloeV Tg0ID f5XZF3VnUe NzIyI VveTxA0OcC gNjY3 TZG5UyU2OQ EgNTU 5JWM8NvP4A TYgNT W3WJN4YpS4 NTYgO Rv1DQYgDJS 1NTYg OVI4RXT3Ng A1NTY jUzg5VOL3C CAyNz ykHqc5JOP8 NiANC kGuSOD9QQZ 1NiA1 WSZuNPC2OX U1NiA 2RKNbBVS1V DYxMS P3QLWiZYM0 IDU1N yB3JNRgHLX wIDU1 ExJ9XFPrKI ANCmV bKO3srh4QP TkgMC BvYmoNCiAg PDwNC iAgICAvVHl wZS9G s093ICZxZ3 JpcHR cfa5SQHLtV C9Gb2 32DtPrJS5P cmlhb Z1OICRcIS9 Bc2Nl ybJsQBF6P7 NhcEh jsXpllLO6B DUvRG EsA3JbhULp MjEyD DwlESJjJ9I sYWdz IDMyDQogIC AgL0Z pixUKOr01M FswIC 0yMTIgMTAx NSA5M DVdDQogICA gL0l0 NTkdC7HhP6 xlIDA cG1JejQNuQ A0KIC A+Ha3HAN3e b2JqD QoyMCAwIG9 iag0K GLM4BG3BPL AgIC9 QaYUjD2Aos nQvU3 TyvCbhLC4K cnVlV SveIO2QRXC lRm9u qO1BunyesB 9FbmN rWNnkJt8Yg W5Bbn JyDW7dh7Zy bmcNC iAgICAvRml yc3RD aGFyIDMwL0 xhc3R HhJBlIDU9B Q0KIC OlXG2SyOJ6 aHMgM TggMCBSDQo gICAg S3EtsgVHFU Njcml ioJ5lXFL6Y DAgUg 0KICA+Pg0K ZW5kb 2JqDQoyMSA wIG9i en3YPACoOC c1MCA 4LUSqRot0N DMzMy I5OlAlIUU4 IDU1N zN9MWetNkG yIDIz OCAzMzMgMz MzIDM 2UGW9MCFnT jc4ID MzMyAyNzgg Mjc4I RF4MhT3LOY gNTU2 ZBC6HmP0TL YgNTU 8JZR3WrK4I TYgNT S2VWV8CuVq MzMgM fSnCON5MUH NCiAg WMq7OWG5ZY A2MTE dVEl4DFgtC iA3Mj IgNzIyIDcy MiA2N jcgNjExIDc 3OCA3 NuRoGib1PH U1NiA 3MjIgNjExI DgzMy B2IqFyBsl0 IDY2N uR5PoggLcN yIDY2 YkW9DJFeEw IyIDY 7PpU6PSZzT jY3ID Z3AnC4XHGl DQogI DMzMyAyNzg gMzMz RNX3SPV6JT YgMzM vUFH0AeE4V TEgNT M9TUGhSKM0 NTYgM zMzIDYxMSA 2MTEg Xrt4VDU3OD A1NTY rGyj7TWq8Z SA2MT EgNjExIDYx MSA2M SUdHop0OXA 1NiAz MzMgNjExID U1NiA 0DpqzYIL4E A0KIC J7VKZoGHFk IDM4O SAyODAgMzg 5IDU4 MMM9RBJxON U2IDc 1MCAyNzggN TU2ID UwMCAxMDAw IDU1N zV8JMBiTeL zIDEw LKYpHrM3DX MzMyA uKUMcEMz7I CA2MT EgNzUwIDc1 MCAyN qwqHzx5GSA wMCA1 MDAgMzUwID U1NiA NCiAgMTAwM CAzMz MgMTAwMCA1 NTYgM vVuIKz1RPN 3NTAg DSJcGAM0Nd AyNzg rGlTrCRP2P iA1NT QbRBQ4CUG9 NiAyO YVzCHN3EIO zMyA3 MzcgMzcwID U1NiA 1ODQgMzMzI DczNy K4TFTuLELk IDU0O SAzMzMgMzM zIDMz MyANCiAgNT c2IDU 1NiAzMzMgM zMzID MzMyAzNjUg NTU2I UocIIF4VzM gODM0 RDThTMH9Hr IgNzI sALjmCsG2R jIgNz IyIDcyMiAx MDAwI XpwXnO0Hge gNjY3 VBY4UcX4Zt cgMjc 9DAH5HOOuJ zggMj p9TSimPuF8 MjIgN qo5PR6XFJQ 3Nzgg Vfn1HZp8GC A3Nzg lPEu2UDh3N CA3Mj IgNzIyIDcy MiA3M rOeFdT3SSJ 2NyA2 CNAmJRG5SV U1NiA 8TGPdJSM2L DU1Ni N0WOVkRHp7 IDU1N yZ0SZVnOXT 2IDU1 LeA1WIWzUw c4IDI 3OCAyNzggM jc4ID YxMSANCiAg NjExI IGcBYV7ISB gNjEx TRElMCG2JC EgNTQ 5TYIzINJ4T TEgNj ExIDYxMSA2 MTEgN JJ6LLGyYMS 1NTYg XSANCmVuZG 9iag0 KMjIgMCBvY moNCi AgPDwNCiAg ICAvV BekMJ2Gf63 0RGVz G3OhcWVsml 0KICA sUN3Ue930Q mFtZS 9BcmlhbCxC b2xkD MynNTZyR6Q zY2Vu oTD6SRDpP7 FwSGV wD9n9VTijY S9EZX XvMY62JD6n MTINC iAgICAvRmx hZ3Mg MzINCiAgIC AvRm9 teXGEb9ntB zAgLT IxMiAxMDAw IDkwN L5FHzUbPAQ vSXRh hXuzFL7woH UgMC9 TdGVtViAwD QogID 4+DQplbmRv YmoNC jFdMYQdj5E qDQog ATw3KTkjAW AgL1R 6wCQaDn0do C9TdW D2kFGiA1Bk dWVUe DQbL2Rse3G Gb250 E6DmsDSfTW JvbGQ qQL3yx4Maq mcvV2 jkYJ5tiOCq Y29ka M9fXDtnWHM gL0Zp wjX1H9npec AzMC9 FYSA1F1tkz iAyNT UNCiAgICAv V2lkd GhzIDIxIDA gUg0K IQQnBX8Zr2 50RGV iX3OmsOZgh iAyMi AwIFINCiAg Pj4NC oNsMB7ofr5 KMjQg MCBvYmoNCi AgPDw vRmlsdGVyI C9GbG N3OJNkQ16w ZSAvT HVgC7EeBVQ xMTc3 ZN7WJN8gkB gxIDI 3HAq0Ow3PM iAgc3 RyZWFtDQp4 nO18B 3iOXik6uvv tMwkl oafBTJgklA CBIFI fw9GXDdmhQ aIECE gRQQOKDeMi LYJdF lARWQuCyiQ gBnT/ oKyyoIDriq 5lFRU Ln6jhtl6Cj N/v3P t1l2ARq0r7 Pd/zf M8/w2/OLef ee247 99wykCCiqF gi78m 5WumqIIt5z mNzEf IgcPEMBLwR n9kE7 zzMvAoIS84 b7z2l w/4C7Z850D z/nce Vj2Sf5gpPG fOumT bvzI/tK4k8 84kaH L/wagjuP9u 0L5Go 2UTwV8+YM3 /hmH/ ow2kvhVIgK NL0eV fMuevNvTlE Y7oiz YtXzp06+Sn iv0u/ IZIpxLKZn7 xdseL J9pNi+n3rT fSq2I 9jsJmT0Q40 bur24 7EyC2VBtrL XAvxC XoKm180bFF 2IpR+ 3/nhDLDnht X+xHh WyXD5L/egA eUhSL GVQMZG+2/g 7GSSN XRQPJBhPUL yeRqi qyVq2iYbED Oszjm cqv+CaOSDa RE+Lm tE77vcAiQj k2ko7 nGc0yIpVQn r0Jrq PlpFJExCyg kbjYy U6UbSadOqh j5AGH ZLdzOyPp6k liLM+ q4uwqjWdtN pCjag tZdNImkurx FBrAU 2kD/XF1JOG 0lU0T 8AsYaEc5f2 Wo/QY 7dT+aJ2hBp VICKY/E 5aP3D+Iv1P nVGiv eqVY1f4vg0 loIop ZtvY7H3cT3 7TBfW FdaPkCCZro MMOg2 bm2YKKOts3 +i4iB A9iFTYu++s kPUHc SGPKXIS1wO u0UMM lMnGRGuYdZ Baooy FyHUtVdEOf Krp9/ VuwAdksM68 TlI8d vDRtT25SgL 2aDVn yo8FJdvJaM UO1Bs xc+l/aB+9L gLiRT nXaGhkGkHj ButNa k9iaDjrwHM p/ya+ v1xigOV7Em +3cqg e9cKhkc01q T4SCS JDjBDjZAc5 V67Xr iEvSuyGTyn NRHuv Pm6yeDDsMt aUh7X q0Bm552vid qNWY/ NOEs9LP0CF ohFq6 rpf0bprMdH JHCAn bOryi5z5+p JqPXlNIdW0 Rb6Xj QVvcQocamY IW4Sy 0PoEm97ZE7 Xn8ls HHeZzyc5Km rV2u/ 9TJyE2IA7y bHUuN 49oPhe1b32 f6r53 gd1jdFuoBf bIf39 bE6125aW1N 18PqS PhSEaiMb4+ EWyGC tuxGeRWCU2 ik3iS bEdpbwuPha fi6/F t+T8vRDTlc yUybI rYfM7lrjB1 icflI fxeV3+XZ7S Wmltt KOva5UIW7l mQqpl 3e07DMv6xX foh3U Q4JguoYFjU jYZW4 kUxLCqL04k vOR97 fagims22lW aqlle x0acovt91B G1QB8 hlEC4kOXoh DI+s9 DfqzHittKf RUO0X YLoKPqLoWi ZSWKW uFosREveJt aJx5T ci1aY5Upbn xOQuZ KRVrC9nG8f jhyBz +Rvxnsz5eZ vkdvl W/CVfkB41J K0Flp WtwR9fGCWx 69dr6 8FVjvj2z+1 j7Xvt J/uqmAd8hx 31dP0 hX3sSahpgV /Xj+v HoRyLo1ysM rQ5x1 xqVpv/9Fzs 6e8Z6 Yatanlva1u H501v CUbnXnqWng vXCuK cbqiCkf8Ps 8juer w0HK2aHS+i Um2Yx VsQf4EceoM YLlOM iJXj6NkZf8 N6Gtr 6Ffmw/E721 YaJAl FUn0S3Napr ub4Zp J++x53YT9N dDiHn hWZDsUieMB tSlSD ZG2W+rHXV0 7VX6V 3tQ+HRH6H3 9GjRS tamh6FRUkJ 8Xu9v FVHf4nN6l9 0tbqZ jBH2C9RxoP ozj4W Jq7NZNcTs+ 0CzS5 QWTur7pF8C YZsu/ 2YvIo5wfx4 JUv4L jxV8gAwsKb 2NWdD CuMjuaLcR+ OVOvk R2OrrD3w1f db5Ei YZZ27JUv29 aZJ+Q 0cIFF42X7f fYUpD 8zq5GZ5FxP 0WIGZ sDNtJSutm6 l640i /K8zOGeyKX XqR6H kwiYx9FFOL 6BVJk Rt8aHf5wC0 kK0NQ 6tpOs2GbPi x0BDr 8FkDPaFjBM 3EHB8 PLXaItptjZ DVdYT KJ4YmHjo/W jKYJ1 kD92omMntL uoc7Q M2iky5MtQd qU7qR NYknNjTSP2 mDmfC CGGvnysJFv dZYV8 i3HXClU0P+ 0dipW qi/weQae/s bzVKG /HGGIBx34n mB0t4 eGXUtTaAgd Qy3/g QMPqEeix88 wWWnl a/IA6i2vnN WE5RP XKYS4cpqJO /SYx6 RRzrZ2iNq0 gfreS NPkaGu+Nq1 mJtrh FkWZIF22IB pnhX6 1vlg/RZTdk MZonf nb29Tc0uW4 dsSM8 rwky9yRkjo t/ba0 ON/zM0kr1P ggtQ5 X1g14B1P1C uuqvr 4rtVsK7zAR Zkx2Z 82PVSxDffv xPRfY CuwGdJqktU F4LL5 vAcqBrcBu4 HXAJM I3x/qBucDD wFGO0 VprSVV+X2x 2Oy0e dkUvIQT1Uy QCsAA VblOTev6nK DAJuB R2FLENQ9gB BW4Bd nVtPSyHy1U 1T3fI 3gkkrnA1so oyU3k a376Tsiqqv vHFNh 12nem7x200 PjZbt 1ld3E13Kx1 XyaZN DgXMjDV3ru yT3VJ uqDc3oMUj8 C3kHy oUYRc8MSyY CgFSM 90HiKX4K3n a5sO7 MZ9YJeZHar Jn7dF EVaMmmdnR0 pInqC n55D/kV3aM /Gpb4 ksAT4xKnQ/ TVmA3 cXeX2hnGkx S3yKP h7uvTWj1Ol gOHgR OAKY/i8yE+ H8gPK Eb+lTKALGA S8DCw GauOqNCg3W 0r32c hJI3dZnuE0 n18x8 w6XY969C7u 34XrX fkuRPtzVc/ emTuV Gh2XrxkXFK erRMf RtGVmtXyj6 lQHjK n50PXF5VNa W+pP3 nS3HappWLc iqvrN 1NVIJ3s104 0bsrv KNykESEjyJ kp+k/ zASKAEmAeY cL0F1 1tUDtwFbAB CAEYZ vmMBvzwAvA a8RV2 WXFUW3NgYj 1BMtT ltrTpbt66V pbsPB pBPHpR/VPQ 1+Yqi y1xCTd2I5t b0gHy xqo6Lbkiah pAmFj QWNAPxhnxx W0pTn 5SxGV6N6/n wnQFk ASOAScCdgC l3y7Z Gnf5eoTQ4E gDb0i sb1IHEV0eT XgrO8 gXTBmAA+vk rrc8l cOHrYf/Genoveva KYtno ovGcNngg3y PFX2m 3k5dDgvBav hYu/0 q68Fi7+Roxy dBRd/ nO6ZETv/pY 0YAxe +gsM735Zz+ XqOmC 382THyOrTS dWil6 6UN48XQAD1 fYtPb Jx+k1wbEOv YumN6 fd225qww/Q ZSPFu QwAyr3Hp3A lN8qy hlV2gyIrxz oTxLl qUM5XJY/L3 qhKcp FcHsdb+9gn Cg/IM qfFuVlojxN lKeK8 nOU0kn6p3Z yuWpw u8LpBJoHtK MO9JL +4Q7wQtrfs owxnw ydsBvfhwFL +YJg8 ky4emViHG0 7rWOW 7e/YC5Nuch 9eJNy GkuxCEuM0S mgvht FeZLIXGcTg OwuYB OwBTgAWYIK 7LQS/ M88G9ReGuQ ImAbc AJwBTiXMCk DTXEX GrEoyFznAE HwHoc i8+bDgly+R g69ik 2PTYQdqdSS KmjRj Jigqdc8HZp lgqmj bxNqkWjXZ8 3+iH7 xtRVHaUvEP eyaob 3ioQ67v9Yu Ut1lS lPe/LbiF+S 210jD gFe1JJDwlg KlP+H pTkZXoRJck toJlV SeOQLKYqrZ Nvl2j TjKf9KdTz6 32eVC 3h/Czped/b /mpdV PmOIGTLDt+ bSSt8 +qVsuAq2Ve 1agOz wG1gzZo67W x9QrL hxPc0OquCL Hb6bk mk9QkbtgEa 2xOVl 8AVjfKPTJv gGIb/ cpCm+YBny3 OHLSr rc18/m6sFp dvi6Q vN314tMjcU IUoUG 2qgMx/asFj OCnTy rPUWeEbCyM j2dPM qzn8f8Z3AA 3NvUG +ky3R9edxK 6vaZX 78vSii6ttc PBdN6 RNTfVxszU+ VtX7l pL33Zqkqiu lViKQ 820AllQmCM KQnum UsEUf+i7wk C1iB4 1IWQEckSoa QEVjM hD3LemdRIM o0M90 wtCnpGXFlU KcUcx QkNyebWgMU XVwuK gJYmhpgOKd pIQTZ asSmTafsmq 4mKKa 1bxEqkL6/5 Neufn nuerxPlOP/ sXV8f cBiB1qMWuz Ll1cS bVSWeu3bCU vYX+i MO5VfjczXc dKf7J zMxzb9ViwQ 03msO 1/rnFxQXVY pziI7 /4J/gwYv6p +LxYn JmP/N42Nt8 6my8V 0xGApjM4EG GUqvh Bo8LHqk5Nh 7IsJS +8HtYJ7hSk U5niK WvlD+c5kAq e1FTF 07KcDiieAy 3LmSf SL3YeYBVgR ZJiEb D+FUuSSFAs 486yZ NbnR1jPShg SNHGW P2awyZDV8B l0FDz pv/McIj62z tjWt3 jqxLxpgbyS QN40o CR0+7Uz4kL Duy/z+ yqnFHOEPaW klU6b CBZe6Ptd2N C03ND WQ66/sO/E8 0RM5u g0pa7Jd7a0 pqpwY mXLe4DaSAi 8wObd 428CRF/WsU 9aK2r IuGnmezEZy ZhdxW WD5qwx2N2i P5LJ6 alq7cxaAdM GqLFJ jfGRRpZdyi gdMtO w17BCx57Cf Mbk4p 8HwiH1b8BH NjluU uAsWyyZqkF 4cahj ICTUCOKpzd udsjs Qd5jfUKA7z ouIW9 W0E9UO6HYE xCG4S yKH0+QvKFl Bc3sx c+18Z/hA0f wE3uP 7eFfeaW7Xv hYKTc 8vmExWEOhY WhLJG FPar7GsDUl JVCvV smsi9tHr79 tiBXR RIbbR2yCsF w/pxW VRQh5mt/y9 w6ACe BeXy+W0i2E bMp7J iLdSmYIyEK hgzAX WdOKFoF+wp XiLKi lHBMmyWytw 8HLHT 18i7Z3vTmo wFjst pi/kOtVMiS ZnbJL V/6QhwkH53 X2Wrm oJaYCk42DE gbJOH snLYnvx1NO u1wWZ v1Td1dblos wTFe0 3jmNRewMYx SqwVX KzeSaf0tgw 6DY/9 pt+wM/0oC+ 7Yn/D VrWtyk+Qmq fiCvq Sf/Jrdk4OY nSa/v hzN7vttpam BnWQD 8f8Tqewc7Y jKfM1 PXaFPFzQc/ wTnet mBqVXIb65F Lrq4e 4eROh9JTEt 0OffP mHn//TNn3C 8Pzbz vvplwY/20j 8t4f+ ogJN+my/Uy agEM9 cTz67odROP W0QS5 iI7obK9jkI 9F14B 3M/cYlVs0I fjHAh 8C/YBxQIIT NgyYD VBuU2l9GE5 ymMf5 CZsXJ7e+mm uMs86 gvNXGPpoOr Id7o/ 3KnLH47ef0 H0W63 RjVPZkHaVa bm2kN wh9E/FSErQ ctgv8 RuCciXVfHH eVZRf FMARPhHZDP 7U592 5fm3rR2vkM R6lKM ZJwCU2ENCB B8oAA 8zUBzgGViH y0X+6 yNiAelxSh/ GYcDu B0vcIjWEO5 L6VLg Efl7InWaoD 8GSAb fu6jnn0jRS 4BmoP 7j7XoD+2gG 17m2T lFcohmg6YQ WhANl /v9BjQ6At9 BRYbJ FYnEEBmvdq Rx0Np AIjJIHaY4+ lATaa 63xKWkMWMz cTh8A l+ilNBx+AT kLje2 0bz2JMOGh0 4z+IL Pc30XdbN5r rkY9S yAj0KRqDQw 9nTqb gNWMuofk0o 8VWI8 4R5MitCEDq PwuoN 52H4LWNpol RFkn3 HbitoH/VvT raJT1 X94VC59yJH D9Ug5 cyfKg/Axuc +53Ma 1wO5mIjMtk A+GtF JX2MsSyobA jr1Rn GS79J7kguG ahXY+ C3jRBmsGTD mcOEP cW4poCBLP1 0AX4F PxLuNu7NNL Ae5RN YGiE2rLojo emGh8 YG8Y+tCFkU 2PWrs N61Z/2nHnE yYvLS TafotkOkjl Pni88 ZwBKrQn2ov keMy5 V24k9Xtm/4 HrymK anhBw6mfKU ZVBzE GPLpTzvIDP Ph9Vy AK0S4TixzC OW5XM ptwuPNdUmm BMO7R cO349ojyOy RAFnr J11kjzJvOX GPYo8 H2vf5LwefM A+nwZ pd9MU/STla h2oi9 EVYagPeEPy Sxrt3 FXe4Ezh7M8 bQdcw MJyGIBDN2b kF7Xm TFqOgOe5kx W31I8 IwtlifGyT2 G1vkI uU+v4PB1LO jmDLC 435t+L8D+Z axBTp zi/WFccSyU J97eE 80ihEtDz2P EV4Fl AMdvelijXe 2qPaM dWlz105N3k pB6mM WiXiCvXn9T fQ85g ASxnse0O7b Fa3Qj 1jviHIsyEd oqacF TZarodNQFv b3ixm rC29KdQ7cF mMuci t86X0pjGH9 vjOmf SAh8j0cN6g cfAd8 j1DWpEBPg3 sD62e 6OnKUI2ab9 Tqrdn fbb5vLq7jG Z8Q4n RUxPhtGjst IqtYW 4Ih2vhHgKC 79WT+ yjmMdyXqO9 YzLH0 pE0ekVhNjT rIcP0 dGxUvf1FTD yfuzM nmlq4Al8qr LzrSf S7jAnghc2w cyE+y +IXC5MnhbZ u6YWW TXOetrBXUv tcGrg zdMGo0au5U NHlb7 5mu5T6+g4J V+UuZ OjLX8e80AJ lbwbn PdW6cYde/U StPk6 Ulv7pAfWZH 8RDkz aQmU3LSCN0 wKvid q2rRhwv0dM Yu092 Pgbxpi6Kxn FFo2H 7PtVGNZUph xmjKe B8pbHsI+Fr t1Dpd xXXA+Wh/ve u4Aae VtATxyhbvq T4GlB 0eDboNogSE +occF tT6KlV1s8y pIHY3 Y4eDi/R1Sa IDV12 gPE3UUfYRm RHsPc FsjTbEGjlT 3xJT1 sjKXxmEOPe MrpEX Su6ywS9iB1 HkO6s AoX3vWl6ut +uhTz vik688JuVK Ljf4J 1WtuC+iyEX ge0cr TRFoozytGG s1Xdc 5Dqnv0k+aN tpjQe I+j87DVxI0 xPFTo NX0D8vMLAT tif7V Um6Hi6FsF7 K+buC sM0YHyvJWE KhHPa FAQl7Drv+e IJUjO zXNkBpGRgO wXla5 /EC2sKMx2k nO29H +2whDrTL/q znnLO 4NDwEjj8IY oZtKf sTm+ghAZw8 xq6U7 +VZurjKFPr hrnbh Zrac0ZhLJW PaDE0 ST9AD+jVtJ L9ejN qr4VQ/+2wL Tn8MI 3kcPkG/Gto gt4P6 ZfTVfokKtM qMfbe zFv3Zlok3S w7ME5 KpU8z9UvNq EITtH GLK3qpZkK4 EHyqj O3WYIY+iDq rdGFQ srqIkFkWoF ZD0Ke Sr7509VXra XK6Mp 5HPlVPzhfp mEd/g Szvyn8HIo1 aM0qu hm1BDgloSn CG0fV px6ROjNged UHhfr 2HuAnooveg 54Bb4 e4E+j/AVts P260H kAtaQl68JR fxvoA hc+hipghbD 6wBXn FukhXftB52 HEait auO/1msNYD 4xtrF iORHO1+M8i 7WL7F 2MTAWhzDMW 6i551 pqrrVDeBuk i/Spring JcIl5WSJwp 39cn0 h2Rq94M3RK bX0e0 P0Ja/AO+HU T9TZ2 87l6S0l2O+ bQJ0V g62J0laegQ qJt6y 1jCiT79lEE 0BxiA Pv8u6l4rm6 fYTwu 9I3YD2v5UJ 3OaR4 ZH+yH6tzy+ 30aRw uOOgdjzcQ/ 0Zehb 4gUi/dz/1Z 5gvI+ 7lc/36E/Vg AnXU1 rFMGIPtzvW bI6gd M3AB2rOTrq kH1Po TB9dGaMkYI 6KBDJ 67DLkd+zWg Nr4H5 GBU4aXlimc tnR3v 9o/bL5H9A/ m66Yc oGzQNtDdoI egQl4 hV3kv0Zekw 6pLz8 NWVmh7DeiV /J2Du HAD2Aa/83y 5LEMY hNJeL92KSn YIdeQ E5ziE5xYkD dMlPG tIb4VYkKK2 GGFbv qm5MF0mcNK wK0Ie LGk1F2sFWC 2LDkn oibXDsyniE 7XDSe k05Zl84w/9 I9OM3 wFY7/enNwC y4/wl gPT/9V9AXQ Lizzy/w fexf95LBm+ zCT4r lFesF3H+K8 EiuC+ V2QFqUuoOf AU6Vc w0A47Xt/6X 6fn33 /8UgqbZSrk 9PGZF +rIcKeKH4k d/qyH Hu733E1td2 adGUR Qux2wZ/oYd l8ofO /nf7emy8W/ a8Khj 7XOwKZsyHY 027Js Ovi91tVk/6 bsWJR Q2NpspKyn/ cq2M9 uvoI+oMwND yTOW9 /lKLmfdCNe t4hta N9REjD2iQF 5Tsp1 7UMhfFvJ3C +yNHm CUcmCB95jX h7F2x CGd2k40+y3 oQfhb o79typzhuc 1Hx9a zpv23/b92j fw31t MGD6RboEFr F70cD GZErsW/FvW t3f/2 Dg6SCKm7fa 5P/e4 81iWtG5HdG EFrFy LEGw0RLqpJ X5+d+ 1n1xAfYu/Z H2CWu PxLnxEeOPd eeSaC ZXxJGv80M7 lvoz5 61/Q9TAnty 7Xxz/ JilaOVOW3X 31tCN wL+uH2oLYE Ose+B j0W3AHp6VD yb8yw Ajn7LKZUku oBeLV Xy+bZ2B/zf wx+oH FW+Ok4C3rq PkuGX 7XNmHaDOlB +9i+S cI0Mq8OGtK OW5f8 x4SZR+VWHV 5n6tP kC7IYtAUMw C9tAd uWCfPuvz9A dDFzc 9c4CpYmiUO 40GjQ cBm99swDkT zzpg3 WO1q4ex9Jw 2Cnr9 OI0GhJ1Go4 JleDc A0Qfi5qIUS Q33uO L08MnyemGJ n8xKr 2jmfKzG/xj o4Hut rXW9gIVske hOarf Z62an9z4rQ cp0z5 ObuWTKfT/F 6ZXah NJLOXL1K/A ls44m WQ0Xq5b7OC D5/0T 5VdzXL+Nxd G04vO PdboejNtD5 qH633 llK+9tP791 Rae5A WI+rIsg08v Jmu7l dQaiuid7ge Ofvjs 2cH3iJVb98 RNoGS iwIC3yVO0B LddN5 9rQWjl9Eb+ xyzHt iJy7vFIDnu V1jfn f+803rNOfe c4azx 19au+ZHn9B NplLY I+m78TCTo9 Lfocn 9e2SDwqHsu WWiXM xeyhVzbBO7 x6qzP vu/mK7mvMq dw+aq pY7t5LGe6o GiEOR zD/W/t1O37 uRx9I fglxesnAPv sUd3P 9pahFN8+A/ 71mKN CZm1bDJr3z ju82x hC27wlzzwQ vjczC 5KncNAc3Wy z3ZEL ZtMJ1nU2VL UoqHM 7s4Pnao2Sg Ua+qu 4NS6v5jAj0 JY1RZ 1gl1uJi8Au q3Lq9 PgZA/wPXw5 +i6u5 U5LTYcXsam aqOfD vMllvd28r0 dc5IH O8Kr2MmZGJ 8NqB8 YxulaHNhv+ yBrkt X9o9Fq3pDF u1jaq Y1qaqhJvfq iHzrk TgDRUU3A54 B8HdA 00em460trh vdezX 7fJpOKxyAr QA4d7 uXgXq7DCI7 94TFj nb31EEZg7z h4Oax mR4PA/isj4 HT8j6 UnUOlshplb IAsKE eLxfyLANJM cdDeK BycGl1ifD9 GRAJp mWZEAuFMUy PhhCd EAuFMcyKB8 JzzyH EhvgvJcaHw tEggP O2/EBiO4s1 EAuGB m8CtRXLPF/ gVcly onVMigfCUn 5FjeC QQPjxSDugn 7GNrX oLj4ZtZspt r/eeg Q0Ex+mr+wO fYwHT H/ezS38rH0 r/WWg J7YDjWQIFx xXvgZ aB/W5Diesc dRc1+ 0IZ7uAbyr7 oX6Ai Bh3ynwDOE1 2UrOG JRsTGEm0fo 9I8R/ pbA3+zyVNm se3eB IhL3Lx4UB+ WGbNl m3a1ZS8Qy8 1GlC5 6RaADrus3F WngWN c/asPaCPgP wueg+ Al04v7Wgs+ v8HOd 1Vi/Qj/o66 IwSIq pPkP8xwman SEOVz o0hS76mw/T hJ7RJ 6UcMwq7dOT qNYIc 2PMrfN8GKZ 6Yp/t uNUqxNBPsE toKyF 41Lxv7L1le nNEm/ jcY0WcHBO0 Lfogx 9Q5K3PY+zz aGtoG UIsszFb8H7 d7KQl kVvV/ZLLHi a68ch 14ywoB7nbf OIBNK ltm8l54J7/ RFaaN iZS7ga0C7e JGQ9Q tOxXvnMSdT b+A0N cfg96ikHAi rCLnC mms3R6IFW+ Gby63 +jpKhlsOte p5Fos 93e1fO95g4 qjvDH 4uTHMj4Bd2 KBoUp pqSz3LKhhi rn7bs F4IZ2LtlGZ ru6cn mVfm3InDzH tHkzt PVGwvTJoeV QcbTC /Gv8V1Yca1 l5+ut P2Xfn+yXMF dTOWU Nv2ftcDtK5 HULRL +T7OPQ+A7f aIPkP Tt65GkTVmF lBL3T q0wc3mOqKu iUi7x bBqjr4Z62b g9szB rQ8or5+19X domL1 btwwnvR4bw tL5Hk +diURSRyZ1 j7cHY 6ylSh22mVb HA32c pptLqdAYhn ZpRoW ragDCK7Uz0 D7zeJ RjE4kZkBDP bNFCS kJuQZVvo8A m2fdi VrEzx/nM7W 2AfzN 5uRPGZxXoc 6sBws u1zPBrKiV9 GYqH7 11dIVqPP0B 2D6c9 81eH/+mws5 oPbah 9iD/cTnXeU i09h5 69u+fxk18v /YVna DyH+U3Vee7 4I+m9 oDNcP+y8Dz FH70F cI8H2zrKy1 e37/k W9KpHh90bk +jsea 7tgDdSB4gz Xes/y H5rxJs4gOm fdi0s yk5fy7kbww mj4O5 ei9TFwz+Nf enbnn KljcEJ03z/ sM7mz 1Dxn/xROVZ +Q5ti soT0PPum2/ DbnZ1 P4ptq1GAX8 MY7B7 wnOBxMrCcN zZV04 za3PFj0FbB DXFwn rXwzIfKsN6 wEHXz iAoGEE9jBR fnckr J4qdW57Gr3 5EMoF pK0azOlyTQ b/zwB kEC2maZ7wq pq8Fv 4sYGUwPCcc 3O7Cs idtj7ni4JE L6vY3 1HtGrcxu+U 6+/2k //qf98t+q9 8/JHg 7njZ5L+e2e eV650 T8K/7Kh3tJ spmYO ZHBm00BP2E CDexm KPoi0Srekt vE0Tb 3WlI0dlhuG hb0pw /B7577ZT0q dJ86e B/k5rqQLf3 99PNP j5iewP7aHf rdj21 4lzz1IrHg8 0x3dl aD1to2y6ck 6WLdg 9tH11eY/ka bXtfm sQns/bW3EO mmAv4 kxn/Llq9bv jBugE 60ocqYdhB8 AoKzb LOg5tYD7/a ytzjt WF07V5evEu gN72z CM7aBVMfux x95mO /EcPdJW0xO zcrm6 V/vP9VuR4x p9aVD gg6raR5Zca 0nx2p oWv89C517d ZMrmN WU4EXPMe8g Z6LyX 3aYFY6IlQI K7jNQ 3zv0csq/D7 2oA9S aH++kVrAHM /4pK7 +4a59mogrr Q4++R C957ROl693 M8+K0 X51OdndEPY IyLUe QvKb2QQvR8 yMEPw FWQdxzNlLd RZ206 7mIls77oae Crgbl bh4TSTCOCd 8C11E 2Fn8Y4+RH8 gKbD/ rynul33ohO TDlba 0Cq2584Whd CJS5G fzXdEpbFhU ql4SZ VVquUgP/BJ 7JQ0W QDtF7dpOi2 J0u22 9+89btG4Cp 7liTr K29iD4rHiG 762GD NYlfF8dBg9 Tv30C vFPpzsY2ST +PuTs Y6azvUhRk4 nr4T8 zH31SwDiyC jWepp nGJdTZOAP7 4H2Mg 6PUz/iOHjC yqL05 PiyJA0PX+M slfk+ a3uQlbP97A 98uzC JqEfUyDeT/ GIPfb 8gUzpX0j0m j1Xpk /12edh6mYq ep3k/ xg49ZtE0pS ox5nA 0Lca44R4ag x2CDY l4f9pwL7ki j1Bo5 SXsPVYPWsn g+SACHIN 55G23BsA6i Ty2HF bQxhyu4Dc3 r4UsC dYuOZLaOGk vtfel Pq4Y2uorkh WDYfd Pqxn/r++3Z MQ91I Xui+p7m1Hf W41z/ L/fXdFu5EN 9bznq 1CexhbU5T0 axyjZ aFypF4aId4 wj8zw F3Q78+ytDJ stT5q O3fkgCoHJ5 Pxx50 WKX0S9H9Fb oG+qu TboXo6A+18 6Nm0E 728hm94LCn Owd1n dwoa1mMgnQ qdxAJ an6kPI8yeq mt+t1 L3MymLHKHs S3rVL Uk9Vbp3NGb b0pZt 8j91F3+ZOs gcUSB ZCkkm0scsO ijqHL Jlh6ZjmMd9 R11ud eGFmPtVzqp sa2zN EJ+8azRcY3 a+qq1 lmDrL/mmrY PkB+B h4A1uUw/V8 H5a7a l5b/akWpt+ tPWk0 nX5Vci2+j2 KvX+K 1ZcOa4Hfq6 5ybMs cFiV7m4WwF zpptj eapcP28k3s ljRTa /I+6mTty4o 3XUTd 9tsat3o5mi DEsw1 b6h36v9aXL 6GP7L f8Igec3Exo 7lt3T 2+xa0D5ERJ n2VDr TEnstksq3D h3h6o yoOPUfU+Z9 Y0jJ+ 4P6yPGd5/d +7l7O XevQdRXX0+ PalfA LwoXe6XHvj 9C2P7 4ZZY7F1NeR lNvmU SLonH0m+x1 Q60hL mKfD44Y/gG 8ZZ9T cJqThhqE1K K7H3q Y3w/U7DTeR 3u9Ql RawDTb1iGi Fa2cr uFzcQb/Lesly hfjvl YjO/q1Fvof oC3Zw 3UErRbv7cv UrPl6 w4sBxxE5zR IzFO8 ukS+LvBfYl +M2z1 duqeapx+vf pNzFg pFz8d5vlJe RymLw ZqruiyB2vz SGONl 3qJ8Wtclle Aj0cN tflLZ0Pa1X Wy7d9 Y0PlQLi/TY Fcsk9 YCc0NJtLnF jWH7L XGTvGrj9dl 1b6/G duaM1xu0SZ ccdC7 lpOnHPu0SV iO+oD VaGfoJPNoL 6t30G r2xoD1WI1j h7yFs DvRDLPj+Sn frM8h rFkPnzCWvf iXQmH tf2fAQPsXT Ry+k6 ktDME46wQ/ dpWQ4 K6siaJ9LHt QX1je Z3R1HYdV5n iyRUH KEg+WIzDsc xx15I udwpJgOj5j F/5q6 oPzVwO+BNy FTf2C DZrIrx1BKR a3Ft3 YoDs0pvvfd Ety2L go34NyqwAy HQ9X7 nlM6OKz7Qx eJ6gt bHWzEwCw0g 72Z56 VwY95KPXBv kHT7H 4EjwQM1m4w eNXoq zVKyoRwjH7 oAfY+ 3CN8NoMqj0 +kOlY 07RFx9mEFk dt5KH ZQM+9TYGsL lcjy3 p/iAxAh6rA Muymg JnqkUUGVz3 ktt+V TamdBhyMsc g3gf1 qpPEcZoacc p+Z16 1crO/c+yI0 +jkS0 2vBk7rXIIg fbIqw 83m3JebAWq LPAK5 WvvSZ358GD 0Bvqg bfjvtYBWTh j/Nmw y8CHy2icQx lXz+J eC5/svxQ9K J4Tjw frA+iACmZF hekvr qXA/6w9guJ wJ+ph ye+pCp5IJ7 6f6gH XsCVd/RZbB uowBG 9TscS9VmgX aH9b+ dl58UjK+FT 3EMBv ZarhHU7eHf IlMg1 4TW17s8Ijl A0wFu gKJQGsHHZy 4NMfv Ksd4GU81fB vyGmD vsooEdur8A 0ZZ2M wQV0XsF8yy eq4NG WqOC1BmuLb aBPo5 3OUIuCN0aC /yLU3 qh4w91LwRC o1817 TdOmqQdVRf bX2mH 7M+80yETfg uZXoa fezq8o7P/9 xU0wl d7lXrz8Kse pFy/t J3/7+03vxO UNkUB +09F+/j1Z3 BU479 UUYTsC/l/f 4i+Ft 7nqGmZguKM 4fTeu N/aJnnSYoy 3619w 0BAh4YlwEt RXFRj kCTNnTcI9F ON38H +mqvOSpup3 xKz/d 3WyruPCHy6 oFfmw 5YqxrryAEW r/SHv B9+HDXMX/0 bU4rO aXLad+I6e7 Vbnt8 38G+aZZj/a 3GCc9 RN1vHZ0ZHM KxDjL hzUabAfs1G Te8uf rUFLiU0Eae ok6hI UAecmAi0wi Vyl6z wgF98RiVzk Uu8u1 2RqqEuc3qh ViYEM 3Y+uynG8W7 OY/B7 2cUhjap+Jade MHe9+ 8WIN/r1vsG v5819 oVYpRar9di tPZlM +T3UkkE6xI lXnUS NAT4E+a9+X WgMj3 CPz8cSWB4o pwHgH 36Fud99rkh 4Curn 2Pe/yk012p L8dcv u7Kc3eU+m5 sBEvA VWcHrcg5qr 8Wjvo wt2VNLpPTz CHSeY SiUzA8jJdl tH4cW PHZAez+l/S r2+f3 k811lvwr7g 3rhld AqyJ50eeld u01JR A22S/r03rp MSE+L lGIHx5g7v6 SWxM4 5YGP5ULbB0 moWtS PNk4KM1KM4 RWEtL TAoMGdWZ/Y DICJo jZuAS8GMgf yxPyl zb4p65LXOz nR3AG rb4iGsfC9q ejfp0 7+fMC/tDB3 IC/Wk lVQMX4lzxV sT/0l XIPU+67lLs R3MnJ TSBKo5xF3r +JEn9 eKP/aGRV5J bnIrr DT9DTGkIiA nTtRZ XQDOBvAFWo VmFcp VqNOepLn0z WplOR tBKFCCYHcv FB8IJ clCGmpeZNL QyNHF uXoOnRlL3g uFBID pgamhIj/04 50xUI ILBIxi2MPh 4rxz+ Ta0O3+yk57 KlZWx 9KUkvSGpYH SyROL CdjyWm9eZM rKzQ2 4vzQI2SkcO m86oG hZeGyiVpEX N9PP3 dfPXz7NztI F4bHJ /K3tjTfXUr bml1T ko+iVaMQC/ v9cQn JJcVFILEGR fq4J1 8qun/2/nqS WzPKH heI2iXwKn2 rQNQk OMJr8rIOTX kJwp3 XKDyI7OUUD Asmhr GNR1qKxoXm mVDH6 +w6bSY844Y jOnSp cu3lFQ3n5q nE0bB BvgUHiu0gX nV0Fo 2tbVrBEgcE YECH/ RP9zDSxwJl 34a1o bidmwX8x0D xZIFS bPk1rKFP6o qYjtw +GcPmSkxgb 8Fd8S RkDgq7/XDZ nshJi wis6VC8ys9 A41xL rmAPp4wUYW HiKeA ehTyNhf+Xt 07nRt eSsA3lA7Vn B8NBJ bA1e4FiflV zmZO/ z94mLDcReM PqrI9 vtpSmIVBTP Si0Oy hGO2lYFegd JMuRt Re0hwsFT9B f0gp0 PBv7f8Pbk3 ZbO8G L4HqsVEFA+ z4wsK YvZrXlV09x pKnLY vXZFTM7p6x o1zXK MnL6d3BKd8 ZKKmY u3/rMVlgae oYUhP yT6HFqmYnz 8Xo1K FCH9+KLZkk P1dHJ 2c/AsTVVsn OZUiZ 6F1Ays9hHb 1963j ryNewwoNAu tpsmD SwXlL9YbmH Gp2gY XyvhNIW7xN /QNCN BYzMxX/qq0 9vRjF iaEgmmwAM2 D82UG Qsw6snnDnz h+Pzs 3z0qKrHnoz A/78i pKKydVW+ZS APzZQ sVO+JF+qmJ dX4g6 jnghF8Wzo/ JXFaK zYsm8blwFg yoBYP qoyKJYXTij aGUvk Oy8lmEjCRv Akp7g yBXFFO/1EQ RUqOZ VQ7jOmEeOK VLJKe hV/9j4xNyz K1VWA 8k+tFqTCvG 6YoKn N4s3EgHqIK wUFSS VFr4QPNhpP MK8dV u0oi7x7bYv J5Zhd 6v/SYDU4Tv unAWO KwoedmsscM T69qK WvUEmZw2Uf dK/E6 LBoPycMiUB oUmBh oiRnRG0JCV +MwED IDwUHpkoam FRcUe ELC9Bro50d sr85S aLXSu9S/F9 BObyJ EuSVVR3ZWJ VdsS2 Gp32xzNd1i V2D0t pC6RKAmgbe 0iB9S FzK3+qfEr/ yYgrY 5WNhswutmF gxIZA XicvhD5mda LdxUr HKAZKsYUnO Xmlc+ b/6S2bV1e3 HvwYk L1CdENP3bo VhbQ0 SUS6sv6YaM QoyNS BuFQ0vlj9Q ICA8P X8DuVm2GYU gL0Zs YXRlRGVjb2 RlIC9 DBQ8tpOuoH jQyPj 7VVcPcb3Oq ZWFtD Ma1wJHIkNx DMAy9 D/JHLyeh8G SX7RA ElTBYS2xvo B/g2k pqaGSjOIf8 /Zy0N HXWvovQk/T EkwBO ENvyrSQbQH yx0xU DfR1Ofo31x BH22F b3mMj6x8sS sTos6 SnVrfIzNep WQxew Lal2M5/nIL 5jexd 5lFYesQV1z 1Ydf8 lqZ/AJxCcb ZEvNv XrVe3/EFil ABkUB BuvrxTvlP1 SLIG5 M3+i9KIrJL Avrs6 S44PynqGZ8 eGUii eckg40lNjt J3JuQ J8F9rQ+K/w tNIaF fXyItMylT/ aXAuD K5+7H76rjr haZ3T N1Oz5jp7yl vfKKz XA3EvxaO72 VuZHN 8iwVdzN8FV W5kb2 JqDQoyNiAw IG9ia k5MEElEQpL gL1R5 fRWwMq2onJ Rlc2N emYL6k2AAU iAgL0 NsicHDVG9q L0FBQ UFBQytBcml hbFVu aWNvZGUNCi AgL0F zI2LviPV8J DUvQ2 ZlLCFlO2h6 IDkwN Q0HYQEuYM7 0IC0y MTINCiAgL0 ZsYWd zIDMyDQogI C9Gb2 50QkJveCBb MCAtM jEyIDEwMDA gOTA1 NV4FNUHhSP RhbGl iIJ0xwYQzS C9TdG VtViAwDQog IC9Gb 250RmlsZTI gMjQg MCBSDQo+Pg 0KZW5 qw0OxLBanA yAwIG 5nbq0BCGvS CiAgL 6V9lHJtNq2 udC9T oBB1wGQgQ5 NJREZ vbnRUeXBlM i9CYX AsZa3jmG5T QUFBQ UMrQXJpYWx Vbmlj z1OtZ8NTLK RvR0l PWJSuA0jjZ W50aX F8UVufQW2S SURTe GC8VV6GefZ vIDw8 Z9CyR7ofpS J5ICh XYL6wBWrqZ 3JkZX JpbmcgKElk ZW50a BZ2HWFqM1F wcGxl bWVudCAwPj 4gDQo oMH8Bk674F GVzY3 JpcHRvciAy NiAwI FINCj4+DQp lbmRv GgmIMbM5KT Agb2J tRVm5NL7OF CAvVH xwUI8Gm862 L1N1Y wY0fCPjMPk wZTAv QmFzZUZvbn QvQUF SBEWCQ4Kqr WFsVW 1lN63xPN8B bmNvZ VxlWn0BVVZ udGl0 yV7UITzhEI 9EZXN pRA5iAQ63P m9udH OtBbD1QYQi Ul0NC qEaW6ZrET6 pY29k ZSAyNSAwIF INCj4 +DQplbmRvY moNCj M1QFAji5Rh DQpbI Is6WXY4FSC gMjc4 KPE8HEPtYK UgNTU 2PLS0QiS4W DkgNj W4JXD9MISd MzMgM oStUYP7REZ 1ODQg Sgq8VNMrXk AyNzg mNud9SFE5P iA1NT DcLGC6UOG0 NiA1N IMnXHM7DFA 1NiA1 JMCeLCJ1DB U1NiA iQqhiLxr9S DU4NC UTDhM9BJY2 ODQgN LL0MECwOUZ gNjY3 OXD1RvA1Ea IgNzI sCGP2YwM9Y TEgNz u3VVsaVdCi NzggN JQpLLW1KdQ 1NTYg ODMzIDcyMi A3Nzg wXcQ5APj9V CA3Mj AvRdU8NRZs MSA3M pVuDiP1SNc 0NCA2 VvuuKdX5AX YxMSA GDrM3XXTwV zggMj m7SPM4PTZ9 NTYgM fNcJIG2GoO 1NTYg AZAvITR5Bt A1NTY gKzn6IUU2G iA1NT YgMjIyIDIy MiA1M DAgMjIyIDg zMyA1 KNKvGUT0SC U1NiA 1NTYgMzMzI DUwMC AyNzggNTU2 IDUwM SM0BvJnNNS wIA0K NTAwIDUwMC AzMzQ gMjYwIDMzN CA1OD QgNzUwIDU1 NiA3N TAgMjIyIDU 1NiAz MzMgMTAwMC A1NTY xGJC0EREmC yAxMD JpYPT4XqCl MzMgM AEsTRS0GBS gNjEx TBm3JGM6EP AgMjI yIDIyMiAzM zMgMz GmTPF3SZX4 NTYgD QoxMDAwIDM zMyAx MDAwIDUwMC AzMzM uPZU4YYx0I CA1MD VkYzW7BHM0 OCAzM gFqLYO1NYM 1NiA1 ZUUcHME6LI I2MCA 1NTYgMzMzI DczNy AzNzAgNTU2 IDU4N CAzMzMgNzM 3IDU1 FqO6LXApGB Q5IDM zMyAzMzMgM zMzIA 7QDBx3DFUg NyAzM zMgMzMzIDM zMyAz HoCmTMN8SL gzNCA 6WhBhGGO8G DYxMS B6GksoQdX5 IDY2N dX7VgytJkQ 3IDY2 NyAxMDAwID cyMiA 4TrorFgI1W DY2Ny V5QhvqRvs3 IDI3O CAyNzggMjc 4IDcy IlE1KiLsHt c4IA0 YXzo7CRv4B CA3Nz scFnm4YXB7 NCA3N zggNzIyIDc yMiA3 MjIgNzIyID Y2NyA 2NjcgNjExI DU1Ni F4WKEfAEU0 IDU1N iK2AYZaRPN 2IDg4 JZE6OIEjVX U2IDU 6TlG5UCZxI TU2ID E9SQRdBupe Mjc4I VD3WCX3TZM gDQo1 FOHnARR9IX U1NiA 3BGVlYPY8A DU1Ni R9UCmiNxXv IDU1N nN6EPQlXTR 2IDU1 DnA8YEQkAO U2IDU jMWNuET2BE W5kb2 JqDQozMCAw IG9ia e6WUAcPJbE gL1R5 oOHwFx1dhB Rlc2N qkEE2k9RNW iAgL0 AqqjJIYP7e L0Fya WFsDQogIC9 Bc2Nl olWfDZI1Y1 NhcEh syIombHS9X DUvRG TjN1AkcJFs MjEyD InkOC6KbOL ncyAz Js9YAPNjMu 9udEJ Gb0jcJlFjY TIxMi YjCHE5LSvf NV0NC eFkR6q6KQv pY0Fu J6wqCADxR4 RlbVY aYU2OUu4LM mVuZG 7blc3PIeZe MCBvY tjWSdi7UZc gIC9U fPUjK6Dimx QvU3V ifMlyHX9Pd nVlVH kxKY0VJXGl Rm9ud X5TsjbknW8 FbmNv YQhsKy0XyP 5BbnN tWB8fu5Qyv mcNCi YqZ2QaafN7 Q2hhc aMwBE2FBAV 0Q2hh ciAyNTUNCi AgL1d pZHRocyAyO SAwIF OWNtGnH2Uj bnREZ XNjcmlwdG9 yIDMw ZAIgPk0DPx 4NCmV uLL1afg5DD iAwIG 3abv8WYIgI CiAgL 8Oex3NKTEM gWy9Q CJWtXMA8iE 9JbWF nZUNdDQogI C9Gb2 29GYq3QV8T MCAyM CAwIFINCiA gICAv RjEgMjMgMC BSDQo jACDvC3BnH DI4ID HvTt6SQVGo IC9GM yAzMSAwIFI +Pg0K CNRpZG6kgg VjdCA 8PCA+Pg0KP j4NCm QjTU8ase1G MyAwI S5cpk3PRIb NCiAg S7D1tXVjXT FnZXM ALvMwQ75nZ GlhQm 94IFswIDAg NjEyI Lr9My3REnR gL0tp EMLzDzA7JH AgUiA 7NNZsHtA8Z DAgUi AxMSAwIFIg MTMgM CFFRTD1EVY gUiAx NyAwIFIgXQ 0KICA uE442zhVrV w0KPj 6QMaAuEE0w ag0KM zIgMCBvYmo NCjw8 EVuuPK2NdN JzdCA zMyAwIFINC iAgL0 dyg4HuMzSi MCBSD UakPW5Jo4F udCAz DQo+Pg0KZW 5kb2J qDQozMyAwI G9iag 0KPDwNCiAg L1Rpd GxlKEVEIFB yb3Zp IMYgNA3hsL VzIGJ 5IEJldGgtQ W5uIE 1dzLe5kIIj cmUtQ mFwdGlzdGU sIE1E SCN2YWUbMa I4LzI wVOWyOAI8X TUgUE 1xXMxeEM4T ZXN0I FsgNSAwIFI gL1hZ SgCzXQv7OU BudWx zXQ3MJbYhK 1Bhcm VudCAzMiAw IFINC fFwB84xwAC gMzQg MCBSDQo+Pg 0KZW5 ty5HkDDwiS CAwIG 1xcb8OTCcY CiAgL 1RpdGxlKEV EIFBy h8JbNEJaCE 5vdGV rUXG4VEIjl GgtQW 7sSF9xtLf8 aWVyc mUtQmFwdGl zdGUs LD5HGUK5UN ExLzI 4LzIwMTYgI DM6NT DzKJ7zEDhn IC9EZ DX7HYtcQQH gMCBS RP5XHOiuVJ A1MDc gbnVsbCBdD QogIC 9QYXJlbnQg MzIgM CBSDQogIC9 QcmV2 IDMzIDAgUg 0KICA zDcO4zZPgJ SAwIF INCj4+DQpl bmRvY owXFmX5YUH gb2Jq CHg4FW4XGN AvVGl 0bGUoRUQgV HJpYW zpEK9zbJWg IGJ5I EplcmVteSB IYXZl bmVyLCBSTi BhdCA hWL9uWG2bE DE2IC AzOjMxIFBN KQ0KI CAvRGVzdCB bIDE3 IDAgUiAvWF laIDA hMhi8ER40w GwgXQ 0KICAvUGFy ZW50I DMyIDAgUg0 KICAv UHJldiAzNC AwIFI NCj4+DQplb mRvYm sHKhL1EAOx b2JqD Rp0WI5UKVR vVHlw HR0NXUQfnB 9nDQo bWY1UHZzix yAzID HjLw9KKKJw UGFnZ S5rWJNfFCP lT3V0 bGluZXMNCi AgL09 1dGxpbmVzI DMyID ZqNf5FINMx T3Blb kFjdGlvbiB bIDUg UILVFZ0UEI ogbnV sbCBudWxsI G51bG bsXB3MDq5N CmVuZ O6tsd0RgUV lZg0K TIUbHa0KYB AwMDA fIPZaBRF2Q TUzNi BmDQowMDAw MDAwM JO1XTIkTSV wIG4N CjAwMDAwMz QyMTg gMDAwMDAgb g0KMD AwMDAzNDM2 NSAwM DAwMCBuDQo wMDAw AHPaXUv8FM AwMDA xJX6JYcNwD DAwMD IyMDkgMDAw MDAgb i2VOXIxIQS wMjM0 NSAwMDAwMC BuDQo wGHBzPNQ5T Dc5ID PlMQYkFA3Z CjAwM DAwMDUyMTU gMDAw WJEnop9KFU AwMDA wNzUwNSAwM DAw BuDQowMDAw MDA3N jQxIDAwMDA wIG4N CjAwMDAwMD k3MjU gMDAwMDAgb g0KMD AwMDAwOTg2 MyAwM DAwBuDQo wMDAw MDEyNDAxID AwMDA hOL1BTyEtL DAwMT R6WiuwTJTs MDAgb x6YPXYhNZD xNTQy OCAwMDAw BuDQo eXDWlBGH6H TY2ID OwLVMrWA5Z CjAwM DAlNKm8GSF gMDAw XLAdjg2MMG AwMDA sSOP3VkLgU DAw BuDQowMDAw MDE5M FI2MHNzEOX wIG4N CjAwMDAwMT kyMDU gMDAwMDAgb g0KMD AwMDAxOTM4 OCAwM DAwBuDQo wMDAw MDIwMzUyID AwMDA gWC6TKpBfN DAwMj Q9PPAaBWUq MDAgb a4JBZVnKDR yMDc0 MiAwMDAw BuDQo wMDAwMDMyM DE1ID RjBRWrEY3O CjAwM DAwMzIzMzY gMDAw RLTmoc0KVX AwMDA hHxP6FkRtF DAw BuDQowMDAw MDMyN iA6IIVvRRE wIG4N CjAwMDAwMz I5MTc gMDAwMDAgb g0KMD AwMDAzMzg2 NiAwM DAwBuDQo wMDAw GGO4JBK3TW AwMDA sUU0UAxSmS DAwMz F8FKEzEJAh MDAgb h4BOOGtYBC zNDU3 NCAwMDAwMC BuDQo gHMGvIZV5R zU3ID PiUFKlRG2O CjAwM MHdRiF2YWd gMDAw BJMeam5PKC AwMDA zNTEyNSAwM DAw KhVIq7iiVo bGVyD Cm9TK2LQ4U pemUg SxxPDr0Cq0 90IDM 0HIUvCa7ZH 0luZm 8gMSAwIFIN Ci9JR Xg1XBN2VBB iYjJi Kan8TsChGK I2NGM tXPAvQPQ5B DAxN2 Q+PGUzNDEz YmIyY gP0UAQkXCN yNjRj NKo5ClTcOS gwMTd dDc3eTEe+P g0Kc3 UgalE2uuSq DQozN MT3QB1STPC FT0YN Cg== ID Date Data Source [id number] 03/13/2016 12:00:00 AM EST [facility] 03/13/2016NESS CAMPOS M.D.[facility] IONAL FACILITYPO [address], [facility] [place] [address] Re: VIRGNIIAJOSELINEWINPt#: [id number] Date of : 66Din# [id number] of Exam: 03/10/16MANDIBLE:CLINICAL HISTORY: States he fell in restroom and hit face on urinal, swelling to left side jaw, tender to touch, r/o fxTECHNIQUE: Four radiogr aphic views of the mandible were obtained in various projections on 03/10/16 at [facility]. Images obtained on 03/10/16 have been submitted today, 04/28, for official interpretation.COMPARISON: NoneFINDINGS: There is an irregular tr ansverse sagittal fracture through the left mandibular ramuswith approximately 4 mm of diastasis anteriorly. There is also an oblique 1 cm fracture transversing the b ase of the right mandibular condyle with 3 mm of displacement and 5 mm of overriding.O therwise, the visualized osseous structures appear wellmineralized and grossly maint ained in alignment. CONCLUSION: BILATERAL MANDIBULAR FRACTURES DESCRIBED.Thank you for the courtesy of this referral to [facility].Respectful ly submitted,KISHOR BUSH MD PCRLS: [email or web address] d:03/13/16 t: 03/13/16 Name Value Range Interpretation Code Description Data Larisa rce(s) Supporting Document(s ) ID Date Data Source [id number] 03/12/2016 08:22:19 PM EST [facility] Name Value Range Interpretation Description Data Source(s ) Supporting Code Document(s ) Discharge [facility] [id number] [facility] i48/TDQox [address] JqDQogIDw8 DQogI CHqS7L5bTb vcigp B9LfcTiaQB kvU3V iamVjdCgpL 1Byb2 M4B8VzHLuj S2V5d 93vSCFzEP1 DcmVh dGlvbkRhdG UoMTE vMzAvMTYgM jA6Mj N6FeTbD75u ZERhd LWlVS6LprJ hdG9y KEVwaWMgU3 lzdGV hxgBFz3Dig 3JhdG lvbikNCiAg Pj4NC nSwGL2lef8 KNCAw PB3elb9OOJ A8PC9 XaLl6LOXxB 0ZsYX TiMWKqw9Xx IC9MZ N8ieLuiYyG wMz4+ BYskVAE5lf VhbQ0 BwWpMA6mdg 7gWfh 9p/sOSRhrt LbUpN cd6mrmph5E msoFu TTWdBxqchJ kEOkD ayb8/y4YEk jQazU MO3lYjw4Q1 vnXx8 sIBKD9/g9a xTQ0/ IH/3cR9lX8 Azuju bonWtw2A/4 d/yYs 3Cjw3X+wvq s/3gB 2QZ92wZ6Me gAcX+ WL4kDjRHJn wzYkI QffnBF+EV9 KP3OI HnLyMPfgGi 64To7 PnrVwj+hH4 A35vA CjRWhKNW3h Cm4YK Z4vwCNvl69 xPFz6 V1qJIF17dK N81ad HjBH9qOsau O2eK4 x/tZZM0y98 +VlZo gLuOc5ybbS BzmZ/ m4HjLBgTws 4dLxU AP+YOQikKV 2yU67 OY3fbZXK+T 6xjcr EzfnbKhH8C l1k4e synuWfSftE 0EWJB smZSuUU9lN /69oX zd2wBqpbFi jcyOW 0r9Xat/XGI ROebu Q6XGLGD/3j cM0/i us1f43kCbQ GjWcG WmFRtwyjZt Hn/3w V6hkWuoyDG GVNrz j90po0opV1 t6KvN 1e8SSREdu4 rknSN Pp290Nxm8R mM0Jo +N4oynn+aq O2YOz ujjuY04/aZ kVYod JjesMDpMk0 uGf8+ OcaaZYo25Q gFV4q sWwWIbcD8Z ktCFQ aqx+s3hOGv xZRiq HypwsDEFZN VBF78 xjPwojawGH apDtf oBgB9PHhgg qYrBV G3a66vtFa3 LeeaG Pgfz1/u0zW //Mrw 4hUE3wkYaH 04jws UZaC1J3Cnc 17Sgf 2a4dyCYx1V Xk/6P 1n2CcRKqha PstfT gVweL63LNI YOYcH jGqgjH8U6y mmCJK x1XPvsOlfm TCD2N PLXMCvWuA5 Q5tT1 FKjrtgRByA 11bnB TdrS4S76A5 aiF2L tDo5ku+I/e t773d FU42eIUfhb 7tkOe lia08Dbpd0 ZhtkD w8bvOCTiwJ F62OG CG7pd30Vs9 wnRi1 IOwQJZvdK3 i1bjV mEpez/mvoV EpiLs jvux9C2znJ YzYNY XC3mtluxPc 7B6az 4E6eAUL61O S3ahB PGm8FMwkCK Gu0sX 5jg0YWzHI5 cTC/9 B8INi+KueI 6ZQ1b IjncaQgfP6 7Y1FT ObsFIc4e6l u7CaE Ju6eu8Yy28 lSOVW EWuHU4v5Lv jOnmx 5E7W6FgX6t wjVMk qhX/IlYDxg cTXvu hNwenmD6ZP pMr9z JXyP2I2GZq 6paqZ 66rgzDW1oC 9tG5q pHGqv5OekE +nFb7 XPGs+NpE4u 2kulK ecLUqoXaNw 0amgi 96XobQPk5Q ZeNVC NcxghkRzmr g6t5Q qiIuYgNPDV +SmhS teEYGGfvfe xfUAr coGJ2q2fvX k6Cvg 6AiPRcyyYO kGQ0z RBKeR33Ml0 GJ7Mr 5tAZBBSOnz YvuAq LD1vWJIc6f Jy10L LQBgpRuh+W 47aUc 3BNSvHMHI5 RiCVd bxtf0Kc4lQ 3N5o6 PvCKFUEthq MTkVy tUNTVxXUM+ IQhzY N9ahU2Ofck FTu0d RhtQVGLKd8 YxUE/ NUgVY3MV0/ yA2OY n3yEs2QclJ 5nPzV baNM9XSMgp u1dB0 3G/Tae+ENf NT+mZ xA9VxIIzT9 rDvMs nBWbjMPvvk Y7lsb aK2gjduDhr EPT6f X3y38tc8my G0y8U b+nmCbMeu0 GoCyd 6Qapcf3ZN7 /FdPP Bu3v+2sKcz Jipy9 KNNxzAyEVP u3vow 0N/EOxbV+B 63Xu4 zp4pI1j8HW ht+DA gha4oRB6Zq 99kTi MMcA0AntKX NKrJI O4/ek9ur// D9VwQ bPG7uqf+BI 9NZAj tTsb+40Mg6 UHPTN B6Hr1QW6p5 7vrOG /YHcD/0gwm mpUKX 9xN/OgzcB+ hOHj0 qg9uqLQJFW Rj2CO VpLvvh81rS Fin2J 0UKYQLhquD ZTL5A g/t5ZEKxUe x51oZ guCoRglVIM 55vVk WcLBArypDF i2UB+ eZllibRdoW RG6MT cGNtLV2v9W bsWzT iVQfuUeIwh yL8iy eAEqNoMPFg nmYgv SSdtyGoTWV 8FWCk HGuyaOOr2o DUx3L 7ksURhNlsC S9hlk sb6seKScli A9QgS f9SAOj8uD+ UVE5O BGXliwsMjk KPAvU szPkVLEu1/ MVfhS IL0OAl1ZyW N54lU qpF/Cb0tcT l4O4i 4EnEUeHCNO JEdnP 0N7NspOalh 8NZvI qLbQuSUqrL ueBdE l+TT7JP5Lo mCcVE hpd3dgUpgU SnWZj qz2nJQE/rw GQvPF 4docbf+WpV msBeh TRX1uLxwXp 4cnqJ iiS6jEKOZr 2kGiR WNynilzgt4 ll+BV OOpsv/QVNN 8gr9a 4jKW/MoLmN OG9ML IK91IDmeNI 8N5UI dB1VkuzN3f Ek3mF qgffUqC3Fp AmGLZ n3RVbtaCqP tqujg XzzDIUCNY0 DUYoe F6hJirfYxb jGW5q FZ7xhyAHdx GWqKS QrqaXxw5X8 cLxCT UBUFMZrVLn DRDXy 2YzQOYgvDY c/Jtm vDMSzQbbn1 wz7Yx R50xvvFP/8 BsiG3 sZXIbMwaG5 jPDin Jn6TyyLTLE zWrdC JcxLVp5mS2 wAaZI 6OdZR9/2ee XqmCG QjZ8lgB9FB 5xceG CzaqQBSNsX vJ7ME cbHVClCPsd Ue/MU ZwbtWN0xU8 aXcjc IzJOQeY63w pIRKs lJJRRUiORr ZaQ6A 1ioVh4CzNp /PLcq UHmB4uqzn1 2IDTj jGIEJopfI5 AtZQi bEubzc5fcY YaPeP jeuM/3g9P/ AzZVy DZlbmRzdHJ lYW0N GuTfPB6zii 0KNSA uEN3ejn2ZU CA8PA 0JMEMlTO0C eXBlL 5DeO4MJVzO gICAv FLVjXX30QR MgMCB SDQogICAgL 1Jlc2 91cmNlcyAy IDAgU q9KGVDvMC7 NZWRp YUJveCBbMC AwIDY nFdH7QADiZ QogIC JjM6XwmxHr bnRzI DQgMCBSDQo gID4+ DQplbmRvYm oNCjY gMCBvYmoNC iAgPD wvRmlsdGVy IC9Gb ZJ4IRMaK44 kZSAv VQIoE8GhZC E0MzI +Lf5RUXAhp HJlYW 0NCniczVpd b9pIF H1faf/DlVY rpVKA yyK8EqvYhl ZpQ5K P65965ByCH mC2xq ZjG8L++r1j m480s WIcfOYW4DC Y5syZ M+feawJQHt +BtB2 M6FHIp8ghy +IAx2 Hl47GEf/4C 2w9+L x7FvIxflW4 /sDvb dh7oe/ZdFz 503hF jdI0yQDtpn LYJLY 3z3Fioh8IH n8Nlu CDoOK0TwyA bUMOg 0MYb84wM/x +49OH TPrBTgaLEN ukW1j 4dInn9jFfv Yzs+q 3pr0auJEQU J3VO3 rBqnTjdjtw 1K9t5 UpUxKnQJIX 6bBjC cNxnrdm2bF IoXxG qCHPk2sl0v yQu0O +sAznEPHIB 1GqA1 zctxR5zEGc 5DEmY waIR6axSJK DqMmK +aK89yOWCO UybgV RHyZRzzmmU B4vYe jocCdm18aH DzbKu CZhLQsBwZX HWtwA 2meLkScyiS uVYKm so9p1oUyRe cU5jf Fis+TPJuBW Aq1Bs xGj7usxyY4 fAOzJ WccUEAV6fS hX6ft cxhlXOGiT5 vAX1G 6E+A6XGSUH xhpib FWFU013L2K OKt/x NikYI2quLH Jmokn GcpYy/D+cn jdv/w T+XMa6We9O pAxp0 CWJlGeNaO9 DTkPq QCeQiiVCDI RApqi hsCZv4naLp mi3rK ZSnBN/VUCv pyjM/ F7tTtzMC5W ik3Mo iJyswngpRS /6Emh BO8FiJbvIR N8/7U /vAuSMIlFi wci43 WME4oFVGwF DkByv PBH56wU9vV vXeB2 sPhAs9DPVx +khTk 2KM+KsNIar UPWaO LAmnPgvb5G ZRwLE pX0d9daF9d SrU/C jZ46AT2A0I K39BB +qHWFJ2e+e 959QL lqqhAV8dai vhznC 1BNjM5Jj/3 P1zfn gzt/qOM4Ek wawGW RAtdrCOIbj gqlGu ZQUb6mSIVQ R4T6T t/FjWKs5Nk Shjop 6KQFVahG3j Hny20 6dp3EPR0/G vNHuL 4d+cOHt/71 3e2oW r0oppuYR79 gk0uZ rbswFGk+F6 DEFJN mIjqw0Wh5N nWWRE JxHVtbECeg 6cQbI I6jWmktWZ1 8VpYb Aj1bEv0NJH gdGEc iDoWS/yLOE LsaAG zWGKa2PJ9p hLdci R2ZobSO6QA HMFtP dGlOA5Euk7 WwLng 2k42YZGKpa LNkJd GiQ4fWzrUN EVluk 0kB6aS3eQN 4fl2Q E+GpUnT7aT NdWst 4gpkdeiMgo yhALU Mi1Dq5RQZC DTSrc Hu9argYNS1 c34A2 bYOYelLvki hKVq1 80YXyVEdzT EkDrC gmMLlG9jbY bSyU1 VsNDzqD473 UVkJ8 L9dTzEsyXl xT4SZ HEz8nPUKvp aXy8R hXboznDczP wsoT5 7eIMPmbiya 81CG2 LRHo8dEK6k FCA0A WMoo6VpQuS BRvnM J22iuUeIqw DBPKL Iju0v81lPE w8tew F0m42eLzuH uGs/e vmt4cZP0fO ePfB7 Z16aybEALW qOthO unYyBVMjva MTp81 eQ4ddRAzZT HbczQ YoxTWfeVE4 K8Xp7 CsalKDYk9Y 0GURu ipxbL5HuMI oTXZE 4bWbdy2vbt 4CsLw CwB/1jm1b9 m7sYh /HBd2dEltB v/981 j2jPnFESFY uqEG9 IVXx1yEp5f lzrWA nu5qStkEBq RCqTV lBGGFaVdvw L38wo VITXfebG0o pq154 N5EaRdnS0m YVyMJ Xgncpuns4I uK1Pw QQpU7JqK48 NA/Yc yxCP0YcdO/ 4SE8j 3cqi9SoyUv SYFHw Ku1JldTLyh 5Snk4 Res3b9EvVa igXGJ mvPREc/gH8 lJJoO PWnj0IG6hZ BYxbQ 9IZ6Sv+euj Wxh5b PCWPKh+iFS V0Jzb YbbVnQaWsp /w3gJ wMUsbwdAt+ oFwEz x3kMlVvRXL Ihr7g BGgNyO9A4l A6BbJ vJjB1pskIS aQrGQ hlX9K5URn6 /36dn mp7sUwCDnv mRzdH IrEF8PEkWh ZG9ia f0FDzIdYS6 iag0K CII8BD4ZUH AgIC9 ZzEIaK9RhO 2UNCi AgICAvUGFy ZW50I DMgMCBSDQo gICAg Y2Err819fh NlcyA nPLHaVb9LD CAgIC 9NZWRpYUJv eCBbM CAwIDYxMiA 3OTJd DQogICAgL0 NvbnR lbnRzIDYgM CBSDQ ogID4+DQpl bmRvY moNCjggMCB vYmoN UdWhAtE5CU AgNzU tUXS6ZMClZ zggMz T7RZG4OxQ9 NTYgO Ti7YNS1NwQ xOTEg MzMzIDMzMy AzODk tESf4AMX5I CAzMz ErPxy9MFV5 OCA1N MDdYKQ5NWM 1NiA1 AKUrRBL3AC U1NiA 8FGUkZJB5C DU1Ni N5XZEmPuw3 IDI3O ZX0JAEmSGz gIDU4 SPG5FKDvMT U2IDE aPVQtOnE2A DY2Ny X2VtEtPfUj IDY2N xN2VMLjOzz 4IDcy MiAyNzggNT AwIDY 9ZjX8TPVmH DMzID liTdK9Hgjn NjY3I Pf7CMO3IaG gNjY3 QYDtXCI4Yn IgNjY 4ZYs9JSP5Q jcgNj S3FBShMWJV CiAgM sr7KOY5QXC yNzgg XSS2SEY4Wi AzMzM rXZQ6DUW4F iA1MD XiRFS5OIR1 NiAyN wisKQI1NLE 1NiAy MjIgMjIyID UwMCA yMjIgODMzI DU1Ni U5OKPhCET1 IDU1N iAzMzMgNTA wIDI3 SUF3IABmQH AwIDc cOsX7CGJzX QogID SrLRQ7DHOf MzM0I YC4EEZkKkR gNTg0 AQa5URK5DX YgNzU iICRjBzN1Z TYgMz MzIDEwMDAg NTU2I JO4YvUhRiI gMTAw GAH1CglfNt MzIDE wMDAgNzUwI DYxMS V8EODoAsTv IDIyM iAyMjIgMzM zIDMz MyAzNTAgNT U2IA0 KICAxMDAwI DMzMy AxMDAwIDUw MCAzM nKvNTR0XSp 1MCA1 HBKbOgO1NQ I3OCA vCzNhKND5P DU1Ni G4IIOiIXM4 IDI2M IA7YWPqUeO zIDcz NyAzNzAgNT U2IDU 4NCAzMzMgN zM3ID N7SdW4HUEo NTQ5I DMzMyAzMzM gMzMz HB0AOIM5Hf YgNTM 3IDMzMyAzM zMgMz WqATK3QCQ2 NTYgO PX4EMupHLA 4MzQg HuJxITK1Ic A2Njc iTmU9SKI4E yA2Nj gjWmL1ZZXs MDAgN qRqBZA2ZgD 2Njcg AvP9YKG0Fz AyNzg zRgv5LMQ4O CAyNz ggNzIyIDcy MiA3N zggDQogIDc 3OCA3 NnicMtg5AH c3OCA 4RQDkWow3Z DcyMi E9KcWlQhCf IDcyM jA2ThdiDxF 3IDYx SOI6RUJpBB U2IDU 4QaZ4LFOcN TU2ID C5KeY9VZet NTAwI PW7EzP6RTX gNTU2 MRO8JnGhYu ggMjc 8ZPG6GOTqY zggNT L2QO4EEXH1 NTYgN GA7BSE8ZvI 1NTYg XGM9JFG6Ot A1NDk bGrOsZQY3E iA1NT GcAIF2YJT2 NiA1M XRaWVG4RSK wMCBd RY8ZBL0ml8 JqDQo 0BQZat8ZkZ QogID n0CMqfFOMx L1R5c ZFlBr3rfEI lc2Ny aIQ7z0DJWs AgICA kEo7iyF3pg WUvQX JpYWwNCiAg ICAvQ XQcGB15WPv wNS9D YXBIZWlnaH QgOTA 9M2Gix1Adb nQgLT XnNk5GWCXe IC9Gb GFncyAzMg0 KICAg IB3Ki315Kc JveCB bMCAtMjEyI DEwMT QmXVU1FQ6G ICAgI G4BjQTxjTI Bbmds NLCgP7A4RE 1WIDA XHyVcXq9QS mVuZG 6otq2SUVJl MCBvY moNCiAgPDw NCiAg ICAvVHlwZS 9Gb25 2X8Z2BvV0q GUvVH N1NYW6eFMr QmFzZ UZvbnQvQXJ pYWwv EO3vf3Smmu cvV2l gUV6oaYGwC 29kaW 5nDQogICAg L0Zpc mU2P4cmhqD zMC9M ROL0F7varn AyNTU NCiAgICAvV 2lkdG hzIDggMCBS DQogI QCbF4PuasH EZXNj iggqyO0mJM kgMCB SDQogID4+D Qplbm RvYmoNCjEx IDAgb 2JqDQogIFs gNzUw WJk4VYDoDc ggMzM dOXP5AJX9T TYgNT I7QBi9VQG9 MjIgM qK0ITEdEyC zMzMg Jih2CKP4TB AyNzg zRvNqAVG4G CAyNz siHDZ6AAU6 NiA1N DYeTMR3GJH 1NiA1 JCSyHAK5SS U1NiA 2BEOfGEK3Y DMzMy AzMzMgNTg0 IA0KI PK5OJAzQKn 0IDYx FKZ9TkGgBq IyIDc bMpE5JlKsH zIyID Z7IxY7COPq Nzc4I DcyMiAyNzg gNTU2 JZprAwO2CY EgODM pXLvwTiS0G zggNj B5BPz6AXT7 MjIgN zZ3YKIjVGF 3MjIg XbS4ARn9YA A2Njc nMuT9TDPhF SANCi AgMzMzIDI3 OCAzM xHgJZg7RMD 1NiAz ReEyXCE0GH YxMSA 1NTYgNjExI DU1Ni AzMzMgNjEx IDYxM SAyNzggMjc 4IDU1 NiAyNzggOD g5IDY lPSC6UWFuR jExID YxMSAzODkg NTU2I LQjYaY1DTZ gNTU2 WOx2ZWX3PR YgDQo nECH7RjR5T DAgMz h3JER6NWEh ODkgN Jl6INs4SRH 1NTYg HmRaCXI2JB A1NTY gNTAwIDEwM DAgNT U5ZUL3XcHv MzMgM BQuKZI6Rvh gMzMz IDEwMDAgNz UwIDY hTJT3JCLrB zUwID D7BPHlNpwr NTAwI DUwMCAzNTA gNTU2 TP2UJAVcBC AwIDM zMyAxMDAwI DU1Ni AzMzMgOTQ0 IDc1M AR9ZVPgHpR 3IDI3 OCAzMzMgNT U2IDU 6TmC9ZESyH TU2ID T0ERE7RSEm MzMzI DczNyAzNzA gNTU2 WJH0DLXfMs MgNzM 4NOQ4UpS9K DAgNT N6WSXbVoNw MzMgM aLfHN2GQDT 1NzYg UFI6ZSTnQh AzMzM gAcVsONR2C SA1NT QxBFE0IEgm NCA4M zQgNjExIDc yMiA3 MjIgNzIyID cyMiA 3MjIgNzIyI DEwMD AgNzIyIDY2 NyA2N zwdJpS4VTN 2NyAy BqcuKvd9TD I3OCA yNzggNzIyI DcyMi N9RkkdRMdl IDc3O BY6ZmcuWyf 4IDc3 UQZ4JPXtZv c4IDc vRdS1NlTbV zIyID nmBwE9Rrwy NjY3I BNiIKV3FKC gNTU2 FTA5KlM8MR YgNTU 8CTZ7ZhI7J DkgNT H5FFU3JgJ1 NTYgN FN3MOX0CxZ yNzgg Kom3WTY3YX AyNzg aQkSdON9QJ CA2MT EgNjExIDYx MSA2M TEgNjExIDY xMSA1 NDkgNjExID YxMSA 2MTEgNjExI DYxMS R3VFLhGfHe IDU1N dDaLX4NVU4 kb2Jq DQoxMiAwIG 9iag0 SHCQ9EF7EN CAgIC 5ZhJWsD0Jm bnREZ XNjcmlwdG9 yDQog ZHNeN9Vqhs ROYW1 yU9ZviHXwI EJvbG QNCiAgICAv QXNjZ H20HWifSH5 DYXBI ZWlnaHQgOT A1L0R bv8OtraPfJ TIxMg 3BBEQuWQ8O bGFnc sFjLk9ZTOQ gIC9G i843GiCboV BbMCA tMjEyIDEwM DAgOT V2FY3EKXCd IC9Jd GFsaWNBbmd sZSAw S8Q2CK7VMB ANCiA qHi5BDhOwR G9iag 0KMTMgMCBv YmoNC iAgPDwNCiA gICAv VOhzRR3Vw7 50L1N 4NzM8bSOwG HJ1ZV V6fMXrBfMg ZUZvb nQvQXJpYWw sQm9s EZ9PyzBuWZ luZy9 DaG9ZoqIdT W5jb2 RpbmcNCiAg ICAvR mbfn7XDkBI yIDMw K1pft2KWiZ FyIDI 1BU7GRRSfC C9XaW G7yNHoVVKe MCBSD TtsRKMaD6W vbnRE ZXNjcmlwdG 9yIDE pXPDgXe6YF CA+Pg 8FXA2ix4Dr DQoxN BUdPM1ozc2 KICBb ARa5TRB8ZE AgMjc 3ELR2SRCeN TUgNT O9BEH9IcF9 ODkgN xU9QLJ5BAQ zMzMg GcDcUCG7HY A1ODQ sEnr1SXBcI yAyNz bkRqo4ZZS7 NiA1N IPkXLH9DBR 1NiA1 VVEaBXZ4GH U1NiA 7MBCiDOP9H DU1Ni AyNzggMjc4 IDU4N CANCiAgNTg 0IDU4 BPE9CJVxPH AxNSA 9FbyjCyG8I DcyMi P5AlHsOcM5 IDYxM VN6NqpaQeU yIDI3 YLY3GIZfBy Y3IDU 8QpO3DtXwH zIyID r7CNH5Lfbi Nzc4I JdaGeN1Vbo gNjEx INznMqD8Fs cgOTQ 6WUB8IbS3G jcgNj ZfXQ5QUDQj NzggM an4SIQ5TWH 0Njkg AFX3EARwEr A1NTY nVVU5CEKqL CA1NT SkKDP4UCZ6 OCA1N VWcMFO1YNY yMiAy MjIgNTAwID IyMiA 6EqZeNCF9O DU1Ni Y9NEIyWUG7 IDMzM xW7CMGwQpu 4IDU1 QwY0AIEzHn IyIDU wMCANCiAgN TAwID UwMCAzMzQg MjYwI BMxNXW6AQW gNzUw JIA1BeL3VV AgMjI xDCY8FiZsB zMgMT OkJCI3TNEs NTU2I DMzMyAxMDA wIDY2 NyAzMzMgMT AwMCA 3NTAgNjExI Dc1MC N8FNYwYlXh IDIyM iAzMzMgMzM zIDM1 WTV4XLGdYL ogIDE wMDAgMzMzI DEwMD AgNTAwIDMz MyA5N DQgNzUwIDU wMCA2 KqxeVdn5KL MzMyA 6UWPiSBG8R DU1Ni Q0IXVfLdVz IDU1N iAzMzMgNzM 3IDM3 VXX4OXTlJI g0IDM hWtG0AfbsZ TUyID MxZQW5ROsp MzMzI DMzMyAzMzM gDQog GJN2CzI1Rz cgMzM zIDMzMyAzM zMgMz B5SZT3IgI3 MzQgO EX2JZppXJZ 2MTEg LhR3CPT4Mw A2Njc tFcS0WFO6V yA2Nj cgMTAwMCA3 MjIgN eS0GBE1SoO 2Njcg HmT5VRI4OF AyNzg kGhh1NGX7A CA3Mj IgNzIyIDc3 OCANC pHjVnr9JXm 3OCA3 QvjiFvx2FP U4NCA 3NzggNzIyI DcyMi M2HvJqYeFy IDY2N tU3IifgRkD xIDU1 BnL4IVMrJC U2IDU 6DzP2KUUtZ TU2ID m8QTV3RBKw NTU2I RJ0SlL0DXP gNTU2 VFS1XFCvUs ggMjc 7TCT1UEA4Z TYgDQ jkKKN7TmA1 NTYgN EG7QQW1RoW 1NTYg FTZ1IZN5JZ A2MTE qAOB4OMO5B iA1NT PuJEV8IUEf MCA1N TYgNTAwIF0 gDQpl bmRvYmoNCj E1IDA ir5VhGVdiI Dw8DQ tcUYKwP8R2 cGUvR t8swKPtp3O yaXB0 v7ZXTmGpAT AvRm9 suB0dvHJxO XJpYW wNCiAgICAv QXNjZ O62ZYbqHP1 DYXBI ZWlnaHQgOT A1L0R gi8MxccCvC TIxMg 3RQUIbTN7U bGFnc dRlYq5LWBR gIC9G e376AlGudA BbMCA tMjEyIDEwM TUgOT V1UK5FNEVi IC9Jd GFsaWNBbmd sZSAw M3G4FX1QIH ANCiA cSe8NNqUhQ G9iag 0KMTYgMCBv YmoNC iAgPDwNCiA gICAv IQibTY6Cn1 50L1N 8WrQ2wPEoL HJ1ZV T8mXDdQaXp ZUZvb nQvQXJpYWw vRW5j n6ZwoojnI6 luQW5 noVFcG39uy W5nDQ nkKXNoT1Mb cnN0Q 0zmjjFhLP6 MYXN0 F1xeqfAeHD UNCiA hLFPrN3zhy GhzID M0EBDnGl4T ICAgI R1Vh885BQG zY3Jp cHRvciAxNS AwIFI DSjVnHt9GA mVuZG 1tmk6DQwLo IG9ia q3KAZT7HX5 KICAg NO2Naj2qT8 V0IFs gHAGVO1Kjm HQvSW 1fS1IVRV4U ICAgI W2Tc925CPl 8IC9G MCAxMCAwIF INCiA aFUUnYV0OU SAxMy AwIFINCiAg ICAgI L8KSrQxMqZ wIFI+ Pr4PCOHwVX 9YT2J vXBK3FUp3O D4+DQ ogID4+DQpl bmRvY moNCjMgMCB vYmoN CiAgPDwNCi AgICA bOQwuLT6OY Wdlcw 4FPQEwVX0J ZWRpY UJveCBbMCA wIDYx IxN8YAUpGF ogICA wV0zsKPFjR yA1ID ObWhS0OTLa UiBdD IagETLwI0T vdW50 IDINCiAgPj 4NCmV aGO8fvs8BT TcgMC BvYmoNCiAg PDwNC iAgICAvRml yc3Qg MTggMCBSDQ ogICA jR2ymf8TgC TggMC BSDQogICAg L0Nvd K90TJKDKaM gPj4N XbIrWV5ffh 0KMTg gMCBvYmoNC iAgPD wNCiAgICAv VGl0b OZzJTicY7q hcmdl DTK0lN3haq llcyB ieSBSaWNoY XJkIE RhdmlsYSwg TUQgY XQgMTEvMzA vMjAx NiAgNDowOS BQTSk NCiAgICAvR GVzdC BbIDUgMCBS IC9YW OmjZNM5BTC gbnVs bCBdDQogIC AgL1B hcmVudCAxN yAwIF SQXoCfGu9C CmVuZ P2gov2FZHh gMCBv YmoNCiAgPD wNCiA gICAvVHlwZ S9DYX HlfH0pMSul ICAgL 2OxA6BfVCS gMCBS DQogICAgL1 BhZ2V Jg2OeX5DbF U91dG xpbmVzDQog ICAgL 091dGxpbmV zIDE3 XODsBy8JKA AgIC9 QwDYlZEG9r W9uIF sgNSAwIFIg L1hZW iBudWxsIG5 1bGwg bnVsbCBdDQ ogID4 +DQplbmRvY moNCn hyZWYNCjAg MjANC jAwMDAwMDA wMDAg EaY2UcJiDb 0KMDA wMDAwMDAxN yAwMD AwMCBuDQow MDAwM ZC8FZccZMB wMDAw RZ8VBkAsZP AwMDg yMjcgMDAwM DAgbg 0KMDAwMDAw MDE3N yAwMDAwMCB uDQow MDAwMDAyMj U5IDA yUTXzKI7QD jAwMD AwMDIzOTUg MDAwM APuam0BHRG wMDAw MzkwNiAwMD AwMCB uDQowMDAwM DA0MD QyIDAwMDAw IG4NC jAwMDAwMDU wMDYg MDAwMDAgbg 0KMDA wMDAwNTIwM iAwMD AwMCBuDQow MDAwM PX3NshwXJA wMDAw FL0RCaBiEF AwMDY zNDcgMDAwM DAgbg 0KMDAwMDAw NjU0O SAwMDAwMCB uDQow HINxDVL1Km M3IDA qYCRbEU4AE jAwMD LbUTc4RRTx MDAwM ONhip3CXTG wMDAw Orr5VCElOK AwMCB uDQowMDAwM DA4Mz QzIDAwMDAw IG4NC jAwMDAwMDg 0MjQg MDAwMDAgbg 0KMDA vCTWiQBF9A SAwMD AwMCBuDQp0 cmFpb UNhDTp9BQ0 KICAv M5n5ADZaDX 0KICA iKb6crCKxK SAwIF ZFYfBpJ4jg Zm8gM SAwIFINCiA gL0lE Acb1EbH6I2 NlYjY dHkp5HQm6I jkzNG TpHyF1DTYn ODJhZ U36JtIdQnd jZWI2 GmE6KBC1Yo Y5MzR kZTMyNDkxZ jgyYW U+XSANCj4+ DQpzd GFydHhyZWY NCjg3 NTINCiUlRU 9GDQo = ID Date Data Source [id number] 03/11/2016 04:52:59 PM [facility] Name Value Range Interpretation Code Description Data Larisa rce(s) Supporting Document(s ) [facility] [id number] LjQNCiX [facility] i48/TDQox [address] JqDQogIDw8 DQogI BRwH7V9kWi vcigp O2LfjIcmKU kvU3V iamVjdCgpL 1Byb2 I0E1VhWQkb S2V5d 02mZCTaJG1 DcmVh dGlvbkRhdG UoMTE vMjkvMTYgM TY6NT X2ULBdQ08g ZERhd REwEB1TytI hdG9y KEVwaWMgU3 lzdGV obuFLu6Woz 3JhdG lvbikNCiAg Pj4NC eExMO2xug5 KNCAw NZ8iuz7XHJ A8PC9 GqJw0XFDnG 0ZsYX OhUUPce3Si IC9MZ E7anHwcQUE 3OT4+ NHpdVDJ6bd VhbQ0 HwRtSDs7c4 zYUfR +w/3CBAkWL Lbb4T eZhgNumSzc kcR13 QLHsQbVoR4 NtpbK SzP9+JEVZs mNh2I CgIeMo3qiu 0bk8l /uCWtv35hB NBIvM Tm6g3uqTel OhcHU 4V9NRY4Yev u/u4o yfTwHR9bX9 aGc8Y iq0uIiEFN6 MAJvz 07lBsQDJKZ wpxGC avPlDL+Kf4 SJ5Tt dw9+ZqAq8A EYIQU Abc12Q5n4v Ywucm sFOBQhGnaA drHC8 6mI7gLR90/ aPAfW NRuwSyeehb ZyzMr P0VVE6fvlw 8M/kV EDybz29+lL LIjAx uo3AjsVGSY 87f9g IuiiiucBGz qwEfs ZwEsvMuqrw 7IChq 4NFsaKVhE7 mR6nU BH/QqW+Txw 3062/ TJ+8jShRGH M2wGa IPMw/Ode99 6tsJF MU6NxwRhcq tR7X1 ZHwasKo3ek 3GEZN P91/FK98Tt hO38q vWa0Ksl1WB Fwimt WbzV//SEPM oI9xw zlXbxjfY7E h/lTr joqn1945bV H5MEe 5JIhJsabrN 0Qh9T RYd4nIVx92 veRG3 JqnGGZSSbc bvF0g mFUpHGCBzf Z+tTx f2fKKaGj8P +OEjB x0UvMkupwY qXYUn cHnZ1R0QMd X+ugm VbCbZVuL8a ZpnAJ Y9VYCxNPpB QUbpj NHn/Fa6/mm qMRiQ oEK+OyjGIn Qkuzx M864s5f6wz 9Okrw /5FKSQT7Eb n3aQF tDpCl8ihmu nslAL 639krVgQdy 15fnO 8V3xrrQsHe i+z1p aTM7EPukwi iEBca JqV20X0uQw YJjix /lR3BaMU5r EDsaN NFbQ4cWV5A TNT1F EiIcCAQGmI 5NBMy HcUiBNY7ua PYW6G J2DPTEpdtc sbw5b LrUEeEEBbU 5esxf ZaCoPNn3P0 uH/Nt nOinODepw9 UHiAu pWGwMKB98K g3IYZ tWaYQd+NFj cZ/l5 xY0UFdg0yA wlLkO CuM0Rh8Hy8 X5Uzr ToTlimNAax E2RLe V4s69la1bu HV5cT oehU6v30C3 fQjDd PgTnSBGsai Dj++0 qdkOywSD4K V2YOU Np02XMrfrR NCH0K /n9COevFwO I5tCV whRhfSXKS8 xju84 XQW6XVCCEJ DPTdS 8tKsuoXMTF 4ya4t qRiDQzpYq3 D1aKt jsSxIaO7XF +Xs0g 5RPMbQMo0f A7y9B HyP0SzDPU9 gH8aw cwNMoYE4po HZQFr U4tc3yJ0Z+ KtSfy bOo1voxXAc Qaz+3 t51Uzvv0cw Q2Ji1 QaKzHzNWMf LeA2m tjVXPMRpbo PYKl4 x7mcbFpWJf 0fLh0 gcLO2Ts7it nBoCB iJtXJSb7wP GuGP4 C0v4zbKcA4 NrIdu B08t+s3yeK UnZGu xduW/7qyd1 JGKCm 0tUWyquJN1 6gWmX 5XiLpZtynN slXY6 JK5q+bHQOv +ttTz jEAuOKKeXW MCoO2 yydcIhlhGs ObaYy 7NGCBhVRRR U2c1K DxDZLNw+Uh MT7A7 En/HGp0HH+ 2iyd8 MeVQDV/4zx 7ShNd bln0WVQ9Pw iSLha sFcCbek8QC C53rI jbfV95Ea0x cTQJk xXYmXLoM9c +y+nA 1k71GCYdC0 H5UOr 2Z6ptcpGFR SmosG uZPhpWfniZ KXeBx eWSkI5Nik0 Dm6ci /VEMr18nJc Ot5QK sKNO6e/vKE cJcHL 7s+cq/5mmK ptFsV myK2FC58hM MkwrY DrIBXJkmC1 mKH65 /o3Z5N8MW3 BNTNW 1MQIXLdGMK 0L4km qTHGlG00qz 2ufpx Q/cP+wiXxw EfN5w G2E5mBZomI J/Waldemar 3e/MRV6kue uGstQ yHB+0iEihp IbKsj JFhhVCNxrY 6QEIk f6sUa8Lmof UnpoD Xh2KqqCQvv xs993 gw3Z2iEcMS lbmRz hVVnGY0NUs VuZG9 qda3EBILrY G9iag 7TBFD6XU2O ICAgI C4KbBXgQ3A hZ2UN CiAgICAvUG FyZW5 0IDMgMCBSD QogIC FeR7Ceq332 cmNlc yAyIDAgUg0 KICAg RS3CPYVbCN JveCB bMCAwIDYxM iA3OT JdDQogICAg L0Nvb nRlbnRzIDQ gMCBS DQogID4+DQ plbmR vYmoNCjYgM CBvYm oNCiAgWyA3 NTAgN hJzXZK7UAQ yNzgg YnF8VFV3Iz A1NTY qNPx4BRN2C yAxOT EgMzMzIDMz MyAzO BthHVl2QMF 3OCAz BcAbGoe7FC I3OCA 8VMGaLGU5S DU1Ni G1QHNoRFT8 IDU1N iR5TKXxWYD 2IDU1 OvP6WKEwQx c4IDI 5CQE2XUAcA QogID O1LYB9EQLd NTU2I DEwMTUgNjY 3IDY2 OrN4BpLtCv IyIDY 3FiB3LAVbF zc4ID cyMiAyNzgg NTAwI CU3GtN9UTA gODMz HFazXsM7Ps ggNjY 8ZGl5RMX3G jIgNj G2CGWrWAS0 MjIgN oL9WKx6NMV 2Njcg SaR9RCRlFW ANCiA bXye7OOT7P CAyNz miGFC2XMT4 NiAzM mXpOIG0LVZ 1NiA1 HQNmPBL7MH U1NiA nBmigNQB6S DU1Ni AyMjIgMjIy IDUwM CAyMjIgODM zIDU1 VsX3GVEfLD U2IDU 1NiAzMzMgN TAwID H2OQB8OOJk NTAwI JtpHtX0IWI gDQog RODzXGA7OP AgMzM 1OMX0WUEdU zQgNT x3UOn7YMP7 NTYgN zUwIDIyMiA 1NTYg MzMzIDEwMD AgNTU 3JBW9LkWgL zMgMT ZdFLT4Qpac MzMzI DEwMDAgNzU wIDYx UIM0LCSeTc UwIDI yMiAyMjIgM zMzID MzMyAzNTAg NTU2I I0QMKZrZAG wIDMz MyAxMDAwID UwMCA mCkBsUBQ3M Dc1MC M0JWMyKaN9 IDI3O CAzMzMgNTU 2IDU1 GsV9HHKrJF U2IDI 7TQC1AWMtX zMzID czNyAzNzAg NTU2I SG4IMPxYrL gNzM3 HLM0VpM5RU AgNTQ 5IDMzMyAzM zMgMz YvVX9RGGK3 NzYgN MW2ANRiLyT zMzMg DkYyNIK1FC A1NTY uDRM5SArkV CA4Mz QgNjExIDY2 NyA2N tjkJkV0GSP 2NyA2 GrruQoZ4AV EwMDA uQqJaKEU0N yA2Nj rvYnK2IZH5 NyAyN wmtFxy2JUC 3OCAy NzggNzIyID cyMiA 3NzggDQogI Dc3OC N4HizwCiu8 IDc3O HF8PZUpMmr 4IDcy VkY3PqTxMp IyIDc gFtK1SeenN jY3ID EzIUS1ZJAh NTU2I IR5WqZ9RXF gNTU2 DEN4XxK4PU kgNTA hCVZ0OeA0I TYgNT C9IPG2TcGo NzggM gs0KQF7COQ yNzgg YCV7KK4UNK A1NTY cCYS3ZCW5P iA1NT KuKCI4ZNE3 NiA1N DkgNjExIDU 1NiA1 VJLmHEI0UA U1NiA 5YJSzSYL7D DUwMC IwYN9LRF7i b2JqD Pm9BFBvb8H qDQog RJx4NVudOX AgL1R 5yQSsFu1bb ERlc2 MhbKQ2s4HL CiAgI GMjRb3riG4 hbWUv QXJpYWwNCi AgICA sOGLhVN26Q DkwNS 9DYXBIZWln aHQgO MR7A1Ttr8F lbnQg JJOrHe0IYI AgIC9 GbGFncyAzM g0KIC AvUR5Ih434 QkJve CBbMCAtMjE yIDEw FDIgCPC3UZ 0KICA uDK3ZfZYky WNBbm dsDWBhI5N8 ZW1WI DANCiAgPj4 NCmVu LF6zqh8INP AwIG9 atc9AOTM4T A0KIC XqKZ7UqZRp L0Zvb cJeF7NbnPf wZS9U cnVlVHlwZS 9CYXN eWj4wfO3Qk mlhbC 9FbmNvZGlu Zy9Xa O2WrqHcOP5 jb2Rp bmcNCiAgIC AvRml ha2HGvYFbA DMwL0 dlv1GYsEEx IDI1N I8KYVWcAT5 XaWR0 aHMgNiAwIF INCiA wZRHeHg4jm ERlc2 BljWW8l7Af NyAwI FINCiAgPj4 NCmVu BA5lxf2EWH AwIG9 euf5XJJRiF Dc1MC V5SYHgCow9 IDMzM sI9LtUmGLX 2IDU1 MrC5HPxgRz IyIDI zOCAzMzMgM zMzID J3AWA8PASw Mjc4I DMzMyAyNzg gMjc4 VEB6NqB6JN YgNTU 2QCR9ErT9S TYgNT M5CCF6UiA5 NTYgN QZ3GSU3EwI zMzMg DeCrQEL2GI ANCiA zKKn3SOA9V CA2MT OtWAi8JZgl MiA3M jIgNzIyIDc yMiA2 NjcgNjExID c3OCA 8SgFhRpx6Q DU1Ni W7GgYpTyPe IDgzM kX8ZvNqZer 4IDY2 WoH1CbvzDf IyIDY 8DuR3UQLwO zIyID V7UeS4WSQp NjY3I JK7MfT2ORW gDQog IDMzMyAyNz ggMzM gXUW2YME0G TYgMz IfQJV7ViZ1 MTEgN BL2XGBaNKQ 1NTYg MzMzIDYxMS A2MTE rAub6BBR4B CA1NT NdXut1VNx7 OSA2M TEgNjExIDY xMSA2 RBFvVuu1SG U1NiA zMzMgNjExI DU1Ni D3TfxcUCJ4 IA0KI CU2MZYzFPK wIDM4 OSAyODAgMz g5IDU 6AUD0ZEOqS TU2ID e1RVTiBtmj NTU2I DUwMCAxMDA wIDU1 TtL3TYSvZi MzIDE pUBDsBaD6I DMzMy AxMDAwIDc1 MCA2M TEgNzUwIDc 1MCAy FvueUcb9OE UwMCA 1MDAgMzUwI DU1Ni ANCiAgMTAw MCAzM zMgMTAwMCA 1NTYg VuYzODi9LQ A3NTA aMUEjPMD6C yAyNz ggMzMzIDU1 NiA1N ZAnWCM8HNJ 1NiAy UPBoFJR8GA MzMyA 3MzcgMzcwI DU1Ni O2DWYnYvQc IDczN tJ9HTFsOPL wIDU0 OSAzMzMgMz MzIDM zMyANCiAgN Tc2ID D8BgNrVhHa MzMzI DMzMyAzNjU gNTU2 DCneKAY9Kl QgODM 6RETjXBW2M jIgNz IyIDcyMiA3 MjIgN zIyIDcyMiA xMDAw IAdwNzP9Jg cgNjY 0MFX3BtJ0B jcgMj y2BMY7XQJb NzggM en9ONabZcX 3MjIg Nbe6VC6WKA A3Nzg cDnf4CCx9Y CA3Nz qzSWl4KHe3 OCA3M jIgNzIyIDc yMiA3 TaVeYiX2AA Y2NyA 6IIUbOYG1Z DU1Ni I0ZQVaTYD2 IDU1N dX9SZJkRHn 5IDU1 GrV6QBImSE U2IDU 7LeE6LMSlV jc4ID D0JCHtUlal Mjc4I DYxMSANCiA gNjEx DIJnMDS1ZJ EgNjE lPMZtLTQ1T TEgNT B1HXDdTFM8 MTEgN jExIDYxMSA 2MTEg PKV1ZWTgZZ A1NTY gXSANCmVuZ G9iag 0KMTAgMCBv YmoNC iAgPDwNCiA gICAv PIjmCG9Ax2 50RGV gM1YbtEJtk g0KIC CbQU3Td057 TmFtZ E3CffwbaRb Cb2xk DQogICAgL0 FzY2V rjDA4KCJeW 2FwSG NsX1i0PTry NS9EZ EXrCV40UU7 yMTIN CiAgICAvRm xhZ3M gMzINCiAgI CAvRm 1cgRPTk0th WzAgL TIxMiAxMDA wIDkw DK7ILlKwII AvSXR noEhbTL8yd GUgMC 9TdGVtViAw DQogI D4+DQplbmR vYmoN CjExIDAgb2 JqDQo kIFs7KPczG CAgL1 X8xHUhVn5k dC9Td ON0pVDgX8E ydWVU uORfQ2Okr7 VGb25 3D4ObtKSkK EJvbG VqLO6zg0Ey bmcvV 8rhTO5qrOC uY29k oM2rXEekZA AgL0Z rfoA4D6lnp iAzMC 5JDYO9O7kb ciAyN TUNCiAgICA vV2lk dGhzIDkgMC BSDQo oKBHsY9Alb nREZX WuqisthK2y IDEwI URtXg6JUJU +Pg0K VX5kp6GlHZ oxMiA lQA7nsb3YM CBbID s3SJR2WVGi Mjc4I OA1KCTrEPJ gNTU2 QKE8WcO6HN kgNjY 4WSA4YKJvS zMgMz GvOXI1OFB8 ODQgM ej4IXYiNyC yNzgg Tsw7UTM4Ox A1NTY cOSJ3ZRN2X iA1NT RwJNQ2LXF8 NiA1N KWcUMP8JHO 1NiAy NjdlNtk5DQ U4NCA XJzQtKUt3G DU4NC G4WAAvLNOz NSA2N yxuHaC0ITi yMiA3 FnYsHnG9MS YxMSA 3NzggNzIyI DI3OC N0TIGtJbX7 IDU1N eL4WbGqYsL yIDc3 QCW1WanjGy c4IDc mMnG7OjczB jExID bvPtY2Zouz OTQ0I YM4XoZ8Vba gNjEx IT8EILUvJo ggMjc 4AKJ4VZN2L jkgNT Q3MVQqVbV7 NTYgN KC5IHIePXL 1NTYg KWO0EUE4IK A1NTY jKYA8YRJpR iAyMj IgNTAwIDIy MiA4M qLxZCY6JWU 1NiA1 DDZgFWC0GO MzMyA 0ZWZtQqy0S DU1Ni X2LIThSxZl IDUwM CANCiAgNTA wIDUw MCAzMzQgMj YwIDM gTRI4FZZfN zUwID M6KfN3LIJb MjIyI TV5UhRpGmG gMTAw TFH6GJWpMH U2IDM zMyAxMDAwI DY2Ny AzMzMgMTAw MCA3N TAgNjExIDc 1MCA3 NTAgMjIyID IyMiA zMzMgMzMzI DM1MC V6RWJbEFnx IDEwM DAgMzMzIDE wMDAg NTAwIDMzMy A5NDQ gNzUwIDUwM CA2Nj kiLvk5WBPg MyA1N OFnFOK1TTQ 1NiA1 NTYgMjYwID U1NiA mEqDxShY4J DM3MC U8GOUgLYq9 IDMzM sI7EpgsQRV yIDQw MMH7KWugDy MzIDM zMyAzMzMgD QogID V6HgQ2Ixwl MzMzI DMzMyAzMzM gMzY1 MZT1JzG3Bj QgODM 9YSbsVIA1S TEgNj N2ZCB7CqJ1 NjcgN pV0ONG8CgE 2Njcg HCArBZP9Wr IgNjY 8NTK3DzN0U jcgNj Y4QCP0WRCm NzggM jn9OXX9ULQ 3MjIg IxRrUJg6EG ANCiA aVme8TQy8Q CA3Nz myTwc1YZO7 NCA3N zggNzIyIDc yMiA3 MjIgNzIyID Y2NyA 2NjcgNjExI DU1Ni A6BSZjLFB7 IDU1N nQ0YKMoYDM 2IDg4 UYV3WZBjNC U2IDU 0KiC1SUEuA TU2ID J8EXSvQalz Mjc4I AZ8IRY5WSY gDQog NAG3YvG2LL YgNTU 2AET6AvK7B TYgNT A1VHE0TKJ9 MTEgN QJ6BVM1UcY 1NTYg JBG1VHMrUY A1NTY vCRZpFY0rJ Qplbm RvYmoNCjEz IDAgb 2JqDQogIDw 8DQog BXEnY7M1rF UvRm9 slBWvj3Jpq XB0b3 INCiAgICAv Rm9ud A8tuHJfULH pYWwN CiAgICAvQX NjZW5 0DLrlDT3VF XBIZW lnaHQgOTA1 L0Rlc 2NlbnQgLTI xMg0K XUYwOY0OrV FncyA rUx8DQGAiV C9Gb2 50QkJveCBb MCAtM jEyIDEwMTU gOTA1 CL7BZUOcOJ 9JdGF saWNBbmdsZ SAwL1 H4BX1KEAEI CiAgP w7GSjNzDW1 iag0K MTQgMCBvYm oNCiA gPDwNCiAgI CAvVH skRF7Vd611 L1N1Y aX8yFHsOXP 1ZVR5 cGUvQmFzZU ZvbnQ vQXJpYWwvR W5jb2 VtkslbD8uy QW5za FOxW79xnV3 nDQog XZGkH7Xbfa N0Q2h twwElOH3RT XN0Q2 hhciAyNTUN CiAgI KZcI0vwyHo zIDEy XLUyJg9RKV AgIC9 Cl286GJJzU 3JpcH RvciAxMyAw IFINC cGbVu7QVuS uZG9i ga0FUqTtLE 9iag0 MVQQ4AN6AX CAgIC 2Hmb6wS3Q4 IFsvU CPHC4LypAZ vSW1h L3OFXM6RMF AgIC9 Je970UCy3V C9GMC M5ZXJnFi8U ICAgI VXcO8UlPPM xIDAg Qw9ARFOtPB AgL0Y rSYO4CMXaE j4+DQ dgEXCsU4lX YmplY 9DiFQejOs6 NCiAg Mg9PZoIzPD 9iag0 KUcHaXC4ba g0KIC K3MN5RPUJf IC9Ue WPsM8QjI0K zDQog VQWoV19yUI lhQm9 4IFswIDAgN jEyID b5Wx6QNrQy ICAvS 2lkcyBbIDU gMCBS LK0NFkTfZU AvQ29 3qnMtLG8GG CA+Pg 6SAB5sw5Nn DQoxN AUtQX5yyu4 KICA8 RV3XWVKlYO 9GaXJ zdCAxNiAwI FINCi AgICAvTGFz dCAxN iAwIFINCiA gICAv Q598nrBzJA 0KICA +Ds3FYF0qf 2JqDQ bfYuRpEE7f ag0KI VI6OG3LDIJ gIC9U aXRsZShIJl AgYnk jZZ8hxzXKQ FN1cn pxJON6QVZd LCBNR CBhdCAxMS8 yOS8y TCW9HAA0Gf UyIFB DXI2EXHClR C9EZX U4LWxbFYSb IFIgL 1hZWiAwIDY xMyBu qWvkWK1FYh AgICA cUBFeVR38P DE1ID BvYn7BXPA+ Pg0KZ O6ok3VaGWi xNyAw DF8kjf9YNZ A8PA0 BGTKtGV6Ns XBlL0 ArbUTwp0mY CiAgI CAvUGFnZXM gMyAw IFINCiAgIC AvUGF cHV6zZLNrX XNlT3 C1qVmiYQPA CiAgI HFoH3H6bXk uZXMg MTUgMCBSDQ ogICA tD86dCN8LC 3Rpb2 3sXvY5RLKs UiAvW VuvEE00kAm gbnVs bCBudWxsIF 0NCiA fFm6NPjPhW G9iag 3ZuXVpOy2M MCAxO P8WDJOfBJF wMDAw EIB2QLLjFw BmDQo wMDAwMDAwM DE3ID RjFTQyRP6Z CjAwM WGoGIE8LQa gMDAw MKAdli5DUS AwMDA nKKu0OlHqT DAwMC BuDQowMDAw MDAwM Te6TUStOJG wIG4N CjAwMDAwMD E2MzU gMDAwMDAgb g0KMD AwMDAwMTc3 MSAwM DAwMCBuDQo wMDAw OKMyRfZ0MT AwMDA eMP6SChHxD DAwMD T6NlKtLSVl MDAgb k7NMILqKKK wMzEx MSAwMDAwMC BuDQo yGPZeUZP5S Dc0ID SnXZUiHL8S CjAwM DAwMDQyNzY gMDAw GBPuko5AUE AwMDA vOIR7GdJnD DAwMC BuDQowMDAw MDA1N XX4YRDiRND wIG4N CjAwMDAwMD U2MjU gMDAwMDAgb g0KMD AwMDAwNjA2 MiAwM DAwMCBuDQo wMDAw HVH4CJYvKK AwMDA vZN6LUnTiQ DAwMD YyOTYgMDAw MDAgb b9JrEJsjNj lcg0K PDwNCiAgL1 NpemU gMTgNCiAgL 1Jvb3 QgMTcgMCBS DQogI I7QliVtNTG gMCBS DLgoYV6KGE s8MWJ bFCEwHVI3L jRlND RjZWFkZDY0 MDk3Y eQ8YPM7Dvj +PDFi CFH6NoIvTH I0ZTQ 3T5ZdNRJ6P DA5N2 O2JRagGCF7 Pl0gD Qo+Ye0Gb6G hcnR4 scSvETy9RU U5DQo vKNFCQn4R ID Date Data Source [id number] 03/11/2016 02:08:55 PM EST [facility] Name Value Range Interpretation Code Description Data Larisa e(s) Supporting Document(s ) [facility] i[facility]TDQox IDA2 [facility] JqDQogIDw8 DQogI FBjC1W7sRa vcigp B0RvsZrhUD kvU3V iamVjdCgpL 1Byb2 B2G0OhVBav S2V5d 51hWOHiJP6 DcmVh dGlvbkRhdG UoMTE vMjkvMTYgM TQ6MD a5AZolQ84d ZERhd OYwSN7VfnJ hdG9y KEVwaWMgU3 lzdGV kshRIe7Usw 3JhdG lvbikNCiAg Pj4NC wKaSD6hha9 KNCAw SS0acf6MLX A8PC9 DpIj6JFIcM 0ZsYX YnOLXah4Ik IC9MZ D6rrEqwRqS 2MT4+ GJdgPVI4gr VhbQ0 ThBnSK8od9 zgWfl 9g/2IEGwb9 2MQWK VGXvLlNOu3 uJGmd yEOET2lrTv 2zlUQ PJcfjf7+Hl GzJcY JiHkxlnVQV xcj6z i7GExY4/An eKGIe fsD+7AYjz3 4gSuj 2NC3gn/+A3 Y1/2p e7HS3JbD2j 6M52k 0/S1M3Au2n Yv/OA 4vXbGaKYQx wGcJo QBrfZq9/En J/ARb bLDdm1fqwP T0B8n xA/tMb9Ep7 /wcUt oAjMIaTt2q UB2cH 3bMvZ2S8cc NDfPZ 84fjaNOpGA mrkmn pTJ5RYUem5 lftQ7 6NlwE5KplC Aa//2 41HIwvNaL3 hsTCl sX5FldGf1F LvECu fUi79JA/MT MUSBb 6ZKtdEc+8X oH3do +iYLWymopy hrORa Ciur1BNj9a kvSJY RclIZxSVNA eMx9f F9h8LuRnYF Ec9AA /Z3B17Pgx9 CO/d9 DZ5aV3p3az 7ov/i hfihYjdZzv 5JhHt amWAaGM70V dB0HH xOig3ThhAH D9seU Kb2uhf49FW YV8QW stt2Xd+/ea FsI/F Om2O4Wh0l9 PPzQz CKiXO6sTbu mVaVC /Xx2sku6g0 9uK+3 35mZhAWxon f08CP C1Ue0/89lX BZN4z w2TLE9vFV0 8ZaFJ w1b7lB0j79 j/fHJ MHfMHGKobW lFkNi 0ppQR9nHX4 Fhmg2 BJYgacUymb 7/A1R esxgLPdwqk tY6tY Cs7cuZ5pCD 4F3ev 8eeBNU7t/F ECS+M awDYoZ0cMz 3KmdI IYzPnhOp8w 7JUmP nkqez24/kK yV4sr uUi7rM8YBb bMXn0 SLFQt2ELZa +FWvp jktUkTLLPa 0/0E4 vNdjNZow2r x5Lou lK0hZoJgSM T9yII gZEzjMQbkE MA/82 R5mIqS053y 8dgEb z3Jx2kFlvt fTief Lyfw+f3QLs +Posi Zs8mLioZSP dxvYK pPqhXfXq1h JTKhT +DyHHgNfXa yMxa4 ZRqfFli31L KfrOq R0pfqpXQNm KjD8B TfBmRQYELr DtyN0 I1sGe93fNw fdCCu t9SmaEtwQq fzzfj i6nZA/sSeq fj3FQ pgY3sqOBj0 mvS0S FQyc+A3f2x alFlA 72QuMueWFf Uh9Dw Y7w9WfG3cj VrDar HZhEHNYCgD S3z2J KNegItuLaz FdqWQ KSEELbr7JX aRbnj 7BhIIH7b7O lXODS xOWIdhUtei qkUGk xg0D3Hqjdc vFtlF Qmd6aB09XD /Dkwn P1o7TG5jBm FaXIt IqdyXnpXDO L0po1 JEKCDrZX9l Z6Q3P xAPX/GSARl iQBBZ Uk2vsvWjwK 56LWg Jme0yZtHKN 77DNv ZMkJodZEYz hveAZ 0VBWU8J+N2 ycC72 F1mTpmlhzs 2lqUG 9/HdKjDAoI PeJtR /lxFxzp/vY C4m1N UvBKlTDDlC 1t+GI yZWxc3T7I0 LOGEa hqTbOzzOR9 jqW55 ce24yjtwT0 FoCTx YQn6Of68Nn bxQ4w ohJg/tY7bb P4wXW mdEShENz6D AbIC7 fqm2R97LMC JbUZq 5BZCGJI+E9 w+PKJ 9+tr3TfKo6 wOS7G nATKsCLrlO jQvVW sJDAgCk7nH U5rLe dRlwYQ4koJ WDyh8 aEGB51UIY7 0UNG5 DV7GqruD47 SkZjz gEJaaEg9F9 kbaDV CwHf+Bq0MG 5PlnN z8V+/Xr+1I YNDLm V8mt6ZW7uN 2tJRr j2OM7EcIWA QPHZT Q9oUYmM64N gcGKd tK4GcJM/tw wMKVl oTOyLmCWbY 9AfQo 8if7aq6XA3 2btyf +8Ot5/N8yn rCQj0 rljmXJQpnC J0JEt hugKLY3HnE gZxAr WVVrKoTqxN okypN 67E98MYMZ3 kHLLS +ISCWUV+nN 2RE3A pHkO6Siqsa dZ8R6 vfp///XfRZ 6cY+d hP3XQZLhrm t4kEa /CU8jBzVue SWv0O 2q+6rWK+uE T2Ahu A5QEQy0JpN eocs2 4WFU05UniZ o2pdo NNGRyNpMpO tsN3G gB4jFMajn8 YeBZB xOGiUO7+VE BQygj axS288R+wx MYhcE TBLrDZXoh3 WGHy2 n6uzFOExML ZDK15 c+RN+z4vUO zZNm/ syRC0oaeLU 410f7 RRsvDmaMuW f6Al1 Gz6n+lakB3 ZdrdA 9RtAfNZgwL +U6p1 GAG7Y0cWid Stc4w EWYR1AvocX la10h eW2FBKl5OB AOEth cas0+zwXPK qhsJq M42Wwg6tv0 VOGNr 7Y46Wk5UUj iJgtx 2pIMAoyQKv 6dKPt p2goBCvuuf 4ur17 DY/aQF+jhM ZJEnt /KYnPdXo76 H4Db0 V1AZ7BWGga uUQis X31mkEHMGY u9tdp qJpE8QZDGA nop/b LeIeS98xCt mrf/k GuX2pdj2UV eIIk4 7Atj+ESh3T IPmoj CrO5VS5Srn PV2QB 7ZSpGeZ4nn 7072N 6uVYMnOqww WJ9zv xYKzPsuoRf YXPQD GMsP3CrpeL 1LVZt 5x2tQaYxnL 6QpSs lYbL11CjTS FWllr REru0yJKiy jqHmx bKcJP24vku jSaNN g+2Aaj+lKw 1rWC0 OYxERRpStD USMuN y/y7LlbtXf 02OIb eC9Zyy5CAq BqAM8 o46ap34xOD xg1ai lC7OnfZZdn xhDCZ B3CbieyIRC bvBoI kdcUIm/Gvx 52Zqo HjMjq3hLvQ wZprs x/GAqa+slo WL+xY nh5Bm3ebfc 3lqbw cPokzcxa67 JNqLH vlgbwxa5HA yZpTV MCjf2JMyRe 5Dpdw S1XVeQoFEu tfemm nQIixyAuU9 Otw1T k4DZFONRLT buHdS 0Rpbmq8EcM yONBa FRvWCrVSKM ypD74 UK6Ke/R2cD /O0RS uubm0qFUMV t8NIW m+rkJbp1mb GyGXh TRLsbUagra 4qehQ CTGvK+cnCG 8mttU 619mamzyey xxleb QSDHTEB6Ec q9Kem nVRTApl+Q1 DFM4I kH6tAlHrKe H7zfL NADTGXlPU8 SyTbS +3Gyzmzz2L 6hxKc Y4+aiELqNI FzuUm zoEjRW9OQv y2BDY 7bbYUN0qRF zEaS2 5EO4nbqFyN 8Cix3 yzD/m6ImKk 8V2t0 E8Cjf9SFUl AZ23e 0tFgqXVfNN P6awF rKFE+r1VHb wo+2I 3TnYYrwZo7 rHkMK hcmFdqMjrT QeIqH 2BKXYnu4KF xoICU 7q1KAJ0UIR /Jj2p XJHH3SG9M7 pLbA9 vEScT1vGiC 8LtyP HUCiWKy4Ka I7cIY pMD0MXk0oR CAncA ny3Pez6UDv CVQT7 tj5qLeoIkr fBrSa 8BEHsWE/6X BgGQt aa0X3SdFq+ DoNjb WtrORq6gaj M2+Ex QYxiQnuHfr Qi1CZ EceRbLMzbj oaCwm LfZhMtrvgA yafet 33aO/0fbda SsWVu VVG6nvPuqR 0KZW5 fm7WcJGm2S DAgb2 JqDQogIDw8 DQogI HGrC6Q9bAV vUGFn LJ4CDVVwEE 9QYXJ lbnQgMyAwI FINCi AgICAvUmVz b3VyY 2VzIDIgMCB SDQog IKUhZ87uXV lhQm9 4IFswIDAgN jEyID h7Bj1BDwOa ICAvQ 29udGVudHM gNCAw IFINCiAgPj 4NCmV zZV5wix4EV iAwIG 9kdh3DWCO1 PC9Ga Lv6DQHaV5K sYXRl KQFpj1CuTR 9MZW5 ndGggMjAxM j4+DQ piYFE7koWv bQ0Ke WhjIOqo4sb S/b7A /bdIVap9Cy kjkiI dQGbI5wW0u XnUMQ Mkxj3VXlXr bfXw1 aOp/9X9iTu kZFtq uRIvs6t1vc vADG3 i3Tsd5dvIK 6B9/A 1uBBRnFuO9 2Temn eeKSDCf9kn Dv/4F 9m/83bzZE/ gI4NX +DYdn+84jf YPPej CW35bqAPu6 /AFRr CAUPryKCIf 5cnKv VvIELpePSQ 5fJlc z+BsQxghh0 Zdffo H5v+FyDp/7 wMYCR Dwnlv3uO7e SYHd8 PvAdn57tf3 2Dg0m huAW0mq4CP /fHHp kdwn3e8jT+ lJ1nE hIYIOdFXjV pXcFi C7Mil+kS7u J1Wai lKk/g6gJkj dBPaX hKPSIA+Gvu w+0Vu lYq6AZPL4f pxYfp gwrrsTP2Vt f410l VF+A5qyOXc 2AUCI 3guoAHmSXp FjosU OTwkKRqdEx kh2nq Y//io34WhO JII7w r8oEw6G5IQ yKqac RY7wfi+OE3 s3dA4 BH/fewQcso xKFHh 3kp8JnXTa/ bcjW/ a71rKRSdBv EHF+i 4XhfiRNApD xPHrP vpyUM61J0h /WnN5 QnDoHYDJlS yTGpm vqgr07Kqmh 49zb4 ikTNTSKgLC CYVXj ZEr7E4jUAf KQS4z 0LLPCHkg5x P7Dsn 1dGtpjQ7Qp XWTLV Dfa9e2YnGb qXInt tihcWKLwA/ c2qIF MPmXkmWlTa GWTSz beSEruu9Vx LZ4cc biHL9qYcF3 /8eMd 6THXcbzNQJ k7yaO h15kttk129 NPOHX tDgBqvdqGu nu5V4 FuJt8omaL7 8yruY nE1qdOtOyJ dPC82 KNcN3a7DWE fqWx2 JrD7WnL4jy RtNRU L/gJU5JAJG 1nD5T wQ0NdPALPR VOjAO AnNrnBaAMY 5KVVV BXSxkHBdO7 NOB6U UhByYJAuLW JC2Ay VkaF+siBRT fLmzR gqbt5VcLsN St6u4 OPO5AOkX3o 7EYdh icGIAGbqV2 B2Byp 743mEhlXCf fknrr sG2iYNaL6m XKSPC AQUCZ+FEYP e1wp4 gFSOQhn69f ETu6E noRiUR/jiG LRmTA 3xR1sxnsvY Q8nhd 5rMrcfmAIP Oa2UO kA/L+uxoCx Z+Raymon t8c5jAE/WN 1yrUs T4vCruvHWF EQua1 TBmT6kXBk9 WBLhJ I+HGOgkHOT /Gc3d 27yRUP00KS DrscX Pj1zjgIIff 0rbYo i6EcUNZBj4 Golux Y6cor+o5Yg FwVyh wQfJtw0v/v B3vnQ 4Tzaw/WlD6 TvXJ9 YFOhDZT7cr xFGrX ZfHKQixgUQ QZ/Eq Cxfi0CnrrC mfrgD hhD7iJ/rcR JVOzB cmOTUniejZ CCcMf xKy9EOzPGh m1u7e rkjoRudMHI aBg6O yP2aFJoqdz ltV24 uL9fLplJPm CfTZ9 GbhxtbNp0y 3wEgw bIgfRH4iGV qczT7 InA52ajgGY KSGDb x6Ko48yHFR ScMOv 8wLZQopnXe vpRHx 176ZWKaWLC YZjT8 2PC/QSD/O4 S37Uu Q5h3x14MVW +aQdW pES1XXiCwH UfR3+ mpHvI6U16r rbZXE bACkl1vkwa 2cRR7 DE/cI4TePg Splal zedbn2LcGj kHL2K L+uP7Ycgdc TuD67 iMQ8omGMya os8pX Lq7XaIEmBX LWPv0 6NRBu5G6Pe iYWQA cUeTrng3O6 JpW32 OOMaAcbttv 4psyJ Tn2MIocwSn EvZZO xFjDP7Ejuv jZa43 EfPC0eGk1H 1AG7s CrcBj9bqD0 i8ufo UZrvXMl7BA 1vTYE HYATCmwFCD q0Sfl gtGRDk2THn sv8pF ncF2eyIBnx BSwho eh5Q7dgzhO 2xvT1 7KsnJSQCMC YQz2J kllrYMiyKZ MkJBq yJkDchhmL7 Mbq1G yQ29psbbCG rjky2 3+3TJdzEee NKb23 nCNEbpRkCX LNMmV idUPTZpuIS sWSYp deAH7m1HoR dvbfG uMSsB5cpFE 8li/o M78vcFgElV pxo/m R9QJY+3uyR JxJDo bk7SpWhxlY iqHRV BhHEzcrc1E hkYxu B+IFtQQTVt 9+qsZ 3O/0XnuFSO 8xm+b dVYOA05Tg7 +vG3R yMkd3XBwtx XtBjG 37yfkPeg5G pH5Cg z+nsjkyJXR I4JX0 ONl5uZvj/x 5n/XD 9KT1E4ChIO obpuS xIzIW3qAS7 E5qsT ocwHtDJ3Cd YscQh eujNpbrj8U TKggP bBVRnwu0MP GzBKo sYkk9Mg9lc RTloP Ttsq+lGlqb 6aJVN dIJlclWFyT VCgYJ LaeT5N2hUM 8fy+s N1P7cMU3LT 0hU+a x4pApFNryy XZDbO TlKHk3gbNG glr9h 6/kpSl5ory /wqDF kI3fzi/tsp AhOX+ z+VQkfBEn9 B7XRz YTVGe/qKKW 7dCQe m810QjA/e+ Nawft O9Pt14Osnn CpD+Z V2PZCJIxvt ihbzo 4ZkSd0MsZ7 qWtIP RduSDtknfH AyRGM 6oJ8nRUSZ8 wreKv 1vdUKWsRtL cYm81 U015LhLwSO u52N0 7jY9JmCQPs zNN0m 23WcqnyYiP r9ehf QzlGmaBmu/ OTXBS lNHeCLmQtR 729MP k87stlVHwW xPRxt 7OX2KtGpsj 30nHO +In5o+8e8C EALD0 nLNkzXB9dK L7+as 5+bN2jN97V 0biic le4XQlV9aZ 7yr3e /T1ADF6x/m cJuw7 QM/oegFUPc G+John tejwEnAIJ+ FLLqB Kg7UiUV7LN XRsBZ 37GXXPa4Uu Fz72M +D57+B3U9U 41lbm EokTYbQM0R CmVuZ X3ron5ZFgV wIG9i xy9FKQY4WZ 0KICA iID4ZeLDyH 1BhZ2 UNCiAgICAv UGFyZ D05HPRdNSK SDQog FMZsM4Wan5 91cmN lcyAyIDAgU g0KIC JmHP8RESRe YUJve CBbMCAwIDY xMiA3 OTJdDQogIC AgL0N vbnRlbnRzI DYgMC BSDQogID4+ DQplb mRvYmoNCjg gMCBv YmoNCiAgPD wvRml myUGvQQ5Vq GF0ZU HqI59wXVYq TGVuZ 3RoIDEzODA +Pg0K ICBzdHJlYW 0NCni s5CzeugvQF H0v0H 1KoX9GxnI0 4178J ydQ04CFBBb OUTRF JUk2mPLwaT KK67/ b9dNfIzOys tGYAg ZMPRfivP3f ZwnQH E+AAhEifYB 99UKA 4SCGau55oR aff4L +zum1BxA2G HDcX7 A967/c893O f50t4 OQ9AqI/X9x pFvcg OYNjhUNYxG 8+J/f YKOiFx2qHW 95cze EXwJRiTNWX t29h8 Q+cL+DTkNi hSGHE Mn1axdL2QA ziY8x kp12pSjAsD RIo7l izZrMc4mdn sXGHH QRGSt6f87t YC0tk XOTVJqsrWL 7AvMi yISnf5CLSE HFSHs CCL5thUe9T yBOCM GxJT9LXbug txqsi u7T0c6OF07 GtDNk NLMwYMvTny SrJa5 bIq6neOeF7 CUmZI aHRnYITSYh GF0ga 0ZK3IKxVSN FsKXB 6cIdG3/[place] UQZ9N /Kac9InXTp iy6C0 IPqTBID/uH izIfq LToOA+FBd0 Ft5vo wXvjQvUVn3 Mu6K2 ljfjbxonuL jrmHa QhO9YcuEe1 dXM8+ XQ3uVhh/ox ES90W PmR/6LnqMK j9FTy DduTLCPRa9 hkJIP PJ8LpXfQ7V LjUMF 4hYZcpQGN0 6lom9 i0AtxWSpPp N88KN 2kq7NHC2KK NY37x NaaYKdP3VO mIbOx v0P2Bz1Wmt ejxbk AK8CpbZLvd x4LSG VQy8oe6Sqh LTr24 PUchbbqjOf no8Xl 9HLqY+k7Ei jwkPA 30e0JWc+Y3 I6vb7 jz0lWOzA1e I/Tl3 uinhXhp3xg gTDU6 baYNflqfhk Iohb/ HD4etqMvmx fjy9s ptBCAltwxk 4M76A dT92wlva31 Jye1S /H2gw7d+Ch O0Rz/ 3mUdxYjPPq KqSql ha8QAELmqN A9+jade nDMKbW3/jW kFURu QQSOqj5IGs AlKAK 3DLhkWwaOt RdsoP 20ubMo7AyP PFC9O nmEqKqiTVZ DmZjh gCudT9jJs7 PrMUR 5DFlyV+uT+ yyxYp ilB8VJtLlc Io9fs gwGdq69AFf Wo4km P1i3YcrysQ o3mj4 8p/VDw/gzh XyzXu J2oKC3I/hB lmlFn zZpmUDxmJR RnX5N 2WoCQJvn9O n3bD0 gKpvtsyzKT 92bEC IF1B4KFZuA cFeUc J1JVmRz5mR ZFs8+ 3EaSB3pehD 3Wmgq nG57M1ctnE sxYa6 kAw4qUccrD zAcRq vZS3MYlaqh 6XaZF na4q+PLmNo +ql9z PNpL4fKfVD lY3hY 6+vNAmekie TTKJ0 0RXuensGtZ pnJv0 4YOfQjbhHR 8amwA Jf3iIjmFRA ffxp8 VmZDhkwwbA iI1PK 9pIzUBEtlK wc+Hu q180CKYmkt eusyY tuO6ow6oTJ zK05/ nXF8pgHLkw QwMUe yJ6IWtWFJF w8kM5 ZJBvZUG2az JZ6xS qfJ4IdtJE0 n1rT0 AUMUya9LHO brjqO uRUzI8rbA7 uxqui jE2//q4M4G ZTvkR o2oZnU588L 5i0z6 K2bAeIrIRx o8j7/ CHzWCq3CZQ tH9Pi ZKSJ0r45gn YHFUV mL8J5BFygL RqbWd rs4o/jg0/z dwKXI jNMwrqNxv/ LfPjN J4EcT9IKdr a4H7v e2bXimCxFR xncHI IK42hfYwAx eUiAK BYl9eJ4vgp 8grDq 8a3gDl+YUs u0G6y nc0xkrrzcg g/9B2 u+Ewbq8AzR Bkp3B C3QNgzbL4g CjeA4 BpqHRUKbA5 qteiM 4xg+F2uIbw W0OYI q5QgHanWzz i+9D/ 8GaaweUmLl 2gIHS NNHFgCKQ7d 2WQCu 0kPE7J9ZyG GOAZv TDYZ5uAVh0 +EZwm wMERqrLAW7 hO5Nb fB/3V6TwAc Ah3LU DDJTuCbyuJ aAEq5 5AK+wh8Gnw J592T l4FuYHgt0J uZHN0 ojOolI6WCM 5kb2J iTAq0UDInj 2JqDQ gzVTs2YHwm ICAgL 0M8lJGcJCD nZQ0K DORrXQ1ITI JlbnQ gMyAwIFINC iAgIC QwWyMqo2Zw Y2VzI DIgMCBSDQo gICAg M82zPCwjJu 94IFs wIDAgNjEyI Dc5Ml 0NCiAgICAv Q29ud GVudHMgOCA wIFIN HnCvNx6SIq VuZG9 lzi1JLGXvY CBvYm oNCiAgPDwv Rmlsd OUeGD0GgXS 0ZURl Z78vEHEcWN VuZ3R cMZE6SA5+D QogIH A7yfVxeY3Q eJzNm B4ufiEGn35 n7X84 aS+t1CQ+4x 84D5O 3wid1NLUZa D31JQ skYwrQEtou //0cM MTpwsMewHE UC3OC +/qN21wMGM VHIEP JiW5Q/prBk JQNpK W23UJHr6+g ufCxv WrC3LGLzfl OR43x lG9nFg0PAG 0iQPX 5QKZh3xCSG gOFHI Oe4in4SzuU bfgSp 3B/PRkUP2R PQ/TU /eUlBL/hNo CpDdY PLKIUcBS4S 6wj6N c/ovAa/6xn 31QeH rbyg46vhsj PU8fa 37DADwT9IS mIsgT 3bIDek55gt Z87mG XpYhPCfPkr z6Iwy o1pmjFKApR PqD+i IYFXG8FMwn O9jJd WKaPjSqI4m oaHyp NWp/FfnZl9 BoQX/ b7Awkh1zXL X06To KxhQKSCPYN VqmXf /9Lkm0OpDQ 0AouY eRHMsgzLPn WIsNw b1xKvBcHmE JLRcn aAnZZnEipE JBDkJ eL4s4S/Siobhan cZ8Da N9NeQ9z09X Fwffs zkOsVf/1Cf 04N9K EUjGSBygUI pVQE1 6dc6kb+lwK oX2im AGR87DxTGa SYteE UxYGoTrUAO EDkKD VjJAWS7Oz/ Zv755 oaR6DWAYNP Heh0T yHTfQHgkXy EGeOo qImcRgVNcI 8Xve3 Zh6cClURdj zzSo/ oqYv1DdbVs 4ss35 2QNYLph7wB +FYR0 rAgzUs3P6V P+KeB JgghH5KlEH ciEzZ bq0GUdDrJU VPnfd /eQezigV8l lEpKa 6XUvjhuNGy zONHQ eAnNl0wCFO 2CODm IBo6lZF529 tZmcS KiqfWshdil fsdZW 6tFiZaLaLm qN3iq x8k+GTajTU cpRTJ ldTZJldmo3 tb2KG FLIDpXYD8B ExN6j iau88bRg74 ILOeJ +QbiiMRynp iPCI5 JLHg03HT+1 6K0h3 FdxxBiUJgZ vUKZW rebHh3+BUM xdO5l bmRzdHJlYW 0NCmV cZU5nxm2RG TEgMC BvYmoNCiAg PDwNC iAgICAvVHl wZS9Q YWdlDQogIC AgL1B hcmVudCAzI DAgUg 0VUXWgCD8R ZXNvd XJjZXMgMiA wIFIN CiAgICAvTW VkaWF Dk0wtMdJdA CA2MT CoYbwaKB8B ICAgI J2Tw162VH6 0cyAx MCAwIFINCi AgPj4 MXkHnMS1ly g0KMT IgMCBvYmoN CiAgW sC6RVWhXvS wIDI3 OCAyNzggMz U1IDU 0GkK8HZXfN Dg5ID N8MrUfFHIo MzMzI DMzMyAzODk gNTg0 UHW2RPOtBj MgMjc 1FFO9HXC1R TYgNT R3QEB9PzS4 NTYgN ZC3PYN3AbM 1NTYg DWJ1WKJ7Jx A1NTY jFvx2JJF1Y CA1OD QgDQogIDU4 NCA1O BXwOBF0PPJ wMTUg YdX2NRN9Ym A3MjI xEzPnITT9B yA2MT HvPrw1CWgn MiAyN zggNTAwIDY 2NyA1 NTYgODMzID cyMiA 0EdgbKyG6Z Dc3OC Z8VjJlSwC3 IDYxM YA0VvGeSeV 3IDk0 CBV0IdjbVz Y3IDY xMSANCiAgM jc4ID M9LIBaLeoq NDY5I YR1ToPdFwC gNTU2 HLN7XsS7EW AgNTU 3VBP0ToErL zggNT H4HOT8SwSt MjIgM jIyIDUwMCA yMjIg QHDuCEN0Yy A1NTY zZLY1UFU9O iAzMz MgNTAwIDI3 OCA1N TYgNTAwIDc yMiA1 MDAgDQogID UwMCA 3EWChTdP4C DI2MC AzMzQgNTg0 IDc1M FX5DPXvPkM wIDIy AuB0ZLBgTy MzIDE hKIIxDAU7Z DU1Ni AzMzMgMTAw MCA2N jcgMzMzIDE wMDAg NzUwIDYxMS A3NTA gNzUwIDIyM iAyMj IgMzMzIDMz MyAzN ZCgFXE1ZB0 KICAx MDAwIDMzMy AxMDA wIDUwMCAzM zMgOT D9HIe3JMT2 MDAgN xS7RHN1QXH zMzMg RVH0KCP1Wd A1NTY pHSK4BHK5S CA1NT YgMzMzIDcz NyAzN fMtBKS8EGI 4NCAz LfUoGoW1BD U1MiA 4UYSzCCF1R DMzMy AzMzMgMzMz IA0KI IA0HnXnWRW 3IDMz MyAzMzMgMz MzIDM 0IRR9YDTmO DM0ID yiCWM7MoMi NjExI FY2DhB6Wrq gNjY3 BLT2HdC3Kg cgNjY 3IDEwMDAgN zIyID D0CwJ3Vjpi NjY3I QU9JuUcCqf gMjc4 CYF2RGGdXe ggNzI uDUpaIjC9W zggDQ lsWJb6PNQ8 NzggN hx0RSe1JFO 1ODQg Vjb1ANifGi A3MjI gNzIyIDcyM iA2Nj wmRzI3LKSw MSA1N MZnYSD4KUJ 1NiA1 PLLnYQQ6BG U1NiA 4ODkgNTAwI DU1Ni U9OOEgAAG5 IDU1N iAyNzggMjc 4IDI3 OCAyNzggNT U2IA0 OYLS2MISpJ TU2ID W5CvS8BLPv NTU2I CV2AzW5LNj gNjEx WYT3CpQ1CZ YgNTU 4GJN8YsH0O DAgNT Z0HUOeMYBs IA0KZ K1vf1IqAZw xMyAw KL4fmj8VGP A8PA0 HEYGyCQ7Vu XBlL0 ZvbnREZXNj cmlwd U1mTMtkQLS gL0Zv qgLLIG4rV1 FyaWF sDQogICAgL 0FzY2 XbyHH9KJSm Q2FwS USeG8l1EZs wNS9E GBJbAW37RS 0yMTI NCiAgICAvR mxhZ3 MgMzINCiAg ICAvR x0ttSCAz9l gWzAg LTIxMiAxMD E1IDk kRG9VAzUmA CAvSX PrvJzkAJ3f bGUgM L1LyDPbPpD wDQog ID4+DQplbm RvYmo IMzI8UFXzl 2JqDQ rcTDa0HQfy ICAgL 7R8wANvVm9 udC9T aDM4zOHgV9 RydWV CqPNbO3Xej 2VGb2 76G5IltBDm L0VuY 82rxQ6aJ7d pbkFu l2kOpkDrUR luZw0 TSTWrMW8Ck XJzdE NoYXIgMzAv TGFzd ENoYXIgMjU 1DQog ZGCoK1mdXP RocyA xMiAwIFINC iAgIC ZmLe7kuQLk c2Nya UM6u3AdHYJ gMCBS DQogID4+DQ plbmR qGbwSXtN3R DAgb2 JqDQogIFsg NzUwI Ny1MQXpFno gMzMz YXM4THJ5OR YgNTU 7CYe4TKN9H jIgMj F0WOKuFrSe MzMgM mr0NOQ9TCR yNzgg RsPtOWZ7DQ AyNzg eBES7BTF4J iA1NT LoECM9BHT5 NiA1N UCxBLC7PRZ 1NiA1 RRIfQZF2KW MzMyA fWpKtIAy0E A0KIC N1MFTjCOd2 IDYxM YX0GmQjWxX yIDcy RhJ1BrTcVs IyIDY 1KmA8YJIcW zc4ID cyMiAyNzgg NTU2I WyzEtH3SPP gODMz JBqeJlU3Mu ggNjY 2JNe1OBL3W jIgNj O8LGVmWJV4 MjIgN bM0WMf9IAE 2Njcg VvU3MURiED ANCiA cSbIvRVQ6Z CAzMz KrJLd0IFE8 NiAzM yKyPHH1BXE xMSA1 NTYgNjExID U1NiA zMzMgNjExI DYxMS AyNzggMjc4 IDU1N iAyNzggODg 5IDYx GAF9ZSRkHa ExIDY xMSAzODkgN TU2ID AcSdB3BKQt NTU2I Yq4EGG5SGO gDQog LPH0XlS1DP AgMzg 2CJL7JZDpU DkgNT l6EFs7LET5 NTYgN kLiHUC7OJK 1NTYg NTAwIDEwMD AgNTU 0BTB3OcIyS zMgMT CrXSG8Wgms MzMzI DEwMDAgNzU wIDYx FMK2KIHfPj UwIDI 3OCAyNzggN TAwID UwMCAzNTAg NTU2I D6IKEAvKAW wIDMz MyAxMDAwID U1NiA tNwAkFEG3J Dc1MC X3UXLtJlR4 IDI3O CAzMzMgNTU 2IDU1 ZqM2YKBeZI U2IDI 6ORG1XVJqY zMzID czNyAzNzAg NTU2I HT5ZVVlRjM gNzM3 NQT9LuV8VN AgNTQ 5IDMzMyAzM zMgMz VhJI6HILN8 NzYgN JU9PFNrBnK zMzMg RcLgDVR6JA A1NTY nCDI4TKfpS CA4Mz QgNjExIDcy MiA3M jIgNzIyIDc yMiA3 MjIgNzIyID EwMDA eLuQcSIP4N yA2Nj yiGnB4HNU0 NyAyN htuPan9MMR 3OCAy NzggNzIyID cyMiA 3NzggDQogI Dc3OC X2HgntVid0 IDc3O RB8DRDoMmd 4IDcy CjC0HsMqGe IyIDc rTpG5WlysF jY3ID ExNXI1RPFf NTU2I DV7ExA8GOD gNTU2 MGJ8MrR8TF kgNTU 1WUW2PwV2V TYgNT X2RDM2RbMs NzggM gk3WMZ1UUF yNzgg OrIvGU1HJF A2MTE gNjExIDYxM SA2MT EgNjExIDYx MSA1N DkgNjExIDY xMSA2 MTEgNjExID YxMSA 1NTYgNjExI DU1Ni QkYX1VYN9o b2JqD QoxNiAwIG9 iag0K MDC7WP4GRH AgIC9 WoWWfC1Nmq nREZX TkxfsoeO5a DQogI PEbH6NiixL OYW1l V4FzwDVsFS JvbGQ NCiAgICAvQ XNjZW 74WUroOP3R YXBIZ WlnaHQgOTA 1L0Rl s3ToccGsWV IxMg0 MJLLuDK0Ky GFncy UqFg1OLKDr IC9Gb 250QkJveCB bMCAt MjEyIDEwMD AgOTA 5UB4QEHLsJ C9JdG FsaWNBbmds ZSAwL 1S9TY6IIPN NCiAg Jn2MYuWaSC 9iag0 KMTcgMCBvY moNCi AgPDwNCiAg ICAvV NjsPN5Ca80 0L1N1 NdB6pMYmBK J1ZVR 5cGUvQmFzZ UZvbn QvQXJpYWws Qm9sZ P0SeuOdDPm uZy9X xE6RitMsAZ 5jb2R pbmcNCiAgI CAvRm ceh6FJgSOu IDMwL 4svk9CYbEA yIDI1 DD5NOFBzBI 9XaWR 0aHMgMTUgM CBSDQ ycNWWfA1Vh bnREZ XNjcmlwdG9 yIDE2 IPGbFb4PGS A+Pg0 VHK5wv7TzG QoxOC EpOZ6qic0I ICBbI Bl0JTI0GZY gMjc4 WPZ6QCEgQH UgNTU 1MPF2KyY4S DkgNj M6VEQ0ZSCi MzMgM jReWXB8ACN 1ODQg Fhm2GEXeDy AyNzg dSux5CHE2Y iA1NT SlLDJ8HZZ4 NiA1N IBlSTM5TYE 1NiA1 GVSlAES9UH U1NiA jVbakUba2I DU4NC ANCiAgNTg0 IDU4N DY1JRWsOOO xNSA2 GilwElJ6BB cyMiA 9FmHtJuC6S DYxMS Z9FwjtTrKy IDI3O YM2KDDuDqZ 3IDU1 UmA3BaCoUi IyIDc 4VKN0SxtfM zc4ID vbNsH8Ljqe NjExI BpjWbO3Koi gOTQ0 FNC7RqC4Kj cgNjE bLX9KTSZcC zggMj r7KAQ1MAV9 NjkgN FB7BDMkUpH 1NTYg IVW9ENSwYJ A1NTY oYRY4ELZ6S CA1NT CrCWL4VJSk MiAyM jIgNTAwIDI yMiA4 RgWjNFT0ZE U1NiA 1IZCvEWM4D DMzMy K3VXPsSll8 IDU1N eU6EKHrHcP yIDUw MCANCiAgNT AwIDU wMCAzMzQgM jYwID DxMDR7VLXx NzUwI DP6LuG2WAS gMjIy RJX7PzRoTg MgMTA pXEW7ZKLtM TU2ID MzMyAxMDAw IDY2N yAzMzMgMTA wMCA3 NTAgNjExID c1MCA 3NTAgMjIyI DIyMi AzMzMgMzMz IDM1M VB6ZGMdELk gIDEw MDAgMzMzID EwMDA gNTAwIDMzM yA5ND QgNzUwIDUw MCA2N ltnPgt4WQD zMyA1 WHKaWPR9KA U1NiA 1NTYgMjYwI DU1Ni AzMzMgNzM3 IDM3M UM4QTXwNNi 0IDMz QkH7XjakZO UyIDQ hVDP0RDpnT zMzID MzMyAzMzMg DQogI WV8PsP9Smw gMzMz IDMzMyAzMz MgMzY 8VYW7RiJ2D zQgOD W4HYeuRBM7 MTEgN rF2BRP1VpU 2Njcg EyY0RFX5Sm A2Njc eKYPyQVZ8G jIgNj K4YPO3DgU7 NjcgN yK6BMF4PVP yNzgg Eii1ATQ9WK A3MjI cCeSeBZt7L CANCi InPjk6YTe4 OCA3N losExk8FTP 4NCA3 NzggNzIyID cyMiA 3MjIgNzIyI DY2Ny L1DacvJbKa IDU1N pK8HOYmSUQ 2IDU1 QhU3FBIbVF U2IDg 9YJD8WQOaO TU2ID K0YyP3WMDf NTU2I PL3WGXtEef gMjc4 UDY5HJW2DS YgDQo rHSE0RnN6V TYgNT E5XJQ1QgX4 NTYgN RR4PKP4XKZ 2MTEg EUX6CHT7Nm A1NTY cTNT5KOHyN CA1NT GjLYCnRR3a DQplb mRvYmoNCjE 5IDAg g6WiHQrnUP w8DQo xKJOhE5O4n GUvRm 2lgXBov3Pq aXB0b 3INCiAgICA vRm9u yV0ruUNnVR JpYWw NCiAgICAvQ XNjZW 38IEiqED5E YXBIZ WlnaHQgOTA 1L0Rl l6OqaiXbYF IxMg0 VGDIyYV4Gj GFncy ZmPn8DVEWm IC9Gb 250QkJveCB bMCAt MjEyIDEwMT UgOTA 1LF6LRSTuY C9JdG FsaWNBbmds ZSAwL 2F9YD1SRLX NCiAg Vz1PXuAoXD 9iag0 KMjAgMCBvY moNCi AgPDwNCiAg ICAvV PsnUB3Ea30 0L1N1 EiX8sQFqNM J1ZVR 5cGUvQmFzZ UZvbn QvQXJpYWwv RW5jb 8PssknwU9k uQW5z jLBzP17udL 5nDQo bQFQuQ3Niz nN0Q2 ojbnWtMK4S YXN0Q 2hhciAyNTU NCiAg KKAoJ2lswQ hzIDE 5CZIbPz9LE CAgIC 3Id354JPLu Y3Jpc HRvciAxOSA wIFIN LlYxTc0MQe VuZG9 ppd0ZItNbL CBvYm oNCiAgPDwv Rmlsd XFkCE1QpAF 0ZURl V55sTTChUO VuZ3R hODXeLPo7I C9MZW 3zlLyrTUM5 MDg4P r1UUaZpt1Z yZWFt ONf5lG98P4 iUVfb 3ufctMwklo afBTJ gklACBIFIl k5CEE nooCaIECEg RQQOK DeMiLYJdFl ARWQu CyiQgBnT/o KyyoI Ykva3sODET y7qwr g2RvN/v3Pd 9w2QA o7v7Pd/zfM 8/w2/ HVbjue7780 9wykC KexRbw27d4 ZkybX Td7ojCxMgX gcPEM OWfVb0hA4w eBlDm OQ97l4f0kn /0D4J 967Xz/nceX f0Yk4 ojMCfOumTb vzI/t A7k709fsAB /iyuu oD8q5Z5Fx3 UTwV8 +YM3/hmH/u u5moe GKfHNY4yKl MuevN bUgVT1hyzK tXzp0 6+Sniv0u/I ZIpxL TTj8bqwgDE 9pNi+ i5gVqBy2Q7 ftOvI 6M74waw872 YzV8S SdxTXAvxCM eDb07 2iGH9KbV+3 /nhDL DnhtX+xHhW yXD5L /egAeUhSLG VQMZG +2/x0AVEZW RQPJB hPULyeRqif dRz4j GnNTOszjmc qv+Ca OSDaRE+Lmf Q07aa QpBmb2kb4x Tv9kV fWIok1KslK lpFJE xCygkbjYyD 8PhFv mQvlm9RNCR TveFp Cg3xohPN+p 1toif ZnpFpCjagt ZdNIm kurxFBrAU2 kD/XF 9OTZ4zE4O5 RbRdY d1j3Wo/QY7 dT+aJ 2hBpRAU/E5 aP3D+ Wp5VjLUzqa pLX0o 9lz7azVwpT ycD9E 8aJ95XVbMM daPkC XVbnFLWf0j g2KPT Efu0+i4iBM 3aQOQ y++skPUHcC XRZTS L3hTk1BCQz MnGRG uYdZBaooyF yHUtV dEOfKrp9/S uaGic gB74EbY7oo LBqM9 5HdG3yVHup q3JQo fNhNAG4Fsc c+l/a B+9LgLiRTn XaGhk GkHjButNak 7daCy kfQIp/ya+l 4vwuU V7Rc+3cqgx 2uVub k60rE5ODBV DjBDj STh9R43Abv EvSuy GTynNRHuvQ e4fiH OfNdsWl1Gw 6Vv00 2brmqNWY/R IGj1A W8DSdkGz9n dl4jf iLfGJHCAny Qfkx9 p9+hK9R27Y qPXlN UeM7Dc1MfD VvcQo mxjTNJ7Fs6 TdYq0 5CT0Lb5pyN UbOli c5MdiX9t/1 HHwK9 IM3twRXhZ6 8rKao 3j92n9u58d q0ltI iuQtcTq93c B4120 lS6E60UpCX hSEai Mb4+EWyGCt uxGeR MUJ5ub5zTy Edpbw uPhafi6/Ft +K0xN CVpkyUybIt PgF5j maT9wxbmDr xeV3+ EN7TCnfrjG Sth9Z FX6ayWfnj8 l34PK w0wTrrv1TW 7Zxpr QHnCwYWF9p XjJNm Y94hpNQ35v ffnel 45oMaqlles 7qmqm h28WD0YC1n oBV8m DWjaDI+s9D fqzHi fqPnUYN9VG LoKPq LoWiZSWKWu FosRE ilOykJv6Wd z4gX0 EpvixOQuZF MUjJ3 vZ2efcgOy+ Vymrx o2qXstrmgT /JHza J78VZ0LbiG baB2m WZVz69wt99 WQtpr 2l+4l2MvrE /wsfR t4hl68bH2i H2gPk lfoK/Xj+vH jYnGq 0rwVmV4x1d qVpv/ 6Agz1p1M2C nlucx wd7qE561zX UbnXn qWngvXCuKo dquWp p8Dw8lqkit 8JA9h PE+wVl4HoB iVm8R yebPYLlOMh WZf2V nMd7S6Gln7 Ffmw/ R769FzERdW Is2Q3 Nawavq4GnD ++l77 ZW6MhHdWct WZDsU ieMBtSlSDZ G2W+r YIV66BV9V5 tQ+HR C9W65IiIUv wln9B VUbT1Ik2fF FGy9i H0t31ckiFf ZR5R9 SvsOtlx8VI z9MIY kSl+0CzS5H CMop7 zO5BNUbi/0 FeYx8 mgv4MDd4Zc oO7iJ chWm4WEtHO uMjua LcR+OVOvkM 3EdpL 5r5pjt1IqU KM53S Xh91cCO+Q7 tIAO6 4E7zeDQlP5 sn9GG 3HjT4AAEQo DNtJS hrp8a101m/ Q1xBW jmOZRqG1Oq btIy9 ABQU9PSWeH n7cDs 5lI2eE1JE9 gcRs5 DeNoo0UIk2 FkDPa DnLI2CZA3X LXaIt ptjZDVdYTQ W0DrQ xq/GeNVZ1l O01rq UuaFriv6SB 8usm5 BtWwsZ9hUL YknNj GNR8tDywYT GGvny sGWfaOTR0o 1ZKFf X7V+0dipWq i/weQ ae/sbzVKG/ TYWUZ j86zqX1d3i GXUtT aAgdQy3/gR IGaXu ig11nHVymn /NQ3w 4kvAFB5NGT NMO6k kbQC/SYx6D JnnT0 xWw3ilgsYA PkaGu +Dx9eFdohB rRCEK 33XMygaQ61 vlg/R ZTdkMZonfg j21Jr 5tP6wjXZ6i kdq8z Wvmqt/ba0O N/rL2 jy5UjopM0M 6a19O 3G1Tsbyzn8 gtRbY 8aSOBmn4G4 2PVSx DffvxPRfYC uwGdJ oquBA8VD3t AcqBr lSy6IJNXDW 3x/qB ziVXpUNS4X prSVV +J6m5Bu7dl eOhYG X2GaZOaXGY crZCq m8zTQLKoNM 4GDAV W4xEVE7Rso MnVUx Sv2H5A5lW8 qrqdk O7qddzX9cx 296Jl ynvtvHFNh0 2yqa5 f546XdPto3 vs4C4 3Vr2GphEOP zPLmU Y4tbcW4DWy iUq2h BHg9V6zLmj GCAy9 DVoLCgFSM5 2QoNZ 8C2dh8iL4M Z2EJj ALauZq1kFQ VaMmm crB7dTdgAp 55D/k V3aM/Gpb4y aZD2c PkR/TVmA3o MmP8f uLnjW5qUTb 5vjOA l3ChlEBlQH AKY/i 8yE+H8gPKE b+lTK HBOCJ7TLhO zgBeO Tr7R4s28vh RX2zO iwD6t69h1y 3UK33 8U9f37HjVy kuRPt zVc/emTuVI z3Dcf hSHUerRMfR tGVmt Ciu5sLUeNp 09DRG 1PNaW+pP3b W2Van dMPziqvrN9 FXLT7 i9413cvvvY NykES EjyJkp+k/z ASKAE bQzJcC0L52 tUDtw FbABCAEYZv mMBvz oUiCg1LS9C IDAS8 HbHz2MRkEu clZbj w02BshfRTr BPHpR /VPQ1+Yqir 8qXFd 8K1xh1aAmb qo2Ps hsgnpAmFjQ WNAPx lmhjX1dVa3 XdRO5 G2/nwnQFkA SOASc RmrGi4p2CZ pb6my FT7BrFi0ip r6HNF K4kZKghM3w XTBmA A+tgami2th OHrYf /DaTKYtnot vPyVd lu3fYJF1a7 r4eKv tBtuhYu/0q 68Fi7 +SiudBRd/p U2YBB d/jL0UTxx+ quX65 1La+XqOmC3 82THy CcIHlDop02 BK15G DWN6bRoUhH x+o6t qCTlNbkZ2s o698l yh/QZSPFuU bRfk0 Lt3PnQ1nbn uJ8st FebooTxLlb UR5UJ Q/J6jvAacD cHsdb +9gnCg/IMq fFuVl umoZiMoS7k RR7hc 3t1BlvQolp 0XyFN vGaMUD3WQ+ 0D4xM hktmowxnwy dsBvf hwFL+YJg8r e1meP zKU63eNIT4 e/SJ3 Wszq6yTElT bthLH nI5YpvzzpZ eZLIX GcTgOwuYBO wBTgA FUDH6RZC/U 33H4D sDyAImAbcA JwBTi XMCkDTXEXG rEoyF znAEHwHoci 8+bDg ly+Ls16nl4 PTYQd qdSSKmjRjR xmoje 1LLllgqmjb xNqkW jXZ83+iH7x tRVHa UvEPeyaob5 opN76 p8YtNg1rPa Pe/Lb iF+L719fLq Rm9JE KmgvKlP+Hp TkZXo RJcktoJlVS eOQLK KdjAWql7zR qXb4T vWg213oTH0 h/Czp ed/b/mpdVP mOIGT LDt+bSSt8+ zOqvQ d9Ai9kpFqx K9adS e59Iu9DnJj iYl2V czZAWl4kdw b6Zie zyXm7yJUn1 AVjfK PTJvgGIb/c pCm+Y Cnj0RLUTcl c18/m 9yFumhs8Hl R029k RwnZIUoUG2 qgMx/ asFjOCnTyr PUWeE rUiFn2qMFc en6e1 G8AH1WbZX+ tt7G3 jzbC8rmNL6 0rYlc 8xltKSqR5N NTfVx szU+VtX7lj J39Le wknhlViKQ8 20All QmCMKQnumU sEUf+ x8cgK6wA76 IWQEc kSoaQEVjMk J9Uov oRACe3D16l tCnpG XFlUKcUcxQ kNyeb WgMUXVwuKg JYmhp gOKdpIQTZa sSmTa cexk9iNWb0 ltVlx W0/5Neufnn uerxP lOP/sXV8fd OrS6o VGjeZs6pAt THVbr 4oLQvYX+iU U7Yai dsVvlKv8Hu Lhop9 VgkE73wrH8 /rnFx QXVYpziI7/ 4J/gw Yv6p+LxYnJ mP/N4 1Qw12rc5R9 cGXwg S5BINIfyaY o6IUn s3Cq6UfUM+ 3MiVF 7rMkM5bqQH vlD+c 1jWhk2UWB4 7KcDi khYz9HtSdK X7EkJ YGlTZJiEbD +FUuS MQNk855kPH gsK2p ZVqiSNHGWJ 8nmaX QS7Pv1MVar v/RvW t56kddYm1i qxLxp uvdBRA26cK R0+7U z4kLlU/z+y qnFHO KYfVugD7kB YDp5W jr2FP12TFF Q66/s O/E19TW3cc 8gt5I t0r4kaovKs JZb1T yPCo1rEda0 28CRF /QlH7eR8nP uGnme zEZyZhdxWQ N7nie 4G5dF9YI3h lk9ua yBwYGqLFJj fGRRp ZdyigdMtOk 22SAa 78EcZyo9e3 XsvP5 t8RPMdoiRi AsWyy LquU3vmnoR CTUCO KpzdudsjsK c4qjG TT6wbfKF7H 1O3CU 3XQXwHI8Mo KH0+Q kFKfSv6wat +18Z/ wJ4exK6nH5 dXnah R2HvuRSWm7 vmExW EOhYWhLJGT Siq9H gQWsJVCvVx wxo0y Ux38fkHOYZ YhwM1 rZaRw/pxWF SUw3h u/w9z5YBrK eXy+W 5f1WfEq1Cc LdSmY IyEKhgzAXW dOKFo F+wpXiLKil HBMmy Vrhu4USEQ0 8n2E9 fZxfwFjstp i/Suyapa VMiSZnbJLV /3Fjp tE53Y9Lqcx OdNZg 64DBgbJOHc rZLcc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 Posterior instrument present a t the level of the L4 spinous process. IMPRESSION: Procedural control film. REPORT SIGNATURE ON FILE 02/04/2011 ([id number]) Reported By: Denis Arteaga MD. Electronically Signed By: Denis Arteaga MD. CC: Pranav Angelo MD; Neel Alvarado MD Technologist: Printed Date /Time: 02/04/2011 (7967) Director Of Safety And Security: DANDRE PAGE 1 Signed Re port Name Value Range Interpretation Code Description Data Larisa rce(s) Supporting Document(s ) ID Date Data Source [id number] 02/04/2011 12:00:00 AM EDT [facility] RUN DATE: 02/14/11 [facility] NMI LIVE* *PAGE 1RUN TIME: 1526 Specimen InquiryRUN USER: INTERFACE Name: UNRULY BIRCH Status: DEP SDCRe02/04/11ge/Sex: 40/M Unit#: [id number] Location: [facility].O.B. : [birth year] Specimen: [id number] Spec Date: 02/04/11 [facility] Dr: Neel Alvarado [facility] Type: SURGICAL P Received: 02/04/11-1149 Copies to:ELLYN Beebe ND LIGAMENT [id number] DIAGNOSIS: L4-5 Lumbar stenosis.GROSS DESCRIPTIONThe specimen is received in f ormalin labelled Unrulyimani Birch, Bone andLigament L4-5, and consists of several fragments of bone and softmeasuring in a ggregate 4.5 x 2.5 x 2.0 cm. Desk Top Publisher sections willbe submitted in one cassette after decalcification.RONDA GNOSISBone, L4-L5, laminectomy:A. Bone with reactive changes.B. Skeletal muscle with no significant path ologic changes.Signed Electronically by: LATISHA MANRIQUE 02/14/11 1526 FRANCIS Mendoza OF PATHOLOGY, [address] [place] [address] [id number] # [facility] Permit #[id number] Jaeger M.D. Director Latisha Manrique M.D. Wilian hernandez Director Name Value Range Interpretation Code Description Data Larisa rce(s) Supporting Document(s ) ID Date Data Source [id number] 01/24/2011 02:14:00 PM EDT [facility] Name Value Range Interpretation Description Data Sup porting Code Source(s) Document(s ) PATIENT O POSITIVE [facility] ANTIBODY NEGATIVE [facility] SCREEN [facility] SPECIMEN 02/07/11 [facility] PREADMISSION TESTING SAMPLES FOR BLOOD B ANK WILL BE HELD FOR14 DAYS FROM THE DATE OF COLLECTION *IF* THE FOLLOWINGCRITERIA AR E MET:1) THE PATIENT HAS *NOT* BEEN IN THE LAST 3 MONTHS.2) THE PATIENT HAS *NOT* BEEN TRANSFUSED IN THE LAST 3MONTHS. PREADMISSION TESTING SAMPLES WILL *NOT* BE HELD FOR 1 4 DAYSFROM PATIENTS WHO IN THE LAST 3 MONTHS:1) HAVE BEEN 2) HAVE BEEN TRANSFUSEDTHESE PATIENTS *MUST* BE COLLECTED WITHIN 3 DAYS OF THESURGERY DATE. ID Date Data Source [id number] 01/24/2011 02:18:00 PM EDT [facility] Name Value Range Interpretation Description Data Sup porting Code Source(s) Document(s ) WHITE BLOOD 5.4 CUMM 4.8-10.8 N [facility] RED CELL COUNT 4.52 4.6-6.2 L [facility] HEMOGLOBIN 14.7 14.0-18. N [facility] G/DL [facility] HEMATOCRIT 43 % 42-52 N [facility] MEAN 95 um3 80-94 H [facility] CORPUSCULAR [facility] VOLUME Center MEAN 33 pg 27-31 H [facility] HEMOGLOB Center MEAN 34 g/dl 32-36 N [facility] REDCELL 13 % 10.5-15 N [facility] PLATELET COUNT 142 CUMM 150-450 L [facility] MEAN PLATELET 10.4 um3 7.4-10.4 N [facility] ID Date Data Source [id number] 01/24/2011 02:18:00 PM EDT [facility] Name Value Range Interpretation Description Data Sup porting Code Source(s) Document(s ) SODIUM 138 135-145 N [facility] MMOL/L [facility] POTASSIUM 4.7 3.5-5.0 N [facility] MMOL/L [facility] CHLORIDE 105 101-111 N [facility] MMOL/L [facility] CO2 (CARBON 28.0 22-32 N [facility] DIOXIDE) MMOL/L [facility] ANION GAP 5.0 2-11 N [facility] MMOL/L [facility] Anion gap measurement may be of limited value in thepresence of any alkalosis, especially in a combined acidbase disord er.. GLUCOSE 80 MG/DL 70-100 N [facility] BUN 11 MG/DL 6-24 [facility] CREATININE 0.9 MG/DL 0.50-1.40 [facility] ONE OVER CREATININE 1.11 [facility] BUN/CREATININE RATIO 12.2 8-20 N [facility] CALCIUM 8.8 MG/DL 8.1-9.9 [facility] eGFR NON- 92.5 > 60 [facility] eGFR 119.0 > 60 [facility] Because ethnic data is not always readily available,this report includes an eGFR for both -Americans andnon-A frican Americans.The National Kidney Disease Education Program (NKDEP) doesno t endorse the use of the MDRD equation for patients thatare not between the ages of 18 and 70, are , haveextremes of body size, muscle mass, or nutritional s tatus,or are non- or non-.According to the National Kidne y Foundation, irrespective ofdiagnosis, the stage of the disease is based on the lev morteza function:Stage Description GFR(mL/min/1.73 m(2))1 Kidney damage with normal or decreased GFR 902 Kidney damage with mild decr ease in GFR 60-893 Moderate decrease in GFR 30-594 Severe decrease in GFR 15-295 Kidney failure <15 (or dialysis) ID Date Data Source [id number] 01/24/2011 02:18:00 PM [facility] Name Value Range Interpretation Code Description Data Larisa rce(s) Supporting Document(s ) INR 1.05 0.82-1.17 [facility] Recommended INR for Patientson Oral Anti coagulantsProphylaxis 2.0 - 3.0Treatment of thrombosis 2.0 - 3.0Prevention of embolism 2.0 - 3.0Prevention of embolism frompros thetic heart valves 2.5 - 3.5 PROTIME 12.4 SEC 10.2-14.8 [facility] Cente r DIAGNOSIS,TREATMENT,AND THERAPY MUST BE BASED ON THE INRVALUE ALONE. ID Date Data Source [id number] 01/24/2011 02:18:00 PM [facility] Value Range Interpretation Code Description Data Larisa rce(s) Supporting Document(s ) PTT 39.0 25.15-38.[address] [facility] (APTT) 3 Center ID Date Data Source [id number]. 01/24/2011 02:06:00 PM [facility]: Neel Alvarado MD at [place] : 1970 Age: 40 Sex: M [address] Acct: [id number] Loc: [place] [address] ADM Status: REG REF Unit No: [id number] Exam Date: 01/24/2011EXAM D ATE EXAM# TYPE/EXAM CODE01/24/11 [id number] DX/JOHN ST 2 VWS [id number] INDICATION: Smoker. PROC EDURE: Dual-energy imaging of the chest has been performed and is submitted for assessment dated 01/24/2011. There are no previous studies for comparison. FI NDINGS: The current exam demonstrates clear lung sanon bilaterally. I do not a ppreciate any focal infiltrate. There are no effusions. The heart, aorta and hil a are within normal limits. IMPRESSION: NO ACUTE PULMONARY FINDINGS. REPORT SIGNATURE ON FILE 01/24/2011 ([id number]) Reported By: Norman Plummer MD. Electronically Signed By: Edward PLUMMER MD CC: Pranav Angelo MD; Neel Alvarado MD Technologist: Printed Date/Time: 01/24/2011 (5249) Director Of Safety And Security: SPEECHQ PAGE 1 Signed Report Name Value Range Interpretation Code Description Data Larisa rce(s) Supporting Document(s ) ID Date Data Source [id number] 12/13/2010 12:00:00 AM [place], [place] [address]PATIENT NAME: Unruly BirchMEDICAL RECORD NUMBER: [id number] NUMBER: [id number] OF : 1970DATE OF VISIT: 05/2010LOCATION: Pain ClinicPROVIDER: Jigna Case MD OUTPATIENT VISIT REPORTMrGaby Birch is a 40-year-old prisoner who is status post a right SI jointinjection, as well as a right L4-5 facet injection, which he reports d idnot work well for his right-sided back pain with radiation down his leg.He had these injections performed approximately 1 month ago. He comes intoday reporting that th ose blocks only gave him relief for approximately anhour or 2 and he did not have too much relief after that. In addition, thepatient reports that he has discontinued taking his Ultram as well as hisNeurontin that he was prescribed. Wh en asked the patient, he reports thathis pain is predominantly in the right lower back in the buttock area andradiates down the posterior aspect of his right leg to the level of hisknees. He reports this pain to be constant, aching and throbbing and se emsto be anywhere between 8-9/10.PHYSICAL EXAMINATION: The patient does have sign ificant right SI jointtenderness. He does have positive straight leg raise test. He does notseem to have any rotational pain.ASSESSMENT: It is our thought that this patient has significant rightsacroiliac joint tenderness. Therefore, a right sa croiliac joint injectionwas performed under fluoroscopy.PROCEDURE: Right SI joint b lock #2 in a series of 3.A new history and physical was obtained today and was revi ewed in detailwith the patient. The risks and benefit of the procedure were explai rock.The patient understood and agreed to the procedure. An informed consentwas obtai rock.PROCEDURE IN DETAIL: The patient was placed in the prone position. Usingster ile technique, the skin was prepped and draped. The right sacroiliacjoint was i dentified with fluoroscopy. The skin overlying the joint wasmarked and a tota l of 4 mL of 1.5% lidocaine was used to infiltrate theskin and the subcutaneous tissue. A 22-gauge spinal needle was theninserted through the skin and direct ed towards the right sacroiliac jointwith fluoroscopic guidance. After confirming the position of the needlewith fluoroscopy, a negative aspiration test for blood was performed. Atotal of 4 mL of 0.25% bupivacaine and 80 mg of Depo Medrol wer e injectedinto the joint. Procedure was completed without apparent difficulty or complication. The patient appeared to tolerate it well.The patient's postproce dure pain score was 0/10. The patient was verypleased the procedure. The patient at this point is going to be dischargedback to his corrections facility. We hope to see him back in 1 month torepeat a right SI joint injection and finish his series of 3. We alsorecommended to him to restart his medications and he should be restarted o nhis baseline doses of Neurontin, and to start him on an anti-inflammatory,which is Mobic 7.5 mg daily.I saw and evaluated the patient. Discussed with the resident an d agreewith residents findings as dictated in the resident's note.*AUTHENTICATION SECT ION*Electronically signed by:Jigna Case MD 12/17/2010 09:40 A Jigna Csae MDBY: [id number] Paddy Moses, MDD: 12/14/19 11 09:30 A AJ: [id number] Doc: [id number]: Pranav Angelo MDEN D OF DOCUMENT Name Value Range Interpretation Code Description Data Larisa rce(s) Supporting Document(s ) ID Date Data Source [id number] 12/13/2010 09:15:00 AM EDT [facility] Final ReportAttending: Britany GARCIA ication: SI joint pain.Procedure: Fluoroscopically-guided pain block.Techn ique/Impression: A fluoroscopic service was provided for painblock performed by Dr. Jigna Case. A single spot film wasobtained in the frontal projection de monstrating position of theneedle directed towards the right SI joint. For further details,please refer to operative notes. Final ReportAttending: Britany GARCIA ication: 40-year-old male with low back pain status post liftingof radicular pain rad iating to the right leg.MRI of the lumbar spine.Technique: Multiplanar, multiseque nce MRI study of lumbar spine wasperformed before and after intravenous administrat ion of contrast.Findings: The lumbar vertebral body height and alignment iswe ll-maintained. No compression deformity or significant listhesisnoted. The bone mar row signals are consistent with benign process andno focal infiltrative process identified.Axial images through L5-S1 intervertebral discs demonstrated somede generative changes in the facet joint especially on the left side,some degener ative changes in the disc in the form of annular tear andmild bulging annulus. No significant disc herniation is noted. Thereis no compression of the thecal sac or nerve roots.At the L4-L5 level mild asymmetric bulging annulus with associat eddegenerative changes in the facet joints, which are hypertrophic, andthickened lig amentum flavum causing moderately severe spinal canalstenosis. The foramina are m ildly narrow but no significantcompression of exiting nerve root is evident.At the L3- L4 level significant spinal canal stenosis or foraminalstenosis is evident. No naga breanne of thecal sac is noted. L2-U4hmzmys also demonstrate similar findings except mini mal bulgingannulus which is slightly asymmetric in the left foraminal region butwithout any significant compression of the nerve root. L1-L2 levelshows unremarkabl e appearances as does T12-L1. No thecal massidentified. The conus lies at the T1 2-L1 level and no mass is notedin this region.Impression: Mild degenerative gilbert nges in the lumbar spine except atL4-L5 level where moderately severe spinal canal antionette nosis is presentcaused by degenerative changes such as bulging annulus, thicken edligamentum flavum and hypertrophic degenerative changes in the facetjoints. A broad-based disc protrusion in the right foraminal andparavertebral region. This is mostly touching the exiting L4 nerveroot. At the other levels nerve roots are unre markable without anysignificant compression or displacement. Name Value Range Interpretation Code Description Data Larisa rce(s) Supporting Document(s ) ID Date Data Source [id number] 09/18/2010 08:16:00 AM [facility] Final ReportAttending: Britany GARCIA ication: SI joint pain.Procedure: Fluoroscopically-guided pain block.Techn ique/Impression: A fluoroscopic service was provided for painblock performed by Dr. Jigna Case. A single spot film wasobtained in the frontal projection de monstrating position of theneedle directed towards the right SI joint. For further details,please refer to operative notes. Final ReportAttending: Britany GARCIA ication: 40-year-old male with low back pain status post liftingof radicular pain rad iating to the right leg.MRI of the lumbar spine.Technique: Multiplanar, multiseque nce MRI study of lumbar spine wasperformed before and after intravenous administrat ion of contrast.Findings: The lumbar vertebral body height and alignment iswe ll-maintained. No compression deformity or significant listhesisnoted. The bone mar row signals are consistent with benign process andno focal infiltrative process identified.Axial images through L5-S1 intervertebral discs demonstrated somede generative changes in the facet joint especially on the left side,some degener ative changes in the disc in the form of annular tear andmild bulging annulus. No significant disc herniation is noted. Thereis no compression of the thecal sac or nerve roots.At the L4-L5 level mild asymmetric bulging annulus with associat eddegenerative changes in the facet joints, which are hypertrophic, andthickened lig amentum flavum causing moderately severe spinal canalstenosis. The foramina are m ildly narrow but no significantcompression of exiting nerve root is evident.At the L3- L4 level significant spinal canal stenosis or foraminalstenosis is evident. No naga breanne of thecal sac is noted. L2-B6hyhddb also demonstrate similar findings except mini mal bulgingannulus which is slightly asymmetric in the left foraminal region butwithout any significant compression of the nerve root. L1-L2 levelshows unremarkabl e appearances as does T12-L1. No thecal massidentified. The conus lies at the T1 2-L1 level and no mass is notedin this region.Impression: Mild degenerative gilbert nges in the lumbar spine except atL4-L5 level where moderately severe spinal canal antionette nosis is presentcaused by degenerative changes such as bulging annulus, thicken edligamentum flavum and hypertrophic degenerative changes in the facetjoints. A broad-based disc protrusion in the right foraminal andparavertebral region. This is mostly touching the exiting L4 nerveroot. At the other levels nerve roots are unre markable without anysignificant compression or displacement. Name Value Range Interpretation Code Description Data Larisa rce(s) Supporting Document(s ) ID Date Data Source [id number] 11/08/2010 12:00:00 AM [place], [place] [address]PATIENT NAME: Orville Birch RECORD NUMBER: [id number] NUMBER: [id number] OF : 1970DATE OF VISIT: 10/12LOCATION: Pain ClinicPROVIDER: Jigna Case MD OUTPATIENT VISIT REPORTCHIEF COMPLAINT: Low back and right leg pain. HISTORY OF PRESENT ILLNESS: This is a 40-year-old inmate who has had alittle o yara one year history of right ow back and leg pain since doing someheavy weightlifting . He was here in the clinic previously on August 20nd was sent to have an MRI. MRI showed significant disease at the L4-L5area in his lumbar back. He had so me facet arthropathy and somecompression on the L4 nerve root and he had some stenos is at these levels.Today we did a procedure for this patient. We did L4-5 facet blo cks on hisright side as well as an SI joint injection on the right side.The history and physical today was reviewed with the patient. Risks andbenefits of the proce dure were explained and the patient appeared tounderstand and agreed to the procedure and informed consent was obtained.The patient was placed in the prone position . Using sterile technique, theskin was prepped and draped. The right SI joints as well as the right L4and L5 facet joints were identified by fluoroscopy. The ski n overlying thejoints was marked. 8 mL of 1% Lidocaine was distributed to each of the sethree spots to the skin and subcutaneous tissues. 22-gauge spinal needleswere in serted through the skin and directed towards the L4 facet joint, L1wedkl joint and th e SI joints, all on the right side. The positions of allthese needles were confi rmed with fluoroscopy. Negative aspiration testfor blood was performed at each site one at a time and a total of 8 mL of0.25% bupivacaine and 80 mg of Depo-Medrol was injected evenly throughoutthe three spots. The procedure was completed without appa rent difficulty orcomplications and the patient appeared to tolerate it well. P ositiverelief was obtained. Pre-procedure the patient's pain score was 8-9 out of1 0 and post-procedure the patient's pain score was 0 out of 10. In regardsto the facet blocks, fluoroscopy confirmation of the needle position wasdetermined using AP a nd oblique views, and at L4 and L5 facet joints theneedle tip was seen to be at t he medial and superior gutter of thetransverse process on both of these v iews. Before injecting medication atthese two spots, the needle was withdrawn 2 mm off the bone and aspirationwas negative, as mentioned previously.IMPRESSION AND PLAN : This is a 40-year-old inmate with progressive lowback pain and radiculopat hy on the right side, tolerated two facetinjections and SI injection, all on the right side today very well. Werecommend he see a neurosurgeon in the near future to review his MRI to seeif there are any surgical options to help with his pain. He will returnhere in around a month potentially for a transforaminal steroid injectionto help with some pain that could be generated from the canal stenosisshow ing at L4-5.I saw and evaluated the patient. Discussed with the resident and agreewit h residents findings as dictated in the resident's note.*AUTHENTICATION SECTION* Electronically signed by:Jigna Case MD 11/22/2010 11:30 A Jigna Case MDBY: [id number] Joshua Crocker, MDD: 11/08/2010 1 1:01 A PJ: [id number] Doc: [id number]: MD Bernardo Hernandez MDEND OF DOCUMENT Name Value Range Interpretation Code Description Data Larisa rce(s) Supporting Document(s ) ID Date Data Source [id number] 08/20/2010 12:00:00 AM [place], [place] [address]PATIENT NAME: Unruly BirchMEDICAL RECORD NUMBER: [id number] NUMBER: [id number] OF : 1970DATE OF VISIT: 08/11LOCATION: Pain ClinicPROVIDER: Abby Case MD OUTPATIENT VISIT REPORTOVN PAIN CLINIC NOTE:CHIEF COMPLAINT: Low back and righ t leg pain.HISTORY OF PRESENT ILLNESS: Unruly is a 40[place]year[place] presents with a 1-year history of progressive rightleg and low back pain. He states that this all started with some heavyweightlifting described a s doing -lifts and feeling a popping orsnapping in his back. MRI was not don e, however, an x-ray was eventuallyperformed by the staff at the retirement showing some lumbar spondylosis. Hispain is constant at this point, worse with lifting, standing for prolongedperiods of time or bending. It is down the right leg to the lateral ashanti fand to the bottom of the foot, associated with numbness and tingling. Hedoes not rate his pain today on the numeric visual analogue scale. [place] Neurontin 800 mg twice a day is not helpful and we will recommendthat he increase this to 3 time s a day. He denies any bowel or bladderincontinence or urinary retention . Denies any numbness or tingling in thesaddle area.PAST MEDICAL HISTORY: Ap pendectomy at age 16, otherwise negative.MEDICATIONS: BuSpar and Neuron tin.FAMILY HISTORY: Noncontributory.REVIEW OF SYSTEMS: Positive headache, low back pain and right leg pain.No chest pain or shortness of breath. No saddle anesthes ia. No bowel orbladder incontinence or retention. The remainder of the review of systemsare negative.PHYSICAL EXAMINATION: General: He is sitting comfortably in t he chair.Gait testing reveals an antalgic limp on the right. Spine Exam: Range o fmotion is decreased and painful with both extension and flexion. Lumbarflexion ca uses right leg pain. Mild paravertebral spasm noted on the rightgreater than lef t. Musculoskeletal Exam: Manual muscle testing 5/5bilateral hip flexors, knee e xtensors, right dorsiflexors 4+/5, rightplantar flexors 4+/5, left plantar flexors and dorsiflexors are 5/5.Reflexes are intact and 2+ at the bilateral patella, medial hamstring andAchilles. No decrease in sensation is noted. Tone is normal.Extr emities: No cyanosis, clubbing or edema is noted. Skin is warm, dry,and well perfu sed.IMPRESSION AND PLAN: A 40-year-old inmate with progressive low back andrigh t leg pain which is likely radicular in origin. We will suggest thatthey order an MRI without contrast and plan on either transforaminalepidural steroid injection s on the right, likely at L5, versus a caudalepidural injection, likely in a se natanael of 3. Also recommend that heincrease his Neurontin to 800 mg 3 times a day an d add an anti-inflammatorysuch as Mobic or naproxen. He may also potentially benef it from low-dosetramadol as needed for pain flare-ups.The patient was seen with Dr. ALISHA Case agrees with the assessment andplan. Mr. Birch will follow up in the next thu.I saw and evaluated the patient. Discussed with the resident and agreewit h residents findings as dictated in the resident's note.*AUTHENTICATION SECTION* Electronically signed by:Abby Case MD 08/23/2010 08:44 A Abby Case MDBY: [id number] Mainor Das, MDD: 08/20/2010 10:03 A AJ: [id number] Doc: [id number]:END OF DOCUMENT Name Value Range Interpretation Code Description Data Larisa rce(s) Supporting Document(s ) Procedure Vital Signs ID Date Data Source [id number] 04/25/2016 05:12:50 PM [facility] Name Value Range Interpretation Code Description Data Source(s) WEIGHT RECORDED 200 lb 200 lb [facility] Body height 74 in 74 in [facility] ID Date Data Source [id number] 04/24/2016 12:19:12 PM [facility] Name Value Range Interpretation Code Description Data Source(s) WEIGHT RECORDED 200 lb 200 lb [facility] Body height 74 in 74 in [facility] Hospital ID Date Data Source [id number] 03/20/2016 09:56:55 PM [facility] Name Value Range Interpretation Code Description Data Source(s) WEIGHT RECORDED 230 lb 230 lb [facility] Body height 74 in 74 in [facility]
[2020-01-06] MEDS ORDERED: diazePAM 5 MG TABLET PO ONE (19:00)
[2020-01-06 19:24] VITALS: BMI 25.4
[2020-01-06] MEDS: hydrOXYzine PAMOATE 25 MG CAPSULE (FP) PO SCH ×2 (19:45→23:22)
[2020-01-06] MEDS: diazePAM 5 MG TABLET PO SCH (23:15)
[2020-01-06] MEDS: THIAMINE HCL 100 MG TABLET (FP) PO SCH (23:15)
[2020-01-06] MEDS: MELATONIN 5 MG TABLETS PO SCH (23:21)
[2020-01-07] MEDS: diazePAM 5 MG TABLET PO SCH ×4 (05:54→22:01)
[2020-01-07] MEDS: hydrOXYzine PAMOATE 25 MG CAPSULE (FP) PO SCH ×5 (05:54→22:01)
[2020-01-07] MEDS: METHOCARBAMOL 500 MG TABLET PO PRN ×2 (05:55→15:28)
[2020-01-07] MEDS: IBUPROFEN 400 MG TABLET (FP) PO PRN ×2 (05:55→15:29)
[2020-01-07] MEDS: AMOX TR/POT CLAV 875MG/125MG TABLETS (FP) PO SCH ×2 (07:44→17:53)
[2020-01-07] MEDS ORDERED: METHADONE HCL 5 MG TABLET (FOR DETOX USE ONLY) ONE (09:25)
[2020-01-07] MEDS ORDERED: METHADONE HCL 10 MG TABLET (FOR DETOX USE ONLY) ONE (09:26)
[2020-01-07] MEDS ORDERED: METHADONE (DETOX) 20 MG, METHADONE (DETOX) 5 MG PO ONE (10:00)
[2020-01-07] MEDS: PRENATAL VITAMINS W/ FOLIC ACID TABLET (FP) PO SCH (10:38)
[2020-01-07] MEDS: NICOTINE 21 MG/24 HOURS TOPICAL PATCH TD SCH (10:38)
[2020-01-07 11:41] LABS: HEMATOCRIT 37.1 % (35.4-49); HEMOGLOBIN 12.1 GM/dL (11.7-16.9); MCH 30.1 pg (25.7-33.7); MCHC 32.6 g/dl (32.0-35.9); MEAN CELL VOLUME 92.4 fl (80-96); MEAN PLT VOLUME 9.1 fl (7.5-11.1); PLATELET COUNT 196 K/MM3 (134-434); RBC 4.01 M/mm3 (4.00-5.60); RDW 13.7 % (11.9-15.9); WHITE BLOOD COUNT 6.5 K/mm3 (4.0-10.0)
[2020-01-07 12:04] LABS: ALBUMIN 2.8 g/dl (3.4-5.0); BILIRUBIN,TOTAL 0.4 mg/dL (0.2-1); BLOOD UREA NITROGEN 19.7 mg/dL (7-18); CALCIUM 8.3 mg/dL (8.5-10.1); CREATININE 0.9 mg/dL (0.55-1.3); TOT PROT 5.9 g/dl (6.4-8.2)
--- NOTE | 2020-01-07 13:36 | PN ---
[facility] CIWA - CIWA Score Nausea/Vomitin-No Nausea/No Vomiting Muscle Tremors: None Anxiety: 3 Agitation: 2 Paroxysmal Sweats: 2 Orientation: 0-Oriented Tacttile Disturbances: 1-Very Mild Itch/Numbness Auditory Disturbances: 0-None Visual Disturbances: 2-Mild Sensitivity Headache: 0-None Present CIWA-Ar Total Score: 10 S COWS - Scale Resting Pulse: 0= [place] 80 or Below Sweatin= Chills/Flushing Restless Observation: 1= Difficult to Sit Still Pupil Size: 0= Normal to Room Light Bone or Joint Aches: 2= Severe Diffuse Aches Runny Nose/ Eye Tearin= None GI Upset > 30mins: 0= None Tremor Observation of Outstretched Hands: 0= None Yawning Observation: 1= 1-2x During Session Anxiety or Irritability: 2=Irritable/Anxious Goose Flesh Skin: 0=Smooth Skin COWS Score: 7 BHS Progress Note (SOAP) Subjective: Sweating, Anxious, Body Aches. Objective: Patient A & O X 3, Observed Ambulating on Detox Unit Unassisted. In No Acute Distress. 01/07/20 13:42 Vital Signs Temperature 98 F 01/07/20 08:45 Pulse Rate 54 L 01/07/20 08:45 Respiratory Rate 18 01/07/20 08:45 Blood Pressure 106/55 L 01/07/20 08:45 O2 Sat by Pulse Oximetry (%) 96 01/07/20 07:07 Laboratory Tests 01/07/20 01/07/20 01/07/20 07:50 07:50 07:50 WBC 6.5 RBC 4.01 Hgb 12.1 Hct 37.1 MCV 92.4 MCH 30.1 MCHC 32.6 RDW 13.7 Plt Count 196 MPV 9.1 Sodium 138 Potassium 4.0 Chloride 105 Carbon Dioxide 28 Anion Gap 5 L BUN 19.7 H Creatinine 0.9 Est GFR (CKD-EPI)AfAm 114.21 Est GFR (CKD-EPI)NonAf 98.54 Random Glucose 147 H Calcium 8.3 L Total Bilirubin 0.4 AST 20 ALT 30 Alkaline Phosphatase 84 Total Protein 5.9 L Albumin 2.8 L Syphilis Serology Reactive A* Lab Results noted. RPR result: REACTIVE. Confirmatory Results Pending at this time. 01/07/20 13:42 Assessment: 01/07/20 13:46 WITHDRAWAL SYMPTOMS. HYPERGLYCEMIA. Plan: Continue Detox. Increase Daily Oral Water Intake. Fasting Glucose Level ordered for Tomorrow AM for elevated Random Glucose Level noted on Detox Admission laboratory assessment.
[2020-01-07] MEDS: diazePAM 5 MG TABLET PO PRN (15:29)
[2020-01-07] MEDS: THIAMINE HCL 100 MG TABLET (FP) PO SCH (22:01)
[2020-01-07] MEDS: MELATONIN 5 MG TABLETS PO SCH (22:02)
[2020-01-08] MEDS: diazePAM 5 MG TABLET PO SCH ×3 (05:40→22:16)
[2020-01-08] MEDS: hydrOXYzine PAMOATE 25 MG CAPSULE (FP) PO SCH ×5 (05:40→22:16)
[2020-01-08] MEDS: AMOX TR/POT CLAV 875MG/125MG TABLETS (FP) PO SCH ×2 (07:29→17:59)
[2020-01-08] MEDS ORDERED: METHADONE HCL 10 MG TABLET (FOR DETOX USE ONLY) PO ONE (10:00)
[2020-01-08] MEDS: METHOCARBAMOL 500 MG TABLET PO PRN (10:17)
[2020-01-08] MEDS: diazePAM 5 MG TABLET PO PRN ×2 (10:17→17:59)
[2020-01-08] MEDS: PRENATAL VITAMINS W/ FOLIC ACID TABLET (FP) PO SCH (10:18)
[2020-01-08] MEDS: NICOTINE 21 MG/24 HOURS TOPICAL PATCH TD SCH (10:18)
--- NOTE | 2020-01-08 11:06 | PN ---
[facility] CIWA - CIWA Score Nausea/Vomitin-No Nausea/No Vomiting Muscle Tremors: 2 Anxiety: 3 Agitation: 1-Slight > Activity Paroxysmal Sweats: 2 Orientation: 0-Oriented Tacttile Disturbances: 0-None Auditory Disturbances: 1-Very Mild Visual Disturbances: 0-None Headache: 0-None Present CIWA-Ar Total Score: 9 S COWS - Scale Resting Pulse: 0= [place] 80 or Below Sweatin= Chills/Flushing Restless Observation: 0= Sits Still Pupil Size: 0= Normal to Room Light Bone or Joint Aches: 2= Severe Diffuse Aches Runny Nose/ Eye Tearin= None GI Upset > 30mins: 0= None Tremor Observation of Outstretched Hands: 2= Slight Tremor Visible Yawning Observation: 0= None Anxiety or Irritability: 2=Irritable/Anxious Goose Flesh Skin: 0=Smooth Skin COWS Score: 7 S Progress Note (SOAP) Subjective: Complaints of tremors, sweats, anxiety, joint aches, and mild noise sensitivity. Objective: 01/08/20 11:06 Vital Signs 01/08/20 01/08/20 05:32 08:34 Temperature 97.8 F 98.0 F Pulse Rate 59 L 67 Respiratory 20 18 Rate Blood Pressure 122/80 141/64 O2 Sat by Pulse 96 96 Oximetry (%) Laboratory Last Values WBC 6.5 K/mm3 (4.0-10.0) 01/07/20 07:50 RBC 4.01 M/mm3 (4.00-5.60) 01/07/20 07:50 Hgb 12.1 GM/dL (11.7-16.9) 01/07/20 07:50 Hct 37.1 % (35.4-49) 01/07/20 07:50 MCV 92.4 fl (80-96) 01/07/20 07:50 MCH 30.1 pg (25.7-33.7) 01/07/20 07:50 MCHC 32.6 g/dl (32.0-35.9) 01/07/20 07:50 RDW 13.7 % (11.9-15.9) 01/07/20 07:50 Plt Count 196 K/MM3 (134-434) 01/07/20 07:50 MPV 9.1 fl (7.5-11.1) 01/07/20 07:50 Sodium 138 mmol/L (136-145) 01/07/20 07:50 Potassium 4.0 mmol/L (3.5-5.1) 01/07/20 07:50 Chloride 105 mmol/L (98-107) 01/07/20 07:50 Carbon Dioxide 28 mmol/L (21-32) 01/07/20 07:50 Anion Gap 5 MMOL/L (8-16) L 01/07/20 07:50 BUN 19.7 mg/dL (7-18) H 01/07/20 07:50 Creatinine 0.9 mg/dL (0.55-1.3) 01/07/20 07:50 Est GFR (CKD-EPI)AfAm 114.21 01/07/20 07:50 Est GFR (CKD-EPI)NonAf 98.54 01/07/20 07:50 Random Glucose 147 mg/dL (74-106) H 01/07/20 07:50 Calcium 8.3 mg/dL (8.5-10.1) L 01/07/20 07:50 Total Bilirubin 0.4 mg/dL (0.2-1) 01/07/20 07:50 AST 20 U/L (15-37) 01/07/20 07:50 ALT 30 U/L (13-61) 01/07/20 07:50 Alkaline Phosphatase 84 U/L (45-117) 01/07/20 07:50 Total Protein 5.9 g/dl (6.4-8.2) L 01/07/20 07:50 Albumin 2.8 g/dl (3.4-5.0) L 01/07/20 07:50 Syphilis Serology Reactive (NONREACTIVE) A* 01/07/20 07:50 RPR Titer Reactive 1:1 (NONREACTIVE) H 01/07/20 07:50 01/08/20 14:29 Labs noted with reactive RPR. ( patient was treated in the past for syphilis) Assessment: 01/08/20 14:30 Alert and oriented x 3, in no acute respiratory distress. Full ROM, ambulatory in unit with assistance. Skin warm to touch without any lesions. Withdrawal symptoms. Reactive RPR ( already treated in the past for syphilis) Plan: Continue detox protocol.
[2020-01-08] MEDS: MELATONIN 5 MG TABLETS PO SCH (22:16)
[2020-01-08] MEDS: THIAMINE HCL 100 MG TABLET (FP) PO SCH (22:16)
[2020-01-09] MEDS: diazePAM 5 MG TABLET PO SCH ×2 (05:37→17:08)
[2020-01-09] MEDS: hydrOXYzine PAMOATE 25 MG CAPSULE (FP) PO SCH ×5 (05:37→22:05)
[2020-01-09] MEDS: AMOX TR/POT CLAV 875MG/125MG TABLETS (FP) PO SCH ×2 (07:28→17:07)
[2020-01-09] MEDS ORDERED: METHADONE HCL 5 MG TABLET (FOR DETOX USE ONLY) ONE (08:27)
[2020-01-09] MEDS ORDERED: METHADONE HCL 10 MG TABLET (FOR DETOX USE ONLY) ONE (08:28)
[2020-01-09] MEDS: NICOTINE 21 MG/24 HOURS TOPICAL PATCH TD SCH (09:56)
[2020-01-09] MEDS: PRENATAL VITAMINS W/ FOLIC ACID TABLET (FP) PO SCH (09:56)
[2020-01-09] MEDS ORDERED: METHADONE (DETOX) 10 MG, METHADONE (DETOX) 5 MG PO ONE (10:00)
[2020-01-09] MEDS: diazePAM 5 MG TABLET PO PRN (10:00)
--- NOTE | 2020-01-09 12:21 | PN ---
[facility] CIWA - CIWA Score Nausea/Vomitin-No Nausea/No Vomiting Muscle Tremors: None Anxiety: 1-Mildly Anxious Agitation: 1-Slight > Activity Paroxysmal Sweats: 1-Minimal Palms Moist Orientation: 0-Oriented Tacttile Disturbances: 0-None Auditory Disturbances: 0-None Visual Disturbances: 0-None Headache: 0-None Present CIWA-Ar Total Score: 3 S COWS - Scale Resting Pulse: 1= [place] 81-100 Sweatin= No chills or Flushing Restless Observation: 1= Difficult to Sit Still Pupil Size: 0= Normal to Room Light Bone or Joint Aches: 0= None Runny Nose/ Eye Tearin= None GI Upset > 30mins: 0= None Tremor Observation of Outstretched Hands: 0= None Yawning Observation: 0= None Anxiety or Irritability: 1=Feels Anxious/Irritable Goose Flesh Skin: 0=Smooth Skin COWS Score: 3 S Progress Note (SOAP) Subjective: sweats agitation Objective: 01/09/20 12:16 Vital Signs Temperature 97.3 F L 01/09/20 09:07 Pulse Rate 85 01/09/20 09:07 Respiratory Rate 18 01/09/20 09:07 Blood Pressure 105/69 01/09/20 09:07 O2 Sat by Pulse Oximetry (%) 98 01/09/20 09:07 Laboratory Tests 01/07/20 01/07/20 01/07/20 07:50 07:50 07:50 WBC 6.5 RBC 4.01 Hgb 12.1 Hct 37.1 MCV 92.4 MCH 30.1 MCHC 32.6 RDW 13.7 Plt Count 196 MPV 9.1 Sodium 138 Potassium 4.0 Chloride 105 Carbon Dioxide 28 Anion Gap 5 L BUN 19.7 H Creatinine 0.9 Est GFR (CKD-EPI)AfAm 114.21 Est GFR (CKD-EPI)NonAf 98.54 Random Glucose 147 H Calcium 8.3 L Total Bilirubin 0.4 AST 20 ALT 30 Alkaline Phosphatase 84 Total Protein 5.9 L Albumin 2.8 L Syphilis Serology Reactive A* RPR Titer COVID-19 ([facility]) 01/07/20 01/07/20 07:50 08:20 WBC RBC Hgb Hct MCV MCH MCHC RDW Plt Count MPV Sodium Potassium Chloride Carbon Dioxide Anion Gap BUN Creatinine Est GFR (CKD-EPI)AfAm Est GFR (CKD-EPI)NonAf Random Glucose Calcium Total Bilirubin AST ALT Alkaline Phosphatase Total Protein Albumin Syphilis Serology RPR Titer Reactive 1:1 H COVID-19 ([facility]ON) Not detected labs noted aaox3 ambulating no acute distress Assessment: 01/09/20 12:21 withdrawals Plan: methadone modified as per pt request last dose ordered for 6am pt will be d/c at 8am tomorrow
[2020-01-09] MEDS ORDERED: BACITRACIN 0.9 GM PACKET TP ONE (13:00)
[2020-01-09] MEDS: MELATONIN 5 MG TABLETS PO SCH (22:05)
[2020-01-09] MEDS: THIAMINE HCL 100 MG TABLET (FP) PO SCH (22:05)
[2020-01-10] MEDS: hydrOXYzine PAMOATE 25 MG CAPSULE (FP) PO SCH (05:32)
[2020-01-10] MEDS ORDERED: diazePAM 5 MG TABLET PO ONE (06:00)
[2020-01-10] MEDS ORDERED: METHADONE HCL 10 MG TABLET (FOR DETOX USE ONLY) PO ONE ×2 (06:00→10:00)
[2020-01-10 06:21] VITALS: BP 109/77; PULSE 72; TEMP 97.8
[2020-01-10] MEDS: AMOX TR/POT CLAV 875MG/125MG TABLETS (FP) PO SCH (07:32)
--- NOTE | 2020-01-10 08:42 | DS ---
[facility] Detox Discharge Summary Admission Date: 01/06/20 Discharge Date: 01/10/20 - History Present History: Alcohol Dependence, Cannabis Dependence, Opioid Dependence - Physical Exam Results Vital Signs: Vital Signs Temperature 97.8 F 01/10/20 05:25 Pulse Rate 72 01/10/20 05:25 Respiratory Rate 20 01/10/20 05:25 Blood Pressure 109/77 01/10/20 05:25 O2 Sat by Pulse Oximetry (%) 100 01/10/20 05:25 Pertinent Admission Physical Exam Findings: Vital Signs Temperature 97.8 F 01/10/20 05:25 Pulse Rate 72 01/10/20 05:25 Respiratory Rate 20 01/10/20 05:25 Blood Pressure 109/77 01/10/20 05:25 O2 Sat by Pulse Oximetry (%) 100 01/10/20 05:25 Laboratory Tests 01/07/20 01/07/20 01/07/20 07:50 07:50 07:50 WBC 6.5 RBC 4.01 Hgb 12.1 Hct 37.1 MCV 92.4 MCH 30.1 MCHC 32.6 RDW 13.7 Plt Count 196 MPV 9.1 Sodium 138 Potassium 4.0 Chloride 105 Carbon Dioxide 28 Anion Gap 5 L BUN 19.7 H Creatinine 0.9 Est GFR (CKD-EPI)AfAm 114.21 Est GFR (CKD-EPI)NonAf 98.54 Random Glucose 147 H Calcium 8.3 L Total Bilirubin 0.4 AST 20 ALT 30 Alkaline Phosphatase 84 Total Protein 5.9 L Albumin 2.8 L Syphilis Serology Reactive A* RPR Titer COVID-19 ([facility]) 01/07/20 01/07/20 07:50 08:20 WBC RBC Hgb Hct MCV MCH MCHC RDW Plt Count MPV Sodium Potassium Chloride Carbon Dioxide Anion Gap BUN Creatinine Est GFR (CKD-EPI)AfAm Est GFR (CKD-EPI)NonAf Random Glucose Calcium Total Bilirubin AST ALT Alkaline Phosphatase Total Protein Albumin Syphilis Serology RPR Titer Reactive 1:1 H COVID-19 ([facility]) Not detected aaox3 ambulating no acute distress lungs CTA - Treatment Hospital Course: Detox Protocol Followed, Detoxed Safely, Responded well, Discharged Condition Good, Rehab Referral Accepted - Medication Discharge Medications: Ambulatory Orders NK [No Known Home Medication] 01/06/20 - Diagnosis (1) Hyperglycemia Current Visit: Yes Status: Chronic (2) Injection site abscess Current Visit: Yes Status: Chronic Qualifiers: Encounter type: initial encounter Qualified Code(s): T80.29XA - Infection following other infusion, transfusion and therapeutic injection, initial encounter (3) Abrasion of knee, bilateral Current Visit: No Status: Acute (4) Alcohol dependence with uncomplicated withdrawal Current Visit: Yes Status: Chronic (5) Cannabis dependence, uncomplicated Current Visit: Yes Status: Chronic (6) Cocaine dependence, uncomplicated Current Visit: No Status: Acute (7) Contusion of left thumb Current Visit: Yes Status: Acute Qualifiers: Encounter type: initial encounter (8) Depressed affect Current Visit: No Status: Acute (9) Heroin abuse Current Visit: No Status: Acute (10) Mild alprazolam abuse Current Visit: No Status: Acute (11) Opioid dependence with withdrawal Current Visit: Yes Status: Chronic (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 Current Visit: No Status: Acute (13) Substance induced mood disorder Current Visit: No Status: Acute (14) Substance-induced sleep disorder Current Visit: No Status: Acute (15) Syphilis contact, treated Current Visit: No Status: Acute (16) Tooth ache Current Visit: No Status: Acute (17) Uncomplicated sedative, hypnotic or anxiolytic withdrawal Current Visit: No Status: Acute (18) Use of cane as ambulatory aid Current Visit: No Status: Acute (19) Back pain Current Visit: No Status: Chronic Qualifiers: Back pain location: low back pain Chronicity: chronic Back pain laterality: bilateral Sciatica presence: without sciatica Qualified Code(s): M54.5 - Low back pain; G89.29 - Other chronic pain (20) Back pain Current Visit: No Status: Chronic (21) Methadone maintenance therapy patient Current Visit: No Status: Chronic (22) Mood disorder Current Visit: No Status: Chronic (23) Nasal polyp Current Visit: No Status: Chronic (24) Nicotine dependence Current Visit: No Status: Chronic Qualifiers: Nicotine product type: cigarettes Substance use status: in withdrawal Qualified Code(s): F17.213 - Nicotine dependence, cigarettes, with withdrawal (25) Opioid dependence on agonist therapy Current Visit: No Status: Chronic (26) History of appendectomy Current Visit: No Status: Resolved (27) History of back surgery Current Visit: No Status: Resolved (28) Bipolar disorder Current Visit: No Status: Ruled-out - AMA Did Patient Leave Against Medical Advice: No
[2020-01-11] MEDS ORDERED: METHADONE HCL 5 MG TABLET (FOR DETOX USE ONLY) PO ONE (06:00)
== END 2020-01-10 08:43 | disposition home or self-care (01) | DRG 773 ==
LOC: YASAS 14:39 → Y6N 18:39
PROVIDERS: ADMIT Allergy & Immunology; ATTEND Allergy & Immunology
PROC: HZ2ZZZZ Detoxification Services for Substance Abuse Treatment (ICD-10-PCS; principal; 2020-01-06)
DX: F10.230 Alcohol dependence with withdrawal, uncomplicated (principal); F11.23 Opioid dependence with withdrawal; F13.230 Sedative, hypnotic or anxiolytic dependence with withdrawal, uncomplicated; F12.20 Cannabis dependence, uncomplicated; F17.210 Nicotine dependence, cigarettes, uncomplicated; F19.282 Other psychoactive substance dependence with psychoactive substance-induced sleep disorder; F19.24 Other psychoactive substance dependence with psychoactive substance-induced mood disorder; F39 Unspecified mood [affective] disorder; K08.89 Other specified disorders of teeth and supporting structures; M54.5 Low back pain; G89.29 Other chronic pain; R73.9 Hyperglycemia, unspecified; Z90.49 Acquired absence of other specified parts of digestive tract; Z98.890 Other specified postprocedural states; Z99.89 Dependence on other enabling machines and devices
CPT/HCPCS: 36415; 80053; 85027; 86593; 86780; J0735; U0003